=== PATIENT | female | born 1980 | race African-American/Black ===

== ENCOUNTER 2017-03-14 10:07 | Emergency (ER) | payer SELFPAY | END 2017-03-14 11:08 | disposition left against medical advice (07) | LOC: ERS 10:07 | DX: Z53.21 Procedure and treatment not carried out due to patient leaving prior to being seen by health care provider (principal) | CPT/HCPCS: 87081; 87430 ==

== ENCOUNTER 2018-09-19 18:02 | Emergency (ER) | payer SELFPAY ==
--- NOTE | 2018-09-19 18:49 | RAD ---
PA AND LATERAL CHEST: History: Chest pain. FINDINGS: Comparison is made with exam of 12-05-03. The heart size is normal. The lungs are well expanded without lobar consolidation, pneumothoraces or pleural effusions. No acute osseous abnormality is seen. IMPRESSION: No radiographic evidence of acute cardiopulmonary process. POS: [facility]
[2018-09-19 18:54] LABS: ALT (SGPT) 16 U/L (8-55); AST (SGOT) 143 U/L (5-34); Albumin 2.8 g/dL (3.5-5.0); Alkaline Phosphatase 194 U/L (40-150); Anion Gap 14 mmol/L (10-20); BUN (Urea Nitrogen) 4 mg/dL (7.0-18.7); CK (CPK) 39 U/L (29-168); Calc. Creatinine Clearance 0 mL/min (70-130); Calcium 8.4 mg/dL (7.8-10.44); Carbon Dioxide 25 mmol/L (22-29); Chloride 97 mmol/L (98-107); Estimated GFR-MDRD Greater than 90; Globulin 4.5 g/dL (2.4-3.5); Glucose 162 mg/dL (70-105); Protein, Total 7.3 g/dL (6.0-8.3); Sodium 133 mmol/L (136-145)
[2018-09-19 18:57] LABS: #Basophils 0.1 thou/uL (0.0-0.2); #Eosinphils 0.4 thou/uL (0.0-0.7); #Lymphocytes 1.3 thou/uL (1.20-3.40); #Monocytes 0.5 thou/uL (0.11-0.59); #Neutrophils 1.3 thou/uL (1.40-6.50); %Basophils 1.7 % (0.0-1.0); %Eosinophils 10.5 % (0.0-10.0); %Lymphocytes 36.8 % (21.0-51.0); %Monocytes 13.7 % (0.0-10.0); %Neutrophils 37.3 % (42.0-75.0); Anisocytosis SLIGHT = 6-15 cells (100X) (0-5/hpf); Hemoglobin 9.4 g/dL (12.0-16.0); Hypochromia SLIGHT = 6-15 cells (100X) (0-5/hpf); MDiff Complete? YES; Mean Corpuscular HGB CONC 29.9 g/dL (32.0-36.0); Mean Corpuscular Volume 73.5 fL (78.0-98.0); Mean Platelet Volume 7.6 fL (7.4-10.4); Microcytosis SLIGHT = 6-15 cells (100X) (0-5/hpf); Platelet Count 391 thou/uL (130-400); Poikilocytosis SLIGHT = 6-15 cells (100X) (0-5/hpf); RBC Distribution Width 19.1 % (11.5-14.5); Red Blood Cell (RBC) Count 4.28 mill/uL (4.20-5.40); White Blood Cell (WBC) Count 3.5 thou/uL (4.8-10.8)
[2018-09-19] MEDS ORDERED: Ondansetron ODT 4 MG TAB ONE (20:07)
== END 2018-09-19 21:27 | disposition home or self-care (01) ==
LOC: ERS 18:02
DX: R07.89 Other chest pain (principal); F32.9 Major depressive disorder, single episode, unspecified
CPT/HCPCS: 36415; 71046; 80053; 82550; 84484; 85025; 93005; Q0162

== ENCOUNTER 2019-01-19 09:28 | Emergency (ER) | payer SELFPAY ==
[2019-01-19 10:25] LABS: ALT (SGPT) 9 U/L (8-55); AST (SGOT) 111 U/L (5-34); Albumin 2.2 g/dL (3.5-5.0); Alkaline Phosphatase 167 U/L (40-110); Anion Gap 14 mmol/L (10-20); BUN (Urea Nitrogen) 5 mg/dL (7.0-18.7); Bilirubin, Total 3.4 mg/dL (0.2-1.2); Calc. Creatinine Clearance 0 mL/min (70-130); Calcium 8.4 mg/dL (7.8-10.44); Carbon Dioxide 29 mmol/L (22-29); Chloride 94 mmol/L (98-107); Estimated GFR-MDRD Greater than 90; Globulin 4.6 g/dL (2.4-3.5); Glucose 105 mg/dL (70-105); Protein, Total 6.8 g/dL (6.0-8.3); Sodium 134 mmol/L (136-145)
[2019-01-19 10:28] LABS: Potassium 2.9 mmol/L (3.5-5.1)
[2019-01-19 10:29] LABS: Hemoglobin 8.8 g/dL (12.0-16.0); Mean Corpuscular HGB CONC 31.5 g/dL (32.0-36.0); Mean Corpuscular Hemoglobin 33.9 pg (27.0-31.0); Mean Platelet Volume 6.7 fL (7.4-10.4); Platelet Count 293 thou/uL (130-400); RBC Distribution Width 20.9 % (11.5-14.5); Red Blood Cell (RBC) Count 2.59 mill/uL (4.20-5.40); White Blood Cell (WBC) Count 5.1 thou/uL (4.8-10.8)
[2019-01-19] MEDS ORDERED: Potassium Chloride 20 MEQ TAB ONE (10:34)
[2019-01-19 10:40] LABS: Bilirubin Large (Negative); Blood, Urine Negative (Negative); Glucose, Urine (Dipstick) 100 mg/dL (Negative); Leukocyte Trace (Negative); Nitrite Negative (Negative); Protein, Urine (Dipstick) Negative (Neg-Trace)
[2019-01-19 10:42] LABS: #Basophils 0.1 thou/uL (0.0-0.2); #Eosinphils 0.4 thou/uL (0.0-0.7); #Lymphocytes 1.2 thou/uL (1.20-3.40); #Monocytes 0.7 thou/uL (0.11-0.59); #Neutrophils 2.8 thou/uL (1.40-6.50); %Basophils 1.7 % (0.0-1.0); %Lymphocytes 23.5 % (21.0-51.0); %Monocytes 12.8 % (0.0-10.0); %Neutrophils 54.9 % (42.0-75.0); Anisocytosis SLIGHT = 6-15 cells (100X) (0-5/hpf); MDiff Complete? YES; Macrocytosis SLIGHT = 6-15 cells (100X) (0-5/hpf); Target Cells SLIGHT = 2-5 cells (100X) (0-1/hpf)
[2019-01-19 10:45] LABS: Clarity Hazy (Clear)
[2019-01-19 10:46] LABS: Pregnancy Test - Urine (BHCG) Negative (Negative); Pregu Control Background? CLEAR/WHITE (CLR/WHITE); Pregu Control Bar Appear? YES (CONTROL BAR); Specific Gravity 1.025 (1.002-1.036)
[2019-01-19 10:47] LABS: Bacteria/HPF 2+ HPF (None Seen); RBC/HPF 0-3 HPF (0-3)
--- NOTE | 2019-01-19 11:58 | CT ---
CTA OF THE THORAX UTILIZING IV CONTRAST AND PE PROTOCOL AND 3D REFORMATTED IMAGING: INDICATION: History of edema of the bilateral lower extremities with dyspnea and history of cervical cancer. FINDINGS: There is a tiny sub 4 mm pulmonary nodule within the lateral right middle lobe. No additional suspic ious pulmonary nodule is evident. No pleural effusion or pneumothorax is evident. No definite centr al pulmonary embolus is evident. The timing of the contrast bullous slightly limits evaluation of th e segmental pulmonary arterial tree. There is severe fatty infiltration of the liver. There is marked hepatomegaly. No definite acute os seous abnormality is evident. IMPRESSION: 1. No central pulmonary embolus. 2. No suspicious pulmonary nodule. Small sub 4 mm pulmonary nodule seen within the lateral right mi ddle lobe in a subpleural location. 3. Hepatomegaly with prominent fatty infiltration of the liver. POS: [facility]
[2019-01-19] MEDS ORDERED: Iopamidol-370 76% 500 ML 1 ML ONE (15:51)
== END 2019-01-19 12:30 | disposition home or self-care (01) ==
LOC: ERS 09:28
DX: M79.89 Other specified soft tissue disorders (principal); F32.9 Major depressive disorder, single episode, unspecified
CPT/HCPCS: 36415; 51701; 71275; 80053; 81003; 81015; 81025; 83880; 84443; 84484; 85025; 93005; A4353

== ENCOUNTER 2019-02-02 13:27 | Inpatient (IN) | payer MEDICAID, SELFPAY ==
[~2019-02-02 13:27] MED LIST: Lidocaine 1% PF 5 ML VIAL ONE; Ondansetron PF 4 MG/2 ML Vial ONE; PHENYLEPHRINE-NS 100 MCG/ML 10 ML SYRINGE ONE; Succinylcholine Chloride 20 MG/ML 10 ml SYRINGE FS ONE; diphenhydrAMINE 50 MG/ML VIAL ONE
[2019-02-02 14:05] LABS: #Basophils 0.1 thou/uL (0.0-0.2); #Eosinphils 0.1 thou/uL (0.0-0.7); #Lymphocytes 0.9 thou/uL (1.20-3.40); #Monocytes 0.9 thou/uL (0.11-0.59); #Neutrophils 6.4 thou/uL (1.40-6.50); %Basophils 0.7 % (0.0-1.0); %Eosinophils 1.2 % (0.0-10.0); %Lymphocytes 10.7 % (21.0-51.0); %Monocytes 10.4 % (0.0-10.0); Hemoglobin 7.5 g/dL (12.0-16.0); Mean Corpuscular Hemoglobin 32.6 pg (27.0-31.0); Mean Platelet Volume 6.3 fL (7.4-10.4); Platelet Count 315 thou/uL (130-400); RBC Distribution Width 18.2 % (11.5-14.5); White Blood Cell (WBC) Count 8.3 thou/uL (4.8-10.8)
[2019-02-02 14:28] LABS: ALT (SGPT) 11 U/L (8-55); AST (SGOT) 107 U/L (5-34); Albumin 2.2 g/dL (3.5-5.0); Alkaline Phosphatase 127 U/L (40-110); Anion Gap 10 mmol/L (10-20); BUN (Urea Nitrogen) 9 mg/dL (7.0-18.7); Bilirubin, Total 1.8 mg/dL (0.2-1.2); Calc. Creatinine Clearance 0 mL/min (70-130); Calcium 7.9 mg/dL (7.8-10.44); Carbon Dioxide 26 mmol/L (22-29); Chloride 103 mmol/L (98-107); Estimated GFR-MDRD Greater than 90; Globulin 4.4 g/dL (2.4-3.5); Glucose 121 mg/dL (70-105); Potassium 3.8 mmol/L (3.5-5.1); Protein, Total 6.6 g/dL (6.0-8.3); Sodium 135 mmol/L (136-145)
[2019-02-02 15:22] LABS: Bacteria/HPF None Seen HPF (None Seen); Bilirubin Negative (Negative); Blood, Urine Negative (Negative); Clarity Clear (Clear); Glucose, Urine (Dipstick) Normal (Negative); Leukocyte 25 Leu/uL (Negative); Nitrite Negative (Negative); Protein, Urine (Dipstick) 30 mg/dL (Neg-Trace); Squamous Epithelial 0-3 HPF (0-3); Urobilinogen 6 mg/dL (Less than 2)
[2019-02-02] MEDS ORDERED: Sodium Chloride 0.9% (PF) 10 ML VIAL FS PRN (15:22)
[2019-02-02 15:24] LABS: Pregnancy Test - Urine (BHCG) Negative (Negative); Pregu Control Background? CLEAR/WHITE (CLR/WHITE); Pregu Control Bar Appear? YES (CONTROL BAR); Specific Gravity 1.026 (1.002-1.036)
[2019-02-02] MEDS ORDERED: Pantoprazole 40 MG VIAL IVP SCH (15:30)
[2019-02-02] MEDS ORDERED: Pantoprazole 80 MG, Admixture Fee 1 EACH in Sodium Chloride 0.9% 100 ML IVPB SCH (15:30)
[2019-02-02 15:46] LABS: INR-International Normal Ratio 1.4; Prothrombin Time 16.9 SEC (12.0-14.7)
[2019-02-02] MEDS ORDERED: Pantoprazole 40 MG VIAL ONE (16:12)
[2019-02-02] MEDS ORDERED: Octreotide Acetate 1,250 MCG in Sodium Chloride 0.9% 250 ML 250 ML IVPB SCH ×2 (16:45→20:00)
[2019-02-02] MEDS ORDERED: Ondansetron PF 4 MG/2 ML Vial IVP PRN (19:54)
[2019-02-02] MEDS ORDERED: Bisacodyl 5 MG TAB PO PRN (19:54)
[2019-02-02] MEDS ORDERED: Pantoprazole 80 MG in Sodium Chloride 0.9% 100 ML IVPB SCH (20:00)
[2019-02-02] MEDS ORDERED: Fentanyl 100 MCG/2 ML VIAL ONE (20:15)
--- NOTE | 2019-02-02 20:18 | HP ---
PRIMARY CARE PROVIDER: Alejandra Rayne. CHIEF COMPLAINT: Vomiting blood. HISTORY OF PRESENT ILLNESS: Ms. España is a pleasant 38-year-old lady who was seen at [facility] on 02/02/2019. Family members report that she recently had cervical biopsy. She is supposed to see Dr. Anne when the biopsy report is available, but that has not happened yet. The patient reports that she used to drink only occasionally. However, she did tell the emergency room physician that she drinks half a pint of whiskey daily. She reports that around 12:30, she started vomiting blood. She reports multiple episodes of vomiting blood, dark blood clots mixed with bright blood. She denies any chest pain. She reports generalized weakness. She denies any lightheadedness. She denies any loss of consciousness. She denies any abdominal pain. REVIEW OF SYSTEMS: All systems were reviewed and found to be negative except for the pertinent positives mentioned above. PAST MEDICAL HISTORY: None. PAST SURGICAL HISTORY: section x2. PSYCHIATRIC HISTORY: Depression. SOCIAL HISTORY: The patient drinks half a pint of whiskey daily, according to emergency room report. She also reportedly uses cocaine. No history of tobacco use. FAMILY HISTORY: No family history of premature coronary artery disease. ALLERGIES: NAPROXEN. CURRENT MEDICATIONS: 1. K-Dur 20 mEq 2 times a day. 2. Keflex 500 mg 2 times a day. 3. Lasix 20 mg daily. PHYSICAL EXAMINATION: GENERAL: On examination, Ms. España is awake and alert, not in acute distress. VITAL SIGNS: Blood pressure is 94/59, pulse 133, respiratory rate 20, and oxygen saturation 99% on room air. She is afebrile. EYES: The patient has scleral icterus and conjunctival pallor. ENT: Dry mucosal membranes. No oropharyngeal erythema or exudates. NECK: Supple, nontender, trachea is midline. RESPIRATORY: Accessory muscles of breathing are not active. Chest wall movements are symmetric bilaterally. Lungs are clear to auscultation without wheeze, rhonchi, or crepitations. CARDIOVASCULAR: S1 and S2 are heard, tachycardic and regular. Peripheral pulses palpable. ABDOMEN: Soft, nontender, bowel sounds are heard. NEUROLOGIC: Cranial nerves 2 through 12 are intact. MUSCULOSKELETAL: The patient is able to move all 4 extremities. SKIN: No rashes. LYMPHATIC: No cervical lymphadenopathy. PSYCHIATRIC: Normal mood, normal affect, the patient is oriented to person, place, and time. LABORATORY DATA: Ms. España' labs and investigations were reviewed. She has normal white count, macrocytic anemia with hemoglobin 7.5, normal platelet count, INR 1.4, sodium decreased at 135, normal potassium, normal calcium, elevated total bilirubin of 1.8, elevated AST of 107, normal ALT, elevated alkaline phosphatase of 127 and decreased albumin of 2.2. Urinalysis is positive for protein, ketones, urobilinogen, rbc and wbc, negative for nitrite and has 25 leukocytes per microliter. ASSESSMENT AND PLAN: Ms. España is a pleasant 38-year-old lady who was seen at [facility] on 02/02/2019. Her problem list includes: 1. Symptomatic anemia: Ms. España is presenting with symptomatic anemia secondary to anemia of acute blood loss from upper gastrointestinal bleed. She will be admitted to the hospital. She has been started on Protonix and octreotide drips, which I will continue. Gastroenterology Service has also been consulted for possible emergent EGD. 2. Suspected Cervical cancer: Recently had cervical biopsy, the patient will need to follow up with Oncology Service as outpatient. 3. Alcohol abuse: The patient has been counseled regarding alcohol cessation. 4. Cocaine abuse: The patient has been counseled regarding cessation of recreational drugs. The patient is being admitted to critical care unit. Many thanks for allowing me to participate in your patient's care. Please feel free to contact me with any questions or concerns. LEVEL OF RISK: Moderate. LEVEL OF COMPLEXITY: Moderate. Job ID: [id number] [facility]
--- NOTE | 2019-02-02 20:40 | CON ---
DATE OF CONSULTATION: 02/02/2019 REQUESTING PHYSICIAN: Dr. Guerrero. REASON FOR CONSULTATION: Hematemesis. HISTORY OF PRESENT ILLNESS: Abi España is a 38-year-old woman presenting with acute hematemesis today and found to have anemia and tachycardia. She has a long history of heavy alcohol abuse, evidently having about a pint of whiskey per day at least until the past few weeks. She also has a prior history of cocaine use. She was seen by my partner, Dr. Noah Alvarenga, 10 years ago back in 2008. An EGD at that time demonstrated Helicobacter pylori gastritis and esophageal stricture, which was dilated. She has not had any gastrointestinal issues since then. Recently, within the past week, she had a cervical biopsy, she says for suspected cervical cancer, but has not heard back on the results yet. She states that early this afternoon about 1230 hours, she had the sudden onset of nausea and had acute hematemesis with bright red blood and clots. There was no preceding abdominal pain with this. She has not had any abdominal pain at all today. She has not had any bowel movements either. No melena or hematochezia, though she feels like she might need to have a bowel movement soon. Upon presentation, she had already had 2 more episodes of hematemesis, and then had another witnessed episode here of 300 mL documented. She is tachycardic with heart rate 135, blood pressure 99/64. She is receiving 2 units of RBC transfusion for initial hemoglobin 7.5 and she has been started on Protonix and octreotide as well. She says she has been told she has alcoholic liver disease, but no known diagnosis of cirrhosis that she can recall or that I can see from the chart. She had CT imaging earlier this month, which suggested hepatomegaly, but normal liver contour. REVIEW OF SYSTEMS: Full review of systems including constitutional, head, eyes, ears, nose, throat, GI, , cardiovascular, respiratory, musculoskeletal, neurologic systems is negative except as noted in the HPI. PAST MEDICAL HISTORY: 1. Depression. 2. . 3. Cervical biopsy. 4. Fatty liver disease. 5. H pylori gastritis in 2008. 6. Esophageal stricture in 2008. 7. Chronic alcohol abuse. 8. Prior drug abuse. SOCIAL HISTORY: The patient drinks about a pint of whiskey every day until recently. Prior cocaine abuse. FAMILY HISTORY: Noncontributory. ALLERGIES: NAPROXEN. MEDICATIONS: 1. Potassium 20 mEq daily. 2. Keflex 500 mg twice daily. 3. Lasix 20 mg daily. PHYSICAL EXAMINATION: VITAL SIGNS: Temperature 98.7, pulse 138, blood pressure 99/64, 99% oxygen saturation on room air. GENERAL: A petite 38-year-old woman, sitting up in bed comfortably, in no distress. SKIN: No jaundice. No rashes were palpable. HEENT: Eyes, no scleral icterus. Extraocular movements intact. ENT, mucous membranes moist. No oral lesions. LYMPH: No submandibular, supraclavicular lymphadenopathy. THYROID: Nontender to palpation. HEART: Regular. Tachycardia. LUNGS: Clear to auscultation bilaterally. ABDOMEN: Nondistended. Bowel sounds present. Soft and nontender to palpation throughout. EXTREMITIES: Trace edema around the ankles. NEURO: Cranial nerves 2 through 12 intact bilaterally. No focal deficits. LABORATORY STUDIES: Hemoglobin is 7.5. Note, hemoglobin was 8.8 two weeks ago. MCV is 102, WBC 8.3, platelets 315. INR 1.4. Sodium 135, potassium 3.8, BUN only 9, creatinine 0.62, total bilirubin 1.8, alkaline phosphatase 127, AST 107, ALT 11, albumin 2.2. BNP 112.2. TSH is 0.782. Urinalysis shows 7 to 10 wbc's. ASSESSMENT AND PLAN: 1. Acute hematemesis. 2. Anemia, likely secondary to acute and chronic blood loss. 3. Alcoholic liver disease, unknown if the patient actually has cirrhosis. 4. Alcohol abuse. The patient's presentation is consistent with hemodynamically significant acute upper GI bleeding. Due to the painless nature and her long-term alcohol use, and concern for possible variceal bleeding, she also does have a prior history of H pylori. She is receiving RBC transfusion now, agrees with the Protonix and octreotide infusions. We are going to plan for upper endoscopy later this evening. The patient will probably need to be in a monitored setting. Further recommendations following EGD. Job ID: [id number]
[2019-02-02] MEDS ORDERED: Ondansetron HCl/PF 4 MG/2 ML Vial IVP PRN (21:24)
[2019-02-02] MEDS ORDERED: Morphine Sulfate 2 MG/ML SYRINGE SLOW IVP PRN (21:24)
[2019-02-02] MEDS ORDERED: Promethazine HCl 25 MG/ML VIAL SLOW IVP PRN (21:24)
[2019-02-02] MEDS ORDERED: Promethazine HCl 25 MG/ML VIAL IM PRN (21:24)
[2019-02-02 23:05] VITALS: BMI 18.5
[2019-02-02] MEDS: Sodium Chloride 0.9% 1,000 ML IV SCH (23:26)
[2019-02-03 00:16] LABS: Hemoglobin 7.5 g/dL (12.0-16.0)
--- NOTE | 2019-02-03 02:53 | OP ---
DATE OF PROCEDURE: 02/02/2019 TEACHER AIDE CLERICAL SURGEON: None. PROCEDURE PERFORMED: EGD with control of hemorrhage indications. INDICATIONS: 1. Hematemesis. 2. Acute blood loss anemia. MEDICATIONS: See Anesthesia record. FINDINGS: After discussion of the risks, benefits, and alternatives of the procedure, informed consent was obtained and witnessed. Pre-endoscopic cardiopulmonary examination was satisfactory. Time-out was performed before sedation was achieved. Sedation was achieved with Anesthesia assistance in the endoscopy unit. The patient was endotracheally intubated under general anesthesia for the procedure and placed in the left lateral decubitus position. A Pentax adult therapeutic upper endoscope was placed into the oropharynx and passed through the cricopharyngeus under direct visualization. There was fresh blood coating the entire esophagus. Extensive irrigation and suctioning were applied to clear the esophagus for examination. The esophageal mucosa is diffusely fibrotic and small in caliber. In fact, with endoscope passage down the upper esophagus, there is significant mucosal denudation. The appearance is overall suspicious for possible eosinophilic esophagitis. At 25 cm, which is in the mid esophagus, there is a large tear, which is not a result of scope trauma, with a large visible vessel actively bleeding in an arterial fashion. I quickly passed the scope down the remainder of the esophagus. There were no esophageal varices noted. I advanced the scope beyond the GE junction, where there is a Maribell-Gentile tear with a nonbleeding visible vessel. The endoscope was passed into the stomach. Forward and retroflexed views of the gastric mucosa were obtained. There was a large amount of fresh blood and clots filling up the entire gastric fundus and I was unable to clear all of these to completely clear the fundus. However, I was able to get a good retroflexed views of the GE junction area showing only the aforementioned Maribell-Gentile tear which is nonbleeding and no evidence of gastric varices. The gastric antrum appeared normal. I advanced the scope beyond the pylorus and into the first and second portions of the duodenum, which appeared normal. At this point, the endoscope was withdrawn back into the mid esophagus with the actively bleeding visible vessel was located. This area was treated with 10-Marshallese bipolar cautery and good hemostasis was achieved. The endoscope was then passed back down into the stomach and on retroflexed views of the GE junction, the Maribell-Gentile tear was brought into view. I did elect to also treat this visible vessel within that tear with bipolar cautery and good hemostasis was maintained in that area. At this point, the upper endoscope was completely withdrawn and the patient allowed to recover. The patient tolerated the procedure well. There were no immediate postprocedure complications. IMPRESSION: 1. Actively bleeding mucosal tear with visible vessel in the mid esophagus at 25 cm. Cauterized with bipolar probe, with good hemostasis. 2. Nonbleeding Maribell-Gentile tear at the GE junction, with visible vessel. Cauterized, with good hemostasis maintained in this area. 3. Diffusely fibrotic small caliber esophagus, suggestive of eosinophilic esophagitis, with some mucosal tearing induced by the endoscope passage in the upper esophagus, but no significant bleeding from this area. 4. Gastric fundus full of blood and clots, unable to completely clear the gastric fundus. 5. Normal-appearing gastric antrum, first and second portions of the duodenum. RECOMMENDATION: 1. Continue the PPI drip. 2. Do not pass any nasogastric tube. 3. Remain n.p.o. for now. 4. Monitor closely overnight. Trend H and H and transfuse as needed. Continue with aggressive resuscitation as you are doing. Job ID: [id number]
[2019-02-03 04:56] LABS: #Basophils 0.1 thou/uL (0.0-0.2); #Eosinphils 0.1 thou/uL (0.0-0.7); #Lymphocytes 2.3 thou/uL (1.20-3.40); #Monocytes 1.4 thou/uL (0.11-0.59); #Neutrophils 7.1 thou/uL (1.40-6.50); %Basophils 0.6 % (0.0-1.0); %Eosinophils 0.5 % (0.0-10.0); %Lymphocytes 21.2 % (21.0-51.0); %Monocytes 13.1 % (0.0-10.0); %Neutrophils 64.7 % (42.0-75.0); Hemoglobin 9.8 g/dL (12.0-16.0); Mean Corpuscular HGB CONC 33.1 g/dL (32.0-36.0); Mean Corpuscular Volume 90.7 fL (78.0-98.0); Mean Platelet Volume 6.8 fL (7.4-10.4); Platelet Count 261 thou/uL (130-400); Red Blood Cell (RBC) Count 3.28 mill/uL (4.20-5.40)
[2019-02-03 05:02] LABS: Anion Gap 9 mmol/L (10-20); BUN (Urea Nitrogen) 16 mg/dL (7.0-18.7); Calc. Creatinine Clearance 90 mL/min (70-130); Calcium 7.4 mg/dL (7.8-10.44); Carbon Dioxide 24 mmol/L (22-29); Chloride 111 mmol/L (98-107); Estimated GFR-MDRD Greater than 90; Glucose 121 mg/dL (70-105); Sodium 140 mmol/L (136-145)
[2019-02-03] MEDS: Sodium Chloride 0.9% 1,000 ML IV SCH ×2 (06:29→22:19)
[2019-02-03] MEDS ORDERED: FLU VACC QS2019-20(6MOS UP)/PF 60 MCG/0.5 ML SYRINGE IM ONE (09:00)
[2019-02-03] MEDS ORDERED: Benzocaine (Dental) 20% 10 gm Tube TOP PRN (09:47)
--- NOTE | 2019-02-03 09:51 | PRG ---
DATE OF SERVICE: 02/03/2019 SUBJECTIVE: Ms. España had a fairly uneventful night. Blood pressure is stabilized with continued resuscitation and 2 more units RBCs. She passed another melenic stools. She has not had any further hematemesis. No significant abdominal pain or chest pain. No fever. Hemoglobin came up to 9.8 after 4 units total RBC transfusion. She remains tachycardic, but states this is her baseline. OBJECTIVE: VITAL SIGNS: Pulse 129, blood pressure 111/62, 98% oxygen saturation on room air, and temperature 98.3. GENERAL: No acute distress, sitting up in bed comfortably. HEART: Regular tachycardia. LUNGS: Clear to auscultation bilaterally. ABDOMEN: Nondistended. Bowel sounds present. Soft, nontender to palpation. EXTREMITIES: No peripheral edema. LABORATORY STUDIES: Hemoglobin 9.8, WBC 11.0, platelets 261. INR 1.4. Sodium 140, potassium 4.0, BUN 16, and creatinine 0.68. ASSESSMENT AND PLAN: 1. Esophageal ulcer with visible vessel and active hemorrhage, status post bipolar cautery treatment last night. 2. Maribell-Gentile tear with visible vessel, status post bipolar cautery treatment last night. 3. Acute blood loss anemia, seems to stabilize this morning. Note that the patient did not have any esophageal or gastric varices noted. I was unable to completely clear the gastric fundus on exam, but the actively bleeding lesion was found in the mid esophagus. I see no evidence of further active bleeding this morning. I would continue the Protonix drip for now. She can have a clear liquid diet. Continue to monitor closely. Please call anytime for significant changes in her clinical status. Job ID: [id number]
--- NOTE | 2019-02-03 17:20 | PDOC.HOSPP ---
- Subjective Encounter Date: 02/03/19 Encounter Time: 08:40 Subjective: Pt seen for followup re: acute blood loss anemia. Feels well, no complaints. - Objective Vital Signs & Weight: Vital Signs (12 hours) Temp 02/03/19 16:00 99.1 F 02/03/19 12:00 98.5 F 02/03/19 08:00 98.7 F Weight Admit Weight 114 lb Weight 114 lb 10.246 oz Most Recent Monitor Data Heart Rate from ECG 131 NIBP 120/73 NIBP BP-Mean 88 Respiration from ECG 23 SpO2 99 I&O: 02/02/19 02/03/19 02/04/19 06:59 06:59 06:59 Intake Total 1750.1 320 Output Total 300 Balance 1750.1 20 Result Diagrams: 02/03/19 04:07 02/03/19 04:07 Additional Labs: Labs and MARs reviewed by me EKG Reviewed by me: Yes (Tele: sinus tachycardia) Hospitalist ROS - Review of Systems Cardiovascular: denies: chest pain, palpitations, orthopnea, paroxysmal noc. dyspnea, edema, light headedness Gastrointestinal: denies: nausea, vomiting, abdominal pain, diarrhea, constipation, hematochezia Genitourinary: denies: dysuria, frequency, incontinence, hematuria, retention - Medication Medications: Active Medications Generic Name Dose Route Start Last Admin Trade Name Freq PRN Reason Stop Dose Admin Sodium Chloride 1,000 mls @ 50 mls/hr 02/02/19 20:00 02/03/19 06:29 Normal Saline 0.9% IV 1,000 mls .Q20H MEGAN Administration - Exam General Appearance: NAD Eye: scleral icterus ENT: normocephalic atraumatic Neck: supple Heart - other findings: S1, S2, tachy, reg Respiratory: CTAB Gastrointestinal: soft, non-tender Extremities: no cyanosis Psychiatric: normal affect, normal behavior Hosp A/P (1) Acute blood loss anemia Code(s): D62 - ACUTE POSTHEMORRHAGIC ANEMIA Status: Acute (2) Esophageal ulcer Code(s): K22.10 - ULCER OF ESOPHAGUS WITHOUT BLEEDING Status: Acute Qualifiers: Esophageal ulcer bleeding: with bleeding Qualified Code(s): K22.11 - Ulcer of esophagus with bleeding (3) Maribell-Gentile tear Code(s): K22.6 - GASTRO-ESOPHAGEAL LACERATION-HEMORRHAGE SYNDROME Status: Acute (4) Alcohol abuse Code(s): F10.10 - ALCOHOL ABUSE, UNCOMPLICATED Status: Chronic (5) Moderate protein-calorie malnutrition Code(s): E44.0 - MODERATE PROTEIN-CALORIE MALNUTRITION Status: Chronic - Plan plan discussed w/ family, out of bed/ambulate, DVT proph w/SCDs s/p EGD. Continue Protonix. Monitor for further bleeding. ASE protocol.
[2019-02-03] MEDS: Pantoprazole 80 MG, Admixture Fee 1 EACH in Sodium Chloride 0.9% 100 ML IVPB SCH (22:19)
--- NOTE | 2019-02-04 01:33 | CON ---
DATE OF CONSULTATION: HISTORY OF PRESENT ILLNESS: Ms. Rubio is a very pleasant 38-year-old female who presented with GI bleed. She has undergone endoscopy late last night, which revealed Maribell-Gentile tear with a nonbleeding visible vessel. Stomach was full of blood. There were no varices seen. Cautery and hemostasis were obtained. She has not had any symptoms of bleeding since then. I was consulted because of her presence in the Critical Care Unit. PAST MEDICAL HISTORY: Remarkable for two C sections and depression in the past. She drinks half a pint to a pint of whiskey a day. She uses drugs, mainly cocaine. She is not a smoker. FAMILY HISTORY: Negative for lung disease in early age. ALLERGIES: REPORTS ALLERGIES TO NAPROSYN. MEDICATIONS: Have been reviewed. REVIEW OF SYSTEMS: Ten points otherwise negative. She was throwing up blood prior to admission. She says she is no longer throwing up blood. She does say that she always has a heart rate of 115 to 120. PHYSICAL EXAMINATION: VITAL SIGNS: She is in sinus rhythm, heart rate of 125, blood pressure 122/78, respiratory rate 16, oximetry is 99. HEAD AND NECK: Unremarkable. She appears older than her age. She has temporal muscle wasting. NECK: Supple. She has no lymphadenopathy. LUNGS: Clear. HEART: Regular rhythm. ABDOMEN: Soft and nontender. EXTREMITIES: Without clubbing, cyanosis, or edema. LABORATORY DATA: White count 8.3, hemoglobin 7.5, MCV was 102 on admission. She has been transfused and her hemoglobin is up to 9.8 at this point. Electrolytes were remarkable for sodium 140, potassium 4, chloride 111, bicarb 24, BUN 16, creatinine 0.68. Protime was 16.9. Urinalysis was fairly unremarkable with 4 to 6 red cells, 7 to 10 white cells. IMPRESSION: 1. Gastrointestinal bleed. 2. History of alcohol use. 3. History of drug use. PLAN: Continue supportive care. She has had no signs of recurrent bleeding, so she could be transferred out of the Critical Care Unit. TIME SPENT: This is a 70-minute consult, 50% of the time spent on the unit coordinating care. Job ID: [id number]
[2019-02-04 04:37] LABS: Anion Gap 8 mmol/L (10-20); BUN (Urea Nitrogen) 8 mg/dL (7.0-18.7); Calc. Creatinine Clearance 110 mL/min (70-130); Calcium 7.6 mg/dL (7.8-10.44); Carbon Dioxide 23 mmol/L (22-29); Chloride 111 mmol/L (98-107); Estimated GFR-MDRD Greater than 90; Glucose 87 mg/dL (70-105); Sodium 139 mmol/L (136-145)
[2019-02-04 04:43] LABS: #Basophils 0.1 thou/uL (0.0-0.2); #Eosinphils 0.2 thou/uL (0.0-0.7); #Monocytes 0.6 thou/uL (0.11-0.59); %Basophils 0.9 % (0.0-1.0); %Eosinophils 2.8 % (0.0-10.0); %Lymphocytes 35.1 % (21.0-51.0); %Monocytes 10.1 % (0.0-10.0); %Neutrophils 51.2 % (42.0-75.0); Hemoglobin 8.1 g/dL (12.0-16.0); Mean Corpuscular Hemoglobin 30.8 pg (27.0-31.0); Mean Corpuscular Volume 90.4 fL (78.0-98.0); Mean Platelet Volume 6.7 fL (7.4-10.4); Platelet Count 246 thou/uL (130-400); RBC Distribution Width 15.9 % (11.5-14.5); Red Blood Cell (RBC) Count 2.63 mill/uL (4.20-5.40); White Blood Cell (WBC) Count 5.8 thou/uL (4.8-10.8)
[2019-02-04 04:55] LABS: Potassium 2.9 mmol/L (3.5-5.1)
[2019-02-04] MEDS: Potassium Chloride 20 MEQ in Premix Bag 1 BAG IVPB SCH ×2 (05:21→07:57)
[2019-02-04] MEDS: Pantoprazole 80 MG, Admixture Fee 1 EACH in Sodium Chloride 0.9% 100 ML IVPB SCH ×2 (08:14→19:08)
--- NOTE | 2019-02-04 10:21 | PDOC.HOSPP ---
- Subjective Encounter Date: 02/04/19 Subjective: Patient feels better only c/o is genaralised weakness. - Objective Vital Signs & Weight: Vital Signs (12 hours) Temp Pulse Ox 02/04/19 08:00 98 02/04/19 06:00 98.6 F 02/04/19 00:00 98.3 F Weight Admit Weight 114 lb Weight 114 lb 10.246 oz Most Recent Monitor Data Heart Rate from ECG 123 NIBP 125/81 NIBP BP-Mean 95 Respiration from ECG 21 SpO2 99 I&O: 02/03/19 02/04/19 02/05/19 06:59 06:59 06:59 Intake Total 1750.1 2115 360 Output Total 750 200 Balance 1750.1 1365 160 Result Diagrams: 02/04/19 03:34 02/04/19 03:34 Hospitalist ROS - Review of Systems Constitutional: reports: weakness - Medication Medications: Active Medications Generic Name Dose Route Start Last Admin Trade Name Freq PRN Reason Stop Dose Admin Sodium Chloride 1,000 mls @ 50 mls/hr 02/02/19 20:00 02/03/19 22:19 Normal Saline 0.9% IV 1,000 mls .Q20H MEGAN Administration Pantoprazole Sodium 80 mg/ 100 mls @ 10 mls/hr 02/03/19 11:15 02/04/19 08:14 Miscellaneous Medication 1 IVPB 100 mls each/ Sodium Chloride INF MEGAN Administration - Exam General Appearance: awake alert Eye: PERRL ENT: normocephalic atraumatic Neck: supple, symmetric, no thyromegaly Heart: no murmur, no gallops Heart - other findings: sinus tachycardia Respiratory: no wheezes, no rales Gastrointestinal: soft, non-tender, non-distended, normal bowel sounds Extremities: no cyanosis, no clubbing Skin: no rashes Neurological: no weakness, no focal deficits, no new deficit Musculoskeletal: normal tone, normal strength Psychiatric: normal behavior Hosp A/P (1) Acute blood loss anemia Code(s): D62 - ACUTE POSTHEMORRHAGIC ANEMIA Status: Acute (2) Esophageal ulcer Code(s): K22.10 - ULCER OF ESOPHAGUS WITHOUT BLEEDING Status: Acute Qualifiers: Esophageal ulcer bleeding: with bleeding Qualified Code(s): K22.11 - Ulcer of esophagus with bleeding (3) Maribell-Gentile tear Code(s): K22.6 - GASTRO-ESOPHAGEAL LACERATION-HEMORRHAGE SYNDROME Status: Acute (4) Alcohol abuse Code(s): F10.10 - ALCOHOL ABUSE, UNCOMPLICATED Status: Chronic (5) Moderate protein-calorie malnutrition Code(s): E44.0 - MODERATE PROTEIN-CALORIE MALNUTRITION Status: Chronic (6) Hypokalemia Code(s): E87.6 - HYPOKALEMIA Status: Acute Plan: WILL supplement. - Plan old records reviewed/req, plan discussed w/ family, out of bed/ambulate 1.Patient still has some maroon to dark colored stools. 2.sinus tachycardia though patient says its chronic.
--- NOTE | 2019-02-04 18:25 | PRG ---
DATE OF SERVICE: 02/04/2019 SUBJECTIVE: Abi España has shown no external signs of bleeding. OBJECTIVE: VITAL SIGNS: She is afebrile, heart rates in the 120 range, respiratory rates in the teens, oximetry is 99. LUNGS: Clear. HEART: Regular rhythm. ABDOMEN: Soft and nontender. EXTREMITIES: Without asymmetry. LABORATORY DATA: White count 5.8, hemoglobin 8.1, platelets 246. Sodium 139, potassium 2.9, chloride 111, bicarb 23, BUN 8, creatinine 0.56, albumin is 2.2. Urinalysis did not show significant proteinuria. IMPRESSION: 1. Status post Maribell-Gentile bleed. 2. Resting tachycardia. She says she is always somewhat tachycardic. I do not see where thyroid function tests have been done, so it would be reasonable to check thyroid function studies. PLAN: She is stable to move out of the Critical Care Unit in my opinion. Her hemoglobin yesterday morning was 9.8, today it is 8.1. Job ID: [id number]
[2019-02-05] MEDS: Pantoprazole 80 MG, Admixture Fee 1 EACH in Sodium Chloride 0.9% 100 ML IVPB SCH ×2 (05:16→15:00)
[2019-02-05 06:16] LABS: Hemoglobin 7.8 g/dL (12.0-16.0); Mean Corpuscular HGB CONC 33.9 g/dL (32.0-36.0); Mean Corpuscular Hemoglobin 30.9 pg (27.0-31.0); Mean Corpuscular Volume 91.2 fL (78.0-98.0); Mean Platelet Volume 6.3 fL (7.4-10.4); Platelet Count 240 thou/uL (130-400); RBC Distribution Width 15.8 % (11.5-14.5); Red Blood Cell (RBC) Count 2.52 mill/uL (4.20-5.40); White Blood Cell (WBC) Count 4.1 thou/uL (4.8-10.8)
[2019-02-05 06:39] LABS: ALT (SGPT) Less than 7 U/L (8-55); AST (SGOT) 37 U/L (5-34); Albumin 1.8 g/dL (3.5-5.0); Alkaline Phosphatase 80 U/L (40-110); Anion Gap 6 mmol/L (10-20); BUN (Urea Nitrogen) 4 mg/dL (7.0-18.7); Bilirubin, Total 1.2 mg/dL (0.2-1.2); Calc. Creatinine Clearance 116 mL/min (70-130); Calcium 7.6 mg/dL (7.8-10.44); Carbon Dioxide 25 mmol/L (22-29); Chloride 109 mmol/L (98-107); Estimated GFR-MDRD Greater than 90; Glucose 91 mg/dL (70-105); Potassium 3.3 mmol/L (3.5-5.1); Protein, Total 4.8 g/dL (6.0-8.3); Sodium 137 mmol/L (136-145)
--- NOTE | 2019-02-05 13:07 | PDOC.HOSPP ---
- Subjective Encounter Date: 02/05/19 Subjective: no c/o hemetemesis - Objective Vital Signs & Weight: Vital Signs (12 hours) Temp Pulse Ox 02/05/19 07:40 100 02/05/19 07:16 99.1 F 02/05/19 03:40 98.0 F Weight Admit Weight 114 lb Weight 114 lb 10.246 oz Most Recent Monitor Data Heart Rate from ECG 129 NIBP 124/82 NIBP BP-Mean 96 Respiration from ECG 23 SpO2 98 I&O: 02/04/19 02/05/19 02/06/19 06:59 06:59 06:59 Intake Total 2115 1647 773 Output Total 750 621 Balance 1365 1026 773 Result Diagrams: 02/05/19 06:03 02/05/19 06:03 Hospitalist ROS - Review of Systems Other: feeling better,requesting regular diet - Medication Medications: Active Medications Generic Name Dose Route Start Last Admin Trade Name Freq PRN Reason Stop Dose Admin Sodium Chloride 1,000 mls @ 50 mls/hr 02/02/19 20:00 02/03/19 22:19 Normal Saline 0.9% IV 1,000 mls .Q20H MEGAN Administration Pantoprazole Sodium 80 mg/ 100 mls @ 10 mls/hr 02/03/19 11:15 02/05/19 05:16 Miscellaneous Medication 1 IVPB 100 mls each/ Sodium Chloride INF MEGAN Administration - Exam Eye: PERRL, anicteric sclera ENT: normocephalic atraumatic, no oropharyngeal lesions, moist mucosa Neck: supple, symmetric, no JVD, no thyromegaly, no lymphadenopathy, no carotid bruit Heart: RRR, no murmur, no gallops, no rubs, normal peripheral pulses Respiratory: CTAB, no wheezes, no rales, no ronchi, normal chest expansion, no tachypnea, normal percussion Gastrointestinal: soft, non-tender, non-distended, normal bowel sounds, no palpable masses, no hepatomegaly, no splenomegaly, no bruit Extremities: no cyanosis, no clubbing, no edema Skin: normal turgor, no lesions, no rashes Neurological: cranial nerve grossly intact, normal sensation to touch, no weakness, no focal deficits, no new deficit Musculoskeletal: normal tone, normal strength, no muscle wasting Psychiatric: normal affect, normal behavior, A&O x 3 Hosp A/P (1) Acute blood loss anemia Code(s): D62 - ACUTE POSTHEMORRHAGIC ANEMIA Status: Acute Plan: this seems to stabilize. (2) Esophageal ulcer Code(s): K22.10 - ULCER OF ESOPHAGUS WITHOUT BLEEDING Status: Ruled-out Qualifiers: Esophageal ulcer bleeding: with bleeding Qualified Code(s): K22.11 - Ulcer of esophagus with bleeding (3) Maribell-Gentile tear Code(s): K22.6 - GASTRO-ESOPHAGEAL LACERATION-HEMORRHAGE SYNDROME Status: Acute Plan: we will progress patient to regular diet in am. (4) Alcohol abuse Code(s): F10.10 - ALCOHOL ABUSE, UNCOMPLICATED Status: Chronic (5) Moderate protein-calorie malnutrition Code(s): E44.0 - MODERATE PROTEIN-CALORIE MALNUTRITION Status: Chronic (6) Hypokalemia Code(s): E87.6 - HYPOKALEMIA Status: Acute - Plan old records reviewed/req, out of bed/ambulate 1.Patient still has some maroon to dark colored stools. 2.sinus tachycardia though patient says its chronic. 3.ECHO eval pending. 4.Can be transferred to med-surg.
[2019-02-05] MEDS: Sodium Chloride 0.9% 1,000 ML IV SCH ×2 (14:39)
--- NOTE | 2019-02-05 20:00 | PRG ---
DATE OF SERVICE: 02/05/2019 SUBJECTIVE: This is a 38-year-old black female with upper GI bleeding due to a tear at the mid esophagus and also Maribell-Gentile tear. She underwent BICAP therapy by Dr. West Templeton 2 days ago and she has done well. She is not having any more black stools. She is not having nausea or vomiting. No chest pain. No abdominal pain. She is tolerating full liquid diet. She offers no complaints. PHYSICAL EXAMINATION: VITAL SIGNS: Pulse is 126, blood pressure is 124/89. CARDIOVASCULAR SYSTEM: First and second heart sounds normal. LUNGS: Clear to auscultation. ABDOMEN: Soft. No organomegaly. No tenderness. No masses. LABORATORY DATA: Today shows mild drop in hemoglobin from 8.1 to 7.8, hematocrit 23. Chem 7 is normal except mild hypokalemia. RECOMMENDATIONS: 1. Continue PPI. 2. Advance diet to mechanical soft diet. Job ID: [id number]
--- NOTE | 2019-02-05 20:57 | PRG ---
DATE OF SERVICE: 02/05/2019 SUBJECTIVE: Abi España has no complaints. She says she is feeling well. She denies passing any blood. OBJECTIVE: VITAL SIGNS: She is afebrile, heart rate is 125, respiratory rate is 18, oximetry is 100, and blood pressure 124/84. LUNGS: Clear. HEART: Rapid rhythm. Regular rate. ABDOMEN: Soft. LABORATORY DATA: White count 4.1, hemoglobin 7.8, and platelets 240,000. Electrolytes; sodium 137, potassium 3.3, chloride 109, bicarb 25, BUN 4, creatinine 0.53, and albumin is 1.8. TSH is 1.4. IMPRESSION: 1. Gastrointestinal bleed secondary to Maribell-Gentile tear. 2. Resting tachycardia that she says is chronic. 3. Hypoalbuminemia with no significant proteinuria, arguing for significant liver disease. PLAN: An echocardiogram was ordered to rule out subclinical cardiomyopathy. We will follow. Job ID: [id number]
[2019-02-06] MEDS: Pantoprazole 80 MG, Admixture Fee 1 EACH in Sodium Chloride 0.9% 100 ML IVPB SCH ×2 (02:11→12:00)
[2019-02-06] MEDS: Sodium Chloride 0.9% 1,000 ML IV SCH (05:08)
[2019-02-06 06:52] LABS: #Basophils 0.1 thou/uL (0.0-0.2); #Eosinphils 0.3 thou/uL (0.0-0.7); #Lymphocytes 1.3 thou/uL (1.20-3.40); #Monocytes 0.5 thou/uL (0.11-0.59); %Basophils 1.5 % (0.0-1.0); %Eosinophils 7.5 % (0.0-10.0); %Lymphocytes 30.9 % (21.0-51.0); %Monocytes 11.5 % (0.0-10.0); %Neutrophils 48.7 % (42.0-75.0); Hemoglobin 7.6 g/dL (12.0-16.0); Mean Corpuscular HGB CONC 33.6 g/dL (32.0-36.0); Mean Corpuscular Hemoglobin 30.9 pg (27.0-31.0); Mean Corpuscular Volume 91.9 fL (78.0-98.0); Mean Platelet Volume 6.5 fL (7.4-10.4); Platelet Count 270 thou/uL (130-400); RBC Distribution Width 16.2 % (11.5-14.5); Red Blood Cell (RBC) Count 2.47 mill/uL (4.20-5.40); White Blood Cell (WBC) Count 4.1 thou/uL (4.8-10.8)
[2019-02-06 07:57] VITALS: BP 123/84; TEMP 98.4
--- NOTE | 2019-02-06 10:17 | PRG ---
DATE OF SERVICE: 02/06/2019 SUBJECTIVE: This morning, she is better. OBJECTIVE: She got a resting tachycardia for 117, temperature 98, respirations 16, saturations 100%, blood pressure 120/84. Denies any pain or difficulty breathing. H and H are 7 and 22, platelet count 270. TSH is normal. IMPRESSION: Status post gastrointestinal bleed, resting tachycardia. EF is normal. Pulmonary Critical Care, she is stable. Hopefully, she can be discharged home in the next 24 to 48 hours. Job ID: [id number]
--- NOTE | 2019-02-06 11:59 | PRG ---
DATE OF SERVICE: 02/04/2019 SUBJECTIVE: This is a 38-year-old female who underwent EGD by Dr. West Templeton, was found to have bleeding and was treated with BICAP therapy. She has done well overnight. She is on clear liquid diet. She has no abdominal pain. She has had some stool. OBJECTIVE: VITAL SIGNS: Pulse , blood pressure . HEENT: Conjunctivae are clear. . EXTREMITIES: Reveal no . CLINICAL IMPRESSION: Upper gastrointestinal bleeding, status post BICAP therapy. RECOMMENDATIONS: 1. Advance . 2. . Job ID: [id number]
--- NOTE | 2019-02-06 13:26 | PRG ---
DATE OF SERVICE: 02/06/2019 SUBJECTIVE: Ms. España did very well this weekend. She has been advancing her diet. She is tolerating her regular diet for dinner yesterday and breakfast today. There is no chest pain or dysphagia. No fevers or abdominal pain. Hemoglobin has remained essentially stable. OBJECTIVE: VITAL SIGNS: Temperature 98.4, pulse 117, 100% oxygen saturation on room air, blood pressure is 123/84. GENERAL: No acute distress, sitting up in bed comfortably. HEART: Regular, tachycardia. LUNGS: Clear to auscultation bilaterally. ABDOMEN: Soft, nontender to palpation. EXTREMITIES: No peripheral edema. LABORATORY STUDIES: Hemoglobin 7.6, WBC 4.1, platelets 270. INR 1.4. Sodium 137, potassium 3.3, BUN down to 9, creatinine 0.53, total bilirubin 1.2, alkaline phosphatase 80, AST 37, ALT less than 7. TSH 0.427. ASSESSMENT/PLAN: 1. Multiple Maribell-Gentile tears with active hemorrhage from mid esophagus, status post EGD with cautery of the midesophagus performed 4 days ago on 02/02/2019. 2. Acute blood loss anemia, stable. The patient is doing well, no further evidence of any active bleeding since initial presentation and EGD. I advised that she is going to need to continue on twice daily PPI therapy as an outpatient after discharge. She might do best with Prevacid SoluTab 30 mg twice daily. She will need to be on high-dose PPI therapy at least the next couple of months, and we will plan to see her back in the GI clinic in 2 to 3 weeks to see how she has done with preclinic CBC. In the meantime, I asked her to chew her food thoroughly, also advised her to completely abstain from all alcohol going forward. GI will sign off. No barriers to hospital discharge from a GI perspective. Job ID: [id number]
[2019-02-06] MEDS ORDERED: Sucralfate 1 GM/10 ML UDCUP PO SCH (21:00)
--- NOTE | 2019-02-07 03:59 | DIS ---
DATE OF ADMISSION: 02/02/2019 DATE OF DISCHARGE: 02/06/2019 DISCHARGING PHYSICIAN: Jarrett Duarte. ADMISSION DIAGNOSES: 1. Acute symptomatic anemia. 2. Suspected cervical cancer. 3. Alcohol abuse. 4. Cocaine abuse. CONSULTATIONS: 1. At [facility], Dr. Oralia Rodgers, Gastroenterology. 2. Dr. Alexander Snowden, Pulmonary Critical Care. 3. Dr. Salbador Ghotra, Pulmonary Critical Care. PROCEDURES: 1. At [facility], status post EGD with a diagnosis of actively bleeding mucosal tear with visible vessel in the mid esophagus at 25 cm, cauterized with bipolar probe with good hemostasis. 2. Nonbleeding Maribell-Gentile tear at the GE junction with visible vessel cauterized with good hemostasis maintained in this area. 3. Diffuse fibrotic small caliber esophagus suggestive of eosinophilic esophagitis with some mucosal tearing induced by the endoscopy passage in upper area but no significant bleeding from this area. Gastric fundus is full of blood and clots. Unable to completely clear the gastric fundus. RECOMMENDATIONS: 1. Continue PPIs and Carafate. 2. Gastroenterology specific recommendations, to follow up as an outpatient in 2 weeks. DISCHARGING DIAGNOSES: 1. Acute upper gastrointestinal bleed secondary to multiple esophageal tears along with esophageal ulcer. The patient at this point of time prescribed oral pantoprazole along with Carafate. 2. Acute blood loss anemia. Close monitoring of the patient's hemoglobin was noted and it was stabilized. 3. History of alcohol abuse. 4. History of recreational drug abuse. 5. Protein calorie malnutrition. 6. Hypokalemia, supplement and then treated. HOSPITAL COURSE: This is a 38-year-old female admitted to the Hospitalist Services secondary to significant upper GI bleed with hematemesis, was evaluated and subsequently admitted to ICU for more close monitoring secondary to significant acute blood loss anemia. The patient was further referred to Gastroenterology evaluation where she had emergent endoscopy evaluation done showing evidence of significant Maribell-Gentile tear secondary to alcohol abuse and drug abuse along with visible ulcers which were cauterized and hemostasis was obtained without any further bleeding. The patient was started on IV pantoprazole along with the Carafate, which was eventually transitioned to oral pantoprazole as the patient was tolerating oral diet very well. The patient tolerated her diet very well and the patient's hemoglobin and hematocrit were followed up which were optimized over the course of her hospitalization. The patient at this point of time was extensively educated about abstaining from any alcohol or drug abuse and she did comprehend this education multiple times. At the same time, she was prescribed pantoprazole along with Carafate, which she tolerated very well. The patient remained hemodynamically stable over the course of her hospitalization and was advised. DISCHARGE PLAN: For further follow up with Gastroenterology as well as outpatient Gynecology for suspicion of cervical cancer but questionable though and patient did take appointments for the same. DISPOSITION: Discharged home. PHYSICAL EXAMINATION: CVS: S1, S2. CHEST: Bilateral air entry present. ABDOMEN: Soft. EXTREMITIES: No cyanosis. ALLERGIES: NAPROXEN. ACTIVITY: As tolerated to fall precautions. DIET: Regular diet. Extensive chewing has been noted to the patient. IMMUNIZATION HISTORY: Up-to-date. DISCHARGE MEDICATIONS: 1. Pantoprazole 40 mg b.i.d. 2. Sucralfate 1 g b.i.d. DISCHARGE PLAN: The patient has been extensively educated about abstaining from alcohol and recreational drug abuse. Also advised about followup with Gastroenterology, Gynecology, Oncology and schedules have been made. TIME SPENT: The whole discharge process including discharge coordination took me more than 35 minutes. Job ID: [id number] [facility]
== END 2019-02-06 17:56 | disposition home or self-care (01) | DRG 381 ==
LOC: ERS 13:27 → CCU 22:37 → SURG A 02-04 12:19 → IMCU/EMU 02-04 12:28 → T4-A 02-05 16:07
PROVIDERS: ADMIT Internal Medicine; ATTEND Internal Medicine
PROC: 0DJ08ZZ Inspection of Upper Intestinal Tract, Via Natural or Artificial Opening Endoscopic (ICD-10-PCS; principal; 2019-02-02)
PROC: 0W3P8ZZ Control Bleeding in Gastrointestinal Tract, Via Natural or Artificial Opening Endoscopic (ICD-10-PCS; 2019-02-02)
DX: K22.11 Ulcer of esophagus with bleeding (principal); D62 Acute posthemorrhagic anemia; E44.0 Moderate protein-calorie malnutrition; Z68.1 Body mass index [BMI] 19.9 or less, adult; K22.6 Gastro-esophageal laceration-hemorrhage syndrome; F32.9 Major depressive disorder, single episode, unspecified; C53.9 Malignant neoplasm of cervix uteri, unspecified; F10.10 Alcohol abuse, uncomplicated; F14.10 Cocaine abuse, uncomplicated; K22.8 Other specified diseases of esophagus; E87.6 Hypokalemia; K70.9 Alcoholic liver disease, unspecified; K20.0 Eosinophilic esophagitis
CPT/HCPCS: 36415; 36430; 80048; 80053; 81003; 81015; 81025; 84443; 85025; 85027; 85610; 86850; 86900; 86901; 93306; C9113; J1200; J2001; J2354; J2405; J3010; J3480; J3490; J7050; P9016; P9059

== ENCOUNTER 2019-02-11 09:55 | Emergency (ER) | payer MEDICAID ==
[2019-02-11 12:26] LABS: #Basophils 0.1 thou/uL (0.0-0.2); #Eosinphils 0.7 thou/uL (0.0-0.7); #Lymphocytes 1.5 thou/uL (1.20-3.40); #Monocytes 0.6 thou/uL (0.11-0.59); #Neutrophils 2.7 thou/uL (1.40-6.50); %Basophils 1.2 % (0.0-1.0); %Eosinophils 12.8 % (0.0-10.0); %Lymphocytes 27.5 % (21.0-51.0); %Monocytes 9.9 % (0.0-10.0); %Neutrophils 48.7 % (42.0-75.0); Hemoglobin 8.8 g/dL (12.0-16.0); Mean Corpuscular HGB CONC 32.5 g/dL (32.0-36.0); Mean Corpuscular Hemoglobin 30.6 pg (27.0-31.0); Mean Corpuscular Volume 94.2 fL (78.0-98.0); Mean Platelet Volume 6.2 fL (7.4-10.4); Platelet Count 347 thou/uL (130-400); RBC Distribution Width 16.6 % (11.5-14.5); Red Blood Cell (RBC) Count 2.88 mill/uL (4.20-5.40); White Blood Cell (WBC) Count 5.5 thou/uL (4.8-10.8)
[2019-02-11 12:28] LABS: Bacteria/HPF None Seen HPF (None Seen); Bilirubin Negative (Negative); Blood, Urine Negative (Negative); Clarity Clear (Clear); Glucose, Urine (Dipstick) Normal (Negative); Leukocyte 250 Leu/uL (Negative); Nitrite Negative (Negative); Protein, Urine (Dipstick) Negative (Neg-Trace); RBC/HPF 0-3 HPF (0-3); Squamous Epithelial 0-3 HPF (0-3)
[2019-02-11 12:30] LABS: Pregnancy Test - Urine (BHCG) Negative (Negative); Pregu Control Background? CLEAR/WHITE (CLR/WHITE); Pregu Control Bar Appear? YES (CONTROL BAR); Specific Gravity 1.011 (1.002-1.036)
[2019-02-11 12:31] LABS: INR-International Normal Ratio 1.2; Prothrombin Time 14.8 SEC (12.0-14.7)
[2019-02-11 12:32] LABS: PTT 40.9 SEC (22.9-36.1)
[2019-02-11 12:37] LABS: Amphetamine Not Detected (NotDetected); Barbiturates Screen Not Detected (NotDetected); Benzodiazepine Screen Not Detected (NotDetected); Cocaine Metabolite Screen Detected (NotDetected); Medtox Control Line Valid? VALID (VALID); Medtox Reader # READER 4; Methadone Not Detected (NotDetected); Methamphetamine Not Detected (NotDetected); Opiate Screen Not Detected (NotDetected); Oxycodone Screen Not Detected (NotDetected); Phencyclidine (PCP) Not Detected (NotDetected); THC/Cannabinoid Screen Not Detected (NotDetected); Tricyclic Screen Not Detected (NotDetected)
[2019-02-11 12:47] LABS: Acetaminophen Less than 6.0 mcg/mL (10.0-30.0); Alcohol Less than 10 mg/dL (Less than 10); Salicylate Less than 8.0 mg/dL (15.0-30.0)
[2019-02-11 12:54] LABS: ALT (SGPT) 7 U/L (8-55); AST (SGOT) 43 U/L (5-34); Albumin 2.4 g/dL (3.5-5.0); Alcohol Less than 10 mg/dL (Less than 10); Alkaline Phosphatase 79 U/L (40-110); Anion Gap 8 mmol/L (10-20); BUN (Urea Nitrogen) 5 mg/dL (7.0-18.7); Bilirubin, Total 1.1 mg/dL (0.2-1.2); Calc. Creatinine Clearance 0 mL/min (70-130); Calcium 8.2 mg/dL (7.8-10.44); Carbon Dioxide 31 mmol/L (22-29); Chloride 105 mmol/L (98-107); Estimated GFR-MDRD Greater than 90; Globulin 4.1 g/dL (2.4-3.5); Glucose 90 mg/dL (70-105); Lipase 60 U/L (8-78); Magnesium 1.6 mg/dL (1.6-2.6); Potassium 3.6 mmol/L (3.5-5.1); Protein, Total 6.5 g/dL (6.0-8.3); Sodium 140 mmol/L (136-145)
--- NOTE | 2019-02-11 13:24 | RAD ---
CHEST 1 VIEW: INDICATION: History of blood transfusion and concern for volume overload. COMPARISON: Prior chest radiograph dated 09/19/2018. FINDINGS: There is mild cardiomegaly and mild pulmonary vascular congestion. There is mild interstitial edema. No florid or pleural effusion is evident. No acute osseous abnormality is evident. IMPRESSION: Cardiomegaly with mild pulmonary vascular congestion and mild interstitial edema without florid pulmo nary edema or pleural effusions. POS: CET
== END 2019-02-11 14:00 | disposition home or self-care (01) ==
LOC: ERS 09:55
DX: E87.70 Fluid overload, unspecified (principal); F10.10 Alcohol abuse, uncomplicated; F14.10 Cocaine abuse, uncomplicated; F32.9 Major depressive disorder, single episode, unspecified; Y90.0 Blood alcohol level of less than 20 mg/100 ml; Z79.899 Other long term (current) drug therapy
CPT/HCPCS: 36415; 71045; 80053; 80306; 80307; 81003; 81015; 81025; 83690; 83735; 83880; 84443; 84484; 85025; 85610; 85730

== ENCOUNTER 2019-02-16 15:44 | Emergency (ER) | payer MEDICAID, SELFPAY ==
[2019-02-16 16:12] LABS: #Basophils 0.1 thou/uL (0.0-0.2); #Eosinphils 0.7 thou/uL (0.0-0.7); #Lymphocytes 1.8 thou/uL (1.20-3.40); #Monocytes 0.8 thou/uL (0.11-0.59); #Neutrophils 3.2 thou/uL (1.40-6.50); %Basophils 1.2 % (0.0-1.0); %Eosinophils 10.1 % (0.0-10.0); %Lymphocytes 27.5 % (21.0-51.0); %Monocytes 12.5 % (0.0-10.0); %Neutrophils 48.7 % (42.0-75.0); Hemoglobin 9.3 g/dL (12.0-16.0); Mean Corpuscular Hemoglobin 29.2 pg (27.0-31.0); Mean Corpuscular Volume 91.3 fL (78.0-98.0); Mean Platelet Volume 6.3 fL (7.4-10.4); Platelet Count 357 thou/uL (130-400); RBC Distribution Width 17.1 % (11.5-14.5); Red Blood Cell (RBC) Count 3.19 mill/uL (4.20-5.40); White Blood Cell (WBC) Count 6.7 thou/uL (4.8-10.8)
[2019-02-16 16:36] LABS: ALT (SGPT) 7 U/L (8-55); AST (SGOT) 57 U/L (5-34); Albumin 2.9 g/dL (3.5-5.0); Alkaline Phosphatase 99 U/L (40-110); Anion Gap 11 mmol/L (10-20); BUN (Urea Nitrogen) 5 mg/dL (7.0-18.7); Calc. Creatinine Clearance 0 mL/min (70-130); Calcium 8.9 mg/dL (7.8-10.44); Carbon Dioxide 28 mmol/L (22-29); Chloride 102 mmol/L (98-107); Estimated GFR-MDRD Greater than 90; Globulin 4.8 g/dL (2.4-3.5); Glucose 99 mg/dL (70-105); Potassium 3.7 mmol/L (3.5-5.1); Protein, Total 7.7 g/dL (6.0-8.3); Sodium 137 mmol/L (136-145)
== END 2019-02-16 16:55 | disposition home or self-care (01) ==
LOC: ERS 15:44
DX: D64.9 Anemia, unspecified (principal); F32.9 Major depressive disorder, single episode, unspecified; Z79.899 Other long term (current) drug therapy
CPT/HCPCS: 36415; 80053; 85025; 86850; 86900; 86901; 99284

== ENCOUNTER 2019-03-03 13:21 | Outpatient (CLI) | payer MEDICAID ==
--- NOTE | 2019-03-03 14:18 | MMO ---
Bilateral MAMMO Bilat Screen DDI. CLINICAL HISTORY: Patient is 38 years old and is seen for screening. The patient has the following family history of breast cancer: paternal grandmother. VIEWS: The views performed were: bilateral craniocaudal and bilateral mediolateral oblique. This study has been interpreted with the assistance of computer-aided detection. MAMMOGRAM FINDINGS: The breasts are heterogeneously dense, which could obscure a lesion on mammography. There are no suspicious masses, suspicious calcifications, or new areas of architectural distortion. IMPRESSION: THERE IS NO MAMMOGRAPHIC EVIDENCE OF MALIGNANCY. A ROUTINE FOLLOW-UP MAMMOGRAM IN 1 YEAR IS RECOMMENDED. ACR BI-RADS Category 1 - Negative MAMMOGRAPHY NOTE: 1. A negative mammogram report should not delay a biopsy if a dominant of clinically suspicious mass is present. 2. Approximately 10% to 15% of breast cancers are not detected by mammography. 3. Adenosis and dense breasts may obscure an underlying neoplasm. Reported by: DIMITRIOS AREVALO MD Electonically Signed: [id number]
== END 2019-03-03 13:22 | disposition home or self-care (01) ==
LOC: BICMAMMO 13:21
DX: Z12.31 Encounter for screening mammogram for malignant neoplasm of breast (principal); Z80.3 Family history of malignant neoplasm of breast
CPT/HCPCS: 77067

== ENCOUNTER 2019-06-18 16:42 | Emergency (ER) | payer MEDICAID, SELFPAY ==
[2019-06-18] MEDS ORDERED: Pantoprazole 40 MG VIAL ONE (17:12)
[2019-06-18 17:51] LABS: #Basophils 0.1 thou/uL (0.0-0.2); #Eosinphils 0.2 thou/uL (0.0-0.7); #Monocytes 0.4 thou/uL (0.11-0.59); #Neutrophils 1.6 thou/uL (1.40-6.50); %Basophils 1.6 % (0.0-1.0); %Eosinophils 4.9 % (0.0-10.0); %Monocytes 13.7 % (0.0-10.0); %Neutrophils 48.8 % (42.0-75.0); Mean Corpuscular HGB CONC 32.3 g/dL (32.0-36.0); Mean Corpuscular Hemoglobin 29.4 pg (27.0-31.0); Mean Platelet Volume 7.7 fL (7.4-10.4); Platelet Count 216 thou/uL (130-400); Red Blood Cell (RBC) Count 3.75 mill/uL (4.20-5.40); White Blood Cell (WBC) Count 3.2 thou/uL (4.8-10.8)
[2019-06-18 17:56] LABS: INR-International Normal Ratio 1.2; PTT 39.4 SEC (22.9-36.1); Prothrombin Time 15.4 SEC (12.0-14.7)
[2019-06-18 18:06] LABS: Anisocytosis MODERATE=16-30 cells (100X) (0-5/hpf); MDiff Complete? YES; Platelet Morphology Comment Appears Adequate; Polychromasia SLIGHT = 2-3 cells (100X) (0-2/hpf)
--- NOTE | 2019-06-18 18:12 | RAD ---
PORTABLE CHEST: Comparison: 02-11-19 History: Nausea, vomiting, blood in stool. FINDINGS: Heart size and mediastinum are within normal limits. The lungs are clear of infiltrates. Bone appear somewhat demineralized. IMPRESSION: No active intrathoracic disease. POS: VON
[2019-06-18 18:13] LABS: ALT (SGPT) 15 U/L (8-55); AST (SGOT) 195 U/L (5-34); Albumin 3.1 g/dL (3.5-5.0); Alkaline Phosphatase 169 U/L (40-110); Anion Gap 11 mmol/L (10-20); BUN (Urea Nitrogen) 4 mg/dL (7.0-18.7); Bilirubin, Total 0.6 mg/dL (0.2-1.2); Calc. Creatinine Clearance 0 mL/min (70-130); Calcium 8.8 mg/dL (7.8-10.44); Carbon Dioxide 28 mmol/L (22-29); Chloride 100 mmol/L (98-107); Estimated GFR-MDRD Greater than 90; Globulin 4.3 g/dL (2.4-3.5); Glucose 98 mg/dL (70-105); Lipase 25 U/L (8-78); Potassium 4.2 mmol/L (3.5-5.1); Protein, Total 7.4 g/dL (6.0-8.3); Sodium 135 mmol/L (136-145)
--- NOTE | 2019-06-21 14:03 | EKG ---
Test Reason : Blood Pressure : / mmHG Vent. Rate : 112 BPM Atrial Rate : 112 BPM P-R Int : 138 ms QRS Dur : 076 ms QT Int : 348 ms P-R-T Axes : 082 011 077 degrees QTc Int : 475 ms Sinus tachycardia Septal infarct , age undetermined Abnormal ECG Confirmed by ANDRA FABIAN, SIA ([id number]), desk editor YOLANDA DRIVER ([id number]) on 06/21/2019 2:03:01 PM Referred By: Confirmed By:SIA SILVERMAN MD
== END 2019-06-18 18:46 | disposition home or self-care (01) ==
LOC: ERS 16:42
DX: K62.5 Hemorrhage of anus and rectum (principal); D64.9 Anemia, unspecified; Z79.899 Other long term (current) drug therapy
CPT/HCPCS: 71045; 80053; 82274; 83690; 85025; 85610; 85730; 86850; 86900; 86901; 93005; 96361; 96374; C9113

== ENCOUNTER 2019-07-24 09:32 | Outpatient (CLI) | payer OTHER ==
--- NOTE | 2019-07-24 10:54 | ULT ---
ABDOMINAL ULTRASOUND COMPLETE: HISTORY: Abdominal pain. FINDINGS: The liver is borderline in size. There is borderline increased echogenicity, nonspecific, possibly s ome fatty change. No focal liver mass. Common bile duct 0.4 cm. No evidence for gallstones, gallbl adder wall thickening, or pericholecystic fluid. Possible tiny amount of gallbladder sludge. Visual ized pancreas, IVC, aorta, and spleen show no acute process. There is a small nonshadowing echogenic focus within the inferior right kidney, nonspecific. No renal hydronephrosis. IMPRESSION: 1. Borderline-sized liver with minimal increased echogenicity, nonspecific, possibly some fatty esparza ge without ductal dilatation. 2. No definitive gallstones, questionable minute sludge. 3. Nonspecific nonshadowing echogenic focus in the lower pole of the right kidney. POS: [facility]
== END 2019-07-24 09:33 | disposition home or self-care (01) ==
LOC: BICULT 09:32
PROVIDERS: ATTEND Internal Medicine
DX: K29.70 Gastritis, unspecified, without bleeding (principal); B96.81 Helicobacter pylori [H. pylori] as the cause of diseases classified elsewhere; R10.13 Epigastric pain; R11.2 Nausea with vomiting, unspecified; R19.7 Diarrhea, unspecified; R93.2 Abnormal findings on diagnostic imaging of liver and biliary tract; R93.421 Abnormal radiologic findings on diagnostic imaging of right kidney
CPT/HCPCS: 93975

== ENCOUNTER 2019-07-24 12:10 | Observation (INO) | payer OTHER ==
[2019-07-24] MEDS ORDERED: Ondansetron PF 4 MG/2 ML Vial ONE (12:43)
[2019-07-24 13:12] LABS: #Basophils 0.1 thou/uL (0.0-0.2); #Lymphocytes 0.9 thou/uL (1.20-3.40); #Monocytes 0.4 thou/uL (0.11-0.59); #Neutrophils 1.8 thou/uL (1.40-6.50); %Eosinophils 1.2 % (0.0-10.0); %Monocytes 11.9 % (0.0-10.0); %Neutrophils 56.9 % (42.0-75.0); Hemoglobin 12.7 g/dL (12.0-16.0); Mean Corpuscular HGB CONC 31.2 g/dL (32.0-36.0); Mean Corpuscular Hemoglobin 32.1 pg (27.0-31.0); Mean Platelet Volume 7.7 fL (7.4-10.4); Platelet Count 202 thou/uL (130-400); Red Blood Cell (RBC) Count 3.95 mill/uL (4.20-5.40); White Blood Cell (WBC) Count 3.2 thou/uL (4.8-10.8)
[2019-07-24 13:34] LABS: ALT (SGPT) Less than 7 U/L (8-55); AST (SGOT) 32 U/L (5-34); Albumin 2.8 g/dL (3.5-5.0); Alkaline Phosphatase 125 U/L (40-110); Anion Gap 15 mmol/L (10-20); BUN (Urea Nitrogen) 5 mg/dL (7.0-18.7); Bilirubin, Total 0.8 mg/dL (0.2-1.2); Calc. Creatinine Clearance 0 mL/min (70-130); Calcium 8.1 mg/dL (7.8-10.44); Carbon Dioxide 29 mmol/L (22-29); Chloride 95 mmol/L (98-107); Estimated GFR-MDRD Greater than 90; Globulin 4.1 g/dL (2.4-3.5); Glucose 101 mg/dL (70-105); Lipase 22 U/L (8-78); Protein, Total 6.9 g/dL (6.0-8.3); Sodium 136 mmol/L (136-145)
[2019-07-24 13:37] LABS: Potassium 2.7 mmol/L (3.5-5.1)
[2019-07-24 13:42] LABS: Bacteria/HPF None Seen HPF (None Seen); Bilirubin 1+ (Negative); Blood, Urine Negative (Negative); Clarity Clear (Clear); Glucose, Urine (Dipstick) Normal (Negative); Leukocyte Negative Leu/uL (Negative); Nitrite Negative (Negative); Protein, Urine (Dipstick) 50 mg/dL (Neg-Trace); RBC/HPF 0-3 HPF (0-3); Squamous Epithelial 0-3 HPF (0-3); Urobilinogen 3 mg/dL (Less than 2)
[2019-07-24] MEDS ORDERED: Potassium Chloride 20 MEQ TAB ONE (14:08)
[2019-07-24] MEDS ORDERED: Potassium Chloride 20 MEQ TAB PO SCH (14:15)
[2019-07-24] MEDS ORDERED: cefTRIAXone\\ROCEPHIN 1 GM VIAL ONE (19:18)
[2019-07-24] MEDS ORDERED: Acetaminophen 325 MG TAB PO PRN (20:15)
[2019-07-24] MEDS ORDERED: Ondansetron PF 4 MG/2 ML Vial IVP PRN (20:15)
[2019-07-24] MEDS ORDERED: Ondansetron ODT 4 MG TAB PO PRN (20:15)
[2019-07-24] MEDS ORDERED: Promethazine HCl 25 MG/ML VIAL IM PRN (20:17)
--- NOTE | 2019-07-24 20:19 | PDOC.HHP ---
Hospitalist HPI - History of Present Illness abd pain, nausea/vomiting History of Present Illness: This is a 39 year old female with past medical history of esophageal ulcer who presents to the ER with abdominal pain, nausea and vomiting. The patient states that she started having abdominal pain about 4-5 days ago . She describes it as a dull, epigastric area, nonradiating, worst with eating food and worst with walking. She has been vomiting about 3-4 times a day and states that is clear in color. She was unable to keep a popsicle down so she came to the Er. She had an abdominal US done this morning by Dr. Templeton she says but does not know the results. She has no history of gallstones previously. The patient denies fevers or chills. Her last solid meal was last weekend and she states she cooked at home and there was nothing undercooked. She has been having two loose stools a day. She denies dizziness or lightheadedness but has been having palpitations. The patient reports that she was previously a heavy alcohol drinker, drinking 1 pint a day but she has not drank alcohol for the past four days. She has history of esophageal ulcer in January 2019 and has been taking protonix and sucralfate Patient reports urinary frequency secondary to lasix that she takes, but no dysuria. ED Course: The patient presented to the ER with BP of 113 and HR of 102. She was noted to have a WBC of 3.2, potassium of 2.7. She was given 2.5 L of IV fluid in the ER, total of 80 of potassium. UA showed 11-20 WBC. She was given IV ceftriaxone for possible UTi Hospitalist ROS - Review of Systems Constitutional: denies: fever, chills ENT: denies: ear pain, ear discharge Respiratory: denies: cough, dry, shortness of breath Cardiovascular: denies: chest pain, palpitations, orthopnea Gastrointestinal: reports: nausea, vomiting, abdominal pain, diarrhea Genitourinary: reports: frequency. denies: dysuria - Exam General Appearance: NAD, awake alert Eye: PERRL, anicteric sclera ENT: normocephalic atraumatic, no oropharyngeal lesions Neck: no JVD Heart: RRR, no murmur, no gallops, no rubs Respiratory: CTAB, no wheezes, no rales, no ronchi Gastrointestinal: soft Gastrointestinal - other findings: epigastric tenderness Extremities: no cyanosis, no clubbing, no edema Skin: normal turgor, no lesions, no rashes Neurological: cranial nerve grossly intact, normal sensation to touch, no focal deficits, no new deficit Musculoskeletal: normal tone, normal strength, no muscle wasting Hospitalist Results - Labs Result Diagrams: 07/24/19 12:55 07/24/19 12:55 Lab results: WBC 3.2 thou/uL (4.8-10.8) L 07/24/19 12:55 Hgb 12.7 g/dL (12.0-16.0) 07/24/19 12:55 Hct 40.6 % (36.0-47.0) 07/24/19 12:55 MCV 103.0 fL (78.0-98.0) H 07/24/19 12:55 Plt Count 202 thou/uL (130-400) 07/24/19 12:55 Neutrophils % 56.9 % (42.0-75.0) 07/24/19 12:55 Sodium 136 mmol/L (136-145) 07/24/19 12:55 Potassium 2.7 mmol/L (3.5-5.1) L* 07/24/19 12:55 Chloride 95 mmol/L (98-107) L 07/24/19 12:55 Carbon Dioxide 29 mmol/L (22-29) 07/24/19 12:55 BUN 5 mg/dL (7.0-18.7) L 07/24/19 12:55 Creatinine 0.69 mg/dL (0.6-1.1) 07/24/19 12:55 Glucose 101 mg/dL (70-105) 07/24/19 12:55 Calcium 8.1 mg/dL (7.8-10.44) 07/24/19 12:55 Total Bilirubin 0.8 mg/dL (0.2-1.2) 07/24/19 12:55 AST 32 U/L (5-34) 07/24/19 12:55 ALT Less than 7 U/L (8-55) L 07/24/19 12:55 Alkaline Phosphatase 125 U/L (40-110) H 07/24/19 12:55 Troponin I 0.011 ng/mL (< 0.028) 07/24/19 12:55 Serum Total Protein 6.9 g/dL (6.0-8.3) 07/24/19 12:55 Albumin 2.8 g/dL (3.5-5.0) L 07/24/19 12:55 Lipase 22 U/L (8-78) 07/24/19 12:55 Urine Ketones 20 mg/dL (Negative) A 07/24/19 13:24 Urine Blood Negative (Negative) 07/24/19 13:24 Urine Nitrite Negative (Negative) 07/24/19 13:24 Ur Leukocyte Esterase Negative Ho/uL (Negative) 07/24/19 13:24 Urine RBC 0-3 HPF (0-3) 07/24/19 13:24 Urine WBC 11-20 HPF (0-3) A 07/24/19 13:24 Ur Squamous Epith Cells 0-3 HPF (0-3) 07/24/19 13:24 Urine Bacteria None Seen HPF (None Seen) 07/24/19 13:24 - EKG Interpretation EKG: sinus tachycardia Hospitalist H&P A/P - Plan Plan: Abd US: possible fatty liver. No gallstones, minute sludge This is a 39 year old female patient with history of esophageal ulcer presenting with intractable abdominal pain, nausea, vomiting #Abdominal pain #History of esophageal ulcer #Intractable nausea/vomiting #Diarrhea - possibly may be secondary to gastritis/GERD vs infectious process. Will send stool cultures - abdominal US was unremarkable aside from fatty liver - will order IV protonix for now and continue sucralfate - zofran/phenergan prn for nausea - consider GI consult if no improvement #Hypokalemia - potassium 2.7. S/p 80 meq of potassium .Will recheck BMP - #Sinus tachycardia - due to dehydration - hydrate with IV fluids DVT prophylaxis: ambulation Code status: full code
[2019-07-24] MEDS: Sodium Chloride 0.9% 1,000 ML IV SCH (22:17)
[2019-07-24] MEDS: Sodium Chloride 0.9% (PF) 10 ML VIAL FS PRN (22:18)
[2019-07-24] MEDS: Pantoprazole 40 MG VIAL IVP SCH (22:18)
[2019-07-24 22:50] VITALS: BMI 18.4
[2019-07-24 23:12] LABS: Medtox Reader # READER 4
[2019-07-24 23:13] LABS: Amphetamine Not Detected (NotDetected); Barbiturates Screen Not Detected (NotDetected); Benzodiazepine Screen Not Detected (NotDetected); Cocaine Metabolite Screen Detected (NotDetected); Medtox Control Line Valid? VALID (VALID); Methadone Not Detected (NotDetected); Methamphetamine Detected (NotDetected); Opiate Screen Detected (NotDetected); Oxycodone Screen Not Detected (NotDetected); Phencyclidine (PCP) Not Detected (NotDetected); THC/Cannabinoid Screen Not Detected (NotDetected); Tricyclic Screen Not Detected (NotDetected)
[2019-07-25 00:02] LABS: Potassium 3.3 mmol/L (3.5-5.1)
[2019-07-25] MEDS ORDERED: Potassium Chloride 20 MEQ TAB PO SCH ×2 (00:30→10:00)
[2019-07-25 05:02] LABS: ALT (SGPT) Less than 7 U/L (8-55); AST (SGOT) 28 U/L (5-34); Albumin 2.2 g/dL (3.5-5.0); Alkaline Phosphatase 100 U/L (40-110); Anion Gap 11 mmol/L (10-20); BUN (Urea Nitrogen) Less than 4 mg/dL (7.0-18.7); Bilirubin, Total 0.3 mg/dL (0.2-1.2); Calc. Creatinine Clearance 91 mL/min (70-130); Calcium 7.4 mg/dL (7.8-10.44); Carbon Dioxide 21 mmol/L (22-29); Chloride 107 mmol/L (98-107); Estimated GFR-MDRD Greater than 90; Globulin 3.7 g/dL (2.4-3.5); Glucose 108 mg/dL (70-105); Potassium 3.4 mmol/L (3.5-5.1); Protein, Total 5.9 g/dL (6.0-8.3); Sodium 136 mmol/L (136-145)
[2019-07-25 05:21] LABS: Free T4 (Free Thyroxine) 0.75 ng/dL (0.70-1.48)
[2019-07-25] MEDS: Sodium Chloride 0.9% 1,000 ML IV SCH (07:33)
[2019-07-25] MEDS: Pantoprazole 40 MG VIAL IVP SCH (09:11)
[2019-07-25] MEDS: Sodium Chloride 0.9% (PF) 10 ML VIAL FS PRN (09:11)
[2019-07-25 11:50] VITALS: BP 109/77
--- NOTE | 2019-07-25 14:57 | DIS ---
DATE OF ADMISSION: 07/24/2019 DATE OF DISCHARGE: 07/25/2019 DISCHARGE DIAGNOSES: 1. Abdominal pain and diarrhea possibly secondary to Clostridium difficile infection 2. Intractable nausea and vomiting 3. Hypokalemia 4. Sinus tachycardia. 5. History of esophageal ulcer CONSULTATIONS: None. PROCEDURES: None. BRIEF HISTORY OF PRESENT ILLNESS: This is a 39-year-old female with past medical history of esophageal ulcer, who presented to the emergency room with intractable abdominal pain, nausea and vomiting for the past 4 to 5 days. The patient also reported that she was having diarrhea for the past 1 week. She reports that she quit drinking alcohol 4 days prior. She does have a history of esophageal ulcer and was taking Protonix and sucralfate as an outpatient. She did have an abdominal ultrasound done prior to coming to the emergency room, which was consistent with a fatty liver. Next, upon arrival to the emergency room, the patient had a heart rate of 102. She has sinus tachycardia. Her white count was low at 3.2. Her potassium was 2.7. Her UA showed 11 to 20 white blood cells. She was given ceftriaxone empirically for possible UTI. HOSPITAL COURSE: Abdominal pain/diarrhea, possibly secondary to C. diff infection: The patient was started on IV Protonix for possible gastritis initially. She was given nausea medications p.r.n. She had stool culture sent for ova and parasites, Shiga toxins and Campylobacter, which came back normal. Bacterial stool culture is still pending. Stool lactoferrin was elevated. C. diff infection was positive. The patient also had U tox done, which was positive for cocaine, methamphetamines, and opiates. She had used cocaine three days prior, but did not use any methamphetamines to her knowledge. She did report taking Tylenol 3 for abdominal pain that was prescribed by Dr. Templeton however not sure if he prescribed this or not. Her TSH was unremarkable. The patient was able to tolerate a regular diet on the day of discharge. She will be discharged with Zofran p.r.n. and potassium supplements as needed for diarrhea. She will be discharged with oral vancomycin to complete a 10 day course. I spoke with Dr. Templeton about discontinuing her PPI. He stated that it was okay to continue this for now. She should follow up with her PCP and Dr. Templeton in a week. Hypokalemia: The patient's potassium was 2.7. She received a total of 80 mEq of potassium. Her repeat potassium on the day of discharge was 3.4. She was discharged with potassium supplementation on discharge. She was advised to discontinue her Lasix. Sinus tachycardia: The patient did have a heart rate of 110. She was hydrated with IV fluids with improvement in her sinus tachycardia. Urinary frequency: The patient reported urinary frequently secondary to taking Lasix at home. She did have UA which showed 11 to 20 white blood cells. Her urine culture was pending at the time of discharge. She was given 1 dose of IV ceftriaxone empirically in the emergency room, but this was not continued due to her C. diff infection. If this comes back positive, we will consider antibiotic supplementation. DISCHARGE PHYSICAL EXAMINATION: VITAL SIGNS: Temperature 98.6, heart rate 103, respiratory rate 17, O2 saturation 100% on room air, and blood pressure 109/77. GENERAL: The patient is very lean with BMI of 18.5. CVS: Regular rate and rhythm with no murmurs, rubs, or gallops. LUNGS: Clear to auscultation bilaterally. ABDOMEN: Positive bowel sounds, soft, nontender, nondistended. EXTREMITIES: No edema. LABORATORY DATA: CBC 07/23: White count 3.2, hemoglobin 12.7, hematocrit 40.3, MCV 103, platelet count 203. BMP 06/24: Potassium is 3.4. Rest of BMP unremarkable. LFTs: Her alkaline phosphatase was 125 on the th, which improved to 100 on the . Vitamin B12: 877. Free T4: 0.75. TSH: 1.0945. UA: Shows 20 ketones, 50 of protein, 1+ urine bilirubin, 11 to 20 white blood cells. U tox 07/23: Positive for opiates, positive methamphetamines, positive cocaine. IMAGING: Abdominal ultrasound 07/23: Shows a borderline size liver with minimal increased echogenicity, possibly some fatty change. DISCHARGE CONDITION: Stable. ACTIVITY: As tolerated. DIET: Regular diet. DISCHARGE INSTRUCTIONS: The patient should follow up with her PCP in a week and with Dr. Templeton in a week. She should start taking oral vancomycin for 10 days. DISCHARGE PRESCRIPTIONS: 1. Oral vancomycin 125 mg p.o. q.6 hours, quantity 40. 2. Zofran 4 mg p.o. q.6 hours p.r.n. Job ID: [id number] [facility], [place]
[2019-07-25] MEDS ORDERED: Vancomycin HCl 25 MG/ML Oral PO SCH (15:00)
[2019-07-25 15:17] VITALS: TEMP 98.8
--- NOTE | 2019-07-29 11:53 | EKG ---
Test Reason : ND Blood Pressure : / mmHG Vent. Rate : 102 BPM Atrial Rate : 102 BPM P-R Int : 136 ms QRS Dur : 072 ms QT Int : 378 ms P-R-T Axes : 081 023 069 degrees QTc Int : 492 ms Sinus tachycardia Right atrial enlargement Septal infarct , age undetermined Abnormal ECG Confirmed by KIRAN HOU ([id number]), art editor ANISHA PEDERSON ([id number]) on 07/29/2019 11:52:59 AM Referred By: ISELA Confirmed By:KIRAN Yang
[2019-08-02 10:39] LABS: Norovirus GI Negative (Negative); Norovirus GII Negative (Negative)
== END 2019-07-25 16:26 | disposition home or self-care (01) ==
LOC: ERS 12:10 → 2NO 18:28
PROVIDERS: ADMIT Internal Medicine; ATTEND Internal Medicine
DX: R10.13 Epigastric pain (principal); R11.2 Nausea with vomiting, unspecified; R19.7 Diarrhea, unspecified; E87.6 Hypokalemia; R00.0 Tachycardia, unspecified; B96.89 Other specified bacterial agents as the cause of diseases classified elsewhere; R35.0 Frequency of micturition; Z79.899 Other long term (current) drug therapy; Z88.6 Allergy status to analgesic agent
CPT/HCPCS: 36415; 80053; 80306; 81003; 81015; 82607; 82746; 83630; 83690; 84439; 84443; 84484; 85025; 86850; 86900; 86901; 87015; 87045; 87046; 87081; 87086; 87206; 87324; 87328; 87329; 87427; 87449; 87493; 87798; 93005; 93975; 96361; 96365; 96366; 96375; 96376; C9113; G0378; J0696; J2405; J3480; J7070

== ENCOUNTER 2019-09-07 11:38 | Inpatient (IN) | payer OTHER ==
[2019-09-07] MEDS ORDERED: Pantoprazole 40 MG VIAL ONE (11:56)
[2019-09-07 12:16] LABS: #Monocytes 0.4 thou/uL (0.11-0.59); #Neutrophils 3.4 thou/uL (1.40-6.50); %Basophils 0.6 % (0.0-1.0); %Eosinophils 0.5 % (0.0-10.0); %Lymphocytes 20.2 % (21.0-51.0); %Monocytes 8.5 % (0.0-10.0); %Neutrophils 70.2 % (42.0-75.0); Mean Corpuscular HGB CONC 32.3 g/dL (32.0-36.0); Mean Corpuscular Hemoglobin 31.8 pg (27.0-31.0); Mean Corpuscular Volume 98.4 fL (78.0-98.0); Mean Platelet Volume 7.7 fL (7.4-10.4); Platelet Count 211 thou/uL (130-400); Red Blood Cell (RBC) Count 4.09 mill/uL (4.20-5.40); White Blood Cell (WBC) Count 4.8 thou/uL (4.8-10.8)
[2019-09-07 12:55] LABS: BHCG - Serum Negative (NEGATIVE); Pregs Control Background? CLEAR/WHITE (CLR/WHITE); Pregs Control Bar Appear? YES (CONTROL BAR)
[2019-09-07 13:01] LABS: ALT (SGPT) 7 U/L (8-55); AST (SGOT) 48 U/L (5-34); Albumin 2.8 g/dL (3.5-5.0); Alkaline Phosphatase 129 U/L (40-110); Anion Gap 15 mmol/L (10-20); BUN (Urea Nitrogen) Less than 4 mg/dL (7.0-18.7); Bilirubin, Total 1.2 mg/dL (0.2-1.2); CK (CPK) 15 U/L (29-168); Calc. Creatinine Clearance 0 mL/min (70-130); Calcium 8.6 mg/dL (7.8-10.44); Carbon Dioxide 31 mmol/L (22-29); Chloride 93 mmol/L (98-107); Estimated GFR-MDRD Greater than 90; Globulin 4.6 g/dL (2.4-3.5); Glucose 110 mg/dL (70-105); Lipase 8 U/L (8-78); Protein, Total 7.4 g/dL (6.0-8.3); Sodium 136 mmol/L (136-145)
[2019-09-07 13:06] LABS: Potassium 2.9 mmol/L (3.5-5.1)
[2019-09-07 13:09] LABS: Acetaminophen Less than 6.0 mcg/mL (10.0-30.0); Alcohol Less than 10 mg/dL (Less than 10); Salicylate Less than 8.0 mg/dL (15.0-30.0)
[2019-09-07] MEDS ORDERED: Potassium Chloride 20 MEQ TAB ONE (13:22)
[2019-09-07] MEDS ORDERED: Activated Charcoal/Sorbitol 25 GM/120 ML TUBE ONE (13:22)
--- NOTE | 2019-09-07 13:32 | CT ---
CT Abdomen Pelvis W Con: 09/07/2019 11:53 AM CLINICAL INFORMATION: Right upper quadrant abdominal pain with nausea and vomiting COMPARISON: None. TECHNIQUE: Multiple contiguous axial images were obtained and a CT of the abdomen and pelvis with IV contrast. C oronal and sagittal reformats were performed. FINDINGS: Lower Chest: within normal limits. Abdomen: Liver: Diffuse fatty infiltration without focal liver lesions. Bile Ducts: Normal caliber. Gallbladder: No calcified gallstones. Normal caliber wall. Pancreas: within normal limits. Spleen: within normal limits. Adrenals: within normal limits. Kidneys: within normal limits. Pelvis: Reproductive Organs: No pelvic masses. Ureters: within normal limits. Bladder: within normal limits. Peritoneum: No ascites or free air, no fluid collection. Bowel: Normal caliber. Normal appendix. Mesentery and Retroperitoneum: No enlarged mesenteric or retroperitoneal lymph nodes. Vessels: There are prominent veins along the pelvic sidewalls. Abdominal Wall: within normal limits. Bones: Within normal limits IMPRESSION: 1. Fatty liver 2. Prominent veins along the pelvic sidewalls could be secondary to pelvic venous congestion syndrome
[2019-09-07] MEDS ORDERED: Iopamidol-370 76% 500 ML 1 ML ONE (14:25)
[2019-09-07 15:11] LABS: Bilirubin Negative (Negative); Blood, Urine Negative (Negative); Clarity Clear (Clear); Glucose, Urine (Dipstick) Normal (Negative); Leukocyte Negative Leu/uL (Negative); Nitrite Negative (Negative); Protein, Urine (Dipstick) 20 mg/dL (Neg-Trace); Urobilinogen Normal mg/dL (Less than 2)
[2019-09-07 15:23] LABS: Amphetamine Not Detected (NotDetected); Barbiturates Screen Not Detected (NotDetected); Benzodiazepine Screen Not Detected (NotDetected); Cocaine Metabolite Screen Detected (NotDetected); Medtox Control Line Valid? VALID (VALID); Medtox Reader # READER 4; Methadone Not Detected (NotDetected); Methamphetamine Not Detected (NotDetected); Opiate Screen Not Detected (NotDetected); Oxycodone Screen Not Detected (NotDetected); Phencyclidine (PCP) Not Detected (NotDetected); THC/Cannabinoid Screen Not Detected (NotDetected); Tricyclic Screen Not Detected (NotDetected)
[2019-09-07 15:31] LABS: Lactic Acid 2.6 mmol/L (0.5-2.2)
--- NOTE | 2019-09-07 15:35 | ULT ---
ULTRASOUND ABDOMEN LIMITED: (RIGHT UPPER QUADRANT) DATE: 09/07/2019 HISTORY: 39-year-old female with right upper quadrant abdominal pain with nausea and emesis FINDINGS: Gallbladder: Normal wall thickness. No evidence of pericholecystic fluid, gallstones, or sludge. Liver: Enlarged. Diffusely increased echogenicity, consistent with fatty liver. Common duct caliber:4 mm. Right kidney: No hydronephrosis. Pancreas: Nonspecific sonographic appearance. IMPRESSION: 1) Hepatic steatosis and hepatomegaly. 2) otherwise negative.
[2019-09-07] MEDS ORDERED: Senokot S 8.6-50 MG TAB PO PRN (15:45)
[2019-09-07] MEDS ORDERED: Bisacodyl 5 MG TAB PO PRN (15:45)
[2019-09-07] MEDS ORDERED: Ondansetron ODT 4 MG TAB PO PRN (15:45)
[2019-09-07] MEDS ORDERED: Lorazepam 2 MG/ML VIAL SLOW IVP PRN (15:48)
[2019-09-07] MEDS ORDERED: Potassium Chloride 20 MEQ TAB PO SCH (16:15)
--- NOTE | 2019-09-07 17:40 | HP ---
CHIEF COMPLAINT: Abdominal pain. HISTORY OF PRESENT ILLNESS: A 39-year-old female with a history of alcohol use and Clostridium difficile colitis, admitted in July and discharged with vancomycin p.o., presenting with generalized abdominal pain. The patient drank alcohol as well as cocaine 2 days ago. Has some nausea, but no episodes of emesis. She was quite dehydrated and severe hypokalemia with potassium level of 2.9 and the EKG showed some T inversions. The patient will be admitted for close monitoring and further care. She has no previous history of alcohol withdrawal induced seizure. History of esophageal ulcer and supposed to be on PPI b.i.d., known to be noncompliant with medications. She drank alcohol at least half a pint as well as cocaine 2 days prior. Abdominal ultrasound did not show any abnormality. CT abdomen showed pelvic venous congestion and fatty liver. Otherwise, no visceral abnormalities. The patient lives with her mother and boyfriend and no recent exposure to sick contacts. REVIEW OF SYSTEMS: No fever, night sweats, chills, or productive cough. No chest pain. Denies any headache or blurriness. The 13-point review of systems reviewed and pertinents addressed in the History of Present Illness. Rest are negative. ALLERGIES: SHE IS ALLERGIC TO NAPROSYN. MEDICATIONS: 1. She is on sucralfate 1 g 3 times a day. 2. Potassium chloride 20 mEq twice a day. 3. Protonix 40 mg twice a day. 4. Folic acid 1 mg daily. 5. Ferrous sulfate 325 mg twice a day. 6. Zofran 4 mg as needed. SOCIAL HISTORY: The patient drinks at least half a pint daily. Does not smoke. Lives with mom and boyfriend. FAMILY HISTORY: Noncontributory. PHYSICAL EXAMINATION: VITAL SIGNS: Her temperature is 98.3, pulse 103, blood pressure 115/76, and saturating 99% on room air. GENERAL: The patient looks quite malnourished, but very alert and nontoxic-appearing. Mentation at baseline, no sign of any confusion or hallucination. No asterixis. HEENT: Pupils equal, round, and reactive. Mucous membranes are quite dry. CARDIOVASCULAR: Tachycardia with regular rhythm. LUNGS: Clear to auscultation bilaterally. No wheezing, rales, or rhonchi. ABDOMEN: Soft, nontender, and nondistended. Good bowel sounds. EXTREMITIES: Without any pitting edema. NEUROLOGIC: No focal deficits. LABORATORY DATA: CBC in the normal range. Platelets 211,000. Potassium 2.9, sodium 136, bicarb 31, chloride 93, her lactic acid 2.6, magnesium 1.6, AST 48, alkaline phosphatase 129, ALT 9. Lipase is . test negative. CT abdomen and pelvis showed pelvic venous congestion, fatty liver. IMPRESSION AND PLAN: This is a 39-year-old female with recent hospitalization for Clostridium difficile colitis, presenting with generalized abdominal pain and alcohol as well as cocaine abuse. I believe her abdominal pain is quite vague and nonspecific. Labs and imaging studies did not suggestive any acuity. She could have muscle cramps due to hypokalemia. We will replace her electrolytes and give her daily banana bag. Alcohol abuse: Abstinence was advised. The patient states that she is on a lot of stress since last hospitalization. Some home issues. No previous history of alcohol withdrawal induced seizure. We will monitor closely. Fall precautions. Does not exhibit any sign of withdrawal symptoms currently. We will provide Ativan as needed. Currently, no indication to start her on a CIWA protocol. Cocaine abuse: close monitoring. She is normotensive currently. Recent history of Clostridium difficile colitis -may be a residual symptom causing abdomen discomfort?. She denies any diarrheal episodes. this was diagnosed in July 2019, and she states that she completed vancomycin p.o. course. Dehydration. Again, IV fluid as mentioned above. Transaminitis elevation consistent with ongoing chronic alcohol use. [AST>ALT] Esophageal ulcer. She is on PPI b.i.d. Deep venous thrombosis prophylaxis, SCDs. Regular diet. Full code. Job ID: [id number] [facility]
[2019-09-07] MEDS: Potassium Chloride 20 MEQ TAB PO SCH (19:27)
[2019-09-07] MEDS: Sucralfate 1 GM/10 ML UDCUP PO SCH (21:20)
[2019-09-07] MEDS: Ferrous Sulfate 325 MG TAB PO SCH (21:20)
[2019-09-07] MEDS: Multivitamins, Adult 10 ML, Folic Acid 1 MG, Thiamine HCl 100 MG in Dextrose 5 %-0.45 %... IV SCH (21:21)
[2019-09-07 22:06] VITALS: BMI 17.5
[2019-09-08] MEDS ORDERED: Sodium Chloride 0.9% 10 ML ONE (08:04)
[2019-09-08] MEDS: Sucralfate 1 GM/10 ML UDCUP PO SCH ×3 (08:29→20:10)
[2019-09-08] MEDS: Folic Acid 1 MG TAB PO SCH (08:29)
[2019-09-08] MEDS: Ferrous Sulfate 325 MG TAB PO SCH ×2 (08:29→17:11)
[2019-09-08] MEDS: Potassium Chloride 20 MEQ TAB PO SCH ×2 (08:29→17:11)
[2019-09-08 09:22] LABS: #Basophils 0.1 thou/uL (0.0-0.2); #Eosinphils 0.1 thou/uL (0.0-0.7); #Lymphocytes 1.2 thou/uL (1.20-3.40); #Monocytes 0.2 thou/uL (0.11-0.59); %Basophils 2.4 % (0.0-1.0); %Eosinophils 4.6 % (0.0-10.0); %Lymphocytes 45.7 % (21.0-51.0); %Monocytes 9.3 % (0.0-10.0); Hemoglobin 11.3 g/dL (12.0-16.0); Mean Corpuscular HGB CONC 32.3 g/dL (32.0-36.0); Mean Corpuscular Hemoglobin 31.9 pg (27.0-31.0); Mean Corpuscular Volume 98.7 fL (78.0-98.0); Mean Platelet Volume 8.2 fL (7.4-10.4); Platelet Count 155 thou/uL (130-400); Red Blood Cell (RBC) Count 3.54 mill/uL (4.20-5.40); White Blood Cell (WBC) Count 2.6 thou/uL (4.8-10.8)
--- NOTE | 2019-09-08 13:15 | PDOC.HOSPP ---
- Subjective Encounter Date: 09/08/19 Encounter Time: 09:40 Subjective: no emesis, mild nasuea, able to hold his po intake; labs still pending. - Objective Vital Signs & Weight: Vital Signs (12 hours) Temp Pulse Resp BP Pulse Ox 09/08/19 11:30 98.4 F 108 H 16 117/81 99 09/08/19 07:45 98.3 F 99 16 100/63 100 09/08/19 03:26 98.3 F 102 H 18 98/61 94 L Weight Weight 108 lb 12.8 oz Result Diagrams: 09/08/19 09:03 09/07/19 12:05 Hospitalist ROS - Medication Medications: Active Medications Generic Name Dose Route Start Last Admin Trade Name Freq PRN Reason Stop Dose Admin Ferrous Sulfate 325 mg 09/07/19 17:00 09/08/19 08:29 Feosol PO 325 mg BID-WM MEGAN Administration Folic Acid 1 mg 09/08/19 09:00 09/08/19 08:29 Folvite PO 1 mg DAILY MEGAN Administration Multivitamins 10 ml/ Folic 1,011.2 mls @ 100 mls/hr 09/07/19 17:00 09/07/19 21:21 Acid 1 mg/ Thiamine HCl 100 mg IV 09/10/19 03:07 1,011.2 mls / Dextrose/Sodium Chloride Q24HR MEGAN Administration Ondansetron HCl 4 mg 09/07/19 15:45 09/08/19 10:56 Zofran Odt PO 4 mg Q6H PRN Administration Nausea/Vomiting Pantoprazole Sodium 40 mg 09/07/19 21:00 09/08/19 08:29 Protonix PO 40 mg BID MEGAN Administration Potassium Chloride 20 meq 09/07/19 17:00 09/08/19 08:29 K-Dur PO 20 meq BID-WM MEGAN Administration Sucralfate 1 gm 09/07/19 21:00 09/08/19 08:29 Carafate PO 1 gm TID MEGAN Administration - Exam General Appearance: NAD, awake alert Eye: PERRL ENT: normocephalic atraumatic Neck: supple Heart: RRR Respiratory: CTAB, normal chest expansion Gastrointestinal: soft, normal bowel sounds Neurological: no focal deficits Psychiatric: A&O x 3 Hosp A/P - Plan Severe Hypokalemia --been replaced - but dont have labs back yet, though orders are confirmed. alochol abuse/cocaine abuse - cousnelling done - states home stress as a trigger Leukopenia - seems wbcs going down -- will check her CXR as none on admission and crp --pt has no fever or cough. --AST > ALT - likely d/t chr alcohol use. workup in progress. lab results pending.
--- NOTE | 2019-09-08 13:30 | RAD ---
XR Chest 1 View Portable HISTORY: Leukopenia COMPARISON: 06/18/2019 FINDINGS: The heart size is normal. The lungs are well expanded without focal areas of consolidation, pneumothorax or pleural effusions. IMPRESSION: No radiographic evidence of acute cardiopulmonary process.
[2019-09-08] MEDS: Multivitamins, Adult 10 ML, Folic Acid 1 MG, Thiamine HCl 100 MG in Dextrose 5 %-0.45 %... IV SCH (17:11)
[2019-09-08] MEDS: Acetaminophen 325 MG TAB PO PRN (21:40)
[2019-09-09 04:59] LABS: Anion Gap 10 mmol/L (10-20); BUN (Urea Nitrogen) Less than 4 mg/dL (7.0-18.7); Calc. Creatinine Clearance 96 mL/min (70-130); Calcium 7.8 mg/dL (7.8-10.44); Carbon Dioxide 27 mmol/L (22-29); Chloride 103 mmol/L (98-107); Estimated GFR-MDRD Greater than 90; Glucose 62 mg/dL (70-105); Potassium 3.3 mmol/L (3.5-5.1); Sodium 137 mmol/L (136-145)
[2019-09-09] MEDS: Sucralfate 1 GM/10 ML UDCUP PO SCH ×3 (08:20→21:07)
[2019-09-09] MEDS: Potassium Chloride 20 MEQ TAB PO SCH ×2 (08:20→16:06)
[2019-09-09] MEDS: Ferrous Sulfate 325 MG TAB PO SCH ×2 (08:20→16:08)
[2019-09-09] MEDS: Folic Acid 1 MG TAB PO SCH (08:20)
[2019-09-09] MEDS ORDERED: Potassium Chloride 20 MEQ TAB PO SCH (09:45)
[2019-09-09] MEDS ORDERED: Magnesium 2 GM/50 ML 2 GM in Premix Bag 1 BAG IVPB SCH (11:15)
[2019-09-09] MEDS: Metoprolol Tartrate 5 MG/5 ML VIAL IVP PRN (13:07)
--- NOTE | 2019-09-09 14:36 | PDOC.HOSPP ---
- Subjective Encounter Date: 09/09/19 Encounter Time: 09:50 Subjective: pt feels lower quadrant discomfort. menopause. Last menstrual dec 2018. 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 appendix intact. Denies urinary sxs. no noticeable blood in the urine or stool. tachycardia when up and around. - Objective Vital Signs & Weight: Vital Signs (12 hours) Temp Pulse Resp BP Pulse Ox 09/09/19 13:07 120 H 119/73 09/09/19 11:25 98.3 F 101 H 16 115/78 100 09/09/19 07:15 98.2 F 109 H 16 104/66 100 09/09/19 04:00 98.8 F 101 H 16 107/73 100 Weight Admit Weight 108 lb 12.8 oz Weight 113 lb 9 oz I&O: 09/08/19 09/09/19 09/10/19 06:59 06:59 06:59 Intake Total 840 Output Total 1175 Balance -335 Result Diagrams: 09/08/19 09:03 09/09/19 04:17 Hospitalist ROS - Medication Medications: Active Medications Generic Name Dose Route Start Last Admin Trade Name Freq PRN Reason Stop Dose Admin Acetaminophen 650 mg 09/07/19 15:45 09/08/19 21:40 Tylenol PO 650 mg Q4H PRN Administration Headache/Fever/Mild Pain (1-3) Ferrous Sulfate 325 mg 09/07/19 17:00 09/09/19 08:20 Feosol PO 325 mg BID-WM MEGAN Administration Folic Acid 1 mg 09/08/19 09:00 09/09/19 08:20 Folvite PO 1 mg DAILY MEGAN Administration Multivitamins 10 ml/ Folic 1,011.2 mls @ 100 mls/hr 09/07/19 17:00 09/08/19 17:11 Acid 1 mg/ Thiamine HCl 100 mg IV 09/10/19 03:07 1,011.2 mls / Dextrose/Sodium Chloride Q24HR MEGAN Administration Metoprolol Tartrate 5 mg 09/09/19 10:32 09/09/19 13:07 Lopressor IVP 09/12/19 10:33 5 mg Q4H PRN Administration Anxiety Ondansetron HCl 4 mg 09/07/19 15:45 09/08/19 10:56 Zofran Odt PO 4 mg Q6H PRN Administration Nausea/Vomiting Pantoprazole Sodium 40 mg 09/07/19 21:00 09/09/19 08:20 Protonix PO 40 mg BID MEGAN Administration Potassium Chloride 20 meq 09/07/19 17:00 09/09/19 08:20 K-Dur PO 20 meq BID-WM MEGAN Administration Sucralfate 1 gm 09/07/19 21:00 09/09/19 08:20 Carafate PO 1 gm TID MEGAN Administration - Exam General Appearance: awake alert Eye: PERRL ENT: normocephalic atraumatic Neck: supple Heart: RRR Respiratory: CTAB, normal chest expansion Gastrointestinal: soft, normal bowel sounds Neurological: no focal deficits Psychiatric: A&O x 3 Hosp A/P - Plan Severe Hypokalemia --been replaced - but dont have labs back yet, though orders are confirmed. alochol abuse/cocaine abuse - cousnelling done - states home stress as a trigger Leukopenia - seems wbcs going down -- will check her CXR as none on admission and crp----> cxr neg and CRP insig level --pt has no fever or cough. --AST > ALT - likely d/t chr alcohol use. -lipase insig. -preg test neg. intermittent lower quadrant discomfort/apin -labs works negative. -CT abd/pelvic - pelvic venous congestion syndrome -supportive help/symptomatic mgmt. Tachycardia -d/t above, physiological response -PRN lopressor Hypomagnesemia -being replaced. plan for dc in am
[2019-09-09] MEDS: Multivitamins, Adult 10 ML, Folic Acid 1 MG, Thiamine HCl 100 MG in Dextrose 5 %-0.45 %... IV SCH (17:12)
[2019-09-10] MEDS: Acetaminophen 325 MG TAB PO PRN (01:19)
[2019-09-10 05:10] LABS: Anion Gap 10 mmol/L (10-20); BUN (Urea Nitrogen) Less than 4 mg/dL (7.0-18.7); Calc. Creatinine Clearance 104 mL/min (70-130); Carbon Dioxide 25 mmol/L (22-29); Chloride 105 mmol/L (98-107); Estimated GFR-MDRD Greater than 90; Glucose 95 mg/dL (70-105); Potassium 4.5 mmol/L (3.5-5.1); Sodium 135 mmol/L (136-145)
[2019-09-10] MEDS: Metoprolol Tartrate 5 MG/5 ML VIAL IVP PRN (07:38)
[2019-09-10] MEDS: Ferrous Sulfate 325 MG TAB PO SCH ×2 (07:39→16:20)
[2019-09-10] MEDS: Potassium Chloride 20 MEQ TAB PO SCH ×2 (07:39→16:20)
[2019-09-10] MEDS: Sucralfate 1 GM/10 ML UDCUP PO SCH ×3 (07:39→20:16)
[2019-09-10] MEDS: Folic Acid 1 MG TAB PO SCH (07:39)
--- NOTE | 2019-09-10 14:31 | PDOC.HOSPP ---
- Subjective Encounter Date: 09/10/19 Encounter Time: 11:50 Subjective: pt still c/o of lower quadrant pain. no constipation or diarrhea. poor appetite at home. \she had hematemesis and ABLA in 01/31 and had EGD, which showed blleeding vessel, derrick salvador tear at GE jn and eosinophilic esophagitis. - Objective Vital Signs & Weight: Vital Signs (12 hours) Temp Pulse Resp BP Pulse Ox 09/10/19 11:13 98.6 F 93 16 99/62 100 09/10/19 07:40 98.2 F 110 H 16 108/64 100 09/10/19 03:21 98.2 F 103 H 20 102/63 99 Weight Admit Weight 108 lb 12.8 oz Weight 113 lb 8 oz I&O: 09/09/19 09/10/19 09/11/19 06:59 06:59 06:59 Intake Total 840 1393 Output Total 1175 1200 Balance -335 193 Result Diagrams: 09/08/19 09:03 09/10/19 04:04 Hospitalist ROS - Medication Medications: Active Medications Generic Name Dose Route Start Last Admin Trade Name Freq PRN Reason Stop Dose Admin Acetaminophen 650 mg 09/07/19 15:45 09/10/19 01:19 Tylenol PO 650 mg Q4H PRN Administration Headache/Fever/Mild Pain (1-3) Ferrous Sulfate 325 mg 09/07/19 17:00 09/10/19 07:39 Feosol PO 325 mg BID-WM MEGAN Administration Folic Acid 1 mg 09/08/19 09:00 09/10/19 07:39 Folvite PO 1 mg DAILY MEGAN Administration Metoprolol Tartrate 5 mg 09/09/19 10:32 09/10/19 07:38 Lopressor IVP 09/12/19 10:33 5 mg Q4H PRN Administration Anxiety Ondansetron HCl 4 mg 09/07/19 15:45 09/08/19 10:56 Zofran Odt PO 4 mg Q6H PRN Administration Nausea/Vomiting Pantoprazole Sodium 40 mg 09/07/19 21:00 09/10/19 07:39 Protonix PO 40 mg BID MEGAN Administration Potassium Chloride 20 meq 09/07/19 17:00 09/10/19 07:39 K-Dur PO 20 meq BID-WM MEGAN Administration Sodium Chloride 10 ml 09/09/19 21:00 09/10/19 07:39 Flush - Normal Saline IVF 10 ml Q12HR MEGAN Administration Sucralfate 1 gm 09/07/19 21:00 09/10/19 07:39 Carafate PO 1 gm TID MEGAN Administration - Exam General Appearance: ill appearing Eye: PERRL ENT: normocephalic atraumatic Neck: supple Heart: RRR Respiratory: CTAB, normal chest expansion Gastrointestinal: soft, normal bowel sounds Neurological: no focal deficits Psychiatric: A&O x 3 Hosp A/P - Plan Severe Hypokalemia --resolved alochol abuse/cocaine abuse - cousnelling done - states home stress as a trigger Leukopenia - seems wbcs going down -- will check her CXR as none on admission and crp----> cxr neg and CRP insig. level --pt has no fever or cough. --AST > ALT - likely d/t chr alcohol use. -lipase insig. -preg test neg. intermittent lower quadrant discomfort/pain -labs works negative. -CT abd/pelvic - pelvic venous congestion syndrome -supportive help/symptomatic mgmt Poor appetite she had hematemesis and ABLA in 01/31 and had EGD, which showed bleeding vessel , derrick salvador tear at GE jn and eosinophilic esophagitis. -on PPI bid --as ongoing lower quadrant sxs and poor PO intake -- may need cscope -ordered FOBT, current Hgb 11.3 -- appreciate DR. Cody's input, consulted him. Tachycardia -d/t above, physiological response -PRN lopressor Hypomagnesemia -being replaced.
--- NOTE | 2019-09-10 19:38 | CON ---
DATE OF CONSULTATION: 09/10/2019 CHIEF COMPLAINT: Nausea, vomiting, abdominal pain, and diarrhea. HISTORY OF PRESENT ILLNESS: Ms. Rubio is a 39-year-old woman, who had been in the hospital back in January with upper GI bleed from Maribell-Gentile tear. She had followup EGD and colonoscopy in May 2019. Upper endoscopy showed gastritis and biopsies were positive for Helicobacter pylori and she was treated with antibiotics. Colonoscopy showed diverticulosis throughout the colon, but was otherwise normal. She was admitted in July 2019 and treated with vancomycin for Clostridium difficile. Two weeks ago, she had recurrence of mild nausea, vomiting, and diarrhea up to 3 times per day with loose stools. Yesterday, she had some sharp right lower quadrant abdominal pain just before bowel movements that last around 5 minutes at a time, 2 or 3 times per day. Today, her abdominal pain is doing better. She has had no further nausea today and she is tolerating a regular diet well. She had a formed stool, which she saved and I viewed a formed green stool in the toilet this afternoon. She has had no further diarrhea. She has had no blood in the stool. She has been drinking half a pint of alcohol daily. Her last cocaine use was a couple of days before admission and her urine test for cocaine has been positive on this admission and multiple times previously. When she was admitted to the hospital this time, she had a CT scan of the abdomen and pelvis and an ultrasound. Ultrasound showed fatty liver, but was otherwise negative. The CT scan showed some venous congestion in the pelvic sidewalls with consideration of pelvic venous congestion syndrome. PAST MEDICAL HISTORY: 1. Alcohol abuse. 2. Fatty liver secondary to alcohol. 3. C diff colitis and H pylori infection, both of which were treated. 4. Cocaine abuse. PAST SURGICAL HISTORY: 1. . 2. EGD. 3. Colonoscopy. Her last EGD and colonoscopy were in May 2019. FAMILY HISTORY: Negative for GI malignancy. SOCIAL HISTORY: She lives with her mom and boyfriend. She uses cocaine and drinks half a pint of alcohol daily. No smoking. ALLERGIES: NAPROXEN. OUTPATIENT MEDICATIONS: She is supposed to be taking pantoprazole daily. She has also been on Carafate, iron, and folic acid. Currently, in the hospital, she is on pantoprazole and sucralfate. REVIEW OF SYSTEMS: Negative x10 systems reviewed except as stated in history of present illness. PHYSICAL EXAMINATION: VITAL SIGNS: Temperature is 98.6, pulse 93, blood pressure is 105/67. GENERAL: She is in no acute distress. Alert and oriented x3. HEENT: Eyes have no scleral icterus. Oropharynx is clear without lesions. No cervical or supraclavicular lymphadenopathy. LUNGS: Clear to auscultation bilaterally. HEART: Regular rate and rhythm without murmur. ABDOMEN: Soft. Minimal tenderness in the right lower quadrant without guarding. Bowel sounds are present. EXTREMITIES: No lower extremity edema. Cranial nerves are grossly intact. LABORATORY DATA: White blood cell count 2.6, hemoglobin 11.3, platelets 155. Creatinine 0.58, magnesium 1.7. Urine tox screen was positive for cocaine. IMPRESSION: 1. Nausea, vomiting, and diarrhea. Currently, these are resolved and she is tolerating a regular diet. She had a formed green stool, which I viewed in the toilet. She is feeling better and feels like she is ready to go home. 2. Right lower quadrant pain. This comes and goes for around 5 minutes at a time a few times per day just before bowel movements. She has no ongoing pain currently. She had been taking cocaine, which could put her at risk for ischemia in the right colon, but certainly, she does not seem sick enough to indicate that this is what is going on now. CT scan was negative except for some pelvic wall congestion, which is not likely of clinical significance. Her ultrasound of her right upper quadrant was negative. She had an EGD and a colonoscopy, which were unremarkable back in May. 3. Maribell-Gentile tear back in January. She has been on pantoprazole twice daily. 4. Recent C diff infection, which has been treated. She has no ongoing significant diarrhea currently. 5. H pylori infection, treated back in May with antibiotics. RECOMMENDATIONS: 1. Primary recommendation currently is to discontinue alcohol and cocaine use. 2. She can continue the pantoprazole, but likely can stop the Carafate at this point. 3. She has office followup to schedule with Dr. Templeton in September and can keep that appointment. I will sign off for now. Please call if GI can be of assistance. Job ID: [id number]
[2019-09-11 06:24] LABS: Anion Gap 9 mmol/L (10-20); BUN (Urea Nitrogen) 4 mg/dL (7.0-18.7); Calc. Creatinine Clearance 93 mL/min (70-130); Calcium 8.1 mg/dL (7.8-10.44); Carbon Dioxide 24 mmol/L (22-29); Chloride 105 mmol/L (98-107); Estimated GFR-MDRD Greater than 90; Glucose 90 mg/dL (70-105); Potassium 4.3 mmol/L (3.5-5.1); Sodium 134 mmol/L (136-145)
[2019-09-11 08:09] VITALS: BP 109/69; TEMP 98.1
[2019-09-11] MEDS: Ferrous Sulfate 325 MG TAB PO SCH (08:10)
[2019-09-11] MEDS: Potassium Chloride 20 MEQ TAB PO SCH (08:10)
[2019-09-11] MEDS: Folic Acid 1 MG TAB PO SCH (08:10)
[2019-09-11] MEDS: Sucralfate 1 GM/10 ML UDCUP PO SCH (08:10)
--- NOTE | 2019-09-11 13:02 | DIS ---
DATE OF ADMISSION: 09/07/2019 DATE OF DISCHARGE: 09/11/2019 DIAGNOSES: 1. Severe hypokalemia. 2. Chronic alcohol abuse and cocaine abuse. 3. Leukopenia/pancytopenia. 4. Intermittent lower quadrant abdominal pain. 5. Hypomagnesemia. CONSULTS: GI consult with Dr. Cody. DISCHARGE MEDICATIONS: Her home medications are same, except sucralfate has been discontinued. HOSPITAL COURSE: A 39-year-old female with a history of alcohol abuse and recent diagnosis of Clostridium difficile colitis, treated with vancomycin p.o. and completed the course, presented with generalized abdominal pain. She was drinking alcohol as well as cocaine use roughly 2 days ago. She presented with severe hypokalemia with the potassium of 2.9. EKG showed T inversions. Electrolytes were replaced including magnesium. The patient had intermittent abdominal pain mostly in the lower quadrant. CT abdomen and pelvis showed pelvic venous congestion, which is clinically insignificant. Ultrasound also did not show any major abnormalities. Her lower quadrant pain is intermittent and moderate in severity and mostly notable in the nighttime. Cocaine causing bowel ischemia can be an etiology; however, she was not toxic enough to link that. Ultrasound of the right upper quadrant also negative. She had a severe upper GI bleed in May 2018, and she had an EGD in January 2019, preceded by hematemesis and acute blood loss anemia. EGD showed bleeding vessel as well as Maribell Gentile tear at the gastroesophageal junction and eosinophilic esophagitis. She was prescribed PPI b.i.d. Potassium 4.3 and hemoglobin 11.3 on the day of discharge. The patient has an appointment with Dr. Templeton in September. She will be following up with that. The patient also had a colonoscopy last year, which seems to be normal. At this point, we do not definitely know the etiology behind her intermittent and sporadic lower quadrant abdominal pain; GI work is not leading to any definite diagnosis at this point. DISCHARGE INSTRUCTIONS: Activity as tolerated. Regular diet. Follow up with PCP in 1 week. Follow up with Dr. Templeton for next month appointment, possibly colonoscopy at that time. TIME SPENT: Discharge time took over 35 minutes. Job ID: [id number] [facility]
--- NOTE | 2019-09-13 06:13 | PQF ---
Abi Nava SOUNDARI [id number] CLINICAL DOCUMENTATION CLARIFICATION FORM: POST DISCHARGE Addendum to original discharge summary date: ____ Late entry note date: __ DATE:09/13/2019 ATTN:Cally Aguilar Please exercise your independent, professional judgment in responding to the clarification form. Clinical indicators are provided on the bottom of this form for your review In your clinical opinion based on clinical findings below can you please identify the etiology of Abdominal pain if due to: Please check appropriate box(s): [ x] Abd pain due to severe hypokalemia [ x] Abd pain due to Pelvic venous congestion-fibrosis syndrome [ ] Abd pain due to Cocaine abuse [ ] Other diagnosis [ ] Unable to determine For continuity of documentation, please document condition throughout progress notes and discharge summary. Thank You. CLINICAL INDICATORS - SIGNS / SYMPTOMS / LABS Laboratory 09/06 Potassium 2.9, Soidum 136, Chloride 93, Cocaine Positive H&P p1 09/06 Dr Gaviria Presenting with generalize;ized abdominal pain H&P p1 09/06 Dr Gaviria She quite dehydrated and severe hypokalemia with potassium level of 2.9 H&P p1 09/06 Dr Gaviria She could have muscle cramps due to hypokalemia HPN p5 09/[address] and/Pelvic Pelvic venous congestion syndrome H&P p2 09/06 Dr Gaviria abdominal pain is quite vague and nonspecific RISK FACTORS H&P p1 09/06 Alcohol abuse H&P p1 09/06 Cocaine abuse H&P p1 09/06 Hypokalemia H&P p3 09/06 Dehydration H&P p3 09/06 Esophageal ulcer TREATMENTS: MAR 09/06 Zofran 4 mg oral MAR 09/06 IV Protnoix 40 mg MAR 09/06 K-Dur 20 meq oral MAR 09/[address] abdomen 09/06 Abdomen Ultrasound 09/06 (This form is maintained as a part of the permanent medical record) 2014 [employer]. All Rights Reserved [email or web address]
--- NOTE | 2019-09-13 06:14 | PQF ---
Abi Nava SOUNDARI [id number] CLINICAL DOCUMENTATION CLARIFICATION FORM: POST DISCHARGE Addendum to original discharge summary date: ____ Late entry note date: __ Date:09/13/2019 ATTN:Cally Ortega Please exercise your independent, professional judgment in responding to the clarification form. Clinical indicators are provided on the bottom of this form for your review Please check appropriate box(s): [ x ] Protein Calorie Malnutrition: [ ] Mild [ x] Moderate [ ] Severe [ ] Other Malnutrition (please specify) __ [ ] Underweight without malnutrition [ ] Cachexia [ ] Other diagnosis [ ] Unable to determine In addition, please specify: Present on Admission (POA): [ ] Yes [ ] No [ ] Unable to determine CLINICAL INDICATORS - SIGNS / SYMPTOMS / LABS Laboratory 09/06 Serum Arielle Proteein 7.4, Albumin 2.8, Globulin 4.6, Ratio 0.6 Vital signs 09/06 Temp 98.3, Pulse 113, Resp 18, BP 113/89 Nutritional assessment 09/07 - BMI of 17.5 Nutritional assessment 09/07 weight loss H&P p3 09/06 Dr Gaviria presented with Generalized abdominal pain, nausea and vomiting Hospitalist PN p4 09/09 Dr Gaviria Poor Appetite Nutritional assessment 09/07 suggestive of severe malnutrition in the context of acute illness/social circumstances RISK FACTORS H&P p1 09/06 Alcohol abuse H&P p1 09/06 Cocaine abuse H&P p1 09/06 Hypokalemia H&P p3 09/06 Dehydration H&P p3 09/06 Esophageal ulcer TREATMENT: Nutritional assessment 09/07 -Dietary consult Nutritional assessment 09/07 -Nutritional supplements Nutritional assessment 09/07 -Appetite stimulant medication Nutritional assessment 09/07 Weight monitoring Nutritional assessment 09/07 -Intake monitoring Nutritional assessment 09/07 Recommend Ensure Enlive BID Moderate Malnutrition (in acute illness) Energy Intake: <75% of estimated energy requirement for > 7 days Weight Loss: 1-2%/1 week; 5%/ 1 month; 7.5%/3 months Other: mild body fat loss; mild muscle mass loss; mild fluid accumulation; Severe Malnutrition (in acute illness) Energy Intake: < 50% of estimated energy requirement for > 5 days Weight Loss: >1-2%/1 week; >5%/1 month; >7.5%/3 months Other: moderate body fat loss; moderate muscle mass loss; moderate- severe fluid accumulation; measurably reduced instructional interventionist strength Moderate Malnutrition (in chronic illness) Energy Intake: <75% of estimated energy requirement for >1 month Weight Loss: 5%/1 month; 7.5%/3 months; 10%/6 months; 20%/1 year Other: mild body fat loss; mild muscle mass loss; mild fluid accumulation Severe Malnutrition (in chronic illness) Energy Intake: <75% of estimated energy requirement for >1 month Weight Loss: >5%/1 month; >7.5%/3 months; >10%/6 months; >20%/1 year Other: severe body fat loss; severe muscle mass loss; severe fluid accumulation ; measurably reduced instructional interventionist strength (This form is maintained as a part of the permanent medical record) 2014 [employer]. All Rights Reserved [email or web address]
== END 2019-09-11 11:40 | disposition home or self-care (01) | DRG 760 ==
LOC: ERS 11:38 → 2NO 18:52 → OBSVTOIN 18:52
PROVIDERS: ADMIT Internal Medicine; ATTEND Internal Medicine
DX: N94.89 Other specified conditions associated with female genital organs and menstrual cycle (principal); D61.818 Other pancytopenia; K22.10 Ulcer of esophagus without bleeding; Z68.1 Body mass index [BMI] 19.9 or less, adult; E44.0 Moderate protein-calorie malnutrition; E87.6 Hypokalemia; F10.10 Alcohol abuse, uncomplicated; F14.10 Cocaine abuse, uncomplicated; E83.42 Hypomagnesemia; E86.0 Dehydration; R00.0 Tachycardia, unspecified; K70.0 Alcoholic fatty liver; R11.2 Nausea with vomiting, unspecified; R19.7 Diarrhea, unspecified; Z88.8 Allergy status to other drugs, medicaments and biological substances; Z79.82 Long term (current) use of aspirin; Z71.41 Alcohol abuse counseling and surveillance of alcoholic; Z79.899 Other long term (current) drug therapy; Z71.51 Drug abuse counseling and surveillance of drug abuser
CPT/HCPCS: 36415; 71045; 74177; 76705; 80048; 80053; 80306; 80307; 81003; 82274; 82550; 83605; 83690; 83735; 84703; 85025; 86140; 86850; 86900; 86901; 93005; 94760; 96361; 96365; 96366; 96372; 96374; 96375; 96376; C9113; G0378; J0500; J3411; J3475; J7042; Q0162; Q9967

== ENCOUNTER 2019-11-23 10:51 | Emergency (ER) | payer OTHER ==
[2019-11-23 11:38] LABS: #Basophils 0.1 thou/uL (0.0-0.2); #Eosinphils 0.2 thou/uL (0.0-0.7); #Lymphocytes 1.2 thou/uL (1.20-3.40); #Monocytes 0.2 thou/uL (0.11-0.59); #Neutrophils 0.7 thou/uL (1.40-6.50); %Basophils 2.1 % (0.0-1.0); %Lymphocytes 49.6 % (21.0-51.0); %Monocytes 9.3 % (0.0-10.0); %Neutrophils 28.9 % (42.0-75.0); Hemoglobin 12.5 g/dL (12.0-16.0); Mean Corpuscular HGB CONC 32.2 g/dL (32.0-36.0); Mean Corpuscular Hemoglobin 32.3 pg (27.0-31.0); Mean Platelet Volume 7.1 fL (7.4-10.4); Platelet Count 150 thou/uL (130-400); RBC Distribution Width 13.5 % (11.5-14.5); Red Blood Cell (RBC) Count 3.86 mill/uL (4.20-5.40); White Blood Cell (WBC) Count 2.4 thou/uL (4.8-10.8)
--- NOTE | 2019-11-23 11:45 | RAD ---
XR Chest 1 View Portable HISTORY: Chest pain, shortness of breath COMPARISON: 10/26/2019 FINDINGS: The heart size is normal. The lungs are well expanded without focal areas of consolidation, pneumothorax or pleural effusions. IMPRESSION: No radiographic evidence of acute cardiopulmonary process.
[2019-11-23 12:04] LABS: ALT (SGPT) Less than 7 U/L (8-55); AST (SGOT) 50 U/L (5-34); Albumin 2.6 g/dL (3.5-5.0); Alkaline Phosphatase 132 U/L (40-110); Anion Gap 11 mmol/L (10-20); BUN (Urea Nitrogen) Less than 4 mg/dL (7.0-18.7); Bilirubin, Total 1.3 mg/dL (0.2-1.2); CK (CPK) 24 U/L (29-168); Calc. Creatinine Clearance 0 mL/min (70-130); Calcium 7.7 mg/dL (7.8-10.44); Carbon Dioxide 35 mmol/L (22-29); Chloride 92 mmol/L (98-107); Estimated GFR-MDRD Greater than 90; Globulin 4.2 g/dL (2.4-3.5); Glucose 101 mg/dL (70-105); Protein, Total 6.8 g/dL (6.0-8.3); Sodium 136 mmol/L (136-145)
[2019-11-23 12:11] LABS: Potassium 2.1 mmol/L (3.5-5.1)
[2019-11-23] MEDS ORDERED: Potassium Chloride 20 MEQ TAB ONE (12:49)
[2019-11-23 13:21] LABS: Amphetamine Not Detected (NotDetected); Barbiturates Screen Not Detected (NotDetected); Benzodiazepine Screen Not Detected (NotDetected); Cocaine Metabolite Screen Detected (NotDetected); Medtox Control Line Valid? VALID (VALID); Medtox Reader # READER 1; Methadone Not Detected (NotDetected); Methamphetamine Not Detected (NotDetected); Opiate Screen Not Detected (NotDetected); Oxycodone Screen Not Detected (NotDetected); Phencyclidine (PCP) Not Detected (NotDetected); THC/Cannabinoid Screen Not Detected (NotDetected); Tricyclic Screen Not Detected (NotDetected)
[2019-11-23 14:21] LABS: Troponin I 0.013 ng/mL (< 0.028)
--- NOTE | 2019-11-25 15:50 | EKG ---
Test Reason : CHEST PAIN Blood Pressure : / mmHG Vent. Rate : 099 BPM Atrial Rate : 099 BPM P-R Int : 138 ms QRS Dur : 080 ms QT Int : 388 ms P-R-T Axes : 077 005 049 degrees QTc Int : 497 ms Normal sinus rhythm Right atrial enlargement Septal infarct , age undetermined Abnormal ECG Confirmed by GLORIA ROLON DO ([id number]), legal editor YOLANDA DRIVER ([id number]) on 11/25/2019 3:49:03 PM Referred By: Confirmed By:GLORIA ROLON DO
== END 2019-11-23 15:05 | disposition home or self-care (01) ==
LOC: ERS 10:51
DX: R07.9 Chest pain, unspecified (principal); F14.10 Cocaine abuse, uncomplicated; E87.6 Hypokalemia; D50.9 Iron deficiency anemia, unspecified; Z79.899 Other long term (current) drug therapy
CPT/HCPCS: 36415; 71045; 80053; 80306; 82550; 84484; 85025; 85379; 93005

== ENCOUNTER 2019-11-25 12:18 | Inpatient (IN) | payer OTHER ==
--- NOTE | 2019-11-25 13:04 | RAD ---
Chest one view HISTORY: Chest pain. COMPARISON: 11/23/2019. FINDINGS: Cardiac silhouette and pulmonary vasculature are unremarkable. Mediastinum is midline. No confluent airspace consolidation or evidence of pneumothorax. IMPRESSION : No abnormalities are demonstrated.
[2019-11-25] MEDS ORDERED: Pantoprazole 40 MG VIAL ONE (13:58)
[2019-11-25 14:05] LABS: #Eosinphils 0.2 thou/uL (0.0-0.7); #Lymphocytes 1.3 thou/uL (1.20-3.40); #Monocytes 0.4 thou/uL (0.11-0.59); #Neutrophils 1.1 thou/uL (1.40-6.50); %Basophils 1.5 % (0.0-1.0); %Lymphocytes 42.5 % (21.0-51.0); %Monocytes 13.2 % (0.0-10.0); %Neutrophils 36.7 % (42.0-75.0); Hemoglobin 11.7 g/dL (12.0-16.0); Mean Corpuscular HGB CONC 32.5 g/dL (32.0-36.0); Mean Corpuscular Hemoglobin 33.5 pg (27.0-31.0); Mean Platelet Volume 7.1 fL (7.4-10.4); Platelet Count 150 thou/uL (130-400); RBC Distribution Width 13.7 % (11.5-14.5); White Blood Cell (WBC) Count 3.1 thou/uL (4.8-10.8)
[2019-11-25 14:12] LABS: Bilirubin Negative (Negative); Blood, Urine Negative (Negative); Clarity Clear (Clear); Glucose, Urine (Dipstick) Normal (Negative); Ketone, Urine Negative (Negative); Leukocyte Negative Leu/uL (Negative); Nitrite Negative (Negative); Protein, Urine (Dipstick) Negative (Neg-Trace); Specific Gravity, Urine 1.004 (1.002-1.036); Urobilinogen Normal mg/dL (Less than 2); pH, Urine 6.5 (5.0-9.0)
[2019-11-25 14:13] LABS: BHCG - Serum Negative (NEGATIVE); Pregs Control Background? CLEAR/WHITE (CLR/WHITE); Pregs Control Bar Appear? YES (CONTROL BAR)
[2019-11-25 14:18] LABS: Amphetamine Not Detected (NotDetected); Barbiturates Screen Not Detected (NotDetected); Benzodiazepine Screen Not Detected (NotDetected); Cocaine Metabolite Screen Detected (NotDetected); Medtox Control Line Valid? VALID (VALID); Medtox Reader # READER 4; Methadone Not Detected (NotDetected); Methamphetamine Not Detected (NotDetected); Opiate Screen Not Detected (NotDetected); Oxycodone Screen Not Detected (NotDetected); Phencyclidine (PCP) Not Detected (NotDetected); THC/Cannabinoid Screen Not Detected (NotDetected); Tricyclic Screen Not Detected (NotDetected)
[2019-11-25 14:21] LABS: Acetaminophen Less than 6.0 mcg/mL (10.0-30.0); Alcohol Less than 10 mg/dL (Less than 10); Salicylate Less than 8.0 mg/dL (15.0-30.0)
[2019-11-25 14:24] LABS: ALT (SGPT) Less than 7 U/L (8-55); AST (SGOT) 50 U/L (5-34); Albumin 2.5 g/dL (3.5-5.0); Alkaline Phosphatase 124 U/L (40-110); Anion Gap 16 mmol/L (10-20); BUN (Urea Nitrogen) Less than 4 mg/dL (7.0-18.7); Bilirubin, Total 1.1 mg/dL (0.2-1.2); CK (CPK) 23 U/L (29-168); Calc. Creatinine Clearance 0 mL/min (70-130); Calcium 7.7 mg/dL (7.8-10.44); Carbon Dioxide 28 mmol/L (22-29); Chloride 95 mmol/L (98-107); Estimated GFR-MDRD Greater than 90; Globulin 4.4 g/dL (2.4-3.5); Glucose 111 mg/dL (70-105); Lipase 17 U/L (8-78); Magnesium 1.2 mg/dL (1.6-2.6); Potassium 3.1 mmol/L (3.5-5.1); Protein, Total 6.9 g/dL (6.0-8.3); Sodium 136 mmol/L (136-145)
[2019-11-25] MEDS ORDERED: Iopamidol-370 76% 500 ML 1 ML ONE (14:39)
--- NOTE | 2019-11-25 14:52 | CT ---
CT ABDOMEN AND PELVIS WITH CONTRAST: 11/25/19 COMPARISON: Comparison made to recent exam of 09/07/19. HISTORY: Abdominal pain with nausea, vomiting, diarrhea. FINDINGS: Lung bases are clear. The liver shows hepatomegaly with especially prominent left lobe. There is diffuse fatty infiltration and mild hepatic heterogeneity. Spleen size is normal. The pancreas unremarkable. Adrenal glands and kidneys unremarkable. Small bowel loops normal. There is mural thickening of the right colon and mild mural thickening of the left colon. Colon is no ndistended and this degrades evaluation. Images through the pelvis show unremarkable uterus and adnexa. There are prominent venous structures in the pelvis. The prominent vein extends from the left splenic vein into the pelvis and fills numerous enlarged pelvic venous structures. This could potentially re present pelvic venous congestion exacerbated by mild portal hypertension given the splenic vein contr ibution. IMPRESSION: 1. Hepatomegaly with fatty infiltration of the liver. Correlate with liver enzymes. Question pos sible portal hypertension as described above contributing to pelvic venous congestion. 2. Mural thickening of the colon, especially in the right colon suggesting colitis. POS: AGW
[2019-11-25] MEDS ORDERED: Piperacillin/Tazobactam 4.5 GM VIAL ONE (14:58)
[2019-11-25] MEDS ORDERED: Potassium Chloride 20 MEQ TAB ONE (15:39)
[2019-11-25] MEDS ORDERED: Magnesium 2 GM/50 ML BAG (IN WATER) ONE (15:39)
[2019-11-25 17:03] LABS: Lactic Acid 3.3 mmol/L (0.5-2.2)
[2019-11-25] MEDS ORDERED: Senokot S 8.6-50 MG TAB PO PRN (18:06)
[2019-11-25] MEDS: Sodium Chloride 0.9% 1,000 ML IV SCH ×2 (18:14→20:24)
--- NOTE | 2019-11-25 20:01 | PDOC.EVN ---
Event Note - Event Note Event Note: Evaluated patient, states she stopped smoking cocaine 4 days ago and stopped drinking four days ago as well. She states her diarrhea has improved from 5 stools a day to two stools a day. SHe did not take azithromycin for campylobacter infection due to nausea/vomiting once she got home On exam: she has RUQ and LUQ tenderness Appears malnourished Lungs: clear Heart: unremarkable Plan #Colitis - likely C diff, less likely ischemic #Lactic acidosis - from dehydration #Cocaine abuse #Alcoholism #Hypokalemia #Transaminitis -from alcoholism #Leukopenia/Anemia - continue IV fluids due to persistent lactic acidosis - check stool cultures - recent C diff positive test one month ago, so will presume positive. Resume oral vancomycin - resume home azithromycin dose - ID consult for recurrent C diff ( third episode) . She may need a tapered dose - advised on abstaining from drugs - recheck potassium
[2019-11-25] MEDS: Multivitamins, Adult 10 ML, Folic Acid 1 MG, Thiamine HCl 100 MG in Dextrose 5 %-0.45 %... IV SCH (20:15)
[2019-11-25] MEDS: Vancomycin HCl 25 MG/ML Oral PO SCH (20:16)
[2019-11-25] MEDS: Famotidine 20 MG TAB PO SCH (20:22)
[2019-11-25] MEDS ORDERED: Potassium Chloride 40 MEQ in Sodium Chloride 0.9% 500 ML IVPB SCH (20:30)
[2019-11-25] MEDS ORDERED: Piperacillin/Tazobactam 3.375 GM in Sodium Chloride 0.9% 100 ML IVPB SCH (21:00)
--- NOTE | 2019-11-25 21:03 | HP ---
PRIMARY CARE PHYSICIAN: At the [facility]. GI DOCTOR: [place] Templeton MD CHIEF COMPLAINT: Abdominal pain, nausea, vomiting, and diarrhea. HISTORY OF PRESENT ILLNESS: Ms. Ramiro España is a 39-year-old female with a 3-day history of nausea, vomiting, diarrhea, and inability to tolerate p.o. fluids. She has an extensive GI history significant for esophageal ulcers and possible varices and has had an upper GI in the past with Dr. Templeton. She does have a history of smoking crack cocaine and drinking about half a pint of whiskey per day. She reports that she has not done this though in the last 3 days. She denies any fever, chills, cough, or upper respiratory symptoms. She reports that she has had some intermittent chest pain, which is worse after vomiting and associated with her abdominal pain. She reports the Zofran given en route by EMS, improved her symptoms. She has been evaluated in the emergency room multiple times in the last couple of days with similar complaints. She was seen in the emergency room within the last 24 hours, was worked up, found to have hypokalemia, was repleted and then was sent home. She reports that she felt a little bit better and then symptoms returned and she came back to the emergency room. Workup in the ER showed a white blood cell count of 3.1, hemoglobin 11.7, which is at baseline for the patient, hematocrit of 36.1, and platelet count 150. Chemistry; sodium 136, potassium is 3.1, chloride is 95, carbon dioxide 28, gap is 16, BUN is less than 4, creatinine 0.63, estimated GFR is greater than 90, and glucose 111. Lactic acid was initially 4 and then repeated it was 3.3, calcium 7.7, magnesium 1.2, AST 50, ALT less than 7, alkaline phosphatase 124. CK 23, troponin was negative. Albumin 2.5, globulin 4.4, and lipase 17. Urine was negative. Urine negative. Toxicology, positive for cocaine. Plasma alcohol was negative. CT scan of the abdomen and pelvis shows enlarged liver, fatty infiltrate, questionable portal hypertension contributing to pelvic venous congestion. Mural thickening of the colon, especially in the right colon suggestive of colitis. She was given potassium chloride 40 mEq, 2 g bag of magnesium, Zofran , Protonix 40 mg IV push, and a bolus of fluids in the ER. She reports that this improved her symptoms. She will be admitted to the medical floor for further management. REVIEW OF SYSTEMS: The patient reports abdominal pain; reports appetite; reports diarrhea, nausea, and vomiting. Denies fever or chills. All systems are reviewed and are negative unless mentioned above or in the HPI. PAST MEDICAL HISTORY: Esophageal varices, peptic ulcers, and iron deficiency anemia. PAST SURGICAL HISTORY: section x2, had an upper GI cauterization of varices, and peptic ulcers. PSYCHIATRIC HISTORY: None. SOCIAL HISTORY: She drinks daily, although she reports that she has not had anything to drink in the last 2 or 3 days and abuses cocaine. She has no smoking history. She lives at home with her family. ALLERGIES: NAPROXEN. SHE REPORTS THIS MAKES HER VOMIT. CURRENT MEDICATIONS: Per the ER system, Lasix 20 mg p.o. daily, folic acid 1 mg once a day, potassium chloride 20 mEq b.i.d., and Zofran 8 mg p.o. once a day as needed. PHYSICAL EXAMINATION: VITAL SIGNS: Blood pressure 111/77, pulse is 102, respiratory rate 16, and pO2 sats 100% on room air. CONSTITUTION: The patient is a little tachycardic. She is nontoxic appearing. She is alert and oriented to person, place, and time. HEENT: Head is atraumatic and normocephalic. Eyes, pupils are equally round and reactive to light. She has some mild jaundice, bilateral sclerae. No nystagmus. ENT, mouth exam is normal. Mucous membranes are dry. NECK: Normal range of motion. Trachea is midline. RESPIRATORY: Chest breath sounds are clear. Chest expansion is equal. CARDIOVASCULAR: She is tachycardic. Regular rhythm. Heart sounds are normal. ABDOMEN: Diffusely tender, mild intensity. Bowel sounds are heard. BACK: Normal range of motion. No tenderness. EXTREMITIES: Upper extremity, normal range of motion. Motor strength is normal. Radial pulses are normal. Lower extremity, normal range of motion. Motor strength is normal. Pedal pulses are normal. NEURO: The patient is oriented to person, place, and time. Gait is normal. SKIN: Warm, dry, and normal in color. PSYCH: She has a normal affect. PLAN/ASSESSMENT: 1. Colitis, presumed infectious. The patient was started on Zosyn in the ER, we will continue this q.6 hours, 3.375 g. We will continue the Protonix IV 40 mg daily, hydration normal saline at 100 mL per hour, Zofran 4 mg IV push q.6 hours as needed. She does have a history of a Clostridium difficile, was discharged with vancomycin p.o. on 10/24/2019. 2. Hypokalemia. The patient was given potassium chloride in the emergency room. We will continue this 40 mEq daily. She does take this at home as well. 3. Enlarged fatty liver with elevated AST, alkaline phosphatase, and possible portal hypertension on the CT scan. The patient has a history of alcohol abuse. We will start CHRIS protocol and a banana bag daily. Recheck her lab values in a.m. 4. Gastrointestinal and deep venous thrombosis prophylaxis started. 5. Hypomagnesemia. We will recheck lab values again in the morning. The patient received 2 g in the emergency room. 6. Case discussed with Dr. Sotomayor, who agrees with plan. 7. Hospital course dependent on clinical findings. Job ID: [id number]
[2019-11-26] MEDS: Vancomycin HCl 25 MG/ML Oral PO SCH ×4 (01:15→20:51)
[2019-11-26] MEDS: Sodium Chloride 0.9% 1,000 ML IV SCH ×3 (06:01→23:22)
[2019-11-26 07:19] LABS: #Eosinphils 0.4 thou/uL (0.0-0.7); #Lymphocytes 1.1 thou/uL (1.20-3.40); #Monocytes 0.3 thou/uL (0.11-0.59); #Neutrophils 0.7 thou/uL (1.40-6.50); %Basophils 1.6 % (0.0-1.0); %Lymphocytes 42.7 % (21.0-51.0); %Monocytes 10.9 % (0.0-10.0); %Neutrophils 28.7 % (42.0-75.0); Hemoglobin 9.7 g/dL (12.0-16.0); Mean Corpuscular HGB CONC 33.1 g/dL (32.0-36.0); Mean Platelet Volume 7.2 fL (7.4-10.4); Platelet Count 137 thou/uL (130-400); RBC Distribution Width 13.6 % (11.5-14.5); Red Blood Cell (RBC) Count 2.85 mill/uL (4.20-5.40); White Blood Cell (WBC) Count 2.5 thou/uL (4.8-10.8)
[2019-11-26 07:35] LABS: Phosphorus 2.1 mg/dL (2.3-4.7)
[2019-11-26 07:37] LABS: ALT (SGPT) Less than 7 U/L (8-55); AST (SGOT) 29 U/L (5-34); Alkaline Phosphatase 95 U/L (40-110); Anion Gap 13 mmol/L (10-20); BUN (Urea Nitrogen) Less than 4 mg/dL (7.0-18.7); Bilirubin, Total 0.9 mg/dL (0.2-1.2); Calc. Creatinine Clearance 0 mL/min (70-130); Calcium 6.9 mg/dL (7.8-10.44); Carbon Dioxide 25 mmol/L (22-29); Chloride 102 mmol/L (98-107); Estimated GFR-MDRD Greater than 90; Globulin 3.3 g/dL (2.4-3.5); Glucose 85 mg/dL (70-105); Magnesium 1.5 mg/dL (1.6-2.6); Protein, Total 5.3 g/dL (6.0-8.3); Sodium 137 mmol/L (136-145)
[2019-11-26 07:39] LABS: Potassium 2.9 mmol/L (3.5-5.1)
[2019-11-26] MEDS: Famotidine 20 MG TAB PO SCH ×2 (08:01→20:48)
[2019-11-26] MEDS: Potassium Chloride 20 MEQ TAB PO SCH (08:02)
[2019-11-26] MEDS ORDERED: Pantoprazole 40 MG VIAL IVP SCH (09:00)
[2019-11-26] MEDS ORDERED: Magnesium Sulfate 2 GM in Sodium Chloride 0.9% 100 ML IVPB SCH (09:00)
[2019-11-26] MEDS ORDERED: Azithromycin 250 MG TAB PO SCH (09:00)
[2019-11-26] MEDS ORDERED: Magnesium 2 GM/50 ML 2 GM in Premix Bag 1 BAG IVPB SCH (09:00)
[2019-11-26] MEDS: Folic Acid 1 MG TAB PO SCH (09:44)
[2019-11-26 12:43] LABS: SARS-CoV-2 MS2 Positive; SARS-CoV-2 N Gene Negative; SARS-CoV-2 S Gene Negative; SARS-CoV-2 by NAA Not Detected (NotDetected); SARS-CoV-2 orf1ab Negative
[2019-11-26] MEDS: Ondansetron PF 4 MG/2 ML Vial IVP PRN (14:05)
--- NOTE | 2019-11-26 16:07 | PDOC.HOSPP ---
- Subjective Encounter Date: 11/26/19 Encounter Time: 10:00 Subjective: THe patient states diarrhea has slowed some and stool was slightly more formed. She stated she tolerated clear liquids without pain, but still had mild abdominal pain that was intermittent. SHe requested to eat solid food this morning AFter eating chopped diet, patient vomited and diarrhea recurred - Objective Vital Signs & Weight: Vital Signs (12 hours) Temp Pulse Resp BP BP Pulse Ox 11/26/19 08:00 98.1 F 95 16 102/69 95 11/26/19 04:16 108/70 Weight Weight 1.862 oz I&O: 11/25/19 11/26/19 11/27/19 06:59 06:59 06:59 Intake Total 2100 240 Balance 2100 240 Result Diagrams: 11/26/19 06:57 11/26/19 06:57 Hospitalist ROS - Review of Systems Constitutional: denies: fever, chills - Medication Medications: Active Medications Generic Name Dose Route Start Last Admin Trade Name Freq PRN Reason Stop Dose Admin Azithromycin 500 mg 11/26/19 09:00 11/26/19 08:01 Zithromax PO 11/27/19 09:01 500 mg DAILY MEGAN Administration Famotidine 20 mg 11/25/19 21:00 11/26/19 08:01 Pepcid PO 20 mg BID MEGAN Administration Folic Acid 1 mg 11/26/19 09:00 11/26/19 09:44 Folvite PO 1 mg DAILY MEGAN Administration Sodium Chloride 1,000 mls @ 100 mls/hr 11/25/19 17:45 11/26/19 15:04 Normal Saline 0.9% IV 1,000 mls .Q10H MEGAN Administration Multivitamins 10 ml/ Folic 1,011.2 mls @ 100 mls/hr 11/25/19 20:00 11/25/19 20:15 Acid 1 mg/ Thiamine HCl 100 mg IV 11/28/19 06:07 1,011.2 mls / Dextrose/Sodium Chloride 2000 MEGAN Administration Ondansetron HCl 4 mg 11/25/19 18:13 11/26/19 14:05 Zofran IVP 4 mg Q6H PRN Administration Nausea/Vomiting Potassium Chloride 40 meq 11/26/19 08:00 11/26/19 08:02 K-Dur PO 40 meq QAM-WM MEGAN Administration Vancomycin HCl 125 mg 11/25/19 20:00 11/26/19 15:26 First Vancomycin PO 125 mg Q6H MEGAN Administration - Exam General Appearance: NAD, awake alert Eye: PERRL, anicteric sclera ENT: normocephalic atraumatic, no oropharyngeal lesions Neck: no JVD Heart: RRR, no murmur, no gallops, no rubs Respiratory: CTAB, no wheezes, no rales, no ronchi Gastrointestinal: soft Gastrointestinal - other findings: mild left sided tenderness Extremities: no cyanosis, no edema. negative: no clubbing Hosp A/P - Plan This is a 39 year old male with history of cocaine abuse, alcohol abuse, who presented with diarrhea/weakness, admitted for colitis Recurrent Colitis with C diff - patient was resumed on oral vancomycin. This is third admission for diarrhea - stool cultures are negative - she did not tolerate solid diet today. Will add IV flagyl - ID consult, may need to consider switching to fidaxomicin given 3rd admission for C diff, alternatively pulse tapered vancomycin - also needs to stop smoking cocaine, no blood in stools, so less likely ischemic Lactic acidosis- - improved to 3.3, will recheck Hypomagnesemia - given 2 grams Mg for Mg 1.5, will repeat Hypokalemia - potassium 2.9, given 40 meq this morning, will recheck Folate deficiency anemia - continue folic acid supplementation Leukopenia - stable, will monitor Transaminitis - resolved
[2019-11-26] MEDS: metroNIDAZOLE 500 MG in Premix Bag 1 BAG IVPB SCH (16:50)
[2019-11-26 17:20] LABS: Lactic Acid 3.7 mmol/L (0.5-2.2)
[2019-11-26 17:23] LABS: Magnesium 2.3 mg/dL (1.6-2.6); Potassium 3.8 mmol/L (3.5-5.1)
[2019-11-26] MEDS: Multivitamins, Adult 10 ML, Folic Acid 1 MG, Thiamine HCl 100 MG in Dextrose 5 %-0.45 %... IV SCH (20:51)
[2019-11-27] MEDS: metroNIDAZOLE 500 MG in Premix Bag 1 BAG IVPB SCH ×3 (00:11→16:28)
[2019-11-27] MEDS: Sodium Chloride 0.9% 1,000 ML IV SCH ×3 (00:11→20:33)
[2019-11-27] MEDS: Vancomycin HCl 25 MG/ML Oral PO SCH ×4 (02:40→20:33)
[2019-11-27] MEDS: Ondansetron PF 4 MG/2 ML Vial IVP PRN (05:44)
[2019-11-27 07:08] LABS: Hemoglobin 9.6 g/dL (12.0-16.0); Mean Corpuscular HGB CONC 31.7 g/dL (32.0-36.0); Mean Corpuscular Hemoglobin 33.2 pg (27.0-31.0); Mean Platelet Volume 7.1 fL (7.4-10.4); Platelet Count 142 thou/uL (130-400); RBC Distribution Width 13.4 % (11.5-14.5); Red Blood Cell (RBC) Count 2.89 mill/uL (4.20-5.40); White Blood Cell (WBC) Count 2.2 thou/uL (4.8-10.8)
[2019-11-27 07:16] LABS: Lactic Acid 2.8 mmol/L (0.5-2.2)
[2019-11-27 07:18] LABS: Anion Gap 11 mmol/L (10-20); BUN (Urea Nitrogen) Less than 4 mg/dL (7.0-18.7); Calc. Creatinine Clearance 0 mL/min (70-130); Calcium 7.1 mg/dL (7.8-10.44); Carbon Dioxide 21 mmol/L (22-29); Chloride 108 mmol/L (98-107); Estimated GFR-MDRD Greater than 90; Glucose 88 mg/dL (70-105); Potassium 3.3 mmol/L (3.5-5.1); Sodium 137 mmol/L (136-145)
[2019-11-27] MEDS ORDERED: Potassium Chloride 20 MEQ TAB PO SCH (07:45)
[2019-11-27] MEDS: Folic Acid 1 MG TAB PO SCH (08:21)
[2019-11-27] MEDS: Potassium Chloride 20 MEQ TAB PO SCH (08:21)
[2019-11-27] MEDS: Famotidine 20 MG TAB PO SCH ×2 (08:21→20:33)
[2019-11-27] MEDS ORDERED: cefTRIAXone\\ROCEPHIN 1 GM in Sodium Chloride 0.9% 100 ML IVPB SCH (09:00)
--- NOTE | 2019-11-27 10:12 | ULT ---
LIMITED ABDOMINAL ULTRASOUND: INDICATION: Evaluate ascites. FINDINGS: Limited abdominal ultrasound obtained with 4-quadrant ultrasound images performed to assess for ascit es. These images show very low volume ascites with a small amount of fluid in the right upper quadrant no shanell. IMPRESSION: Low volume ascites. POS: AH
--- NOTE | 2019-11-27 16:12 | PDOC.HOSPP ---
- Subjective Encounter Date: 11/27/19 Encounter Time: 07:00 Subjective: The patient states she did not tolerate solid food last night and when she ate eggs this morning it was bothering her. She has tolerated her clear liquids SHe states she had a loose yellow stool this afternoon. This morning it seemed more formed The patient states she does not have a car so would like her problem fixed before going home - Objective Vital Signs & Weight: Vital Signs (12 hours) Temp Pulse Resp BP BP BP Pulse Ox 11/27/19 16:03 98.2 F 92 20 113/78 100 11/27/19 11:58 108/75 11/27/19 10:58 97.8 F 100 18 108/75 100 11/27/19 08:00 111/78 100 11/27/19 07:28 98.0 F 95 20 111/78 100 11/27/19 05:13 97.9 F 97 20 106/70 100 Weight Admit Weight 127 lb 12.8 oz Weight 1.862 oz I&O: 11/26/19 11/27/19 11/28/19 06:59 06:59 06:59 Intake Total 2100 3590 Balance 2100 3590 Result Diagrams: 11/27/19 06:45 11/27/19 06:45 Hospitalist ROS - Review of Systems Constitutional: denies: fever, chills - Medication Medications: Active Medications Generic Name Dose Route Start Last Admin Trade Name Sundeepq PRN Reason Stop Dose Admin Famotidine 20 mg 11/25/19 21:00 11/27/19 08:21 Pepcid PO 20 mg BID MEGAN Administration Folic Acid 1 mg 11/26/19 09:00 11/27/19 08:21 Folvite PO 1 mg DAILY MEGAN Administration Multivitamins 10 ml/ Folic 1,011.2 mls @ 100 mls/hr 11/25/19 20:00 11/26/19 20:51 Acid 1 mg/ Thiamine HCl 100 mg IV 11/28/19 06:07 1,011.2 mls / Dextrose/Sodium Chloride 2000 MEGAN Administration Metronidazole 500 mg/ Device 100 mls @ 100 mls/hr 11/26/19 17:00 11/27/19 08: 21 IVPB 100 mls 0100,0900,1700 MEGAN Administration Sodium Chloride 1,000 mls @ 125 mls/hr 11/26/19 22:18 11/27/19 14:36 Normal Saline 0.9% IV 1,000 mls .Q8H MEGAN Administration Ceftriaxone Sodium 1 gm/ 100 mls @ 200 mls/hr 11/27/19 09:00 11/27/19 10:15 Sodium Chloride IVPB 100 mls Q24HR MEGAN Administration Ondansetron HCl 4 mg 11/25/19 18:13 11/27/19 05:44 Zofran IVP 4 mg Q6H PRN Administration Nausea/Vomiting Potassium Chloride 40 meq 11/26/19 08:00 11/27/19 08:21 K-Dur PO 40 meq QAM-WM MEGAN Administration Vancomycin HCl 250 mg 11/27/19 09:00 11/27/19 14:37 First Vancomycin PO 250 mg Q6H MEGAN Administration - Exam General Appearance: NAD, awake alert Eye: PERRL, anicteric sclera ENT: normocephalic atraumatic, no oropharyngeal lesions Neck: no JVD Heart: RRR, no murmur, no gallops, no rubs Respiratory: CTAB, no wheezes, no rales, no ronchi Gastrointestinal: soft Gastrointestinal - other findings: epigastric and LLQ tenderness Extremities: no cyanosis, no clubbing, no edema Skin: normal turgor, no lesions, no rashes Neurological: cranial nerve grossly intact, normal sensation to touch, no focal deficits, no new deficit Musculoskeletal: normal tone, normal strength, no muscle wasting Hosp A/P - Plan Abd US: low volume ascites with small fluid in RUQ CT abdomen: mural thickening of the right colon and of the left colon This is a 39 year old male with history of cocaine abuse, alcohol abuse, who presented with diarrhea/weakness, admitted for colitis Recurrent Colitis with history of C diff - CT abdomen on admission showed mural thickening of right and left colon and mild portal hypertension - patient was resumed on oral vancomycin. Vancomycin increased to 250 mg po q6 hours - stool cultures are negative. Repeat C diff negative, but will continue oral vancomycin given this could be false negative -diet changed back to clear liquid . Added IV flagyl 11/25 - will add IV ceftriaxone. GI was consulted due to persistent diarrhea - US abdomen done today showed mild ascites RUQ, will monitor Lactic acidosis- - improved to 2.8. IV fluids were increased will recheck Cocaine abuse/Alcohol abuse - patient last used four days prior to admission Hypomagnesemia - given 2 grams Mg for Mg 1.5, will repeat Hypokalemia - potassium 3.3, will recheck this evening Folate deficiency anemia - continue folic acid supplementation Leukopenia - stable, will monitor Transaminitis - resolved
[2019-11-27 17:21] LABS: Magnesium 1.7 mg/dL (1.6-2.6); Potassium 3.9 mmol/L (3.5-5.1)
[2019-11-27] MEDS: Multivitamins, Adult 10 ML, Folic Acid 1 MG, Thiamine HCl 100 MG in Dextrose 5 %-0.45 %... IV SCH (20:32)
[2019-11-27] MEDS: Acetaminophen 325 MG TAB PO PRN (20:36)
--- NOTE | 2019-11-28 00:47 | CON ---
DATE OF CONSULTATION: 11/27/2019 CHIEF COMPLAINT: Nausea, vomiting, and diarrhea. HISTORY OF PRESENT ILLNESS: Ms. Ramiro España is a 39-year-old woman, who presented to the emergency room with a persistent history of nausea and vomiting over the last several days and then watery diarrhea several times per day over the last week. She was treated for C. difficile with a two-week course of vancomycin about a month ago. Then about a week and a half later, she started back with the diarrhea. I think ultimately came onto the emergency room for further care. Of note, she was also treated for C. diff back in July of 2019 and she was treated for H. pylori with amoxicillin and metronidazole back around May. She was admitted to the hospital this time on 11/25/2019. She complains of pain in the epigastric region and also left lower quadrant, which is moderate, 5/10 pain previously, now somewhat improved to 2/10 pain and is constant. She last threw up this morning. She did have a CT scan of the abdomen and pelvis when she was admitted on 11/25/2019 that showed some thickening in the colon, more on the right than in the left. She also was noted to have hepatomegaly and fatty infiltration with some enlarged left splenic vein and pelvic venous structures with a question of whether or not this could be related to portal hypertension. The patient has continued to drink half a pint of whiskey daily. She also continues to abuse cocaine. GI was consulted due to persistent diarrhea. PAST MEDICAL HISTORY: Alcohol abuse, fatty liver secondary to alcohol, C. diff colitis, H. pylori infection, and cocaine abuse. PAST SURGICAL HISTORY: and upper and lower endoscopy. FAMILY HISTORY: Negative for GI malignancy. SOCIAL HISTORY: She drinks half a pint of whiskey daily. She uses cocaine. No smoking. ALLERGIES: NAPROXEN. MEDICATIONS: Currently in the hospital include; 1. Ceftriaxone. 2. Famotidine. 3. Metronidazole IV. 4. Vancomycin p.o. REVIEW OF SYSTEMS: Negative x10 systems reviewed except as stated in the history of present illness. PHYSICAL EXAMINATION: VITAL SIGNS: Temperature 98.2, pulse 92, and blood pressure 113/78. GENERAL: She is in no acute distress. Alert and oriented x3. HEENT: Eyes have no scleral icterus. Oropharynx is clear without lesions. No cervical or supraclavicular lymphadenopathy. LUNGS: Clear to auscultation bilaterally. HEART: Regular rate and rhythm without murmur. ABDOMEN: Soft. Mild tenderness in the epigastric region, left lower quadrant without guarding. Bowel sounds are present. EXTREMITIES: No lower extremity edema. NEUROLOGIC: Cranial nerves are grossly intact. LABORATORY DATA: White blood cell count 2.2, hemoglobin 9.6, and platelets 142. INR 1.2. Creatinine 0.57, bilirubin 0.9, AST 29, ALT 7, alkaline phosphatase 95, and albumin 2.0. IMPRESSION: 1. Recurrent diarrhea. This is most likely secondary to recurrent Clostridium difficile. She just finished a course of vancomycin orally for Clostridium difficile a week and a half ago and then her diarrhea has since return. Her Clostridium difficile toxin was positive in July and positive again with this episode more recently on October 21. Her Clostridium difficile was negative this hospital stay; however, I question the accuracy of that given her two previous positive tests and then the recurrence of this diarrhea just a week and a half after finishing her vancomycin. Other possibilities could be ischemic colitis of the right colon given the right colon thickening and use of cocaine. However, she has no blood in the stool and her pain is left-sided in the epigastric region and overall this would be unlikely. She could have another source of the diarrhea and have thickening of the bowel just related to portal hypertension. 2. Fatty liver disease and alcohol abuse. There are signs of portal hypertension on imaging. Alcohol cessation is advised. 3. Alcohol abuse. 4. Cocaine abuse. RECOMMENDATIONS: 1. Continue oral vancomycin. 2. Continue metronidazole IV. 3. Discontinue ceftriaxone. Primary treatment for C. diff will be to replenish the healthy mirian. We will want to avoid any unnecessary gram-negative coverage or other broad-spectrum antibiotics without clearly defining the infection source in light of her risk for recurrent C. diff. 4. Alcohol cessation. 5. Since she vomited this morning, we can maintain a clear liquid diet today. However, I would try to advance her to at least a full liquid diet tomorrow morning as she tolerates. Job ID: [id number]
[2019-11-28] MEDS: metroNIDAZOLE 500 MG in Premix Bag 1 BAG IVPB SCH ×3 (01:12→16:18)
[2019-11-28] MEDS: Vancomycin HCl 25 MG/ML Oral PO SCH ×4 (03:09→21:08)
[2019-11-28] MEDS: Potassium Chloride 20 MEQ TAB PO SCH (08:28)
[2019-11-28] MEDS: Famotidine 20 MG TAB PO SCH ×2 (08:29→21:07)
[2019-11-28] MEDS: Folic Acid 1 MG TAB PO SCH (08:29)
[2019-11-28] MEDS ORDERED: cefTRIAXone Sodium 1,000 MG in Syringe 0 ML IVPB SCH (09:00)
[2019-11-28] MEDS ORDERED: cefTRIAXone\\ROCEPHIN 1 GM in Sodium Chloride 0.9% 100 ML IVPB SCH (09:00)
[2019-11-28 09:48] LABS: Anion Gap 9 mmol/L (10-20); BUN (Urea Nitrogen) Less than 4 mg/dL (7.0-18.7); Calc. Creatinine Clearance 0 mL/min (70-130); Calcium 7.5 mg/dL (7.8-10.44); Carbon Dioxide 21 mmol/L (22-29); Chloride 109 mmol/L (98-107); Estimated GFR-MDRD Greater than 90; Glucose 112 mg/dL (70-105); Potassium 3.4 mmol/L (3.5-5.1); Sodium 136 mmol/L (136-145)
--- NOTE | 2019-11-28 09:49 | RAD ---
EXAM: Single view of the chest HISTORY: Chest pain COMPARISON: 11/25/2019 FINDINGS: Single view of the chest shows a normal sized cardiomediastinal silhouette. There is no sheldon dence of consolidation, mass, or pleural effusion. No acute osseous abnormality. IMPRESSION: No evidence of acute cardiopulmonary disease
[2019-11-28] MEDS ORDERED: Potassium Chloride 20 MEQ TAB PO SCH (10:00)
--- NOTE | 2019-11-28 10:44 | PDOC.HOSPP ---
- Subjective Encounter Date: 11/28/19 Encounter Time: 10:42 Subjective: The patient reports having five loose stools today. SHe is tolerating broth, wants to try advancing to solid food again , but try something soft. She has no blood in her stools SHe also reports high blood pressure this morning and an episode of chest pain that lasted ten minutes and self resolved She has had no nausea or vomiting - Objective Vital Signs & Weight: Vital Signs (12 hours) Temp Pulse Resp BP BP BP Pulse Ox 11/28/19 08:25 97 11/28/19 07:56 98.0 F 100 12 170/83 H 97 11/28/19 04:53 98.2 F 87 18 120/70 11/28/19 03:02 120/70 11/28/19 00:10 98.3 F 92 20 120/70 11/28/19 00:00 120/70 Weight Admit Weight 127 lb 12.8 oz Weight 1.862 oz I&O: 11/27/19 11/28/19 11/29/19 06:59 06:59 06:59 Intake Total 3590 3660 Balance 3590 3660 Result Diagrams: 11/27/19 06:45 11/28/19 09:12 Hospitalist ROS - Review of Systems Constitutional: denies: fever, chills - Medication Medications: Active Medications Generic Name Dose Route Start Last Admin Trade Name Freq PRN Reason Stop Dose Admin Acetaminophen 650 mg 11/25/19 18:06 11/27/19 20:36 Tylenol PO 650 mg Q4H PRN Administration Headache/Fever/Mild Pain (1-3) Famotidine 20 mg 11/25/19 21:00 11/28/19 08:29 Pepcid PO 20 mg BID MEGAN Administration Folic Acid 1 mg 11/26/19 09:00 11/28/19 08:29 Folvite PO 1 mg DAILY MEGAN Administration Metronidazole 500 mg/ Device 100 mls @ 100 mls/hr 11/26/19 17:00 11/28/19 09: 52 IVPB 100 mls 0100,0900,1700 MEGAN Administration Ondansetron HCl 4 mg 11/25/19 18:13 11/27/19 05:44 Zofran IVP 4 mg Q6H PRN Administration Nausea/Vomiting Potassium Chloride 40 meq 11/26/19 08:00 11/28/19 08:28 K-Dur PO 40 meq QAM-WM MEGAN Administration Vancomycin HCl 250 mg 11/27/19 09:00 11/28/19 09:52 First Vancomycin PO 250 mg Q6H MEGAN Administration - Exam General Appearance: NAD, awake alert Eye: PERRL, anicteric sclera ENT: normocephalic atraumatic, no oropharyngeal lesions Neck: no JVD Heart: RRR, no murmur, no gallops, no rubs Respiratory: CTAB, no wheezes, no rales, no ronchi Gastrointestinal: soft, non-tender, non-distended, normal bowel sounds Extremities: no cyanosis, no clubbing Hosp A/P - Plan Abd US: low volume ascites with small fluid in RUQ CT abdomen: mural thickening of the right colon and of the left colon This is a 39 year old male with history of cocaine abuse, alcohol abuse, who presented with diarrhea/weakness, admitted for colitis Recurrent Colitis with history of C diff Recent Campylobacter infection - CT abdomen on admission showed mural thickening of right and left colon and mild portal hypertension - patient was resumed on oral vancomycin on admission. Vancomycin increased to 250 mg po q6 hours - stool cultures are negative. Repeat C diff negative, but continued oral vancomycin since high chance of false negative. - she finished course of azithromycin for Campylobacter, repeat campylobacter testing negative. -flagyl IV added 11/25. I did trial of ceftriaxone 11/26 to see if there was another possible bacterial etiology of colitis, however discontinued today since no improvement - trial of soft ground diet Lactic acidosis- - resolved, lactate has improved to 2. Discontinued fluids Hypertension - BP was 170, will recheck, if persistently elevated will start treatment Chest pain - was likely from hypertension - check EKG - chest X ray normal Cocaine abuse/Alcohol abuse - patient last used four days prior to admission Hypomagnesemia - given 2 grams Mg for Mg 1.5, will repeat Hypokalemia - potassium 3.4, will replace and recheck \ Folate deficiency anemia - continue folic acid supplementation Leukopenia - stable, will monitor Transaminitis - resolved
[2019-11-28 13:06] VITALS: BMI 20.6
--- NOTE | 2019-11-28 13:22 | PRG ---
DATE OF SERVICE: 11/28/2019 SUBJECTIVE: Ms. España continues to have watery diarrhea. She estimates 5 bowel movement so far today. These are watery and nonbloody. She is really not having any abdominal pain, nausea, or vomiting. She has been advanced to a regular diet and is tolerating it well so far today. OBJECTIVE: VITAL SIGNS: Temperature 98.1, pulse 102, blood pressure 135/92, 100% oxygen saturation on room air. GENERAL: No acute distress. HEART: Regular rate and rhythm. LUNGS: Clear to auscultation bilaterally. ABDOMEN: Nondistended. Bowel sounds are active. Mild generalized tenderness to palpation, but no guarding or rebound tenderness. EXTREMITIES: No peripheral edema. LABORATORY STUDIES: WBC 2.2, hemoglobin 9.6 and stable today, and platelets 142. Sodium 136, potassium 3.4, BUN less than 4, creatinine 0.59, and glucose 112. ASSESSMENT AND PLAN: 1. Recurrent diarrhea. 2. Likely 2nd recurrence of Clostridium difficile infection. I agree with Dr. Cody's impression, that the negative antigen and toxin test from this admission has a high likelihood of being false negative, due to the very high pretest probability of recurrent C difficile infection and characteristic recurrence of symptoms. I would recommend continuing the oral vancomycin 250 mg 4 times daily for now, okay to continue the IV Flagyl for now as well. Still awaiting significant symptomatic improvement, would expect this over the next couple of days. I would recommend that she have an extended vancomycin taper, of 250 mg 4 times daily for 14 days, then twice daily for 7 days, then once daily for 7 days, then every other day for another 2 weeks, for 6 weeks total of therapy. Job ID: [id number]
--- NOTE | 2019-11-28 17:35 | CON ---
DATE OF CONSULTATION: 11/28/2019 REASON FOR CONSULTATION: Diarrhea. HISTORY OF PRESENT ILLNESS: A 39-year-old who has a history of alcoholism and cocaine use and also a suggestion of eosinophilic esophagitis, prior upper GI bleeds secondary to ulcers and Maribell-Gentile tears. The patient had an endoscopy in May, an upper endoscopy, which demonstrated unremarkable findings and H pylori positive chronic active gastritis. In July 2019, she was admitted with abdominal pain and diarrhea and a stool test was positive for C difficile and she received oral vancomycin 125 mg for discharge planning for 10 days. The next month, she had to be readmitted with hypokalemia, leukopenia, pancytopenia, and abdominal pain. A CT abdomen and pelvis showed pelvic venous congestion, so it was not clear why she was having persistence of abdominal pain. Review of the abdomen and pelvis CT that was completed in August demonstrated fatty liver. No ascites. The bowel did not appear remarkable and then in October, she gets readmitted with again recurrence of C diff in stool with the diarrhea and she still has continued to drink half a pint of whiskey daily and she was given again the same treatment and discharged and now she comes back with abdominal pain and diarrhea more localized to the left and right lower quadrant, some vomiting as well and for the past 3 days, she has not had any alcoholic beverage use reportedly. No headaches. Actually, she did lose some weight, but has regained it. Swelling in lower extremities. No genitourinary symptoms. No dyspnea or cough. No back pain. MEDICAL HISTORY: Alcoholism; esophageal ulcers; H pylori gastritis; steatohepatitis; C difficile colitis x2 in 2019, both times treated with vancomycin. SURGICAL HISTORY: , esophageal dilation. SOCIAL HISTORY: Lives in [place] with family and again used to drink a pint of whiskey daily and less than about half a pint daily now. Some cocaine use. No IV drug use. Never smoker. ALLERGIES: NAPROXEN WITH VOMITING. CURRENT MEDICATION LIST: 1. Pepcid. 2. Folvite. 3. Flagyl. 4. Ondansetron. 5. Potassium. 6. Vancomycin. FAMILY HISTORY: Noncontributory. PHYSICAL EXAMINATION: VITAL SIGNS: Temperature has been normal. BP 130/92, pulse 102, respirations 14, O2 saturation 100. SKIN: Not remarkable. Peripheral IV access. She is voiding in the toilet. Appears in no distress. Skinny. No lymphadenopathy. HEENT: Ocular movements conjugate. Oral cavity still with some remaining teeth with dental decay. NECK: Supple. No jugular vein distention. LUNGS: Symmetric. Clear breath sounds. HEART: S1 and S2. Regular rate without murmurs. No S3 or S4. ABDOMEN: Moderately distended. Bowel sounds are increased. There is moderate tenderness in the lateral aspect of the abdomen, right and left side, more toward the lower segments. No bladder distention. No joint inflammatory activity. EXTREMITIES: 2+ edema of the lower extremities. Pulses are 1+ in dorsalis pedis. Plantar responses are flexor. No clonus. NEUROLOGIC: Cognitive function appears to be intact. LABORATORY DATA: White cell count is down from 3.1 to 2.2, hemoglobin 9.6, MCV 105, platelets 142, 28% neutrophils, total neutrophil count of about 600, eosinophils are 16. Sodium 136, creatinine 0.59, bilirubin 1.1, AST 50, ALT less than 7, alkaline phosphatase 124, CK 23, albumin 2.5. Albumin has been low since September 2018. Lipase 17. Urinalysis normal. Toxicology with cocaine metabolites. COVID was not detected. C diff was negative for both antigen and toxin. Campylobacter and Shiga toxin negative. Stool culture not remarkable. Parasite screen negative. Blood cultures negative. ASSESSMENT: Alcoholism, intermittent cocaine use, steatohepatitis or early cirrhosis with evidence of pancytopenia, which could be consistent with hypersplenism from portal hypertension and C diff x2 this year, now with areas of thickened ascending colon associated with diarrhea. DISCUSSION: The pretest likelihood for recurrence of C diff is quite high in this patient, so I would assume that the test was false negative and treat it presumptively for C diff as she is being treated right now. The other thing can be done is an endoscopy to see if she has evidence of pseudomembranous colitis. If she did not, then we would have to find an alternate explanation for her diarrhea. I have seen cases of florid pseudomembranous colitis, which responded to C diff treatment with negative screening for C diff recently, although they did have a positive PCR when I requested specifically for PCR to be carried out. Usually stool c diff toxin PCR is only performed if the toxin latex test is negative in the face of a positive C difficile antigen test result, but I have had cases where they had both that the antigen and the rapid latex toxin negative and a positive toxin PCR result with response to oral vancomycin treatment. Job ID: [id number] [facility]
[2019-11-29] MEDS: metroNIDAZOLE 500 MG in Premix Bag 1 BAG IVPB SCH ×2 (00:38→12:07)
[2019-11-29] MEDS: Vancomycin HCl 25 MG/ML Oral PO SCH ×2 (02:31→08:40)
[2019-11-29] MEDS: Famotidine 20 MG TAB PO SCH ×2 (08:40→20:15)
[2019-11-29] MEDS: Potassium Chloride 20 MEQ TAB PO SCH (08:40)
--- NOTE | 2019-11-29 09:56 | RAD ---
MODIFIED BARIUM SWALLOW IN PRESENCE OF SPEECH THERAPIST: HISTORY: Dysphagia, feeding difficulties FINDINGS: No laryngeal penetration or aspiration is seen. No persistent pooling of contrast is seen in the valleculae or piriform sinuses. Please see recommendations of the speech therapist for further management.
[2019-11-29] MEDS ORDERED: Amlodipine 5 MG TAB PO SCH (10:00)
--- NOTE | 2019-11-29 10:28 | EKG ---
Test Reason : Blood Pressure : / mmHG Vent. Rate : 104 BPM Atrial Rate : 104 BPM P-R Int : 144 ms QRS Dur : 072 ms QT Int : 344 ms P-R-T Axes : 000 020 066 degrees QTc Int : 452 ms Sinus tachycardia Otherwise normal ECG When compared with ECG of 25-NOV-2019 12:28, (Unconfirmed) No significant change was found Confirmed by JACE BUITRAGO M.D. ([id number] on 11/29/2019 10:28:02 AM Referred By: VIOLETA Confirmed By:JACE BUITRAGO M.D.
[2019-11-29] MEDS: Folic Acid 1 MG TAB PO SCH (10:54)
[2019-11-29] MEDS ORDERED: Fidaxomicin 200 MG TAB PO SCH (12:00)
[2019-11-29] MEDS: Simethicone Chewable 80 MG TAB PO PRN (12:43)
--- NOTE | 2019-11-29 13:05 | PRG ---
DATE OF SERVICE: 11/29/2019 SUBJECTIVE: The patient continues to have watery diarrhea without blood. She reports volume is a bit more. She does have migratory abdominal pain, not worse since admission. There is no nausea or vomiting. She is tolerating diet. OBJECTIVE: VITAL SIGNS: Temperature 97.9, blood pressure 122/82, and pulse 105. GENERAL: She is alert and conversant without distress. HEENT: Anicteric sclerae. CV: Normal S1 and S2. Regular rate and rhythm. CHEST: Breath sounds. ABDOMEN: Questionable splenomegaly and hepatomegaly. There is no distention. No tympany. She has active bowel sounds. There is some mild tenderness greater in the left than right. EXTREMITIES: No edema. LABORATORY DATA: No new labs today. Blood culture negative so far. ASSESSMENT: 1. Diarrhea, likely from persistent or recurrent Clostridium difficile colitis despite negative toxin and antigen tests. The patient has same clinical presentation as her previous bout of C diff. Pseudomonas on stool culture is likely not pathogenic. The patient is on fourth day of IV metronidazole and oral vancomycin. 2. Continue the IV metronidazole and p.o. vancomycin. 3. Agree with adding fidaxomicin while she is here, although this medication can be very cost prohibitive as outpatient. 4. If no clinical improvement in 1 to 2 days, we will proceed with endoscopy to rule out any other process. Job ID: [id number] [facility]
--- NOTE | 2019-11-29 16:50 | PRG ---
DATE OF SERVICE: 11/29/2019 SUBJECTIVE: No improving since yesterday. Still with liquid stool, not eating much. Some abdominal cramps mostly in the right upper quadrant. No dyspnea. Actually, she did have some chest pain earlier today. OBJECTIVE: VITAL SIGNS: Temperature is normal. BP 120/80, heart rate 108, respiratory rate 20, O2 saturation 100. GENERAL: Does not appear in distress. HEART: S1, S2. Regular rate. LUNGS: Clear. ABDOMEN: With mild tenderness in the right upper quadrant. Bowel sounds are not as prominent as yesterday. LABORATORY DATA: White cell count 2.2, hemoglobin 9.8, platelets 142. Chemistry: Creatinine 0.59, potassium 3.4. Modified barium swallow with no penetration or aspiration. No pooling of contrast seen. ASSESSMENT/DISCUSSION: Alcoholism, cocaine use, intermittent, steatohepatitis, early cirrhosis, pancytopenia, likely portal hypertension and hypersplenism. Two Clostridium difficile episodes this year, now with persistent diarrhea and thickened areas of colon in the ascending portion. Even though the current Clostridium difficile antigen was negative, the pretest likelihood is high for Clostridium difficile, so I think we should treat empirically for Clostridium difficile with Dificid and see what the response is. She may need a flexible sigmoidoscopy if she does not improve. Job ID: [id number]
--- NOTE | 2019-11-29 17:34 | PDOC.HOSPP ---
- Subjective Encounter Date: 11/29/19 Encounter Time: 10:00 Subjective: THe patient reports no improvement, had five loose stools this morning. Discussed with ID and GI who agreed with starting fidaxomicin. THe patient states this evening her diarrhea is less liquidy and she had only four loose stools during the day - Objective Vital Signs & Weight: Vital Signs (12 hours) Temp Pulse Resp BP Pulse Ox 11/29/19 16:00 98.2 F 108 H 20 128/85 100 11/29/19 11:00 97.9 F 105 H 20 122/82 100 11/29/19 08:00 98.2 F 104 H 20 112/79 98 Weight Admit Weight 1.856 oz Weight 127 lb 12.8 oz I&O: 11/28/19 11/29/19 11/30/19 06:59 06:59 06:59 Intake Total 3660 1999 Balance 3660 1999 Result Diagrams: 11/27/19 06:45 11/28/19 09:12 Hospitalist ROS - Review of Systems Constitutional: denies: fever, chills - Medication Medications: Active Medications Generic Name Dose Route Start Last Admin Trade Name Freq PRN Reason Stop Dose Admin Acetaminophen 650 mg 11/25/19 18:06 11/27/19 20:36 Tylenol PO 650 mg Q4H PRN Administration Headache/Fever/Mild Pain (1-3) Famotidine 20 mg 11/25/19 21:00 11/29/19 08:40 Pepcid PO 20 mg BID MEGAN Administration Folic Acid 1 mg 11/26/19 09:00 11/29/19 10:54 Folvite PO 1 mg DAILY MEGAN Administration Ondansetron HCl 4 mg 11/25/19 18:13 11/27/19 05:44 Zofran IVP 4 mg Q6H PRN Administration Nausea/Vomiting Potassium Chloride 40 meq 11/26/19 08:00 11/29/19 08:40 K-Dur PO 40 meq QAM-WM MEGAN Administration Simethicone 80 mg 11/29/19 01:36 11/29/19 12:43 Mylicon Chewable PO 80 mg PCHS PRN Administration Gas Pain - Exam General Appearance: NAD, awake alert Eye: PERRL, anicteric sclera ENT: normocephalic atraumatic, no oropharyngeal lesions Neck: no JVD Heart: RRR, no murmur, no gallops, no rubs Respiratory: CTAB, no wheezes, no rales, no ronchi Gastrointestinal: soft Gastrointestinal - other findings: LLQ tenderness Extremities: no cyanosis, no clubbing, no edema Skin: normal turgor, no lesions, no rashes Hosp A/P - Plan Abd US: low volume ascites with small fluid in RUQ CT abdomen: mural thickening of the right colon and of the left colon This is a 39 year old male with history of cocaine abuse, alcohol abuse, who presented with diarrhea/weakness, admitted for colitis Recurrent Colitis with history of C diff Recent Campylobacter infection - CT abdomen on admission showed mural thickening of right and left colon and mild portal hypertension - patient was resumed on oral vancomycin on admission. - she had no improvement with oral vancomycin after four days, so started on fidaxomicin today. - continue IV flagyl, added 11/25 . Ceftriaxone trialed from 11/26 to 11/27 with no improvement so discontinued - continue ground diet Lactic acidosis- - resolved, lactate has improved to 2. Discontinued fluids Hypertension - started amlodipine5 mg today Chest pain - was likely from hypertension -EKG showed sinus tachycardia - chest X ray normal Cocaine abuse/Alcohol abuse - patient last used four days prior to admission Hypomagnesemia - last Mg 1.7, recheck today Hypokalemia - potassium 3.4 11/27 will recheck Folate deficiency anemia - continue folic acid supplementation Leukopenia -last WBC 2.2, [facility] Transaminitis - resolved
[2019-11-29 18:03] LABS: Hemoglobin 12.3 g/dL (12.0-16.0); Mean Corpuscular Hemoglobin 33.4 pg (27.0-31.0); Mean Platelet Volume 7.1 fL (7.4-10.4); Platelet Count 195 thou/uL (130-400); RBC Distribution Width 13.7 % (11.5-14.5); Red Blood Cell (RBC) Count 3.68 mill/uL (4.20-5.40); White Blood Cell (WBC) Count 2.6 thou/uL (4.8-10.8)
[2019-11-29 18:40] LABS: Anion Gap 11 mmol/L (10-20); BUN (Urea Nitrogen) Less than 4 mg/dL (7.0-18.7); Calc. Creatinine Clearance 117 mL/min (70-130); Calcium 8.7 mg/dL (7.8-10.44); Carbon Dioxide 25 mmol/L (22-29); Chloride 106 mmol/L (98-107); Estimated GFR-MDRD Greater than 90; Glucose 97 mg/dL (70-105); Magnesium 1.7 mg/dL (1.6-2.6); Sodium 137 mmol/L (136-145)
[2019-11-29] MEDS: Fidaxomicin 200 MG TAB PO SCH (20:15)
[2019-11-30] MEDS: Acetaminophen 325 MG TAB PO PRN ×2 (04:05→21:27)
[2019-11-30] MEDS: Amlodipine 5 MG TAB PO SCH (08:33)
[2019-11-30] MEDS: Fidaxomicin 200 MG TAB PO SCH ×2 (08:33→21:27)
[2019-11-30] MEDS: Folic Acid 1 MG TAB PO SCH (08:34)
[2019-11-30] MEDS: Potassium Chloride 20 MEQ TAB PO SCH (08:34)
[2019-11-30] MEDS: Famotidine 20 MG TAB PO SCH ×2 (08:35→21:27)
[2019-11-30] MEDS ORDERED: Amlodipine 5 MG TAB PO SCH (09:53)
--- NOTE | 2019-11-30 09:59 | PDOC.HOSPP ---
- Subjective Encounter Date: 11/30/19 Encounter Time: 09:59 Subjective: The patient states that she is urinating every five minutes, states it does not burn when she pees. She is concerned about a urine infection She states she had over 20 episodes of diarrhea, it is still watery. She seems to have more diarrhea when she eats. I advised her to go back to clear liquid diet. She denies abdominal pain, nausea/vomiting - Objective Vital Signs & Weight: Vital Signs (12 hours) Temp Pulse Resp BP Pulse Ox 11/30/19 08:45 100 11/30/19 07:56 98.2 F 98 20 127/87 100 Weight Admit Weight 1.856 oz Weight 127 lb 12.8 oz I&O: 11/29/19 11/30/19 12/01/19 06:59 06:59 06:59 Intake Total 1999 1000 Balance 1999 1000 Result Diagrams: 11/29/19 17:55 11/29/19 17:55 Hospitalist ROS - Review of Systems Constitutional: denies: fever, chills - Medication Medications: Active Medications Generic Name Dose Route Start Last Admin Trade Name Freq PRN Reason Stop Dose Admin Acetaminophen 650 mg 11/25/19 18:06 11/30/19 04:05 Tylenol PO 650 mg Q4H PRN Administration Headache/Fever/Mild Pain (1-3) Amlodipine Besylate 5 mg 11/30/19 09:00 11/30/19 08:33 Amlodipine 5 Mg Tab PO 5 mg DAILY MEGAN Administration Famotidine 20 mg 11/25/19 21:00 11/30/19 08:35 Pepcid PO 20 mg BID MEGAN Administration Fidaxomicin 200 mg 11/29/19 21:00 11/30/19 08:33 Fidaxomicin 200 Mg Tab PO 200 mg BID MEGAN Administration Folic Acid 1 mg 11/26/19 09:00 11/30/19 08:34 Folvite PO 1 mg DAILY MEGAN Administration Ondansetron HCl 4 mg 11/25/19 18:13 11/27/19 05:44 Zofran IVP 4 mg Q6H PRN Administration Nausea/Vomiting Potassium Chloride 40 meq 11/26/19 08:00 11/30/19 08:34 K-Dur PO 40 meq QAM-WM MEGAN Administration Simethicone 80 mg 11/29/19 01:36 11/29/19 12:43 Mylicon Chewable PO 80 mg PCHS PRN Administration Gas Pain - Exam General Appearance: NAD, awake alert Eye: PERRL, anicteric sclera ENT: normocephalic atraumatic, no oropharyngeal lesions Neck: no JVD Heart: RRR, no murmur, no gallops, no rubs Respiratory: CTAB, no wheezes, no rales, no ronchi Gastrointestinal - other findings: epigastric tenderness persistent, abdomen s lightly distended Extremities: no cyanosis, no clubbing, no edema Hosp A/P - Plan Abd US: low volume ascites with small fluid in RUQ CT abdomen: mural thickening of the right colon and of the left colon This is a 39 year old male with history of cocaine abuse, alcohol abuse, who presented with diarrhea/weakness, admitted for colitis 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 She finished a course of azit hromycin. - started fidaxomicin 11/28. Still has diarrhea. - continue IV flagyl started 11/25. Unlikely bacterial colitis since no improvement with diarrhea with ceftriaxone 11/26 to 11/27. Stool culture growing pseudomonas, per GI and ID likely colonization - may need flexible sigmoidoscopy versus fecal transplant? Appreciate GI recs Hypomagnesemia - last Mg 1.7, will check daily Hypokalemia - resolved, potassium 5.0 Lactic acidosis- - resolved, lactate has improved to 2. Discontinued fluids Hypertension - continue amlodipine Chest pain - was likely from hypertension -EKG showed sinus tachycardia - chest X ray normal Cocaine abuse/Alcohol abuse - patient last used four days prior to admission Folate deficiency anemia - continue folic acid supplementation Leukopenia -last WBC 2.6, stable Transaminitis - resolved
--- NOTE | 2019-11-30 11:16 | RAD ---
EXAM: Single view of the abdomen HISTORY: Abdominal distention COMPARISON: None FINDINGS: Single view of the abdomen shows a nonspecific, nonobstructive bowel gas pattern. No suspi cious calcifications are seen. The bones are unremarkable. Phleboliths are seen in the pelvis. IMPRESSION: Unremarkable exam
[2019-11-30 12:25] LABS: Bacteria/HPF None Seen HPF (None Seen); Bilirubin Negative (Negative); Blood, Urine Negative (Negative); Clarity Clear (Clear); Glucose, Urine (Dipstick) Normal (Negative); Ketone, Urine Negative (Negative); Leukocyte Negative Leu/uL (Negative); Nitrite Negative (Negative); Protein, Urine (Dipstick) Negative (Neg-Trace); RBC/HPF 0-3 HPF (0-3); Specific Gravity, Urine 1.006 (1.002-1.036); Squamous Epithelial 0-3 HPF (0-3); Urobilinogen Normal mg/dL (Less than 2); WBC/HPF None Seen HPF (0-3); pH, Urine 7.5 (5.0-9.0)
[2019-11-30 12:27] LABS: Urine Culture Reflex No No
[2019-11-30 14:25] LABS: Anion Gap 10 mmol/L (10-20); BUN (Urea Nitrogen) Less than 4 mg/dL (7.0-18.7); Calc. Creatinine Clearance 119 mL/min (70-130); Calcium 8.3 mg/dL (7.8-10.44); Carbon Dioxide 26 mmol/L (22-29); Chloride 105 mmol/L (98-107); Estimated GFR-MDRD Greater than 90; Glucose 83 mg/dL (70-105); Magnesium 1.5 mg/dL (1.6-2.6); Potassium 4.9 mmol/L (3.5-5.1); Sodium 136 mmol/L (136-145)
--- NOTE | 2019-11-30 17:20 | PRG ---
DATE OF SERVICE: 11/30/2019 SUBJECTIVE: There is less frequent, and still liquidy. No cramps. No shortness of breath. OBJECTIVE: VITAL SIGNS: Afebrile. LUNGS: Clear. ABDOMEN: Not distended. The bowel sounds are normal. LABORATORY DATA: White blood cell count 2.6, hemoglobin 12.3, platelets 195 and creatinine 0.57. ASSESSMENT AND DISCUSSION: Alcoholism, cocaine use, intermittent, steatohepatitis, early cirrhosis, pancytopenia, possible portal hypertension, hypersplenism, C diff episodes x2 this year, now with persistence of diarrhea, thickened areas of colon in the ascending portion with a negative Clostridium difficile antigen and toxin, latex test. The patient being treated empirically for Clostridium difficile anyway, because of the high pretest likelihood, now with fidaxomicin with some improvement. Job ID: [id number]
--- NOTE | 2019-11-30 23:50 | PRG ---
DATE OF SERVICE: 11/30/2019 SUBJECTIVE: Ms. Ramiro España is feeling better today and that she is having fewer bowel movements. However, she still has had seven liquid stools today, down from 20 yesterday. She has no abdominal pain today. She has been having some frequent urination. OBJECTIVE: VITAL SIGNS: Temperature 97.9, pulse is 115, and blood pressure 119/78. GENERAL: She is in no acute distress. Alert and oriented x3. LUNGS: Clear to auscultation bilaterally. HEART: Tachycardic. S1, S2 without murmur. ABDOMEN: Soft, nontender, and nondistended. Bowel sounds are present. EXTREMITIES: No lower extremity edema. LABORATORY DATA: White blood cell count 2.6, hemoglobin 12.3, and platelets 195. Creatinine 0.57. IMPRESSION: 1. Persistent recurrent acute diarrhea, most likely secondary to Clostridium difficile. A rapid response to antibiotics, either vancomycin or Dificid or metronidazole will not be expected in the setting of having received broad-spectrum gram-negative coverage as well. With that being said, given the thickening in the colon noted by CT scan and persistent diarrhea, at this point it would be reasonable to perform colonoscopy tomorrow to evaluate for other source. 2. She does have some dysuria and urinary frequency. Her urinalysis is negative for evidence of urinary tract infection. Again, we will want to avoid any unnecessary antibiotics. RECOMMENDATIONS: 1. We will follow through with colonoscopy tomorrow. 2. Continue Dificid and metronidazole. Job ID: [id number]
[2019-12-01] MEDS ORDERED: GoLYTELY 4,000 ml Bottle PO SCH (04:00)
[2019-12-01] MEDS ORDERED: Magnesium 2 GM/50 ML 2 GM in Premix Bag 1 BAG IVPB SCH (08:30)
--- NOTE | 2019-12-01 09:49 | OP ---
DATE OF PROCEDURE: 12/01/2019 PROCEDURE PERFORMED: Colonoscopy with biopsy. PREOPERATIVE DIAGNOSIS: Persistent diarrhea with abnormal CT scan showing thickening in the colon. DESCRIPTION OF PROCEDURE: Informed consent was obtained from the patient. She was sedated with total intravenous anesthesia. The rectal exam was performed and was normal. The colonoscope was advanced without difficulty to the terminal ileum. The mucosa of the terminal ileum was normal. The ileocecal valve and appendiceal orifice were clearly identified. The preparation quality was excellent. The colonic mucosa was normal. She has mild diverticulosis of the descending colon. There were small rectal varices present. Retroflexed views in the rectum were unremarkable. IMPRESSION: 1. Small rectal varices. 2. Mild diverticulosis of the descending colon. 3. Otherwise, normal colonoscopy to the terminal ileum. Random biopsies were taken from the right and left colon to rule out microscopic colitis. 4. Still the most likely cause of her acute recurrent diarrhea was C difficile, which is now showing improvement symptomatically, for which she has been on metronidazole, vancomycin, and Dificid. The course is likely prolonged with the addition of broad-spectrum negative coverage antibiotics as well. RECOMMENDATIONS: 1. Await histopathology. 2. Complete course of Dificid. 3. Advance to low-fat diet. 4. We will add pancreatic enzymes. 5. Alcohol abstinence. Job ID: [id number]
[2019-12-01] MEDS: Potassium Chloride 20 MEQ TAB PO SCH (09:57)
[2019-12-01] MEDS: Fidaxomicin 200 MG TAB PO SCH ×2 (09:58→20:27)
[2019-12-01] MEDS: Folic Acid 1 MG TAB PO SCH (09:58)
[2019-12-01] MEDS: Famotidine 20 MG TAB PO SCH ×2 (09:58→20:27)
[2019-12-01] MEDS: Amlodipine 5 MG TAB PO SCH (09:58)
[2019-12-01] MEDS: Pancrelipase DR 12,000 1 CAP PO SCH ×2 (11:35→17:39)
[2019-12-01] MEDS ORDERED: PROPOFOL 200 MG/20 ML VIAL ONE (11:45)
--- NOTE | 2019-12-01 14:17 | PDOC.HOSPP ---
- Subjective Encounter Date: 12/01/19 Encounter Time: 11:30 Subjective: The patient states she feels her hips and legs starting to get swollen and hurt. She states she takes lasix at home, her BP was high last night Her diarrhea has decreased to 3 bowel movements this am. Patient cannot afford the fidaxomicin, willing to stay in the hospital for the full ten days She had flexible sigmoidoscopy done today - Objective Vital Signs & Weight: Vital Signs (12 hours) Temp Pulse Resp BP BP Pulse Ox 12/01/19 09:40 98 16 100/66 100 12/01/19 07:30 100 12/01/19 07:16 98.1 F 105 H 20 109/78 100 Weight Admit Weight 1.856 oz Weight 127 lb 12.8 oz I&O: 11/30/19 12/01/19 12/02/19 06:59 06:59 06:59 Intake Total 1000 800 Balance 1000 800 Result Diagrams: 11/29/19 17:55 11/30/19 13:46 Hospitalist ROS - Review of Systems Constitutional: denies: fever, chills - Medication Medications: Active Medications Generic Name Dose Route Start Last Admin Trade Name Freq PRN Reason Stop Dose Admin Acetaminophen 650 mg 11/25/19 18:06 11/30/19 21:27 Tylenol PO 650 mg Q4H PRN Administration Headache/Fever/Mild Pain (1-3) Amlodipine Besylate 5 mg 11/30/19 09:00 12/01/19 09:58 Amlodipine 5 Mg Tab PO 5 mg DAILY MEGAN Administration Lipase/Protease/Amylase 5 cap 12/01/19 12:00 12/01/19 11:[address] 12,000 1 Cap PO 5 cap TID- MEGAN Administration Famotidine 20 mg 11/25/19 21:00 12/01/19 09:58 Pepcid PO 20 mg BID MEGAN Administration Fidaxomicin 200 mg 11/29/19 21:00 12/01/19 09:58 Fidaxomicin 200 Mg Tab PO 200 mg BID MEGAN Administration Folic Acid 1 mg 11/26/19 09:00 12/01/19 09:58 Folvite PO 1 mg DAILY MEGAN Administration Ondansetron HCl 4 mg 11/25/19 18:13 11/27/19 05:44 Zofran IVP 4 mg Q6H PRN Administration Nausea/Vomiting Potassium Chloride 40 meq 11/26/19 08:00 12/01/19 09:57 K-Dur PO 40 meq QAM-WM MEGAN Administration Simethicone 80 mg 11/29/19 01:36 11/29/19 12:43 Mylicon Chewable PO 80 mg PCHS PRN Administration Gas Pain - Exam General Appearance: NAD, awake alert Eye: PERRL, anicteric sclera ENT: normocephalic atraumatic, no oropharyngeal lesions Neck: no JVD Heart: RRR, no murmur, no gallops, no rubs Respiratory: CTAB, no wheezes, no rales, no ronchi Gastrointestinal: soft, non-tender, non-distended, normal bowel sounds Extremities: no cyanosis, no clubbing, 1+ LE edema Extremities - other findings: mild presacral edema Skin: normal turgor, no lesions, no rashes Neurological: cranial nerve grossly intact, normal sensation to touch, no focal deficits, no new deficit Hosp A/P - Plan Abd US: low volume ascites with small fluid in RUQ CT abdomen: mural thickening of the right colon and of the left colon Flex sig: small rectal varices, mild diverticulosis. Normal colonoscopy to terminal ileum. This is a 39 year old male with history of cocaine abuse, alcohol abuse, who presented with diarrhea/weakness, admitted for colitis #Recurrent C diff colitis #Recent Campylobacter infection - CT abdomen on admission showed mural thickening of right and left colon and mild portal hypertension - patient was resumed on oral vancomycin on admission, but discontinued after four days after no improvement in symptoms. She finished a course of azithromycin for Campylobacter, repeat campylobacter testing negative. - stool culture positive for pseudomonas, likely colonization, no treatment needed per GI and ID - received IV ceftriaxone for bacterial colitis 11/26 to 11/27 with no improvement - started fidaxomicin 11/28 with some improvement. Flexible sigmoidoscopy 11/30 showed normal colon, mild diverticulosis and small rectal varices. Biopsies were taken - will continue with fidaxomicin until 12/08 to complete ten day course #Hypomagnesemia - last Mg 1.5 11/29, given 2 grams magnesium, will recheck #Presacral edema #Hypertension - will d/c amlodipine and switch back to home lasix Hypokalemia - resolved Lactic acidosis- - resolved, lactate has improved to 2. Discontinued fluids Chest pain - was likely from hypertension -EKG showed sinus tachycardia - chest X ray normal Cocaine abuse/Alcohol abuse - patient last used four days prior to admission - patient states she will abstain on discharge Folate deficiency anemia - continue folic acid supplementation Leukopenia -last WBC 2.6, stable Transaminitis - resolved
[2019-12-01 15:34] LABS: Potassium 4.7 mmol/L (3.5-5.1)
[2019-12-01] MEDS: Simethicone Chewable 80 MG TAB PO PRN (16:10)
[2019-12-02] MEDS: Famotidine 20 MG TAB PO SCH ×2 (08:35→20:49)
[2019-12-02] MEDS: Fidaxomicin 200 MG TAB PO SCH ×2 (08:35→20:49)
[2019-12-02] MEDS: Pancrelipase DR 12,000 1 CAP PO SCH ×3 (08:35→17:52)
[2019-12-02] MEDS: Folic Acid 1 MG TAB PO SCH (08:35)
[2019-12-02] MEDS: Potassium Chloride 20 MEQ TAB PO SCH (08:36)
[2019-12-02] MEDS ORDERED: Furosemide 20 MG TAB PO SCH (09:00)
--- NOTE | 2019-12-02 11:57 | PDOC.HOSPP ---
- Subjective Encounter Date: 12/02/19 Encounter Time: 11:00 Subjective: had 3 bm's overnight is eating breakfast no nausea or abd pain feels better - Objective Vital Signs & Weight: Vital Signs (12 hours) Temp Pulse Resp BP Pulse Ox 12/02/19 11:19 98.3 F 99 16 104/76 100 12/02/19 07:52 98.1 F 96 16 106/74 100 12/02/19 04:00 98.1 F 103 H 18 106/73 100 Weight Admit Weight 1.856 oz Weight 127 lb 12.8 oz I&O: 12/01/19 12/02/19 12/03/19 06:59 06:59 06:59 Intake Total 800 1600 Balance 800 1600 Result Diagrams: 11/29/19 17:55 12/01/19 14:55 Hospitalist ROS - Medication Medications: Active Medications Generic Name Dose Route Start Last Admin Trade Name Freq PRN Reason Stop Dose Admin Acetaminophen 650 mg 11/25/19 18:06 11/30/19 21:27 Tylenol PO 650 mg Q4H PRN Administration Headache/Fever/Mild Pain (1-3) Lipase/Protease/Amylase 5 cap 12/01/19 12:00 12/02/19 08:[address] 12,000 1 Cap PO 5 cap TID-WM MEGAN Administration Famotidine 20 mg 11/25/19 21:00 12/02/19 08:35 Pepcid PO 20 mg BID MEGAN Administration Fidaxomicin 200 mg 11/29/19 21:00 12/02/19 08:35 Fidaxomicin 200 Mg Tab PO 200 mg BID MEGAN Administration Folic Acid 1 mg 11/26/19 09:00 12/02/19 08:35 Folvite PO 1 mg DAILY MEGAN Administration Furosemide 20 mg 12/02/19 09:00 12/02/19 08:36 Furosemide 20 Mg Tab PO 20 mg DAILY MEGAN Administration Ondansetron HCl 4 mg 11/25/19 18:13 11/27/19 05:44 Zofran IVP 4 mg Q6H PRN Administration Nausea/Vomiting Potassium Chloride 40 meq 11/26/19 08:00 12/02/19 08:36 K-Dur PO 40 meq QAM-WM MEGAN Administration Simethicone 80 mg 11/29/19 01:36 09/18/20 16:10 Mylicon Chewable PO 80 mg PCHS PRN Administration Gas Pain - Exam General Appearance: awake alert Eye: PERRL, anicteric sclera ENT: no oropharyngeal lesions, moist mucosa Neck: supple, no JVD Heart: RRR, no murmur Respiratory: no wheezes, no rales Gastrointestinal: soft, non-tender, non-distended, normal bowel sounds Extremities: no cyanosis, no edema Neurological: cranial nerve grossly intact, no focal deficits Psychiatric: normal affect, A&O x 3 Hosp A/P (1) C. difficile colitis Code(s): A04.72 - ENTEROCOLITIS D/T CLOSTRIDIUM DIFFICILE, NOT SPCF RECUR Status: Acute (2) Cocaine use Code(s): F14.90 - COCAINE USE, UNSPECIFIED, UNCOMPLICATED Status: Chronic (3) HTN (hypertension) Code(s): I10 - ESSENTIAL (PRIMARY) HYPERTENSION Status: Chronic Qualifiers: Hypertension type: essential hypertension Qualified Code(s): I10 - Essential (primary) hypertension (4) Alcohol abuse Code(s): F10.10 - ALCOHOL ABUSE, UNCOMPLICATED Status: Chronic (5) Moderate protein-calorie malnutrition Code(s): E44.0 - MODERATE PROTEIN-CALORIE MALNUTRITION Status: Chronic - Plan is on fidaxomicin for c.diff continue [facility]
--- NOTE | 2019-12-02 21:06 | PRG ---
DATE OF SERVICE: 12/02/2019 SUBJECTIVE: This is a 39-year-old female with recurrent C difficile colitis. The patient had been treated twice in the past, but mostly this admission, the C diff was negative, C difficile colitis. The patient is on Dificid. Her symptoms were markedly better. She had reportedly 2 stools today. The stools are getting formed. No abdominal pain. No nausea or vomiting. She offers no complaints. PHYSICAL EXAMINATION: GENERAL: She is a very thin built and fragile looking female, appears comfortable. VITAL SIGNS: Afebrile. Pulse is 99, blood pressure is 104/76. CARDIOVASCULAR: Normal heart sounds. LUNGS: Clear to auscultation. ABDOMEN: Soft. Abdomen is nondistended. Abdomen is nontender. RECOMMENDATIONS: 1. Continue Dificid. 2. Follow up labs. Job ID: [id number]
[2019-12-03] MEDS: Famotidine 20 MG TAB PO SCH ×2 (07:56→20:31)
[2019-12-03] MEDS: Folic Acid 1 MG TAB PO SCH (07:56)
[2019-12-03] MEDS: Fidaxomicin 200 MG TAB PO SCH ×2 (07:56→20:31)
[2019-12-03] MEDS: Potassium Chloride 20 MEQ TAB PO SCH (07:56)
[2019-12-03] MEDS: Pancrelipase DR 12,000 1 CAP PO SCH ×3 (07:56→16:40)
--- NOTE | 2019-12-03 15:43 | PDOC.HOSPP ---
- Subjective Encounter Date: 12/03/19 Encounter Time: 12:00 Subjective: had formed stool this am no abd pain or nausea is amb in room - Objective Vital Signs & Weight: Vital Signs (12 hours) Temp Pulse Resp BP Pulse Ox 12/03/19 11:41 98.2 F 93 16 118/84 100 12/03/19 08:06 97.8 F 95 16 122/79 100 Weight Admit Weight 1.856 oz Weight 127 lb 12.8 oz I&O: 12/02/19 12/03/19 12/04/19 06:59 06:59 06:59 Intake Total 1600 Balance 1600 Result Diagrams: 11/29/19 17:55 12/01/19 14:55 Hospitalist ROS - Medication Medications: Active Medications Generic Name Dose Route Start Last Admin Trade Name Freq PRN Reason Stop Dose Admin Acetaminophen 650 mg 11/25/19 18:06 11/30/19 21:27 Tylenol PO 650 mg Q4H PRN Administration Headache/Fever/Mild Pain (1-3) Lipase/Protease/Amylase 5 cap 12/01/19 12:00 12/03/19 11:[address] 12,000 1 Cap PO 5 cap TID-WM MEGAN Administration Famotidine 20 mg 11/25/19 21:00 12/03/19 07:56 Pepcid PO 20 mg BID MEGAN Administration Fidaxomicin 200 mg 11/29/19 21:00 12/03/19 07:56 Fidaxomicin 200 Mg Tab PO 200 mg BID MEGAN Administration Folic Acid 1 mg 11/26/19 09:00 12/03/19 07:56 Folvite PO 1 mg DAILY MEGAN Administration Ondansetron HCl 4 mg 11/25/19 18:13 11/27/19 05:44 Zofran IVP 4 mg Q6H PRN Administration Nausea/Vomiting Potassium Chloride 40 meq 11/26/19 08:00 12/03/19 07:56 K-Dur PO 40 meq QAM-WM MEGAN Administration Simethicone 80 mg 11/29/19 01:36 12/01/19 16:10 Mylicon Chewable PO 80 mg PCHS PRN Administration Gas Pain - Exam General Appearance: awake alert Eye: PERRL, anicteric sclera ENT: no oropharyngeal lesions, moist mucosa Neck: supple, no JVD Heart: RRR, no murmur Respiratory: no wheezes, no rales Gastrointestinal: soft, non-tender, non-distended, normal bowel sounds Extremities: no cyanosis, no edema Neurological: cranial nerve grossly intact, no focal deficits Psychiatric: normal affect, A&O x 3 Hosp A/P (1) C. difficile colitis Code(s): A04.72 - ENTEROCOLITIS D/T CLOSTRIDIUM DIFFICILE, NOT SPCF RECUR Status: Acute (2) Cocaine use Code(s): F14.90 - COCAINE USE, UNSPECIFIED, UNCOMPLICATED Status: Chronic (3) HTN (hypertension) Code(s): I10 - ESSENTIAL (PRIMARY) HYPERTENSION Status: Chronic Qualifiers: Hypertension type: essential hypertension Qualified Code(s): I10 - Essential (primary) hypertension (4) Alcohol abuse Code(s): F10.10 - ALCOHOL ABUSE, UNCOMPLICATED Status: Chronic (5) Moderate protein-calorie malnutrition Code(s): E44.0 - MODERATE PROTEIN-CALORIE MALNUTRITION Status: Chronic - Plan is on fidaxomicin for c.diff continue [facility] dc [facility] may dc home if fidoxamicin 200mg bid po can be arranged for 5 more days
--- NOTE | 2019-12-03 16:33 | PQF ---
CLINICAL DOCUMENTATION CLARIFICATION FORM: Dear Dr.V. NICANOR MD Date: 12/03/19 9384 Please exercise your independent, professional judgment in responding to the clarification form. Clinical indicators are provided on the bottom of this form for your review. Please check appropriate box(es) to clarify if the following diagnosis has been ruled in our ruled out: SEPSIS [ ] Ruled in diagnosis [ ] Continue to treat [ ] Resolved [x ] Ruled out diagnosis [ ] Other diagnosis [ ] Unable to determine In addition, please specify: Present on Admission (POA): [ ] Yes [ ] No [ ] Unable to determine For continuity of documentation, please document condition throughout progress notes and discharge summary. Thank You. To be completed by CDI/Coding staff for physician review: CLINICAL INDICATORS - SIGNS / SYMPTOMS / LABS / RESULTS AND LOCATION IN MR 11/24 ED REPORT: FINAL DX SEPSIS, INFECTIOUS COLITIS 912 WBC 3.1 LACTIC ACID 4.0 > 3.3 11/25 WBC 2.5 LACTIC ACID 3.7 11/26 WBC 2.2 LACTIC ACID 2.8 11/28 WBC 2.6 RISK FACTORS / RESULTS AND LOCATION IN MR DX C-. DIFFICILE COLITIS(NICANOR/ENRIQUE) 12/02 TREATMENTS / RESULTS AND LOCATION IN MR SERIAL LABS( 11/24 PRESENT) ROCEPHIN IV (11/26 -11/27) THANK YOU ! CDS Signature: KEVIN AMAYA RN Phone #: [phone] Date: 12/03/19 This is a permanent part of the Medical Record [facility]
[2019-12-03] MEDS: Acetaminophen 325 MG TAB PO PRN ×2 (16:41→21:58)
--- NOTE | 2019-12-03 18:40 | PRG ---
DATE OF SERVICE: 12/03/2019 HISTORY: This is a 39-year-old fragile looking female with recurrent C. difficile diarrhea. The patient admitted twice in the past. At this time, C. difficile toxin negative, but her clinical picture is suggestive of gassiness and diarrhea. She had a colonoscopy which was negative. She is on Dificid and is doing well. She has had only 2 stools today. That stools are soft. No abdominal pain. No nausea or vomiting. PHYSICAL EXAMINATION: GENERAL: She is very thin built, appears comfortable. VITAL SIGNS: Afebrile, pulse is 100, and blood pressure 109/75. CARDIOVASCULAR: Normal heart sounds. LUNGS: Clear to auscultation. ABDOMEN: Soft and nontender. No organomegaly. RECOMMENDATIONS: 1. Continue Dificid. 2. Symptomatic treatment. Hopefully, the patient get to go home tomorrow if [employer] help for the medications with the C. difficile diarrhea. Job ID: [id number]
[2019-12-03 23:16] LABS: Anion Gap 14 mmol/L (10-20); Carbon Dioxide 17 mmol/L (22-29); Chloride 106 mmol/L (98-107); Magnesium 1.6 mg/dL (1.6-2.6); Potassium 5.1 mmol/L (3.5-5.1); Sodium 132 mmol/L (136-145)
[2019-12-03] MEDS ORDERED: Electrolyte Replacement Protoc 1 EACH EACH FS SCH (23:45)
[2019-12-03] MEDS ORDERED: Magnesium 2 GM/50 ML 2 GM in Premix Bag 1 BAG IVPB SCH (23:45)
[2019-12-04 05:57] LABS: #Eosinphils 0.3 thou/uL (0.0-0.7); #Lymphocytes 1.3 thou/uL (1.20-3.40); #Monocytes 0.3 thou/uL (0.11-0.59); #Neutrophils 0.9 thou/uL (1.40-6.50); %Basophils 1.7 % (0.0-1.0); %Eosinophils 11.8 % (0.0-10.0); %Lymphocytes 44.4 % (21.0-51.0); %Monocytes 11.5 % (0.0-10.0); %Neutrophils 30.6 % (42.0-75.0); Hemoglobin 9.2 g/dL (12.0-16.0); Mean Corpuscular HGB CONC 30.9 g/dL (32.0-36.0); Mean Corpuscular Hemoglobin 32.2 pg (27.0-31.0); Mean Platelet Volume 7.4 fL (7.4-10.4); Platelet Count 210 thou/uL (130-400); RBC Distribution Width 13.7 % (11.5-14.5); Red Blood Cell (RBC) Count 2.87 mill/uL (4.20-5.40); White Blood Cell (WBC) Count 2.9 thou/uL (4.8-10.8)
[2019-12-04 06:17] LABS: ALT (SGPT) Less than 7 U/L (8-55); AST (SGOT) 25 U/L (5-34); Albumin 2.3 g/dL (3.5-5.0); Alkaline Phosphatase 62 U/L (40-110); Anion Gap 11 mmol/L (10-20); BUN (Urea Nitrogen) 4 mg/dL (7.0-18.7); Bilirubin, Total 0.3 mg/dL (0.2-1.2); Calc. Creatinine Clearance 123 mL/min (70-130); Calcium 8.2 mg/dL (7.8-10.44); Carbon Dioxide 24 mmol/L (22-29); Chloride 107 mmol/L (98-107); Estimated GFR-MDRD Greater than 90; Globulin 3.4 g/dL (2.4-3.5); Glucose 77 mg/dL (70-105); Potassium 3.9 mmol/L (3.5-5.1); Protein, Total 5.7 g/dL (6.0-8.3); Sodium 138 mmol/L (136-145)
[2019-12-04] MEDS ORDERED: Magnesium 2 GM/50 ML 2 GM in Premix Bag 1 BAG IVPB SCH (08:00)
[2019-12-04] MEDS: Fidaxomicin 200 MG TAB PO SCH ×2 (08:08→20:01)
[2019-12-04] MEDS: Folic Acid 1 MG TAB PO SCH (08:08)
[2019-12-04] MEDS: Famotidine 20 MG TAB PO SCH ×2 (08:08→20:01)
[2019-12-04] MEDS: Potassium Chloride 20 MEQ TAB PO SCH (08:08)
[2019-12-04] MEDS: Pancrelipase DR 12,000 1 CAP PO SCH ×3 (09:04→16:08)
--- NOTE | 2019-12-04 11:36 | PDOC.HOSPP ---
- Subjective Encounter Date: 12/04/19 Encounter Time: 09:30 Subjective: feels better is having semiformed stools now no nausea and is tolerating oral diet is amb in room - Objective Vital Signs & Weight: Vital Signs (12 hours) Temp Pulse Resp BP Pulse Ox 12/04/19 08:00 100 12/04/19 07:46 97.9 F 93 20 103/69 100 Weight Admit Weight 1.856 oz Weight 127 lb 12.8 oz Result Diagrams: 12/04/19 05:00 12/04/19 05:00 Hospitalist ROS - Medication Medications: Active Medications Generic Name Dose Route Start Last Admin Trade Name Freq PRN Reason Stop Dose Admin Acetaminophen 650 mg 11/25/19 18:06 12/03/19 21:58 Tylenol PO 650 mg Q4H PRN Administration Headache/Fever/Mild Pain (1-3) Lipase/Protease/Amylase 5 cap 12/01/19 12:00 12/04/19 11:[address] 12,000 1 Cap PO 5 cap TID-WM MEGAN Administration Famotidine 20 mg 11/25/19 21:00 12/04/19 08:08 Pepcid PO 20 mg BID MEGAN Administration Fidaxomicin 200 mg 11/29/19 21:00 12/04/19 08:08 Fidaxomicin 200 Mg Tab PO 200 mg BID MEGAN Administration Folic Acid 1 mg 11/26/19 09:00 12/04/19 08:08 Folvite PO 1 mg DAILY MEGAN Administration Ondansetron HCl 4 mg 11/25/19 18:13 11/27/19 05:44 Zofran IVP 4 mg Q6H PRN Administration Nausea/Vomiting Potassium Chloride 40 meq 11/26/19 08:00 12/04/19 08:08 K-Dur PO 40 meq QAM-WM MEGAN Administration Simethicone 80 mg 11/29/19 01:36 12/01/19 16:10 Mylicon Chewable PO 80 mg PCHS PRN Administration Gas Pain - Exam General Appearance: awake alert Eye: PERRL, anicteric sclera ENT: no oropharyngeal lesions, moist mucosa Neck: supple, no JVD Heart: RRR, no murmur Respiratory: no wheezes, no rales Gastrointestinal: soft, non-distended, normal bowel sounds, no guarding, no rigidity Extremities: no cyanosis, no edema Neurological: cranial nerve grossly intact, no focal deficits Psychiatric: normal affect, A&O x 3 Hosp A/P (1) C. difficile colitis Code(s): A04.72 - ENTEROCOLITIS D/T CLOSTRIDIUM DIFFICILE, NOT SPCF RECUR Status: Acute (2) Cocaine use Code(s): F14.90 - COCAINE USE, UNSPECIFIED, UNCOMPLICATED Status: Chronic (3) HTN (hypertension) Code(s): I10 - ESSENTIAL (PRIMARY) HYPERTENSION Status: Chronic Qualifiers: Hypertension type: essential hypertension Qualified Code(s): I10 - Essential (primary) hypertension (4) Alcohol abuse Code(s): F10.10 - ALCOHOL ABUSE, UNCOMPLICATED Status: Chronic (5) Moderate protein-calorie malnutrition Code(s): E44.0 - MODERATE PROTEIN-CALORIE MALNUTRITION Status: Chronic - Plan is on fidaxomicin for c.diff continue [facility] dc home in am, her fidoxamicin 200mg bid will be available at her pharmacy [facility] afternoon
[2019-12-05] MEDS: Acetaminophen 325 MG TAB PO PRN (00:22)
[2019-12-05 02:56] LABS: Anion Gap 9 mmol/L (10-20); Carbon Dioxide 26 mmol/L (22-29); Chloride 106 mmol/L (98-107); Potassium 4.3 mmol/L (3.5-5.1); Sodium 137 mmol/L (136-145)
[2019-12-05 07:53] VITALS: BP 103/72; TEMP 97.8
[2019-12-05] MEDS: Fidaxomicin 200 MG TAB PO SCH (08:17)
[2019-12-05] MEDS: Pancrelipase DR 12,000 1 CAP PO SCH ×2 (08:17→11:45)
[2019-12-05] MEDS: Folic Acid 1 MG TAB PO SCH (08:18)
[2019-12-05] MEDS: Potassium Chloride 20 MEQ TAB PO SCH (08:18)
[2019-12-05] MEDS: Famotidine 20 MG TAB PO SCH (08:18)
--- NOTE | 2019-12-06 14:40 | DIS ---
DATE OF ADMISSION: 11/25/2019 DATE OF DISCHARGE: 12/05/2019 DISCHARGE DISPOSITION: Home. PRIMARY DISCHARGE DIAGNOSIS: Recurrent Clostridium difficile colitis, on fidaxomicin. SECONDARY DISCHARGE DIAGNOSES: History of cocaine abuse, hypertension, moderate protein malnutrition, alcohol abuse. PROCEDURES DONE DURING HOSPITALIZATION: Abdominal and pelvic CAT scan done on 11/25/2019 showed hepatomegaly with fatty infiltration, possible portal hypertension, mural thickening of colon especially right colon suggesting colitis. Abdominal ultrasound done on 11/27/2019 showed low volume ascites. Chest x-ray done showed no abnormalities. Modified barium swallow showed no laryngeal penetration or aspiration. Colonoscopy biopsy was unremarkable. There was no evidence of ischemia, lymphocytic or collagenous colitis, or granulomas were seen. No dysplasia or malignancies were identified. Colonoscopy with biopsy was done on 12/01/[address] Jeff Cody. There was a small rectal varices, mild diverticulosis of the descending colon, otherwise normal colonoscopy to terminal ileum. Random biopsies were obtained from right and left colon. Hemoglobin and hematocrit of 9 and 29, platelet count 210, white count of 2.9, MCV is 104. Albumin 2.3. Serum test was negative. Urine drug screen was positive for cocaine metabolites. COVID-19 PCR was not detected on 11/25/2019. INPATIENT CONSULT: Dr. Jeff Cody for Gastroenterology, Dr. Haney for Infectious Disease. DISCHARGE MEDICATIONS: 1. Fidaxomicin 200 mg p.o. twice daily for another 5 days. 2. Cetirizine 10 mg p.o. daily. 3. Protonix 40 mg p.o. daily. 4. Folic acid 1 mg p.o. daily. 5. Florastor 250 mg twice daily. ALLERGIES: NAPROSYN. DISCHARGE PLAN: The patient to follow up with Dr. Jeff Cody in 2 weeks. She needs to follow up with her primary care physician at [facility] in 1 week. BRIEF COURSE DURING HOSPITALIZATION: The patient initially got admitted on the with complaints of abdominal pain, nausea, vomiting, and diarrhea. Initial CAT scan done was suspicious for possible colitis. The patient has had prior history of C diff and has finished courses of vancomycin in the past. She has had consultation with Dr. Jeff Cody for Gastroenterology. The patient was placed on fidaxomicin. She has also had colonoscopy done, which was unremarkable. The patient is slowly starting to have formed stool. She has remained hemodynamically stable, ambulating and tolerating solid food. She needs to continue 5 more days of fidaxomicin. With her insurance, the patient has zero copay and this medicine will be available at her [facility]. This was confirmed by Case Management as well. She is hemodynamically stable and will be shortly discharged to home. Job ID: [id number]
== END 2019-12-05 14:32 | disposition home or self-care (01) | DRG 372 ==
LOC: ERS 12:18 → T4-B 15:41
PROVIDERS: ADMIT Internal Medicine; ATTEND Internal Medicine
PROC: 0DBG8ZX Excision of Left Large Intestine, Via Natural or Artificial Opening Endoscopic, Diagnostic (ICD-10-PCS; principal; 2019-12-01)
PROC: 0DBF8ZX Excision of Right Large Intestine, Via Natural or Artificial Opening Endoscopic, Diagnostic (ICD-10-PCS; 2019-12-01)
DX: A04.71 Enterocolitis due to Clostridium difficile, recurrent (principal); E87.2 Acidosis; K76.6 Portal hypertension; D61.818 Other pancytopenia; E44.0 Moderate protein-calorie malnutrition; R74.0 Nonspecific elevation of levels of transaminase and lactic acid dehydrogenase [LDH]; E87.6 Hypokalemia; F14.10 Cocaine abuse, uncomplicated; F10.20 Alcohol dependence, uncomplicated; E83.42 Hypomagnesemia; D52.9 Folate deficiency anemia, unspecified; D72.819 Decreased white blood cell count, unspecified; K70.0 Alcoholic fatty liver; Z20.828 Contact with and (suspected) exposure to other viral communicable diseases; D73.1 Hypersplenism; I86.8 Varicose veins of other specified sites; K57.10 Diverticulosis of small intestine without perforation or abscess without bleeding; Y90.0 Blood alcohol level of less than 20 mg/100 ml; Z86.19 Personal history of other infectious and parasitic diseases; Z87.11 Personal history of peptic ulcer disease; Z88.8 Allergy status to other drugs, medicaments and biological substances; Z68.20 Body mass index [BMI] 20.0-20.9, adult; Z79.899 Other long term (current) drug therapy
CPT/HCPCS: 36415; 71045; 74018; 74177; 74230; 76705; 80048; 80051; 80053; 80306; 80307; 81001; 81003; 82550; 83605; 83630; 83690; 83735; 84100; 84132; 84443; 84484; 84703; 85025; 85027; 87040; 87045; 87046; 87324; 87328; 87329; 87427; 87449; 87635; 88305; 93005; 93010; 94760; 96361; 96365; 96375; C9113; J0696; J2405; J2543; J2704; J3411; J3475; J3480; J3490; J7030; J7042; Q9967; U0003

== ENCOUNTER 2019-12-27 14:50 | Observation (INO) | payer OTHER ==
[2019-12-27 15:47] LABS: #Basophils 0.1 thou/uL (0.0-0.2); #Eosinphils 0.4 thou/uL (0.0-0.7); #Lymphocytes 1.6 thou/uL (1.20-3.40); #Monocytes 0.5 thou/uL (0.11-0.59); %Basophils 1.7 % (0.0-1.0); %Eosinophils 11.7 % (0.0-10.0); %Lymphocytes 44.9 % (21.0-51.0); %Monocytes 13.3 % (0.0-10.0); %Neutrophils 28.3 % (42.0-75.0); Hemoglobin 12.6 g/dL (12.0-16.0); Mean Corpuscular Hemoglobin 32.9 pg (27.0-31.0); Mean Corpuscular Volume 99.8 fL (78.0-98.0); Mean Platelet Volume 7.2 fL (7.4-10.4); Platelet Count 227 thou/uL (130-400); RBC Distribution Width 12.7 % (11.5-14.5); Red Blood Cell (RBC) Count 3.84 mill/uL (4.20-5.40); White Blood Cell (WBC) Count 3.6 thou/uL (4.8-10.8)
[2019-12-27 15:54] LABS: BHCG - Serum Negative (NEGATIVE); Pregs Control Background? CLEAR/WHITE (CLR/WHITE); Pregs Control Bar Appear? YES (CONTROL BAR)
[2019-12-27 16:03] LABS: ALT (SGPT) Less than 7 U/L (8-55); AST (SGOT) 42 U/L (5-34); Albumin 3.3 g/dL (3.5-5.0); Alkaline Phosphatase 82 U/L (40-110); Anion Gap 12 mmol/L (10-20); BUN (Urea Nitrogen) 5 mg/dL (7.0-18.7); Bilirubin, Total 0.5 mg/dL (0.2-1.2); Calc. Creatinine Clearance 0 mL/min (70-130); Calcium 8.4 mg/dL (7.8-10.44); Carbon Dioxide 30 mmol/L (22-29); Chloride 100 mmol/L (98-107); Estimated GFR-MDRD Greater than 90; Globulin 4.2 g/dL (2.4-3.5); Glucose 86 mg/dL (70-105); Lipase 33 U/L (8-78); Magnesium 1.5 mg/dL (1.6-2.6); Protein, Total 7.5 g/dL (6.0-8.3); Sodium 139 mmol/L (136-145)
[2019-12-27 16:14] LABS: Potassium 2.8 mmol/L (3.5-5.1)
[2019-12-27] MEDS ORDERED: Potassium Chloride 20 MEQ TAB ONE (16:50)
[2019-12-27] MEDS ORDERED: Magnesium 2 GM/50 ML BAG (IN WATER) ONE (16:50)
[2019-12-27 19:11] LABS: Troponin I Less than 0.010 ng/mL (< 0.028)
[2019-12-27 22:16] LABS: Troponin I Less than 0.010 ng/mL (< 0.028)
--- NOTE | 2019-12-27 23:30 | PDOC.HHP ---
Hospitalist HPI - History of Present Illness Low potassium History of Present Illness: 39-year-old -Burmese woman with a history of esophageal ulcers and varices, prior history of alcohol abuse, history of hypokalemia on potassium supplementation was directed to the emergency department by her PCP due to low potassium level. Patient stopped taking her potassium supplementation due to her esophageal ulcers. She saw her primary care physician yesterday and told him she stopped taking her potassium supplementation. Labs were drawn which demonstrated low potassium level. She also reported an abnormal EKG at her PCPs office yesterday. Patient reports epigastric pain. She states that she vomited a couple of times yesterday. She developed SVT while in the ED. patient given oral potassium and IV magnesium in the ED as well as IV normal saline bolus. She is admitted for further management. Hospitalist ROS - Review of Systems Other: Except as documented, all other systems reviewed and negative. - Medication Medications: Medication Instructions Recorded Confirmed Type Folic Acid 1 mg PO DAILY 07/24/19 12/28/19 History Cetirizine HCl [Zyrtec] 10 mg PO DAILY 10/21/19 12/28/19 History Hospitalist History - Past Medical History Gastrointestinal: reports: Other (Esophageal ulcer) Heme/Onc: reports: Iron deficiency anemia - Past Surgical History Past Surgical History: reports: - Family History Family History: reports: cancer Other Family History: Mother - Social History Smoking Status: Current every day smoker Alcohol: reports: Heavy (Whiskey every other day) Drugs: reports: cocaine - Exam General Appearance: NAD, awake alert Eye: PERRL, anicteric sclera ENT: normocephalic atraumatic, no oropharyngeal lesions, moist mucosa Neck: supple, symmetric, no JVD, no thyromegaly Heart: no murmur, no gallops Heart - other findings: Tachycardic. Respiratory: CTAB, no wheezes, no rales, no ronchi Gastrointestinal: soft, non-distended, normal bowel sounds, tender to palpation (Epigastrium) Extremities: no cyanosis, no edema Skin: normal turgor, no rashes Neurological: cranial nerve grossly intact, no weakness, no focal deficits Musculoskeletal: normal tone, normal strength Psychiatric: normal affect, normal behavior, A&O x 3 Hospitalist Results - Labs Result Diagrams: 12/28/19 04:26 12/28/19 04:26 Lab results: WBC 3.6 thou/uL (4.8-10.8) L 12/27/19 15:35 Hgb 12.6 g/dL (12.0-16.0) 12/27/19 15:35 Hct 38.3 % (36.0-47.0) 12/27/19 15:35 MCV 99.8 fL (78.0-98.0) H 12/27/19 15:35 Plt Count 227 thou/uL (130-400) 12/27/19 15:35 Neutrophils % 28.3 % (42.0-75.0) L 12/27/19 15:35 Sodium 139 mmol/L (136-145) 12/27/19 15:35 Potassium 2.8 mmol/L (3.5-5.1) L* 12/27/19 15:35 Chloride 100 mmol/L (98-107) 12/27/19 15:35 Carbon Dioxide 30 mmol/L (22-29) H 12/27/19 15:35 BUN 5 mg/dL (7.0-18.7) L 12/27/19 15:35 Creatinine 0.65 mg/dL (0.6-1.1) 12/27/19 15:35 Glucose 86 mg/dL (70-105) 12/27/19 15:35 Calcium 8.4 mg/dL (7.8-10.44) 12/27/19 15:35 Total Bilirubin 0.5 mg/dL (0.2-1.2) 12/27/19 15:35 AST 42 U/L (5-34) H 12/27/19 15:35 ALT Less than 7 U/L (8-55) L 12/27/19 15:35 Alkaline Phosphatase 82 U/L (40-110) 12/27/19 15:35 Troponin I Less than 0.010 ng/mL (< 0.028) 12/27/19 21:45 Serum Total Protein 7.5 g/dL (6.0-8.3) 12/27/19 15:35 Albumin 3.3 g/dL (3.5-5.0) L 12/27/19 15:35 Lipase 33 U/L (8-78) 12/27/19 15:35 Hospitalist H&P A/P - Problem (1) SVT (supraventricular tachycardia) Code(s): I47.1 - SUPRAVENTRICULAR TACHYCARDIA Status: Acute (2) Hypomagnesemia Code(s): E83.42 - HYPOMAGNESEMIA Status: Acute (3) HTN (hypertension) Code(s): I10 - ESSENTIAL (PRIMARY) HYPERTENSION Status: Chronic Qualifiers: Hypertension type: essential hypertension Qualified Code(s): I10 - Essential (primary) hypertension (4) Moderate protein-calorie malnutrition Code(s): E44.0 - MODERATE PROTEIN-CALORIE MALNUTRITION Status: Chronic (5) Peptic ulcer disease Code(s): K27.9 - PEPTIC ULC, SITE UNSP, UNSP AC OR CHR, W/O HEMOR OR PERF Status: Chronic (6) Esophageal ulcer Code(s): K22.10 - ULCER OF ESOPHAGUS WITHOUT BLEEDING Status: Ruled-out Qualifiers: Esophageal ulcer bleeding: with bleeding Qualified Code(s): K22.11 - Ulcer of esophagus with bleeding (7) Hypokalemia Code(s): E87.6 - HYPOKALEMIA Status: Resolved - Plan Plan: Placed under observation. Optimize electrolytes. Replete potassium IV and orally to a target potassium of 4.0. Replete magnesium. IV hydration with normal saline Obtain echocardiogram. Telemetry We will treat epigastric pain with IV Protonix. Blood pressures well controlled. Monitor renal function.
[2019-12-28] MEDS: Sodium Chloride 0.9% 1,000 ML IV SCH ×2 (00:13→11:33)
[2019-12-28 00:30] VITALS: BMI 18.8
[2019-12-28] MEDS: Potassium Chloride 10 MEQ/100 ML PREMIX BAG IVPB SCH ×4 (00:46→04:14)
[2019-12-28 05:23] LABS: #Eosinphils 0.3 thou/uL (0.0-0.7); #Lymphocytes 1.1 thou/uL (1.20-3.40); #Monocytes 0.5 thou/uL (0.11-0.59); #Neutrophils 1.5 thou/uL (1.40-6.50); %Basophils 0.9 % (0.0-1.0); %Eosinophils 7.6 % (0.0-10.0); %Lymphocytes 33.1 % (21.0-51.0); %Monocytes 14.8 % (0.0-10.0); %Neutrophils 43.7 % (42.0-75.0); Hemoglobin 10.4 g/dL (12.0-16.0); Mean Corpuscular HGB CONC 33.5 g/dL (32.0-36.0); Mean Corpuscular Hemoglobin 33.2 pg (27.0-31.0); Mean Corpuscular Volume 99.1 fL (78.0-98.0); Mean Platelet Volume 7.8 fL (7.4-10.4); Platelet Count 180 thou/uL (130-400); RBC Distribution Width 12.6 % (11.5-14.5); Red Blood Cell (RBC) Count 3.14 mill/uL (4.20-5.40); White Blood Cell (WBC) Count 3.5 thou/uL (4.8-10.8)
[2019-12-28 05:51] LABS: Anion Gap 9 mmol/L (10-20); BUN (Urea Nitrogen) 5 mg/dL (7.0-18.7); Calc. Creatinine Clearance 105 mL/min (70-130); Calcium 7.6 mg/dL (7.8-10.44); Carbon Dioxide 24 mmol/L (22-29); Chloride 107 mmol/L (98-107); Estimated GFR-MDRD Greater than 90; Glucose 96 mg/dL (70-105); Sodium 136 mmol/L (136-145)
[2019-12-28] MEDS ORDERED: Magnesium 2 GM/50 ML 2 GM in Premix Bag 1 BAG IVPB SCH (07:30)
[2019-12-28] MEDS ORDERED: Pantoprazole 40 MG VIAL IVP SCH (09:00)
[2019-12-28] MEDS: Potassium Bicarbonate/Cit Ac 25 MEQ TAB PO SCH ×2 (10:26→18:16)
[2019-12-28 12:51] LABS: SARS-CoV-2 MS2 Positive; SARS-CoV-2 N Gene Negative; SARS-CoV-2 S Gene Negative; SARS-CoV-2 by NAA Not Detected (NotDetected); SARS-CoV-2 orf1ab Negative
[2019-12-28 16:18] VITALS: BP 122/78; TEMP 97.1
--- NOTE | 2019-12-28 18:39 | DIS ---
DATE OF ADMISSION: 12/28/2019 DATE OF DISCHARGE: 12/28/2019 DISCHARGE DIAGNOSES: 1. Brief episode of SVT secondary to electrolyte abnormalities. 2. Hypomagnesemia. 3. Hypokalemia. 4. Hypertension. 5. Moderate protein calorie malnutrition, present on admission. 6. History of peptic ulcer disease and esophageal ulcer. CONSULTATIONS: None. LABORATORY DATA AND IMAGING STUDY: WBC 3.5, hemoglobin 10.4, hematocrit 31.1, platelets 180. Chemistry; sodium 136, potassium on admission was 2.8, that has been corrected 4.0 at the time of discharge, magnesium was 1.5, went up to 1.8 at discharge, chloride is 107, BUN is 9, creatinine 0.5. Troponins negative x3. Lipase 33. COVID PCR was negative. HISTORY OF PRESENT ILLNESS AND BRIEF HOSPITAL COURSE: The patient is a pleasant 39-year-old female, who has significant past medical history of esophageal ulcer with varices, prior history of alcohol abuse, history of hypokalemia, on potassium supplement, who was sent from her PCP office for abnormal lab of low potassium. Apparently, the patient has been stopped taking her potassium supplement due to esophageal ulcer. She had some labs drawn at her PCP office, and was told to come to the ED for further evaluation. Initial workup in the ED, her potassium was 2.8. She also had a brief episode of SVT, which spontaneously resolved. She was subsequently admitted to hospitalist service for observation. Her electrolytes have been corrected as well as potassium as well as magnesium. She was monitored on tele. There was no recurrence of arrhythmia. She is feeling well, her symptom has resolved. She is tolerating regular diet. At this time, the patient is stable to discharge home. She will be discharged home with prescription for Protonix, and potassium and magnesium supplement. The patient was advised to follow up with her PCP next week to repeat her electrolytes to make sure it remains stable. DISPOSITION: The patient is stable to discharge home. ACTIVITY: As tolerated. DIET: Heart healthy diet. FOLLOWUP CARE: The patient to follow up with her PCP in 1 to 2 weeks, repeat BMP and magnesium to make sure it is remaining stable. PHYSICAL EXAMINATION: VITAL SIGNS: Temperature is 97.1, pulse 91, respiratory rate 16, she is saturating 99% on room air, blood pressure 122/78. GENERAL APPEARANCE: The patient is alert and oriented x3, not in acute distress. HEENT: Normocephalic, atraumatic. Mucous membranes moist. NECK: Supple. No lymphadenopathy. No JVD. CARDIOVASCULAR: Regular rate and rhythm. S1 and S2 noted. No murmur. PULMONOLOGY: Clear to auscultation bilaterally. ABDOMEN: Soft, nontender, nondistended. Positive bowel sounds. MUSCULOSKELETAL: No joint pain or tenderness. Lower extremity edema. Skin intact. NEUROLOGIC: Cranial nerves 2 through 12 grossly intact. No focal weakness. PSYCHIATRIC: The patient is alert and oriented x3 with normal affect. DISCHARGE MEDICATIONS: New prescriptions: 1. Protonix 40 mg p.o. daily. 2. Potassium chloride 20 mEq p.o. daily. 3. Magnesium oxide 400 mg p.o. daily. 4. She will be continuing her usual home medication including folic acid 1 mg p.o. daily, sertraline 10 mg p.o. daily. Thank you for allowing us to participate in this patient's care. Discharge time spent, 30 minutes. Job ID: [id number]
--- NOTE | 2020-01-20 13:06 | EKG ---
Test Reason : ELECTROLYTE IMBALANC Blood Pressure : / mmHG Vent. Rate : 089 BPM Atrial Rate : 089 BPM P-R Int : 138 ms QRS Dur : 072 ms QT Int : 408 ms P-R-T Axes : 080 -04 055 degrees QTc Int : 496 ms Normal sinus rhythm Possible Left atrial enlargement Septal infarct , age undetermined Abnormal ECG Confirmed by GLORIA ROLON DO ([id number]), assignment editor ANISHA PEDERSON ([id number]) on 01/20/2020 1:05:44 PM Referred By: Confirmed By:GLORIA ROLON DO
== END 2019-12-28 16:16 | disposition home or self-care (01) ==
LOC: ERS 14:50 → 2NO 12-28 00:10
PROVIDERS: ADMIT Internal Medicine; ATTEND Internal Medicine
DX: E87.6 Hypokalemia (principal); E83.42 Hypomagnesemia; I47.1 Supraventricular tachycardia; I10 Essential (primary) hypertension; F17.200 Nicotine dependence, unspecified, uncomplicated; F10.10 Alcohol abuse, uncomplicated; F14.10 Cocaine abuse, uncomplicated; E44.0 Moderate protein-calorie malnutrition; Z68.1 Body mass index [BMI] 19.9 or less, adult; Z79.899 Other long term (current) drug therapy; Z88.6 Allergy status to analgesic agent; Z20.828 Contact with and (suspected) exposure to other viral communicable diseases
CPT/HCPCS: 36415; 80048; 80053; 83690; 83735; 84484; 84703; 85025; 87635; 93005; 96365; 96375; C9113; G0378; J3475; J3480; U0003

== ENCOUNTER 2020-01-19 13:57 | Inpatient (IN) | payer OTHER ==
[2020-01-19] MEDS ORDERED: Morphine 4 MG/ML VIAL ONE ×2 (14:43→16:06)
[2020-01-19] MEDS ORDERED: Ondansetron PF 4 MG/2 ML Vial ONE (14:43)
--- NOTE | 2020-01-19 15:18 | RAD ---
XR Hip Rt 2-3 View INDICATION: Fall with right hip pain COMPARISON: None FINDINGS: Bones: There is a mildly angulated basicervical femoral neck fracture. Hip joint: Radiographically normal. SI joints and symphysis pubis: Radiographically normal. Intrapelvic contents: Visualized bowel gas pattern is within normal limits. Surrounding soft tissues: There are numerous phleboliths within the lower pelvis. IMPRESSION: 1. Mild anteriorly angulated basicervical right femoral neck fracture
[2020-01-19 15:45] LABS: #Eosinphils 0.1 thou/uL (0.0-0.7); #Lymphocytes 0.7 thou/uL (1.20-3.40); #Monocytes 0.4 thou/uL (0.11-0.59); #Neutrophils 2.3 thou/uL (1.40-6.50); %Basophils 0.9 % (0.0-1.0); %Eosinophils 1.9 % (0.0-10.0); %Lymphocytes 19.4 % (21.0-51.0); %Monocytes 11.9 % (0.0-10.0); %Neutrophils 65.9 % (42.0-75.0); Hemoglobin 13.1 g/dL (12.0-16.0); Mean Corpuscular HGB CONC 33.2 g/dL (32.0-36.0); Mean Corpuscular Hemoglobin 33.1 pg (27.0-31.0); Mean Corpuscular Volume 99.6 fL (78.0-98.0); RBC Distribution Width 12.5 % (11.5-14.5); Red Blood Cell (RBC) Count 3.95 mill/uL (4.20-5.40); White Blood Cell (WBC) Count 3.4 thou/uL (4.8-10.8)
[2020-01-19 15:58] LABS: ALT (SGPT) 8 U/L (8-55); AST (SGOT) 65 U/L (5-34); Albumin 2.8 g/dL (3.5-5.0); Alkaline Phosphatase 92 U/L (40-110); Anion Gap 15 mmol/L (10-20); BUN (Urea Nitrogen) 4 mg/dL (7.0-18.7); Bilirubin, Total 0.7 mg/dL (0.2-1.2); Calc. Creatinine Clearance 0 mL/min (70-130); Calcium 8.4 mg/dL (7.8-10.44); Carbon Dioxide 24 mmol/L (22-29); Chloride 100 mmol/L (98-107); Estimated GFR-MDRD Greater than 90; Globulin 4.2 g/dL (2.4-3.5); Glucose 121 mg/dL (70-105); Sodium 136 mmol/L (136-145)
[2020-01-19] MEDS ORDERED: Promethazine HCl 25 MG/ML VIAL IM PRN (15:59)
[2020-01-19] MEDS ORDERED: Dextrose 5% in Water 1,000 ML IV PRN (15:59)
[2020-01-19] MEDS ORDERED: Dextrose 50% Abboject 50 ML SYRINGE SLOW IVP PRN (15:59)
[2020-01-19] MEDS ORDERED: Ondansetron PF 4 MG/2 ML Vial IVP PRN (15:59)
[2020-01-19] MEDS ORDERED: Sodium Chloride 0.9% 1,000 ML IV SCH (16:00)
[2020-01-19 16:02] LABS: Potassium 2.9 mmol/L (3.5-5.1)
[2020-01-19] MEDS ORDERED: Potassium Chloride 20 MEQ TAB ONE (16:06)
[2020-01-19 16:09] LABS: Acetaminophen Less than 6.0 mcg/mL (10.0-30.0); Alcohol 13 mg/dL (Less than 10); Salicylate Less than 8.0 mg/dL (15.0-30.0)
[2020-01-19 16:10] LABS: Hypochromia SLIGHT = 6-15 cells (100X) (0-5/hpf); MDiff Complete? YES; Macrocytosis SLIGHT = 6-15 cells (100X) (0-5/hpf); Mean Platelet Volume 8.2 fL (7.4-10.4); Platelet Count 85 thou/uL (130-400); Platelet Morphology Comment Appears Decreased; Polychromasia SLIGHT = 2-3 cells (100X) (0-2/hpf)
[2020-01-19] MEDS ORDERED: NS 0.9% w/ 40 MEQ KCL 1,000 ML IV SCH (16:15)
--- NOTE | 2020-01-19 16:15 | RAD ---
Chest one view HISTORY: Fall. Injury. FINDINGS: Cardiac silhouette and pulmonary vasculature are unremarkable. Mediastinum is midline. No confluent airspace consolidation or evidence of pneumothorax. IMPRESSION : No abnormalities are demonstrated.
[2020-01-19 16:43] LABS: INR-International Normal Ratio 1.2; PTT 36.6 sec (22.9-36.1); Prothrombin Time 15.5 sec (12.0-14.7)
[2020-01-19 16:48] LABS: BHCG - Serum Negative (NEGATIVE); Pregs Control Background? CLEAR/WHITE (CLR/WHITE); Pregs Control Bar Appear? YES (CONTROL BAR)
[2020-01-19 16:53] LABS: Phosphorus 2.8 mg/dL (2.3-4.7)
[2020-01-19] MEDS ORDERED: Magnesium Sulfate 4 GM in Sodium Chloride 0.9% 250 ML 250 ML IVPB SCH (17:30)
[2020-01-19] MEDS: Acetaminophen 325 MG TAB PO SCH (18:42)
[2020-01-19] MEDS: traMADol HCl 50 MG TAB PO SCH ×2 (18:43→19:59)
[2020-01-19] MEDS: traMADol HCl 50 MG TAB PO PRN (18:43)
[2020-01-19] MEDS ORDERED: Potassium Phosphate 15 MMOL, Magnesium Sulfate 4 GM in Sodium Chloride 0.9% 250 ML 250 ML IVPB SCH (19:00)
--- NOTE | 2020-01-19 19:03 | HP ---
REQUESTING: Angelina Cronin PA-C CONSULT: Orthopedic Surgery, Dr. Boland. PRIMARY CARE PHYSICIAN: [facility], Dr. Ari Harkins. CHIEF COMPLAINT: Mechanical fall, right hip pain. HISTORY OF PRESENT ILLNESS: This is a 39-year-old female with a past medical history of alcohol abuse, esophageal ulcers and varices, and hypokalemia. The patient reports that she tripped and fell on a wet floor earlier this morning. The patient reports falling onto her right side and reports immediate right hip pain. The patient denies hitting her head or losing consciousness. The patient denies feeling weak, lightheaded, dizzy, having chest pain or shortness of breath prior to tripping and falling. The patient states that she stopped drinking alcohol a couple of weeks ago, although her alcohol level today is 13. The patient also reports a previous cocaine use, in which she stopped using 2 weeks ago. The patient was admitted to the hospital last month for low potassium and tachycardia. The patient denies any other injuries or complaints. The patient reports being on steroids previously, which caused sores on her extremities and states that she continues to pick at them that is why they are not healing. REVIEW OF SYSTEMS: A 10-point review of systems is negative unless otherwise indicated in the above HPI. MEDICATIONS: 1. Folic acid 1 mg p.o. daily. 2. Zyrtec 10 mg p.o. daily. 3. Lasix 20 mg daily. 4. Potassium 20 mEq p.o. daily. 5. Magnesium oxide 400 mg p.o. daily. 6. Protonix 40 mg p.o. daily. 7. Metoprolol 25 mg p.o. daily. ALLERGIES: NAPROXEN CAUSES HER TO VOMIT. PAST MEDICAL HISTORY: Gastroesophageal ulcer, esophageal varices, iron deficiency anemia, alcohol and cocaine abuse. PAST SURGICAL HISTORY: , ulcer surgery x2. SOCIAL HISTORY: The patient lives at home with her mother and father, denies smoking, states she used to drink a pint of whiskey everyday but has stopped, reports previous cocaine use but has stopped, the patient is unemployed. OBJECTIVE: VITAL SIGNS: Temperature 97.6, pulse 89, blood pressure 99/62, SpO2 of 96% on room air, and respirations 14. GENERAL: Older than appearing, middle-aged female, awake, alert, in no distress, malnourished. HEENT: Pupils are equal. Mucous membranes are moist, head is atraumatic and normocephalic. NECK: No JVD, trachea midline, no cervical spine tenderness, normal range of motion of neck. RESPIRATORY: Bilateral breath sounds clear. No wheezing, rales, or rhonchi. Respirations are even and nonlabored. CARDIAC: Regular rate and regular rhythm, mild systolic murmur, no pedal edema. ABDOMEN: Soft, nondistended, no peritoneal signs, nontender, active bowel sounds. EXTREMITIES: Moves all extremities, neurovascularly intact x4, right lower extremity is mildly shortened and externally rotated, tenderness to right hip. SKIN: Warm, dry, small circular lesions to bilateral lower extremities and upper extremities, healing. NEUROLOGIC: No focal deficits. LABORATORY DATA: WBC 3.4, RBC 3.95, hemoglobin 13.1, hematocrit 39.4, MCV 99.6, MCH 33.1, platelets 85. PT 15.5, INR 1.2, aPTT 36.6. Sodium 136, potassium 2.9, chloride 100, carbon dioxide 24, anion gap 15, BUN 4, creatinine 0.60, estimated GFR greater than 90, glucose 121, calcium 8.4, phosphorus 2.8, magnesium 1.3. AST 65, ALT 8, alkaline phosphatase 92, albumin 2.8, globulin 4.2. Serum negative. Plasma alcohol 13. Urine drug screen is pending. DIAGNOSTICS: Right hip x-ray; impression, mild anteriorly angulated right femoral neck fracture. Chest x-ray; impression; no acute cardiopulmonary process. ASSESSMENT: 1. Ground level fall. 2. Right femoral neck fracture. 3. Thrombocytopenia. 4. Hypokalemia. 5. Hypomagnesemia. 6. Chronic anemia. 7. Alcohol and cocaine abuse. 8. Malnutrition, protein calorie. 9. History of esophageal varices, alcohol abuse, cocaine abuse, and esophageal ulcers. PLAN: Admit to the surgical floor. Regular diet. N.p.o. after midnight. Maintenance IV fluids normal saline at 100 mL an hour. Replace electrolytes. Bedrest until repair of her right hip fracture. Pain control. PT and OT to evaluate and treat postop. Mechanical VTE prophylaxis. Once the patient's hemoglobin is stable postop, the patient will be placed on chemical VTE prophylaxis. The patient will be placed on Serax, thiamine, multivitamins, and folic acid as she is a chronic drinker. The plan was discussed with the patient, who agrees. The plan will be discussed with the attending after this dictation. Job ID: [id number]
[2020-01-19] MEDS: Oxazepam 10 MG CAP PO SCH (19:59)
[2020-01-19 21:14] VITALS: BMI 20.4
[2020-01-19] MEDS: Morphine 2 MG/ML VIAL SLOW IVP PRN (21:51)
[2020-01-20] LABS: Medtox Reader # READER 4; Phencyclidine (PCP) Not Detected (NotDetected); THC/Cannabinoid Screen Not Detected (NotDetected)
[2020-01-20 00:01] LABS: Amphetamine Not Detected (NotDetected); Barbiturates Screen Not Detected (NotDetected); Benzodiazepine Screen Not Detected (NotDetected); Cocaine Metabolite Screen Detected (NotDetected); Medtox Control Line Valid? VALID (VALID); Methadone Not Detected (NotDetected); Methamphetamine Not Detected (NotDetected); Opiate Screen Detected (NotDetected); Oxycodone Screen Not Detected (NotDetected); Tricyclic Screen Not Detected (NotDetected)
[2020-01-20] MEDS: Acetaminophen 325 MG TAB PO SCH ×5 (00:01→22:55)
[2020-01-20 00:03] LABS: Bilirubin Negative (Negative); Blood, Urine Negative (Negative); Clarity Clear (Clear); Glucose, Urine (Dipstick) 50 mg/dL (Negative); Ketone, Urine Negative (Negative); Leukocyte Negative Leu/uL (Negative); Nitrite Negative (Negative); Protein, Urine (Dipstick) 30 mg/dL (Neg-Trace); RBC/HPF 0-3 HPF (0-3); Specific Gravity, Urine 1.029 (1.002-1.036); Squamous Epithelial 0-3 HPF (0-3); Urobilinogen 3 mg/dL (Less than 2); WBC/HPF 0-3 HPF (0-3)
[2020-01-20 00:06] LABS: Bacteria/HPF 1+ HPF (None Seen)
--- NOTE | 2020-01-20 00:20 | PRG ---
DATE OF SERVICE: 01/20/2020 SUBJECTIVE: The patient was seen this evening during rounds. She was sitting up in bed, awake and alert with no signs of acute distress. She reported she was having trouble voiding and we have discussed placing a Evangelista catheter. She reports her pain is well controlled and is waiting to go to the OR tomorrow with Dr. Boland. She is tolerating a diet. OBJECTIVE: VITAL SIGNS: Temperature 97.9, pulse 80, respirations 19, oxygen saturation 97% on room air, and blood pressure 102/73. GENERAL: Thin appearing middle-aged female, sitting up in bed with no signs of acute distress. PULMONARY: Equal chest rise and fall. No signs of acute respiratory distress. ASSESSMENT: 1. Status post ground level fall. 2. Right femoral neck fracture. 3. Chronic thrombocytopenia. 4. Hypokalemia and hypomagnesemia. 5. Anemia of chronic disease. 6. History of alcohol abuse, esophageal varices, iron deficiency anemia, previous cocaine use, and supraventricular tachycardia. PLAN: Continue current diet. N.p.o. at midnight. Discontinue IV fluids after 1 L. Finish IV replacement of electrolytes. Repeat blood work in the morning. Send UA and urine drug screen after Evangelista catheter has been placed. The patient will likely need placement at acute rehab versus longterm facility. Job ID: [id number]
[2020-01-20] MEDS: Morphine 2 MG/ML VIAL SLOW IVP PRN ×4 (02:37→10:32)
[2020-01-20] MEDS: traMADol HCl 50 MG TAB PO SCH ×4 (04:23→22:56)
[2020-01-20 05:11] LABS: INR-International Normal Ratio 1.3; PTT 40.6 sec (22.9-36.1); Prothrombin Time 16.2 sec (12.0-14.7)
[2020-01-20 05:23] LABS: #Eosinphils 0.2 thou/uL (0.0-0.7); #Lymphocytes 1.1 thou/uL (1.20-3.40); #Monocytes 0.4 thou/uL (0.11-0.59); #Neutrophils 2.4 thou/uL (1.40-6.50); %Basophils 1.1 % (0.0-1.0); %Lymphocytes 26.2 % (21.0-51.0); %Monocytes 10.4 % (0.0-10.0); %Neutrophils 57.3 % (42.0-75.0); Hemoglobin 11.4 g/dL (12.0-16.0); Mean Corpuscular HGB CONC 33.8 g/dL (32.0-36.0); Mean Corpuscular Hemoglobin 33.6 pg (27.0-31.0); Mean Corpuscular Volume 99.4 fL (78.0-98.0); Mean Platelet Volume 8.6 fL (7.4-10.4); Platelet Count 80 thou/uL (130-400); RBC Distribution Width 12.3 % (11.5-14.5); Red Blood Cell (RBC) Count 3.41 mill/uL (4.20-5.40); White Blood Cell (WBC) Count 4.2 thou/uL (4.8-10.8)
[2020-01-20 05:27] LABS: Magnesium 2.7 mg/dL (1.6-2.6); Phosphorus 3.3 mg/dL (2.3-4.7)
[2020-01-20 05:29] LABS: Anion Gap 11 mmol/L (10-20); BUN (Urea Nitrogen) Less than 4 mg/dL (7.0-18.7); Calc. Creatinine Clearance 117 mL/min (70-130); Carbon Dioxide 26 mmol/L (22-29); Chloride 102 mmol/L (98-107); Estimated GFR-MDRD Greater than 90; Glucose 88 mg/dL (70-105); Potassium 3.7 mmol/L (3.5-5.1); Sodium 135 mmol/L (136-145)
[2020-01-20] MEDS: Oxazepam 10 MG CAP PO SCH ×3 (05:29→19:43)
[2020-01-20] MEDS: Cipro 250 MG TAB PO SCH ×2 (05:29→19:43)
[2020-01-20] MEDS: Multivitamin W/ Minerals 1 TAB PO SCH (08:33)
[2020-01-20] MEDS: Loratadine 10 MG TAB PO SCH (08:33)
[2020-01-20] MEDS: Thiamine 100 MG TAB PO SCH (08:34)
--- NOTE | 2020-01-20 08:50 | CON ---
DATE OF CONSULTATION: This is Kleber Poe PA-C dictating a report for Kelvin Boland MD. HISTORY OF PRESENT ILLNESS: We were asked by Trauma to see the patient. The patient was at home when she slipped on some water and fell on her right side and had immediate pain, unable to walk, brought to the hospital, found to have a fractured hip. She was in the hospital this past year and had some esophageal varices cauterized. She states she runs low with her iron and potassium and get seen once a month for iron transfusion and admitted to the hospital for this. Denies any other injuries. Did not hit her head. Was fully aware of the entire situation. Any movement of that leg causes pain especially over the right hip, but at rest, she feels okay. Denies any numbness or tingling down the right lower extremity. MEDICATIONS: 1. Folic acid. 2. Zyrtec. 3. Lasix. 4. Potassium. 5. Magnesium. 6. Protonix. 7. Metoprolol. ALLERGIES: NAPROXEN. MEDICAL HISTORY: Gastroesophageal ulcer, esophageal varices, iron deficiency anemia, alcohol and cocaine use. PAST SURGICAL HISTORY: , also surgery in her neck x2. SOCIAL HISTORY: She lives at home with her mother and father. Denies smoking, but she does drink daily, but apparently has had a cessation of alcohol. No current drug use other than stated above. FAMILY HISTORY: For this particular incident is noncontributory. REVIEW OF SYSTEMS: Right hip pain. Otherwise, denies any other positive review of systems. PHYSICAL EXAMINATION: GENERAL: Well-nourished, well-developed female, alert, pleasant, currently in no acute distress. Speech clear. Answers question appropriately. Oriented x3. HEENT: Scalp atraumatic. Face symmetric. Tongue midline. She is missing some teeth. NECK: Supple. Trachea midline. EXTREMITIES: Upper extremities equal size, shape, symmetry. Normal bulk and tone. VITAL SIGNS: Respirations 16. PELVIS: No pain with rocking in the pelvis per se, but it does cause her pain in the right hip. Lower extremities; right lower extremity has shortened a little bit in outward rotation, this is currently comfortable for her. She has good sensations in lower extremity. DP and PT pulses are intact. ASSESSMENT: 1. Multiple health issues. 2. Right hip fracture. PLAN: I spoke with the patient. She has had surgery before, and on her neck. She understands risks and benefits of surgery as we discussed. Her questions and concerns have been addressed, and she is amenable to go forth with surgery. We will get her on the surgery schedule for later today and keep her n.p.o. We planned on doing an intermedullary nail, I have explained this procedure to the patient, the time it takes and that she should be able to walk later this afternoon or possibly tomorrow. We will get her set up for some antibiotics pre-surgical, postsurgical. If the patient has further questions or concerns later in the day, we will go over those as they arise. Job ID: [id number] [facility]rey
--- NOTE | 2020-01-20 08:56 | HP ---
HISTORY OF PRESENT ILLNESS: Ms. España is a 39-year-old black female. She was admitted through the emergency room yesterday evening following a fall, which resulted in a right femoral neck fracture. She is very thin, has a series of medical problems detailed in the history and physical examination per Sierra Duncan NP. I have examined the patient, reviewed her medical records and images. I agree with a history and physical examination per Ms. Duncan. The patient will undergo surgical repair of her femoral fracture per Orthopedics later today. She will continue to be managed by the Trauma Team. Job ID: [id number]
[2020-01-20] MEDS ORDERED: FLU VACC QS2020-21(6MOS UP)/PF 60 MCG/0.5 ML SYRINGE IM ONE (09:00)
[2020-01-20] MEDS ORDERED: Potassium Phosphate 15 MMOL in Sodium Chloride 0.9% 250 ML 250 ML IVPB SCH (09:00)
[2020-01-20] MEDS ORDERED: Pantoprazole 40 MG VIAL IVP SCH (09:00)
[2020-01-20] MEDS ORDERED: Ondansetron PF 4 MG/2 ML Vial ONE (09:45)
[2020-01-20] MEDS ORDERED: PROPOFOL 200 MG/20 ML VIAL ONE (09:45)
[2020-01-20] MEDS ORDERED: Rocuronium Bromide 10 MG/ML (10ML VIAL) ONE (09:45)
[2020-01-20] MEDS ORDERED: Dexamethasone 20 MG/5 ML VIAL ONE (09:45)
[2020-01-20] MEDS ORDERED: PHENYLEPHRINE-NS 100 MCG/ML 10 ML SYRINGE ONE (09:45)
[2020-01-20] MEDS ORDERED: EPHEDRINE 25 MG/5 ML SYRINGE ONE (09:45)
[2020-01-20] MEDS ORDERED: Lidocaine 1% PF 5 ML VIAL ONE (09:45)
[2020-01-20] MEDS ORDERED: CEFAZOLIN 2 GM in Premix Bag 1 BAG IVPB SCH (11:00)
[2020-01-20] MEDS ORDERED: Sodium Chloride 0.9% 500 ML IV SCH (11:45)
--- NOTE | 2020-01-20 12:03 | PRG ---
DATE OF SERVICE: 01/20/2020 SUBJECTIVE: The patient remains on the surgical floor, awake, alert, in no distress. The patient is currently n.p.o. with maintenance IV fluids. Orthopedic Surgery plans to take her to the OR later today for repair of her right femoral neck fracture. The patient is currently receiving antibiotics for a urinary tract infection on admission. The patient is currently having some mild pain at this time to her right hip, but is due for her pain medication. OBJECTIVE: VITAL SIGNS: Blood pressure 96/65, temperature 98.0, pulse 75, respirations 18, SpO2 of 98% on room air. GENERAL: A middle-age female, awake, alert, in no distress. RESPIRATORY: Good inspiratory and expiratory effort. Respirations are even and nonlabored. CARDIAC: Regular rate, regular rhythm. EXTREMITIES: Moves all extremities. Neurovascularly intact x4, right lower extremity is mildly shortened and externally rotated. NEUROLOGIC: No focal deficits. LABORATORY DATA: WBC 4.2, RBC 3.41, hemoglobin 11.4, hematocrit 33.9, platelets 80. Sodium 135, potassium 3.7, chloride 102, BUN less than 4, creatinine 0.54, estimated GFR greater than 90, glucose 88, calcium 8.0, phosphorus 3.3, magnesium 2.7. Drug screen positive for cocaine. DIAGNOSTICS: There is no new diagnostics to review today. ASSESSMENT: 1. Mechanical fall from standing. 2. Right femoral neck fracture. 3. Thrombocytopenia. 4. Hypokalemia, improved. 5. Hypomagnesium, improved. 6. Chronic anemia. 7. Protein and calorie malnutrition. 8. History of esophageal varices, alcohol abuse, cocaine abuse, and esophageal ulcers. PLAN: Continue n.p.o. with maintenance IV fluids. Replace electrolytes. Orthopedic Surgery plans to take the patient to the OR today for repair of her right femoral neck fracture. Postop, the patient may have a regular diet as tolerated. PT and OT to evaluate and treat postop. Mechanical VTE prophylaxis. We will repeat hemoglobin and hematocrit tomorrow and start on chemical VTE prophylaxis if stable. Pain regimen and supportive care. We will continue Serax, thiamine, and multivitamins as the patient is a chronic drinker. The plan was discussed with the patient who agrees. The plan was discussed with the attending. Job ID: [id number]
[2020-01-20] MEDS ORDERED: Lidocaine 2% Jelly 5 ML TUBE ONE (12:21)
[2020-01-20] MEDS ORDERED: Midazolam HCl 2 mg/2 ml Vial ONE (12:21)
[2020-01-20] MEDS ORDERED: Fentanyl 100 MCG/2 ML VIAL ONE ×2 (12:21→14:00)
[2020-01-20] MEDS ORDERED: HYDROmorphone 0.5 MG/0.5 ML SYRINGE ONE (12:21)
[2020-01-20] MEDS ORDERED: SUGAMMADEX SODIUM 200 MG/2 ML VIAL ONE (13:20)
[2020-01-20] MEDS ORDERED: Promethazine HCl 25 MG/ML VIAL IM PRN (13:36)
[2020-01-20] MEDS ORDERED: Promethazine HCl 25 MG/ML VIAL SLOW IVP PRN (13:36)
[2020-01-20] MEDS ORDERED: Ondansetron HCl/PF 4 MG/2 ML Vial IVP PRN (13:36)
[2020-01-20 13:55] LABS: SARS-CoV-2 MS2 Positive; SARS-CoV-2 N Gene Negative; SARS-CoV-2 S Gene Negative; SARS-CoV-2 by NAA Not Detected (NotDetected); SARS-CoV-2 orf1ab Negative
--- NOTE | 2020-01-20 14:07 | RAD ---
Exam: Right hip 2 views: HISTORY: Placement of right hip trochanteric nail COMPARISON: 01/19/2020 FINDINGS: Stabilization of the intertrochanteric fracture with intertrochanteric nail. IMPRESSION: Intertrochanteric nail placement with stabilization of right femur.
[2020-01-20] MEDS: traMADol HCl 50 MG TAB PO PRN (14:31)
[2020-01-20] MEDS: Ferrous Sulfate 325 MG TAB PO SCH (17:16)
[2020-01-20] MEDS: CEFAZOLIN 2 GM in Premix Bag 1 BAG IVPB SCH (19:42)
[2020-01-20] MEDS: Senokot S 8.6-50 MG TAB PO SCH (19:43)
[2020-01-20] MEDS: Cyclobenzaprine 10 MG TAB PO PRN (22:56)
--- NOTE | 2020-01-21 02:32 | PRG ---
DATE OF SERVICE: 01/20/2020 SUBJECTIVE: Patient was seen this evening during rounds. She is postoperative day 0 after fixation of her right femoral neck fracture. She reported her pain is well controlled. Tolerating a diet, getting ready to go to sleep. She had no concerns. OBJECTIVE: VITAL SIGNS: Temperature 98.4, pulse 97, respirations 16, oxygen saturation 100% on room air, and blood pressure 103/64. GENERAL: Well-appearing middle-aged female sitting up in bed with no signs of acute distress. PULMONARY: Equal chest rise and fall. No signs of acute respiratory distress. ASSESSMENT: 1. Status post ground level fall. 2. Right femoral neck fracture, status post repair. 3. Urinary tract infection, uncomplicated. 4. Thrombocytopenia and chronic anemia. 5. Acute hypomagnesemia and hypokalemia, resolved. 6. History of esophageal varices, alcohol abuse, iron-deficiency anemia, previous cocaine abuse, and supraventricular tachycardia. PLAN: Continue current regular diet. Start physical and occupational therapy. Repeat blood work in the morning. Continue Cipro for a total of 3 days. Follow up urine culture. Start DVT prophylaxis tomorrow, if hemoglobin is stable. Job ID: [id number]
[2020-01-21] MEDS: Oxazepam 10 MG CAP PO SCH ×3 (05:01→22:40)
[2020-01-21] MEDS: CEFAZOLIN 2 GM in Premix Bag 1 BAG IVPB SCH (05:01)
[2020-01-21] MEDS: Cipro 250 MG TAB PO SCH ×2 (05:01→20:26)
[2020-01-21] MEDS: Acetaminophen 325 MG TAB PO SCH ×4 (05:02→23:24)
[2020-01-21] MEDS: traMADol HCl 50 MG TAB PO SCH ×4 (05:02→22:40)
[2020-01-21] MEDS: Senokot S 8.6-50 MG TAB PO SCH ×2 (08:14→20:26)
[2020-01-21] MEDS: Ferrous Sulfate 325 MG TAB PO SCH ×2 (08:14→16:43)
[2020-01-21] MEDS: Polyethylene Glycol 3350 17 GM Packet PO SCH (08:14)
[2020-01-21] MEDS: Multivitamin W/ Minerals 1 TAB PO SCH (08:16)
[2020-01-21] MEDS: Ascorbic Acid 500 mg Chewable Tablet PO SCH (08:16)
[2020-01-21] MEDS: Thiamine 100 MG TAB PO SCH ×2 (08:16→08:17)
[2020-01-21] MEDS: Loratadine 10 MG TAB PO SCH (08:17)
[2020-01-21] MEDS: Cholecalciferol 1,000 UNITS (25 MCG) TAB PO SCH (08:17)
[2020-01-21 08:50] LABS: #Lymphocytes 0.5 thou/uL (1.20-3.40); #Monocytes 0.6 thou/uL (0.11-0.59); #Neutrophils 6.4 thou/uL (1.40-6.50); %Lymphocytes 6.8 % (21.0-51.0); %Monocytes 7.9 % (0.0-10.0); %Neutrophils 85.2 % (42.0-75.0); Hemoglobin 11.6 g/dL (12.0-16.0); Mean Corpuscular HGB CONC 34.2 g/dL (32.0-36.0); Mean Corpuscular Hemoglobin 34.2 pg (27.0-31.0); Mean Corpuscular Volume 99.9 fL (78.0-98.0); Mean Platelet Volume 8.3 fL (7.4-10.4); Platelet Count 78 thou/uL (130-400); RBC Distribution Width 12.4 % (11.5-14.5); White Blood Cell (WBC) Count 7.5 thou/uL (4.8-10.8)
[2020-01-21 09:04] LABS: Anion Gap 10 mmol/L (10-20); BUN (Urea Nitrogen) Less than 4 mg/dL (7.0-18.7); Calc. Creatinine Clearance 113 mL/min (70-130); Calcium 8.5 mg/dL (7.8-10.44); Carbon Dioxide 24 mmol/L (22-29); Chloride 102 mmol/L (98-107); Estimated GFR-MDRD Greater than 90; Glucose 102 mg/dL (70-105); Magnesium 1.8 mg/dL (1.6-2.6); Phosphorus 2.3 mg/dL (2.3-4.7); Potassium 4.4 mmol/L (3.5-5.1); Sodium 132 mmol/L (136-145)
[2020-01-21] MEDS: Calcium Citrate 950 MG TAB PO SCH (09:47)
--- NOTE | 2020-01-21 11:17 | PRG ---
DATE OF SERVICE: 01/21/2020 SUBJECTIVE: The patient was seen during morning rounds on the surgical floor. The patient is awake, alert, sitting up in the chair, just finished eating breakfast. The patient states she already worked with Physical Therapy and reports some moderate amount of pain when she ambulated. The patient continues to tolerate a regular diet. The patient had no overnight events. Urinary output is adequate for the patient's age and weight. OBJECTIVE: VITAL SIGNS: Temperature 98.1, pulse 92, respirations 14, SpO2 of 100% on room air, blood pressure 100/68. GENERAL: Middle-aged female, awake, alert, in no distress. RESPIRATORY: Good inspiratory and expiratory effort. Respirations are even and nonlabored. CARDIAC: Regular rate. Regular rhythm. EXTREMITIES: Moves all extremities. Neurovascularly intact x4. Right hip dressing is clean, dry, and intact. NEUROLOGIC: No focal deficits. LABORATORY DATA: WBC 7.5, RBC 3.40, hemoglobin 11.6, hematocrit 34.0, MCV was 99.9, platelets 78. Sodium 132, potassium 4.4, chloride 102, BUN less than 4, creatinine 0.56, estimated GFR greater than 90, glucose 102, calcium 8.5, phosphorus 2.3, magnesium 1.8, vitamin D level 4.0. DIAGNOSTIC DATA: There are no new diagnostics to review today. ASSESSMENT: 1. Mechanical fall from standing. 2. Right femoral neck fracture postop day #1, status post repair. 3. Thrombocytopenia. 4. Chronic anemia. 5. Hyponatremia. 6. Protein and calorie malnutrition. 7. Vitamin D deficiency. 8. History of esophageal varices, alcohol abuse, cocaine abuse, and esophageal ulcers. PLAN: Regular diet as tolerated. Pain control and supportive care. Continue physical and occupational therapy. Free water restriction to 1 L a day for hyponatremia, the patient may have unlimited Gatorade or juice. We will start the patient on vitamin D supplement. We will also add calcium supplement. We will discontinue Evangelista catheter. We will start the patient on chemical VTE prophylaxis with Lovenox daily as the patient's hemoglobin is stable. We will continue to monitor CBC. The patient is pending placement to inpatient rehab for continued therapy. Plan was discussed with the patient who agrees. The plan will be discussed with the attending after this dictation. Job ID: [id number]
[2020-01-21] MEDS: Enoxaparin Sodium 40 MG/0.4 ML SYRINGE SC SCH (20:26)
--- NOTE | 2020-01-21 20:38 | OP ---
DATE OF PROCEDURE: 01/20/2020 OPERATION PERFORMED: Right femur intramedullary nail. PREOPERATIVE DIAGNOSIS: Right intertrochanteric femur fracture. POSTOPERATIVE DIAGNOSIS: Right intertrochanteric femur fracture. COMPLICATIONS: None. ESTIMATED BLOOD LOSS: 400 mL. RETAIL BUSINESS ANALYST: Kleber Poe PA-C. IMPLANTS: Synthes 11-mm short trochanteric nail with helical blade. INDICATIONS: Ms. España is a 39-year-old female who has fallen and fractured her right intertrochanteric femur. She has been indicated for intramedullary nail to restore anatomic alignment and promote healing. Risks have been reviewed in detail. She elected to proceed with the operation. DESCRIPTION OF PROCEDURE: Ms. España was identified in the preoperative holding area. Her correct extremity was marked. She was carried to the operating room. She was positioned supine. General anesthesia was induced. A multidisciplinary time-out was performed. The right lower extremity was prepped and draped in sterile fashion. We began the procedure with intraoperative evaluation of the fracture with x-ray. We pulled traction and rotated the limb. Once we had an anatomic reduction, we proceeded to make a small incision proximal to the trochanter. A guidewire was inserted. We then overdrilled the guidewire. At this point, we inserted our 11-mm trochanteric nail. We placed a helical blade in the centered position of the femoral head using a guidewire. Next, we placed a distal Crosslock screw using intraoperative x-ray. At this point, we took final images. We thoroughly irrigated all wounds and closed appropriately in layers. A sterile dressing was applied. The bar assistant surgeon was responsible for positioning the patient, preparing the injured extremity, applying the tourniquet, and assisting in preparation for surgery. The bar assistant was instrumental in reducing the injured limb by applying traction and reduction maneuvers as well as holding retractors and reduction tools. The bar assistant also was instrumental in assisting in exposure throughout the operation using appropriate retractors. The bar assistant participated in closure of the operative site as well as dressing application and splint application. Job ID: [id number]
--- NOTE | 2020-01-21 23:48 | PRG ---
DATE OF SERVICE: 01/21/2020 SUBJECTIVE: The patient was seen this evening during rounds. She was sitting up in bed, awake and alert with no signs of acute distress. Pain well controlled. Tolerating diet. Working with physical therapy. OBJECTIVE: VITAL SIGNS: Temperature 98.1, pulse 108, respirations 16, oxygen saturation 100% on room air, blood pressure 95/60. ASSESSMENT: 1. Status post ground level fall. 2. Right femoral neck fracture, status post repair. 3. Urinary tract infection, uncomplicated. 4. Hyponatremia. 5. History of esophageal varices, alcohol abuse, iron deficiency anemia, cocaine abuse, and supraventricular tachycardia. PLAN: Continue current diet. Continue 1 L free water restriction. Continue physical and occupational therapy. The patient is pending discharge to acute rehab facility. She is ready for discharge at this time. Job ID: [id number]
[2020-01-22] MEDS: Acetaminophen 325 MG TAB PO SCH ×4 (00:24→18:11)
[2020-01-22] MEDS: traMADol HCl 50 MG TAB PO PRN (00:24)
[2020-01-22] MEDS: Cyclobenzaprine 10 MG TAB PO PRN (02:34)
[2020-01-22] MEDS: Oxazepam 10 MG CAP PO SCH ×3 (05:05→21:41)
[2020-01-22] MEDS: traMADol HCl 50 MG TAB PO SCH ×4 (05:06→21:41)
[2020-01-22] MEDS: Cipro 250 MG TAB PO SCH ×2 (05:06→19:29)
[2020-01-22 05:39] LABS: #Eosinphils 0.2 thou/uL (0.0-0.7); #Lymphocytes 1.5 thou/uL (1.20-3.40); #Monocytes 0.5 thou/uL (0.11-0.59); #Neutrophils 2.8 thou/uL (1.40-6.50); %Basophils 0.8 % (0.0-1.0); %Eosinophils 3.3 % (0.0-10.0); %Lymphocytes 29.9 % (21.0-51.0); %Monocytes 10.7 % (0.0-10.0); %Neutrophils 55.4 % (42.0-75.0); Mean Corpuscular HGB CONC 33.1 g/dL (32.0-36.0); Mean Corpuscular Hemoglobin 33.3 pg (27.0-31.0); Mean Platelet Volume 8.9 fL (7.4-10.4); Platelet Count 94 thou/uL (130-400); RBC Distribution Width 12.5 % (11.5-14.5)
[2020-01-22 05:55] LABS: Anion Gap 11 mmol/L (10-20); BUN (Urea Nitrogen) 4 mg/dL (7.0-18.7); Calc. Creatinine Clearance 113 mL/min (70-130); Calcium 8.3 mg/dL (7.8-10.44); Carbon Dioxide 26 mmol/L (22-29); Chloride 103 mmol/L (98-107); Estimated GFR-MDRD Greater than 90; Glucose 81 mg/dL (70-105); Magnesium 1.6 mg/dL (1.6-2.6); Phosphorus 2.6 mg/dL (2.3-4.7); Potassium 4.5 mmol/L (3.5-5.1); Sodium 135 mmol/L (136-145)
[2020-01-22] MEDS: Senokot S 8.6-50 MG TAB PO SCH ×2 (09:03→21:42)
[2020-01-22] MEDS: Multivitamin W/ Minerals 1 TAB PO SCH (09:04)
[2020-01-22] MEDS: Cholecalciferol 1,000 UNITS (25 MCG) TAB PO SCH (09:04)
[2020-01-22] MEDS: Folic Acid 1 MG TAB PO SCH (09:04)
[2020-01-22] MEDS: Calcium Citrate 950 MG TAB PO SCH (09:04)
[2020-01-22] MEDS: Ferrous Sulfate 325 MG TAB PO SCH ×2 (09:04→16:53)
[2020-01-22] MEDS: Thiamine 100 MG TAB PO SCH (09:04)
[2020-01-22] MEDS: Loratadine 10 MG TAB PO SCH (09:04)
[2020-01-22] MEDS: Ascorbic Acid 500 mg Chewable Tablet PO SCH (09:04)
[2020-01-22] MEDS: Polyethylene Glycol 3350 17 GM Packet PO SCH (09:05)
[2020-01-22] MEDS ORDERED: Cyclobenzaprine 10 MG TAB PO PRN (11:45)
[2020-01-22] MEDS ORDERED: Magnesium Sulfate 2 GM in Sodium Chloride 0.9% 100 ML IVPB SCH (12:00)
[2020-01-22] MEDS ORDERED: Magnesium 2 GM/50 ML 2 GM in Premix Bag 1 BAG IVPB SCH (12:15)
--- NOTE | 2020-01-22 12:37 | PRG ---
DATE OF SERVICE: 01/22/2020 SUBJECTIVE: The patient was seen during morning rounds with Dr. Butler. Awake, alert, in no distress. The patient is postop day #2, status post right femur intramedullary nail placement. The patient had no overnight events. The patient continues to tolerate a regular diet and work with Physical Therapy. The patient was placed on a free water restriction 1 L yesterday for hyponatremia, which has improved. The patient was also started on vitamin D therapy for vitamin D deficiency. The patient voices no complaints or concerns at this time. OBJECTIVE: VITAL SIGNS: Temperature 97.8, pulse 101, respirations 18, SpO2 of 96% on room air, blood pressure 96/62. GENERAL: Middle-age female, awake and alert, in no distress. RESPIRATORY: Good inspiratory and expiratory effort. Respirations are even and nonlabored. CARDIAC: Regular rate, regular rhythm. EXTREMITIES: Moves all extremities. Neurovascularly intact x4. Right hip dressing is clean, dry, and intact. NEUROLOGIC: No focal deficits. LABORATORY DATA: WBC 5.0, RBC 2.70, hemoglobin 9.0, hematocrit 27.2, platelets 94. Sodium 135, potassium 4.5, chloride 103, BUN 4, creatinine 0.56, estimated GFR greater than 90, glucose 81, calcium 8.3, phosphorus 2.6, magnesium 1.6. DIAGNOSTICS: There is no new diagnostics to review today. ASSESSMENT: 1. Mechanical fall from standing. 2. Right femoral neck fracture, postop day #2, status post intramedullary nail placement. 3. Thrombocytopenia. 4. Chronic anemia. 5. Hyponatremia, improving. 6. Protein calorie malnutrition. 7. Vitamin D deficiency. 8. History of esophageal varices, alcohol abuse, cocaine abuse, and esophageal ulcers. PLAN: Continue regular diet as tolerated. Continue pain regimen and supportive care. Continue to increase physical therapy and occupational therapy daily. Continue free water restriction 1 L a day. Continue vitamin D supplement. Continue iron and vitamin C for anemia. Chemical VTE prophylaxis with Lovenox and SCDs. We will continue to monitor hemoglobin. The patient is pending placement to inpatient rehab. The plan was discussed with the patient who agrees. The patient was seen by Dr. Butler during morning rounds. Job ID: [id number]
[2020-01-22] MEDS: Enoxaparin Sodium 40 MG/0.4 ML SYRINGE SC SCH (21:41)
--- NOTE | 2020-01-22 23:24 | PRG ---
DATE OF SERVICE: SUBJECTIVE: Patient was seen this evening during rounds. She was sitting up in bed with no signs of acute distress. She reported pain was well controlled. Tolerating a diet, voiding without difficulties. OBJECTIVE: VITAL SIGNS: Temperature 98, pulse 108, respirations 18, oxygen saturation 100% on room air, and blood pressure 99/63. ASSESSMENT: 1. Status post ground level fall. 2. Right femoral neck fracture, status post repair. 3. Urinary tract infection, uncomplicated. 4. History of esophageal varices, alcohol abuse, iron-deficiency anemia, polysubstance abuse, and supraventricular tachycardia. PLAN: Continue current diet and pain regimen. Continue physical and occupational therapy. Patient is pending discharge to acute rehab facility. She is ready for discharge at this time. Job ID: [id number]
[2020-01-23] MEDS: Acetaminophen 325 MG TAB PO SCH ×5 (00:58→22:52)
[2020-01-23] MEDS: traMADol HCl 50 MG TAB PO SCH ×4 (04:06→22:51)
[2020-01-23] MEDS: Oxazepam 10 MG CAP PO SCH ×3 (05:08→20:53)
[2020-01-23] MEDS: Cipro 250 MG TAB PO SCH (05:08)
[2020-01-23 05:20] LABS: Hemoglobin 9.3 g/dL (12.0-16.0); Mean Corpuscular HGB CONC 32.9 g/dL (32.0-36.0); Mean Corpuscular Hemoglobin 33.5 pg (27.0-31.0); Mean Platelet Volume 7.5 fL (7.4-10.4); Platelet Count 104 thou/uL (130-400); RBC Distribution Width 12.7 % (11.5-14.5); Red Blood Cell (RBC) Count 2.78 mill/uL (4.20-5.40); White Blood Cell (WBC) Count 4.6 thou/uL (4.8-10.8)
[2020-01-23] MEDS: Thiamine 100 MG TAB PO SCH (08:21)
[2020-01-23] MEDS: Cholecalciferol 1,000 UNITS (25 MCG) TAB PO SCH (08:21)
[2020-01-23] MEDS: Loratadine 10 MG TAB PO SCH (08:21)
[2020-01-23] MEDS: Polyethylene Glycol 3350 17 GM Packet PO SCH (08:22)
[2020-01-23] MEDS: Calcium Citrate 950 MG TAB PO SCH (08:22)
[2020-01-23] MEDS: Ferrous Sulfate 325 MG TAB PO SCH ×2 (08:22→18:02)
[2020-01-23] MEDS: Folic Acid 1 MG TAB PO SCH (08:22)
[2020-01-23] MEDS: Senokot S 8.6-50 MG TAB PO SCH ×2 (08:22→20:54)
[2020-01-23] MEDS: Ascorbic Acid 500 mg Chewable Tablet PO SCH (08:22)
[2020-01-23] MEDS: Multivitamin W/ Minerals 1 TAB PO SCH (08:22)
--- NOTE | 2020-01-23 16:59 | PRG ---
DATE OF SERVICE: 01/23/2020 SUBJECTIVE: The patient was seen during morning rounds with Dr. Butler. Awake, alert, in no distress. The patient is postop day #3, status post right intramedullary nail placement for right femoral neck fracture. The patient continues to work with Physical Therapy and ambulating well. The patient continues to tolerate a regular diet. The patient voices no complaints or concerns at this time. OBJECTIVE: VITAL SIGNS: Temperature 97.9, pulse 96, respirations 18, SpO2 of 98% on room air, blood pressure 101/65. GENERAL: Middle-aged female, awake, alert, in no distress. RESPIRATORY: Good inspiratory and expiratory effort, respirations are even and nonlabored. CARDIAC: Regular rate and regular rhythm, no pedal edema. EXTREMITIES: Moves all extremities, neurovascularly intact x4. NEUROLOGIC: No focal deficits. LABORATORY DATA: WBC 4.6, RBC 2.78, hemoglobin 9.3, hematocrit 28.3. ASSESSMENT: 1. Mechanical fall from standing. 2. Right femoral neck fracture postop day #3, status post intramedullary nail placement. 3. Thrombocytopenia. 4. Chronic anemia. 5. Hyponatremia, improved. 6. Protein calorie malnutrition. 7. Vitamin D deficiency. 8. History of esophageal varices, alcohol abuse, cocaine abuse, and esophageal ulcers. PLAN: Continue supportive care and pain regimen. Continue regular diet as tolerated. Continue physical and occupational therapy. The patient is pending insurance approval to inpatient rehab. The patient is ready for discharge at this time. The patient was seen by Dr. Butler during morning rounds. Job ID: [id number]
[2020-01-23] MEDS: Enoxaparin Sodium 40 MG/0.4 ML SYRINGE SC SCH (20:53)
[2020-01-23] MEDS: traMADol HCl 50 MG TAB PO PRN (20:54)
[2020-01-24] MEDS: traMADol HCl 50 MG TAB PO SCH ×4 (03:37→21:39)
[2020-01-24] MEDS: Acetaminophen 325 MG TAB PO SCH ×3 (06:14→17:02)
[2020-01-24] MEDS: Oxazepam 10 MG CAP PO SCH ×3 (06:15→21:39)
[2020-01-24] MEDS: Senokot S 8.6-50 MG TAB PO SCH ×2 (08:53→22:15)
[2020-01-24] MEDS: Polyethylene Glycol 3350 17 GM Packet PO SCH (08:53)
[2020-01-24] MEDS: Cholecalciferol 1,000 UNITS (25 MCG) TAB PO SCH (08:56)
[2020-01-24] MEDS: Calcium Citrate 950 MG TAB PO SCH (08:56)
[2020-01-24] MEDS: Loratadine 10 MG TAB PO SCH (08:57)
[2020-01-24] MEDS: Thiamine 100 MG TAB PO SCH (08:57)
[2020-01-24] MEDS: Folic Acid 1 MG TAB PO SCH (08:57)
[2020-01-24] MEDS: Ascorbic Acid 500 mg Chewable Tablet PO SCH (08:57)
[2020-01-24] MEDS: Multivitamin W/ Minerals 1 TAB PO SCH (08:57)
[2020-01-24] MEDS: Ferrous Sulfate 325 MG TAB PO SCH ×2 (08:57→17:02)
--- NOTE | 2020-01-24 16:33 | PRG ---
DATE OF SERVICE: 01/24/2020 SUBJECTIVE: The patient was seen during morning rounds with Dr. Butler. The patient is currently awake, alert, in no distress. The patient just started working with Physical Therapy this morning. The patient is postop day #4, status post right intramedullary nail placement for right femoral neck fracture. The patient continues to progress with physical therapy daily. The patient's pain is well controlled and she is tolerating a regular diet. The patient voices no complaints or concerns. OBJECTIVE: VITAL SIGNS: Temperature 98.1, pulse 86, respirations 18, SpO2 of 100% on room air, blood pressure 108/71. GENERAL: A middle-aged female, awake, alert, in no distress. RESPIRATORY: Good inspiratory and expiratory effort. Respirations are even and nonlabored. EXTREMITIES: Moves all extremities, neurovascularly intact x4. NEUROLOGIC: No focal deficits. LABORATORY DATA: There are no new labs to evaluate today. ASSESSMENT: 1. Mechanical fall from standing. 2. Right femoral neck fracture, postop day #4, status post intramedullary nail placement. 3. Thrombocytopenia, improving. 4. Chronic anemia. 5. Hyponatremia, improved. 6. Protein-calorie malnutrition. 7. Vitamin D deficiency. 8. History of esophageal varices, alcohol abuse, cocaine abuse, and esophageal ulcers. PLAN: Continue supportive care and pain regimen. Continue regular diet as tolerated. Continue to increase physical and occupational therapy daily. The patient is pending insurance approval to inpatient rehab. The patient is ready for discharge at this time. The patient was seen by Dr. Butler during morning rounds. The plan was discussed with the patient who agrees. Job ID: [id number]
[2020-01-24] MEDS: Enoxaparin Sodium 40 MG/0.4 ML SYRINGE SC SCH (21:42)
[2020-01-25] MEDS: Acetaminophen 325 MG TAB PO SCH ×4 (01:12→16:59)
[2020-01-25] MEDS: traMADol HCl 50 MG TAB PO SCH ×4 (05:45→21:35)
[2020-01-25] MEDS: Oxazepam 10 MG CAP PO SCH ×3 (06:30→21:27)
[2020-01-25] MEDS: Calcium Citrate 950 MG TAB PO SCH (08:56)
[2020-01-25] MEDS: Ferrous Sulfate 325 MG TAB PO SCH ×2 (08:56→16:59)
[2020-01-25] MEDS: Multivitamin W/ Minerals 1 TAB PO SCH (08:56)
[2020-01-25] MEDS: Folic Acid 1 MG TAB PO SCH (08:57)
[2020-01-25] MEDS: Thiamine 100 MG TAB PO SCH (08:57)
[2020-01-25] MEDS: Cholecalciferol 1,000 UNITS (25 MCG) TAB PO SCH (08:57)
[2020-01-25] MEDS: Loratadine 10 MG TAB PO SCH (08:57)
[2020-01-25] MEDS: Ascorbic Acid 500 mg Chewable Tablet PO SCH (08:57)
[2020-01-25] MEDS: Polyethylene Glycol 3350 17 GM Packet PO SCH (09:02)
[2020-01-25] MEDS: Senokot S 8.6-50 MG TAB PO SCH ×2 (09:02→20:47)
[2020-01-25] MEDS: traMADol HCl 50 MG TAB PO PRN (13:17)
[2020-01-25] MEDS: Enoxaparin Sodium 40 MG/0.4 ML SYRINGE SC SCH (20:46)
[2020-01-26] MEDS: Acetaminophen 325 MG TAB PO SCH ×4 (00:14→18:06)
--- NOTE | 2020-01-26 01:27 | PRG ---
DATE OF SERVICE: 01/25/2020 The patient is currently on the surgical floor. She is postop day #5, status post intramedullary nail placement for a right femoral neck fracture. The patient continues to work with Physical and Occupational Therapy and she is currently awaiting placement. The patient had no issues overnight. PHYSICAL EXAMINATION: VITAL SIGNS: Temperature is 98.5, heart rate 93, blood pressure 103/68, respirations 16, and oxygen saturation is 98% on room air. GENERAL: The patient is actually working with Physical Therapy as we saw her this morning. She is ambulating with a walker with minimal assistance. She appears in no distress. LUNGS: Her respirations are nonlabored. NEUROLOGIC: Her extremities are neurovascularly intact x4. Her Christian Coma Scale is 15. There are no labs or radiographs reviewed this morning. ASSESSMENT AND PLAN: 1. Status post ground-level fall. 2. Status post intramedullary nail placement for right femoral neck fracture, postop day five. 3. Thrombocytopenia, improving. 4. Chronic anemia, stable. 5. Hyponatremia, improved. 6. Protein-calorie malnutrition, stable. PLAN: Plan will be to continue supportive care, encourage physical and occupational therapy, diet, and await placement decision. The patient continues to progress and could possibly be discharged home with family support. Job ID: [id number] [facility]
[2020-01-26] MEDS: traMADol HCl 50 MG TAB PO PRN ×2 (01:53→20:51)
[2020-01-26] MEDS: Oxazepam 10 MG CAP PO SCH ×3 (05:11→20:49)
[2020-01-26] MEDS: traMADol HCl 50 MG TAB PO SCH ×3 (05:12→18:07)
[2020-01-26] MEDS: Ascorbic Acid 500 mg Chewable Tablet PO SCH (07:53)
[2020-01-26] MEDS: Thiamine 100 MG TAB PO SCH (07:54)
[2020-01-26] MEDS: Calcium Citrate 950 MG TAB PO SCH (07:54)
[2020-01-26] MEDS: Multivitamin W/ Minerals 1 TAB PO SCH (07:54)
[2020-01-26] MEDS: Cholecalciferol 1,000 UNITS (25 MCG) TAB PO SCH (07:54)
[2020-01-26] MEDS: Loratadine 10 MG TAB PO SCH (07:55)
[2020-01-26] MEDS: Folic Acid 1 MG TAB PO SCH (07:55)
[2020-01-26] MEDS: Polyethylene Glycol 3350 17 GM Packet PO SCH (07:55)
[2020-01-26] MEDS: Ferrous Sulfate 325 MG TAB PO SCH ×2 (07:55→18:07)
[2020-01-26] MEDS: Senokot S 8.6-50 MG TAB PO SCH ×2 (07:56→20:49)
--- NOTE | 2020-01-26 14:07 | PRG ---
DATE OF SERVICE: 01/26/2020 SUBJECTIVE: Ms. Rubio is a 39-year-old female status post ground-level fall, postop day #6, status post intramedullary nail placement for right femoral neck fracture, hospital day #6, working with PT/OT, ambulatory. States that she feels better and is moving more and more, did twist and has some twinge in her knee, but however, she has been ambulatory since that time. Stable leg. No other events overnight. OBJECTIVE: VITAL SIGNS: Temperature is 97.9, blood pressure 113/77, heart rate is 95, breathing 14 times per minute, 100% on room air. GENERAL: A 39-year-old female, up, in no acute distress, friend at bedside. HEENT: Normocephalic, atraumatic. Trachea is midline. RESPIRATORY: Equal rise and fall. No respiratory distress. CARDIOVASCULAR: Regular rate and rhythm. ABDOMEN: Soft. PELVIS: Stable. Dry dressing. MUSCULOSKELETAL: Moves extremities well. Ambulatory. No edema. NEUROLOGIC: Alert and ordered to person, place, time, and event. GCS 15. PSYCH: Normal mood and affect. SKIN: Warm and dry. DIAGNOSTIC STUDIES: No diagnostic criteria from today. ASSESSMENT: 1. Ground-level fall. 2. Right femoral neck fracture, status post intramedullary nail placement, postop day #6. 3. Thrombocytopenia, improving. 4. Chronic anemia, stable. 5. Hyponatremia, improved. 6. Protein-calorie malnutrition, stable. PLAN: 1. Continue to encourage diet. 2. Work with PT/OT. 3. Awaiting insurance authorization for rehab placement to place in rehab in ensuing days. However, the patient is improving quite nicely. If she has not placed in the next 1 or 2 days, may be able to be safely discharged home to live with her family and has some support there if her pain is under control. The patient was reviewed by Dr. Kenny Butler . Job ID: [id number]
[2020-01-26] MEDS: Enoxaparin Sodium 40 MG/0.4 ML SYRINGE SC SCH (20:48)
[2020-01-26 20:57] VITALS: BP 109/74; TEMP 98.1
--- NOTE | 2020-01-26 22:04 | DIS ---
DATE OF ADMISSION: 01/19/2020 DATE OF DISCHARGE: 01/26/2020 DISCHARGING PHYSICIAN: Kenny Butler DO. CONSULTING PHYSICIAN: Kelvin Boland MD., Orthopedic Surgery. ADMITTING DIAGNOSES: 1. Right femoral neck fracture. 2. Thrombocytopenia. 3. Hypokalemia and hypomagnesemia. 4. Alcohol and cocaine abuse. 5. Malnutrition. 6. History of esophageal varices, alcohol abuse, polysubstance abuse, and ulcers. DISCHARGE DIAGNOSES: 1. Right femoral neck fracture status post intramedullary nail placement. 2. Ground level fall. 3. Thrombocytopenia. 4. Hypokalemia and hypomagnesemia, treated. 5. Alcohol and cocaine abuse, chronic. PROCEDURES DURING HOSPITALIZATION: Patient had intramedullary nail placement on 01/20/[address] Boland. HOSPITAL COURSE: Patient was admitted to the hospital from the emergency department. Orthopedics was consulted. IM nail placement. Patient remained stable. Had successful hospital course. Postoperatively patient is having bowel movements, producing urine, tolerating a diet. Pain is well controlled. She had a long hospitalization, is waiting for placement in rehab and insurance authorization. Patient has been accepted to rehab and she is going to go for the same. She has ambulated and worked with PT and OT, and she is ready for discharge. For physical exam and further please see progress note dated today. Discharge plan will be to [facility]. Diet is going to be regular. Follow up with Orthopedics in 2 weeks. TIME SPENT: Greater than 30 minutes was taken in discharge planning of this patient. Job ID: [id number]
== END 2020-01-26 21:30 | DRG 481 ==
LOC: ERS 13:57 → SURG A 15:59
PROVIDERS: ADMIT Specialist; ATTEND Specialist
PROC: 3E0234Z Introduction of Serum, Toxoid and Vaccine into Muscle, Percutaneous Approach (ICD-10-PCS; 2020-01-19)
PROC: 0QS636Z Reposition Right Upper Femur with Intramedullary Internal Fixation Device, Percutaneous Approach (ICD-10-PCS; principal; 2020-01-20)
DX: S72.141A Displaced intertrochanteric fracture of right femur, initial encounter for closed fracture (principal); N39.0 Urinary tract infection, site not specified; E87.1 Hypo-osmolality and hyponatremia; E46 Unspecified protein-calorie malnutrition; D69.6 Thrombocytopenia, unspecified; E87.6 Hypokalemia; F10.10 Alcohol abuse, uncomplicated; F14.10 Cocaine abuse, uncomplicated; Z20.828 Contact with and (suspected) exposure to other viral communicable diseases; W01.0XXA Fall on same level from slipping, tripping and stumbling without subsequent striking against object, initial encounter; D50.9 Iron deficiency anemia, unspecified; K21.9 Gastro-esophageal reflux disease without esophagitis; E55.9 Vitamin D deficiency, unspecified; Z87.11 Personal history of peptic ulcer disease; Z23 Encounter for immunization; Z68.20 Body mass index [BMI] 20.0-20.9, adult; Z79.899 Other long term (current) drug therapy
CPT/HCPCS: 36415; 71045; 76000; 80048; 80053; 80306; 80307; 81003; 81015; 82306; 83735; 84100; 84703; 85025; 85027; 85610; 85730; 86850; 86900; 86901; 87086; 87635; 90471; 90732; 93005; 96365; 96375; 96376; C1713; G0009; G0390; J0690; J1100; J1170; J1650; J2250; J2270; J2405; J2704; J3010; J3475; J3480; J7050; U0003

== ENCOUNTER 2020-02-11 13:00 | Emergency (ER) | payer OTHER ==
[~2020-02-11 13:00] MED LIST changes: +Iopamidol-370 76% 500 ML 1 ML ONE; -Lidocaine 1% PF 5 ML VIAL ONE; -Ondansetron PF 4 MG/2 ML Vial ONE; -PHENYLEPHRINE-NS 100 MCG/ML 10 ML SYRINGE ONE; -Succinylcholine Chloride 20 MG/ML 10 ml SYRINGE FS ONE; -diphenhydrAMINE 50 MG/ML VIAL ONE
[2020-02-11 13:48] LABS: Bilirubin Negative (Negative); Blood, Urine Negative (Negative); Clarity Clear (Clear); Glucose, Urine (Dipstick) Normal (Negative); Ketone, Urine Negative (Negative); Leukocyte Negative Leu/uL (Negative); Nitrite Negative (Negative); Protein, Urine (Dipstick) Negative (Neg-Trace); Specific Gravity, Urine 1.006 (1.002-1.036); Urobilinogen Normal mg/dL (Less than 2); pH, Urine 6.5 (5.0-9.0)
[2020-02-11] MEDS ORDERED: Ondansetron PF 4 MG/2 ML Vial ONE (14:09)
[2020-02-11] MEDS ORDERED: Morphine 4 MG/ML VIAL ONE (14:09)
[2020-02-11 14:15] LABS: #Eosinphils 0.5 thou/uL (0.0-0.7); #Lymphocytes 1.2 thou/uL (1.20-3.40); #Monocytes 0.4 thou/uL (0.11-0.59); #Neutrophils 1.1 thou/uL (1.40-6.50); %Basophils 1.3 % (0.0-1.0); %Eosinophils 15.2 % (0.0-10.0); %Monocytes 11.1 % (0.0-10.0); %Neutrophils 34.4 % (42.0-75.0); Hemoglobin 11.2 g/dL (12.0-16.0); Mean Corpuscular HGB CONC 32.1 g/dL (32.0-36.0); Mean Corpuscular Hemoglobin 31.9 pg (27.0-31.0); Mean Corpuscular Volume 99.4 fL (78.0-98.0); Mean Platelet Volume 7.1 fL (7.4-10.4); Platelet Count 240 thou/uL (130-400); RBC Distribution Width 13.4 % (11.5-14.5); White Blood Cell (WBC) Count 3.2 thou/uL (4.8-10.8)
[2020-02-11 14:23] LABS: INR-International Normal Ratio 1.1; Prothrombin Time 14.7 sec (12.0-14.7)
[2020-02-11 14:36] LABS: CK (CPK) 22 U/L (29-168); CRP (Inflammatory) Less than 0.50 mg/dL (= or < 0.5)
[2020-02-11 14:37] LABS: ALT (SGPT) Less than 7 U/L (8-55); AST (SGOT) 29 U/L (5-34); Albumin 3.3 g/dL (3.5-5.0); Alkaline Phosphatase 106 U/L (40-110); Anion Gap 16 mmol/L (10-20); BUN (Urea Nitrogen) 6 mg/dL (7.0-18.7); Bilirubin, Total 0.4 mg/dL (0.2-1.2); Calc. Creatinine Clearance 0 mL/min (70-130); Calcium 8.8 mg/dL (7.8-10.44); Carbon Dioxide 23 mmol/L (22-29); Chloride 104 mmol/L (98-107); Estimated GFR-MDRD Greater than 90; Globulin 4.3 g/dL (2.4-3.5); Glucose 89 mg/dL (70-105); Potassium 3.6 mmol/L (3.5-5.1); Protein, Total 7.6 g/dL (6.0-8.3); Sodium 139 mmol/L (136-145)
--- NOTE | 2020-02-11 14:50 | ULT ---
EXAM: Right lower extremity venous ultrasound HISTORY: Right lower extremity pain and edema. Right hip surgery on 01/20/2020 COMPARISON: None TECHNIQUE: Multiplanar grayscale and color Doppler images were obtained in a right lower extremity ve nous ultrasound. Spectral analysis of the Doppler waveforms were performed. FINDINGS: The common femoral vein, profunda femoral vein, superficial femoral vein, and popliteal vei n are normal in appearance without visible thrombus. These vessels demonstrate normal compression, flow, and augmentation. The posterior tibial vein and greater saphenous vein are patent without evidence of thrombus. IMPRESSION: No evidence of DVT.
--- NOTE | 2020-02-11 18:03 | CT ---
CT OF THE RIGHT THIGH WITH IV CONTRAST: Date: 02-11-2020 PROVIDED CLINICAL HISTORY: Worsening right hip pain with increased swelling, history of recent ORIF. FINDINGS: Antegrade intramedullary femoral nail with proximal and distal interlocking screws noted transfixing intertrochanteric fracture of the proximal right femur. There is surrounding callus formation. Alignm ent appears near anatomic. There is no evidence for hardware loosening or migration. There is no evidence for significant joint fluid. There is no evidence for an acute fracture. There is a circumscribed fluid collection present within the subcutaneous adipose layer at the latera l aspect of the gluteal musculature and proximal IT band at approximately the level of the acetabular roof. This measures about 4.2 x 2.4 cm in greatest transverse dimensions. There is articulation of t he surrounding subcutaneous adipose layer and thickening of the adjacent skin. The regional muscular density appears normal. The amount of fluid within the right knee joint appears physiologic. There is no evidence for intramuscular fluid. IMPRESSION: 1. Post ORIF of intertrochanteric right proximal femoral fracture without evidence for hardware complication. 2. 4.2 cm circumscribed fluid collection within the subcutaneous adipose layer of the lateral pr oximal thigh. Correlate with concerns for abscess. POS: ENDY
== END 2020-02-11 18:44 | disposition home or self-care (01) ==
LOC: ERS 13:00
DX: M25.551 Pain in right hip (principal); L76.34 Postprocedural seroma of skin and subcutaneous tissue following other procedure
CPT/HCPCS: 36415; 80053; 81003; 82550; 83605; 85025; 85610; 85652; 86140; 96374; 96375; J2270; J2405; Q9967

== ENCOUNTER 2021-01-10 09:16 | Emergency (ER) | payer OTHER ==
[2021-01-10 11:27] LABS: ALT (SGPT) Less than 7 U/L (8-55); AST (SGOT) 21 U/L (5-34); Albumin 3.5 g/dL (3.5-5.0); Alkaline Phosphatase 111 U/L (40-110); Anion Gap 12 mmol/L (10-20); BUN (Urea Nitrogen) 5 mg/dL (7.0-18.7); Bilirubin, Total 0.6 mg/dL (0.2-1.2); Calc. Creatinine Clearance 0 mL/min (70-130); Calcium 9.4 mg/dL (7.8-10.44); Carbon Dioxide 27 mmol/L (22-29); Chloride 101 mmol/L (98-107); Globulin 4.3 g/dL (2.4-3.5); Glucose 95 mg/dL (70-105); Protein, Total 7.8 g/dL (6.0-8.3); Sodium 136 mmol/L (136-145)
[2021-01-10 11:42] LABS: Band 6 % (5-11); Eosinophils 14 % (0-10); Hemoglobin 11.9 g/dL (12.0-16.0); Lymphocytes 22 % (21-51); MDiff Complete? YES; Mean Corpuscular HGB CONC 33.4 g/dL (32.0-36.0); Mean Corpuscular Hemoglobin 29.3 pg (27.0-31.0); Mean Corpuscular Volume 87.8 fL (78.0-98.0); Mean Platelet Volume 7.4 fL (7.4-10.4); Monocytes 15 % (0-10); Neutrophil 43 % (42-75); Platelet Count 292 thou/uL (130-400); Platelet Morphology Comment Appears Adequate; Polychromasia SLIGHT = 2-3 cells (100X) (0-2/hpf); RBC Distribution Width 18.9 % (11.5-14.5); Red Blood Cell (RBC) Count 4.05 mill/uL (4.20-5.40); White Blood Cell (WBC) Count 6.4 thou/uL (4.8-10.8)
== END 2021-01-10 12:05 | disposition home or self-care (01) ==
LOC: ERS 09:16
DX: L03.116 Cellulitis of left lower limb (principal); D50.9 Iron deficiency anemia, unspecified; Z79.899 Other long term (current) drug therapy; Z87.19 Personal history of other diseases of the digestive system
CPT/HCPCS: 36415; 80053; 85025

== ENCOUNTER 2021-01-20 07:49 | Emergency (ER) | payer MEDICAID, OTHER | END 2021-01-20 08:28 | disposition home or self-care (01) | LOC: ERS 07:49 | DX: R05.9 Cough, unspecified (principal); R50.9 Fever, unspecified; J34.89 Other specified disorders of nose and nasal sinuses; R06.02 Shortness of breath; R06.2 Wheezing; D50.9 Iron deficiency anemia, unspecified; Z20.822 Contact with and (suspected) exposure to COVID-19; Z79.899 Other long term (current) drug therapy | CPT/HCPCS: 99283 ==

== ENCOUNTER 2021-09-28 12:59 | Inpatient (IN) | payer OTHER ==
[2021-09-28] MEDS ORDERED: Pantoprazole 40 MG VIAL ONE (14:32)
[2021-09-28] MEDS ORDERED: Mag-Al 1200 mg/1200 mg/30 ML UDCUP ONE (14:32)
[2021-09-28] MEDS ORDERED: Lidocaine Viscous Sol 2% 15 ml UD Cup ONE (14:32)
[2021-09-28 14:43] LABS: Acetaminophen Less than 10.0 mcg/mL (10.0-30.0); Alcohol Less than 10 mg/dL (Less than 10); CK (CPK) 39 U/L (29-168); Salicylate Less than 8.0 mg/dL (15.0-30.0)
[2021-09-28 14:44] LABS: ALT (SGPT) Less than 7 U/L (8-55); AST (SGOT) 71 U/L (5-34); Albumin 2.6 g/dL (3.5-5.0); Alkaline Phosphatase 103 U/L (40-110); Anion Gap 17 mmol/L (10-20); BUN (Urea Nitrogen) Less than 4 mg/dL (7.0-18.7); Bilirubin, Total 1.2 mg/dL (0.2-1.2); Calc. Creatinine Clearance 0 mL/min (70-130); Calcium 8.4 mg/dL (7.8-10.44); Carbon Dioxide 25 mmol/L (22-29); Chloride 103 mmol/L (98-107); Estimated GFR 110; Globulin 4.8 g/dL (2.4-3.5); Glucose 87 mg/dL (70-105); Lipase 17 U/L (8-78); Protein, Total 7.4 g/dL (6.0-8.3); Sodium 142 mmol/L (136-145)
[2021-09-28 14:55] LABS: #Basophils 0.1 thou/uL (0.0-0.2); #Eosinphils 0.1 thou/uL (0.0-0.7); #Lymphocytes 1.6 thou/uL (1.20-3.40); #Monocytes 0.4 thou/uL (0.11-0.59); #Neutrophils 1.7 thou/uL (1.40-6.50); %Basophils 2.3 % (0.0-1.0); %Eosinophils 1.7 % (0.0-10.0); %Lymphocytes 41.3 % (21.0-51.0); %Monocytes 11.1 % (0.0-10.0); %Neutrophils 43.6 % (42.0-75.0); Hemoglobin 12.5 g/dL (12.0-16.0); Mean Corpuscular HGB CONC 31.3 g/dL (32.0-36.0); Mean Corpuscular Hemoglobin 32.6 pg (27.0-31.0); Mean Platelet Volume 7.8 fL (7.4-10.4); Platelet Count 197 thou/uL (130-400); RBC Distribution Width 17.5 % (11.5-14.5); Red Blood Cell (RBC) Count 3.82 mill/uL (4.20-5.40); White Blood Cell (WBC) Count 3.9 thou/uL (4.8-10.8)
[2021-09-28 15:16] LABS: Bacteria/HPF 4+ HPF (None Seen); Bilirubin Negative (Negative); Blood, Urine Negative (Negative); Clarity Turbid (Clear); Glucose, Urine (Dipstick) Normal (Negative); Ketone, Urine Negative (Negative); Leukocyte 75 Leu/uL (Negative); Nitrite Negative (Negative); Protein, Urine (Dipstick) Negative (Neg-Trace); RBC/HPF 0-3 HPF (0-3); Specific Gravity, Urine 1.011 (1.002-1.036); Squamous Epithelial 0-3 HPF (0-3); Urobilinogen 3 mg/dL (Less than 2); pH, Urine 7.5 (5.0-9.0)
[2021-09-28 15:21] LABS: Amphetamine Not Detected (NotDetected); Barbiturates Screen Not Detected (NotDetected); Benzodiazepine Screen Detected (NotDetected); Cocaine Metabolite Screen Not Detected (NotDetected); Methadone Not Detected (NotDetected); Methamphetamine Not Detected (NotDetected); Opiate Screen Not Detected (NotDetected); Oxycodone Screen Not Detected (NotDetected); Phencyclidine (PCP) Not Detected (NotDetected); THC/Cannabinoid Screen Not Detected (NotDetected); Tricyclic Screen Not Detected (NotDetected)
[2021-09-28] MEDS ORDERED: Potassium Chloride 20 MEQ/100 ML PREMIX BAG ONE (16:25)
[2021-09-28] MEDS ORDERED: Sucralfate 1 GM/10 ML UDCUP ONE (16:25)
[2021-09-28 17:07] LABS: Lactic Acid 2.1 mmol/L (0.5-2.2)
[2021-09-28] MEDS ORDERED: Ondansetron PF 4 MG/2 ML Vial ONE (18:09)
[2021-09-28] MEDS ORDERED: cefTRIAXone\\ROCEPHIN 1 GM VIAL ONE (18:31)
[2021-09-28] MEDS ORDERED: hydrALAZINE 20 MG/ML VIAL SLOW IVP PRN (19:29)
[2021-09-28] MEDS ORDERED: Electrolyte Replacement Protocol 1 EACH FS SCH (19:30)
[2021-09-28] MEDS ORDERED: Ondansetron ODT 4 MG TAB PO PRN (19:32)
[2021-09-28] MEDS ORDERED: Lorazepam (BATCHED) 2 MG/ML SYR SLOW IVP PRN (19:33)
[2021-09-28] MEDS ORDERED: Electrolyte Replacement Protocol FS PRN (19:45)
[2021-09-28] MEDS ORDERED: Ondansetron PF 4 MG/2 ML Vial IVP PRN (19:48)
[2021-09-28] MEDS ORDERED: Acetaminophen 325 MG TAB PO PRN (19:48)
[2021-09-28 20:00] LABS: Magnesium 1.4 mg/dL (1.6-2.6)
[2021-09-28 21:47] VITALS: BMI 25.8
[2021-09-28] MEDS: 1/2 NS w/KCL 20 mEq 1,000 ML IV SCH (21:47)
[2021-09-29] MEDS ORDERED: Magnesium Sulfate In Water 4 GM in Premix Bag 1 BAG IVPB SCH (01:00)
[2021-09-29] MEDS ORDERED: Potassium Chloride 20 MEQ in Premix Bag 1 BAG IVPB SCH ×2 (02:00→06:00)
[2021-09-29 05:10] LABS: #Eosinphils 0.1 thou/uL (0.0-0.7); #Monocytes 0.4 thou/uL (0.11-0.59); #Neutrophils 1.5 thou/uL (1.40-6.50); %Basophils 0.5 % (0.0-1.0); %Eosinophils 1.9 % (0.0-10.0); %Lymphocytes 34.3 % (21.0-51.0); %Neutrophils 50.3 % (42.0-75.0); Hemoglobin 9.6 g/dL (12.0-16.0); Mean Corpuscular HGB CONC 30.7 g/dL (32.0-36.0); Mean Corpuscular Hemoglobin 31.5 pg (27.0-31.0); Mean Platelet Volume 7.9 fL (7.4-10.4); Platelet Count 148 thou/uL (130-400); RBC Distribution Width 17.3 % (11.5-14.5); Red Blood Cell (RBC) Count 3.06 mill/uL (4.20-5.40); White Blood Cell (WBC) Count 2.9 thou/uL (4.8-10.8)
[2021-09-29 05:32] LABS: ALT (SGPT) Less than 7 U/L (8-55); AST (SGOT) 48 U/L (5-34); Albumin 2.1 g/dL (3.5-5.0); Alkaline Phosphatase 84 U/L (40-110); Anion Gap 11 mmol/L (10-20); BUN (Urea Nitrogen) Less than 4 mg/dL (7.0-18.7); Bilirubin, Total 0.8 mg/dL (0.2-1.2); Calc. Creatinine Clearance 134 mL/min (70-130); Calcium 7.6 mg/dL (7.8-10.44); Carbon Dioxide 20 mmol/L (22-29); Chloride 108 mmol/L (98-107); Estimated GFR 113; Globulin 3.8 g/dL (2.4-3.5); Glucose 99 mg/dL (70-105); Magnesium 2.6 mg/dL (1.6-2.6); Potassium 3.3 mmol/L (3.5-5.1); Protein, Total 5.9 g/dL (6.0-8.3); Sodium 136 mmol/L (136-145)
[2021-09-29] MEDS ORDERED: Potassium Chloride 20 MEQ TAB PO SCH (08:00)
[2021-09-29] MEDS: Multivit, Therapeutic 1 TAB PO SCH (08:05)
[2021-09-29] MEDS: 1/2 NS w/KCL 20 mEq 1,000 ML IV SCH ×2 (08:05→11:38)
[2021-09-29] MEDS: Pantoprazole 40 MG VIAL IVP SCH (08:06)
[2021-09-29] MEDS ORDERED: Iopamidol 370 76% 100 ML VIAL ONE (11:40)
[2021-09-29] MEDS: Promethazine HCl 25 MG in Sodium Chloride 0.9% 50 ML IVPB PRN (12:09)
[2021-09-29 14:01] LABS: Pregnancy Test - Urine (BHCG) Negative (Negative); Pregu Control Background? CLEAR/WHITE (CLR/WHITE); Pregu Control Bar Appear? YES (CONTROL BAR); Specific Gravity 1.007 (1.002-1.036)
[2021-09-29] MEDS ORDERED: cefTRIAXone\\ROCEPHIN 1 GM in Sodium Chloride 0.9% 100 ML IVPB SCH (18:00)
[2021-09-30] MEDS: Promethazine HCl 25 MG in Sodium Chloride 0.9% 50 ML IVPB PRN ×2 (02:00→10:16)
[2021-09-30 05:08] LABS: ALT (SGPT) Less than 7 U/L (8-55); AST (SGOT) 33 U/L (5-34); Albumin 2.2 g/dL (3.5-5.0); Alkaline Phosphatase 87 U/L (40-110); Anion Gap 14 mmol/L (10-20); BUN (Urea Nitrogen) Less than 4 mg/dL (7.0-18.7); Bilirubin, Total 0.9 mg/dL (0.2-1.2); Calc. Creatinine Clearance 130 mL/min (70-130); Carbon Dioxide 19 mmol/L (22-29); Chloride 106 mmol/L (98-107); Estimated GFR 112; Globulin 3.9 g/dL (2.4-3.5); Glucose 78 mg/dL (70-105); Potassium 3.4 mmol/L (3.5-5.1); Protein, Total 6.1 g/dL (6.0-8.3); Sodium 136 mmol/L (136-145)
[2021-09-30 05:29] LABS: Anisocytosis SLIGHT = 6-15 cells (100X) (0-5/hpf); Eosinophils 7 % (0-10); Hemoglobin 10.1 g/dL (12.0-16.0); Lymphocytes 33 % (21-51); MDiff Complete? YES; Macrocytosis MODERATE=16-30 cells (100X) (0-5/hpf); Mean Corpuscular HGB CONC 29.6 g/dL (32.0-36.0); Mean Corpuscular Hemoglobin 31.3 pg (27.0-31.0); Mean Platelet Volume 8.3 fL (7.4-10.4); Monocytes 10 % (0-10); Neutrophil 49 % (42-75); Ovalocytes SLIGHT = 2-5 cells (100X) (0-1/hpf); Platelet Count 172 thou/uL (130-400); Platelet Morphology Comment Appears Adequate; RBC Distribution Width 17.4 % (11.5-14.5); Red Blood Cell (RBC) Count 3.22 mill/uL (4.20-5.40); White Blood Cell (WBC) Count 2.5 thou/uL (4.8-10.8)
[2021-09-30] MEDS: Pantoprazole 40 MG VIAL IVP SCH (08:16)
[2021-09-30] MEDS: Multivit, Therapeutic 1 TAB PO SCH (08:16)
[2021-09-30 08:41] VITALS: TEMP 97.8
[2021-09-30] MEDS ORDERED: Potassium Chloride 20 MEQ TAB PO SCH (10:15)
[2021-09-30 12:18] VITALS: BP 125/83
== END 2021-09-30 13:35 | disposition home or self-care (01) | DRG 690 ==
LOC: ERS 12:59 → 2SW 18:31 → OBSVTOIN 09-29 13:17
PROVIDERS: ADMIT Internal Medicine; ATTEND Internal Medicine
DX: N39.0 Urinary tract infection, site not specified (principal); R11.2 Nausea with vomiting, unspecified; Z20.822 Contact with and (suspected) exposure to COVID-19; B96.20 Unspecified Escherichia coli [E. coli] as the cause of diseases classified elsewhere; F10.10 Alcohol abuse, uncomplicated; I10 Essential (primary) hypertension; E87.6 Hypokalemia; Z88.8 Allergy status to other drugs, medicaments and biological substances; Z79.899 Other long term (current) drug therapy; Z87.11 Personal history of peptic ulcer disease; Z98.890 Other specified postprocedural states; Z80.42 Family history of malignant neoplasm of prostate; Z87.891 Personal history of nicotine dependence
CPT/HCPCS: 36415; 71260; 74177; 80053; 80306; 80307; 81003; 81015; 81025; 82010; 82550; 83605; 83690; 83735; 83880; 84484; 85025; 87077; 87086; 87186; 93005; 96361; 96366; 96367; 96375; 96376; C9113; G0378; J0696; J1790; J2405; J2550; J3475; J3480; J3490; Q9967; U0003; U0005

== ENCOUNTER 2022-03-02 07:14 | Outpatient (CLI) | payer OTHER | END 2022-03-02 07:15 | disposition home or self-care (01) | LOC: BICULT 07:14 | PROVIDERS: ATTEND Nurse Practitioner Family | DX: R74.8 Abnormal levels of other serum enzymes (principal); K76.0 Fatty (change of) liver, not elsewhere classified; K82.4 Cholesterolosis of gallbladder | CPT/HCPCS: 76705 ==

== ENCOUNTER 2022-08-26 17:32 | Emergency (ER) | payer MEDICAID, OTHER, SELFPAY ==
[2022-08-26] MEDS ORDERED: Morphine 4 MG/ML VIAL ONE ×2 (18:45→18:57)
[2022-08-26 18:47] LABS: #Eosinphils 0.1 thou/uL (0.0-0.7); #Monocytes 0.5 thou/uL (0.11-0.59); #Neutrophils 3.8 thou/uL (1.40-6.50); %Basophils 0.6 % (0.0-1.0); %Eosinophils 2.2 % (0.0-10.0); %Lymphocytes 16.2 % (21.0-51.0); %Monocytes 9.3 % (0.0-10.0); %Neutrophils 71.3 % (42.0-75.0); Hemoglobin 10.1 g/dL (12.0-16.0); Mean Corpuscular HGB CONC 31.7 g/dL (32.0-36.0); Mean Corpuscular Hemoglobin 28.5 pg (27.0-31.0); Mean Corpuscular Volume 89.9 fl (78.0-98.0); Mean Platelet Volume 9.6 fL (7.4-10.4); Platelet Count 184 10x3/uL (130-400); RBC Distribution Width 20.9 % (11.5-14.5); Red Blood Cell (RBC) Count 3.55 mill/uL (4.20-5.40); White Blood Cell (WBC) Count 5.4 10x3/uL (4.8-10.8)
[2022-08-26 19:09] LABS: ALT (SGPT) 8 U/L (8-55); AST (SGOT) 88 U/L (5-34); Albumin 2.8 g/dL (3.5-5.0); Alkaline Phosphatase 141 U/L (40-110); Anion Gap 14 mmol/L (10-20); BUN (Urea Nitrogen) 5 mg/dL (7.0-18.7); Bilirubin, Total 1.3 mg/dL (0.2-1.2); Calc. Creatinine Clearance 0 mL/min (70-130); Calcium 8.6 mg/dL (7.8-10.44); Carbon Dioxide 33 mmol/L (22-29); Chloride 93 mmol/L (98-107); Estimated GFR 101; Globulin 5.1 g/dL (2.4-3.5); Glucose 105 mg/dL (70-105); Lipase 13 U/L (8-78); Protein, Total 7.9 g/dL (6.0-8.3); Sodium 137 mmol/L (136-145)
[2022-08-26 19:13] LABS: Potassium 2.6 mmol/L (3.5-5.1)
[2022-08-26 19:32] LABS: Bacteria/HPF 4+ HPF (None Seen); Bilirubin Negative (Negative); Blood, Urine Negative (Negative); CAUTI Indications for Culture Pelvic or flank pain; Clarity Turbid (Clear); Glucose, Urine (Dipstick) Normal (Negative); Ketone, Urine Negative (Negative); Leukocyte 75 Leu/uL (Negative); Nitrite Negative (Negative); Pregnancy Test - Urine (BHCG) Negative (Negative); Pregu Control Background? CLEAR/WHITE (CLR/WHITE); Pregu Control Bar Appear? YES (CONTROL BAR); Protein, Urine (Dipstick) 30 mg/dL (Neg-Trace); RBC/HPF 0-3 HPF (0-3); Renal Epithelial 0-3 HPF (None Seen); Specific Gravity 1.017 (1.002-1.036); Specific Gravity, Urine 1.017 (1.002-1.036); Squamous Epithelial 0-3 HPF (0-3)
[2022-08-26 19:33] LABS: Urine Culture Reflex Yes Yes
== END 2022-08-26 22:00 | disposition home or self-care (01) ==
LOC: ERS 17:32
DX: N10 Acute pyelonephritis (principal)
CPT/HCPCS: 74176; 80053; 81001; 81025; 83605; 83690; 85025; 87077; 87086; 87186; 96374; J2270

== ENCOUNTER 2022-08-29 11:16 | Inpatient (IN) | payer MEDICAID, OTHER ==
[2022-08-29 11:56] LABS: #Eosinphils 0.3 thou/uL (0.0-0.7); #Monocytes 0.4 thou/uL (0.11-0.59); #Neutrophils 2.3 thou/uL (1.40-6.50); %Basophils 0.8 % (0.0-1.0); %Eosinophils 6.6 % (0.0-10.0); %Lymphocytes 19.1 % (21.0-51.0); %Monocytes 11.1 % (0.0-10.0); %Neutrophils 61.9 % (42.0-75.0); Hemoglobin 9.6 g/dL (12.0-16.0); Mean Corpuscular Volume 93.3 fl (78.0-98.0); Mean Platelet Volume 9.9 fL (7.4-10.4); Platelet Count 183 10x3/uL (130-400); RBC Distribution Width 20.7 % (11.5-14.5); Red Blood Cell (RBC) Count 3.43 mill/uL (4.20-5.40); White Blood Cell (WBC) Count 3.8 10x3/uL (4.8-10.8)
[2022-08-29 12:21] LABS: ALT (SGPT) Less than 7 U/L (8-55); AST (SGOT) 59 U/L (5-34); Albumin 2.5 g/dL (3.5-5.0); Alkaline Phosphatase 125 U/L (40-110); Anion Gap 11 mmol/L (10-20); BUN (Urea Nitrogen) Less than 4 mg/dL (7.0-18.7); Bilirubin, Total 1.2 mg/dL (0.2-1.2); Calc. Creatinine Clearance 0 mL/min (70-130); Calcium 8.2 mg/dL (7.8-10.44); Carbon Dioxide 33 mmol/L (22-29); Chloride 95 mmol/L (98-107); Estimated GFR 102; Globulin 4.9 g/dL (2.4-3.5); Glucose 121 mg/dL (70-105); Protein, Total 7.4 g/dL (6.0-8.3); Sodium 137 mmol/L (136-145)
[2022-08-29 12:25] LABS: Potassium 2.4 mmol/L (3.5-5.1)
[2022-08-29] MEDS ORDERED: Metoclopramide HCl 10 MG/2 ML VIAL ONE (13:10)
[2022-08-29] MEDS ORDERED: Potassium Chloride 20 MEQ TAB ONE (13:10)
[2022-08-29] MEDS ORDERED: diphenhydrAMINE 50 MG/ML VIAL ONE (13:10)
[2022-08-29 13:31] LABS: Magnesium 1.5 mg/dL (1.6-2.6)
[2022-08-29] MEDS ORDERED: NS 0.9% w/ 40 MEQ KCL 1,000 ML IV SCH (14:00)
[2022-08-29] MEDS ORDERED: Acetaminophen 650 MG Suppository PR PRN (14:14)
[2022-08-29] MEDS ORDERED: Electrolyte Replacement Protocol 1 EACH FS SCH (14:30)
[2022-08-29] MEDS ORDERED: Magnesium 2 GM/50 ML(in water) 2 GM in Premix Bag 1 BAG IVPB SCH (14:30)
[2022-08-29] MEDS ORDERED: cefTRIAXone (ROCEPHIN) 2 GM VIAL ONE (14:50)
[2022-08-29] MEDS: NS 0.9% w/ 20 MEQ KCL 1,000 ML/1,000 ML BAG IV SCH (17:22)
[2022-08-29] MEDS: Potassium Chloride 20 MEQ in Premix Bag 1 BAG IVPB SCH ×3 (17:22→22:57)
[2022-08-29] MEDS: Ondansetron PF 4 MG/2 ML Vial IVP PRN ×2 (17:35→23:34)
[2022-08-29] MEDS: HYDROcodone/Acetaminophen 5/325 mg Tablet PO PRN (17:35)
[2022-08-29 17:44] VITALS: BMI 24.1
[2022-08-29] MEDS: Morphine 2 MG/ML VIAL SLOW IVP PRN (20:59)
[2022-08-29] MEDS: Famotidine/PF 20 mg/2ml Vial SLOW IVP SCH (20:59)
[2022-08-29] MEDS ORDERED: Promethazine HCl 12.5 MG in Sodium Chloride 0.9% 50 ML IVPB SCH (21:30)
[2022-08-30] MEDS: Potassium Chloride 20 MEQ in Premix Bag 1 BAG IVPB SCH (01:01)
[2022-08-30] MEDS: Ondansetron PF 4 MG/2 ML Vial IVP PRN (05:01)
[2022-08-30] MEDS: Morphine 2 MG/ML VIAL SLOW IVP PRN ×2 (05:01→23:18)
[2022-08-30 05:05] LABS: #Eosinphils 0.2 thou/uL (0.0-0.7); #Monocytes 0.5 thou/uL (0.11-0.59); #Neutrophils 2.5 thou/uL (1.40-6.50); %Basophils 0.7 % (0.0-1.0); %Eosinophils 3.7 % (0.0-10.0); %Lymphocytes 26.1 % (21.0-51.0); %Monocytes 10.5 % (0.0-10.0); %Neutrophils 58.5 % (42.0-75.0); Hemoglobin 9.1 g/dL (12.0-16.0); Mean Corpuscular Hemoglobin 27.9 pg (27.0-31.0); Mean Corpuscular Volume 92.9 fl (78.0-98.0); Mean Platelet Volume 9.7 fL (7.4-10.4); Platelet Count 194 10x3/uL (130-400); RBC Distribution Width 20.9 % (11.5-14.5); Red Blood Cell (RBC) Count 3.26 mill/uL (4.20-5.40); White Blood Cell (WBC) Count 4.3 10x3/uL (4.8-10.8)
[2022-08-30] MEDS: NS 0.9% w/ 20 MEQ KCL 1,000 ML/1,000 ML BAG IV SCH ×3 (05:35→23:15)
[2022-08-30 05:44] LABS: Anion Gap 10 mmol/L (10-20); BUN (Urea Nitrogen) Less than 4 mg/dL (7.0-18.7); Calc. Creatinine Clearance 124 mL/min (70-130); Calcium 7.7 mg/dL (7.8-10.44); Carbon Dioxide 27 mmol/L (22-29); Chloride 105 mmol/L (98-107); Estimated GFR 113; Glucose 86 mg/dL (70-105); Magnesium 1.9 mg/dL (1.6-2.6); Potassium 3.6 mmol/L (3.5-5.1); Sodium 138 mmol/L (136-145)
[2022-08-30] MEDS ORDERED: Magnesium 2 GM/50 ML(in water) 2 GM in Premix Bag 1 BAG IVPB SCH (08:00)
[2022-08-30] MEDS: Famotidine/PF 20 mg/2ml Vial SLOW IVP SCH ×2 (08:21→21:21)
[2022-08-30] MEDS: Thiamine 100 MG TAB PO SCH (08:21)
[2022-08-30] MEDS: Folic Acid 1 MG TAB PO SCH (08:21)
[2022-08-30] MEDS: HYDROcodone/Acetaminophen 5/325 mg Tablet PO PRN ×3 (11:59→21:19)
[2022-08-30] MEDS: cefTRIAXone\\ROCEPHIN 1 GM in Sodium Chloride 0.9% 100 ML IVPB SCH (15:21)
[2022-08-31] MEDS ORDERED: Docusate 100 MG CAP PO PRN (00:11)
[2022-08-31] MEDS: HYDROcodone/Acetaminophen 5/325 mg Tablet PO PRN ×2 (02:48→08:14)
[2022-08-31 05:06] LABS: #Eosinphils 0.4 thou/uL (0.0-0.7); #Monocytes 0.4 thou/uL (0.11-0.59); %Eosinophils 10.9 % (0.0-10.0); %Lymphocytes 26.6 % (21.0-51.0); %Monocytes 10.4 % (0.0-10.0); %Neutrophils 50.8 % (42.0-75.0); Hemoglobin 8.7 g/dL (12.0-16.0); Mean Corpuscular Hemoglobin 27.4 pg (27.0-31.0); Mean Corpuscular Volume 94.6 fl (78.0-98.0); Mean Platelet Volume 9.8 fL (7.4-10.4); Platelet Count 210 10x3/uL (130-400); RBC Distribution Width 20.9 % (11.5-14.5); Red Blood Cell (RBC) Count 3.17 mill/uL (4.20-5.40); White Blood Cell (WBC) Count 3.8 10x3/uL (4.8-10.8)
[2022-08-31 05:29] LABS: Anion Gap 10 mmol/L (10-20); BUN (Urea Nitrogen) Less than 4 mg/dL (7.0-18.7); Calc. Creatinine Clearance 115 mL/min (70-130); Calcium 7.8 mg/dL (7.8-10.44); Carbon Dioxide 24 mmol/L (22-29); Chloride 107 mmol/L (98-107); Estimated GFR 110; Glucose 88 mg/dL (70-105); Magnesium 2.1 mg/dL (1.6-2.6); Potassium 3.3 mmol/L (3.5-5.1); Sodium 138 mmol/L (136-145)
[2022-08-31] MEDS: Morphine 2 MG/ML VIAL SLOW IVP PRN (05:45)
[2022-08-31] MEDS ORDERED: Potassium Chloride 20 MEQ TAB PO SCH ×2 (07:30→08:00)
[2022-08-31] MEDS: Famotidine/PF 20 mg/2ml Vial SLOW IVP SCH (08:14)
[2022-08-31] MEDS: Folic Acid 1 MG TAB PO SCH (08:14)
[2022-08-31] MEDS: Thiamine 100 MG TAB PO SCH (08:14)
[2022-08-31] MEDS: cefTRIAXone\\ROCEPHIN 1 GM in Sodium Chloride 0.9% 100 ML IVPB SCH (11:10)
[2022-08-31 11:46] VITALS: BP 122/76; TEMP 97.4
== END 2022-08-31 12:14 | disposition home or self-care (01) | DRG 690 ==
LOC: ERS 11:16 → 2SW 13:45 → OBSVTOIN 08-30 09:19
PROVIDERS: ADMIT Family Medicine; ATTEND Family Medicine
DX: N10 Acute pyelonephritis (principal); E83.42 Hypomagnesemia; E87.6 Hypokalemia; R11.2 Nausea with vomiting, unspecified; K25.9 Gastric ulcer, unspecified as acute or chronic, without hemorrhage or perforation; D50.9 Iron deficiency anemia, unspecified; K76.0 Fatty (change of) liver, not elsewhere classified; F10.10 Alcohol abuse, uncomplicated; B96.20 Unspecified Escherichia coli [E. coli] as the cause of diseases classified elsewhere; Z71.41 Alcohol abuse counseling and surveillance of alcoholic; Z87.891 Personal history of nicotine dependence; Z98.890 Other specified postprocedural states; Z79.899 Other long term (current) drug therapy; Z88.8 Allergy status to other drugs, medicaments and biological substances
CPT/HCPCS: 36415; 80048; 80053; 83735; 85025; 93005; 96365; 96366; 96367; 96375; 96376; G0378; J0696; J1200; J2272; J2405; J2550; J2765; J3475; J3480; J3490; S0028

== ENCOUNTER 2022-09-23 08:56 | Emergency (ER) | payer OTHER ==
[2022-09-23 09:49] LABS: Pregnancy Test - Urine (BHCG) Negative (Negative); Pregu Control Background? CLEAR/WHITE (CLR/WHITE); Pregu Control Bar Appear? YES (CONTROL BAR); Specific Gravity 1.006 (1.002-1.036)
[2022-09-23] MEDS ORDERED: Ketorolac Tromethamine 30 MG/ML VIAL ONE (11:18)
== END 2022-09-23 11:43 | disposition home or self-care (01) ==
LOC: ERS 08:56
DX: S20.211A Contusion of right front wall of thorax, initial encounter (principal); S63.501A Unspecified sprain of right wrist, initial encounter; W01.198A Fall on same level from slipping, tripping and stumbling with subsequent striking against other object, initial encounter
CPT/HCPCS: 81025; 96372; J1885

== ENCOUNTER 2022-10-28 08:30 | Observation (INO) | payer OTHER ==
[2022-10-28 09:08] LABS: #Eosinphils 0.3 thou/uL (0.0-0.7); #Monocytes 0.4 thou/uL (0.11-0.59); #Neutrophils 1.6 thou/uL (1.40-6.50); %Basophils 1.2 % (0.0-1.0); %Eosinophils 7.7 % (0.0-10.0); %Lymphocytes 30.6 % (21.0-51.0); %Monocytes 10.8 % (0.0-10.0); %Neutrophils 49.7 % (42.0-75.0); Hematocrit 31.2 % (36.0-47.0); Hemoglobin 9.6 g/dL (12.0-16.0); Mean Corpuscular HGB CONC 30.8 g/dL (32.0-36.0); Mean Corpuscular Volume 84.6 fl (78.0-98.0); Mean Platelet Volume 9.6 fL (7.4-10.4); Platelet Count 174 10x3/uL (130-400); RBC Distribution Width 18.2 % (11.5-14.5); Red Blood Cell (RBC) Count 3.69 mill/uL (4.20-5.40); White Blood Cell (WBC) Count 3.2 10x3/uL (4.8-10.8)
[2022-10-28 09:16] LABS: BHCG - Serum Negative (NEGATIVE); Pregs Control Background? CLEAR/WHITE (CLR/WHITE); Pregs Control Bar Appear? YES (CONTROL BAR)
[2022-10-28 09:33] LABS: Acetaminophen Less than 10 mcg/mL (10.0-30.0); Alcohol 50.2 mg/dL (Less than 10); Salicylate Less than 8.0 mg/dL (15.0-30.0)
[2022-10-28 09:34] LABS: ALT (SGPT) Less than 7 U/L (8-55); AST (SGOT) 49 U/L (5-34); Albumin 3.5 g/dL (3.5-5.0); Alkaline Phosphatase 93 U/L (40-110); Anion Gap 14 mmol/L (10-20); BUN (Urea Nitrogen) 9 mg/dL (7.0-18.7); Bilirubin, Total 0.8 mg/dL (0.2-1.2); Calc. Creatinine Clearance 0 mL/min (70-130); Calcium 8.6 mg/dL (7.8-10.44); Carbon Dioxide 28 mmol/L (22-29); Chloride 94 mmol/L (98-107); Estimated GFR 93; Glucose 87 mg/dL (70-105); Magnesium 1.4 mg/dL (1.6-2.6); Protein, Total 8.5 g/dL (6.0-8.3); Sodium 133 mmol/L (136-145)
[2022-10-28 09:42] LABS: Potassium 2.6 mmol/L (3.5-5.1)
[2022-10-28] MEDS ORDERED: Magnesium 2 GM/50 ML BAG (IN WATER) ONE (10:05)
[2022-10-28] MEDS ORDERED: Potassium Chloride 20 MEQ TAB ONE (10:05)
[2022-10-28 10:35] LABS: Amphetamine Not Detected (NotDetected); Barbiturates Screen Not Detected (NotDetected); Benzodiazepine Screen Not Detected (NotDetected); Cocaine Metabolite Screen Detected (NotDetected); Methadone Not Detected (NotDetected); Methamphetamine Not Detected (NotDetected); Opiate Screen Detected (NotDetected); Oxycodone Screen Not Detected (NotDetected); Phencyclidine (PCP) Not Detected (NotDetected); THC/Cannabinoid Screen Not Detected (NotDetected); Tricyclic Screen Not Detected (NotDetected)
[2022-10-28 10:38] LABS: Bacteria/HPF None Seen HPF (None Seen); Bilirubin Negative (Negative); Blood, Urine Negative (Negative); CAUTI Indications for Culture Alt mental st,lethar; Clarity Clear (Clear); Glucose, Urine (Dipstick) Normal (Negative); Ketone, Urine Negative (Negative); Leukocyte 25 Leu/uL (Negative); Nitrite Negative (Negative); Protein, Urine (Dipstick) Negative (Neg-Trace); RBC/HPF None Seen HPF (0-3); Specific Gravity, Urine 1.009 (1.002-1.036); Squamous Epithelial None Seen HPF (0-3); Urobilinogen Normal mg/dL (Less than 2); WBC/HPF 0-3 HPF (0-3)
[2022-10-28 10:39] LABS: Urine Culture Reflex No No
[2022-10-28] MEDS ORDERED: Lorazepam 1 MG TAB PO PRN (10:57)
[2022-10-28] MEDS ORDERED: Lorazepam 2 MG/ML VIAL IM PRN (10:57)
[2022-10-28] MEDS ORDERED: Ondansetron ODT 4 MG TAB PO PRN (10:57)
[2022-10-28] MEDS ORDERED: Electrolyte Replacement Protocol 1 EACH FS SCH (11:00)
[2022-10-28] MEDS ORDERED: NS 0.9% w/ 20 MEQ KCL 1,000 ML IV SCH (11:15)
[2022-10-28 11:28] LABS: Phosphorus 3.2 mg/dL (2.3-4.7)
[2022-10-28] MEDS: Lorazepam 1 MG TAB PO SCH ×3 (12:38→22:59)
[2022-10-28] MEDS: Thiamine 100 MG TAB PO SCH (12:38)
[2022-10-28 13:02] VITALS: BMI 24.0
[2022-10-28 14:09] LABS: Anion Gap 15 mmol/L (10-20); BUN (Urea Nitrogen) 7 mg/dL (7.0-18.7); Calc. Creatinine Clearance 102 mL/min (70-130); Calcium 8.6 mg/dL (7.8-10.44); Carbon Dioxide 28 mmol/L (22-29); Chloride 97 mmol/L (98-107); Estimated GFR 101; Glucose 108 mg/dL (70-105); Magnesium 1.9 mg/dL (1.6-2.6); Potassium 2.9 mmol/L (3.5-5.1); Sodium 137 mmol/L (136-145)
[2022-10-28] MEDS ORDERED: Magnesium 2 GM/50 ML(in water) 2 GM in Premix Bag 1 BAG IVPB SCH ×2 (14:45→15:00)
[2022-10-28] MEDS ORDERED: Electrolyte Replacement Protocol FS PRN (14:45)
[2022-10-28] MEDS: Folic Acid 1 MG TAB PO SCH (15:15)
[2022-10-28] MEDS: Acetaminophen 325 MG TAB PO PRN ×2 (15:15→20:19)
[2022-10-28] MEDS: Potassium Chloride 20 MEQ TAB PO SCH ×2 (15:15→18:00)
[2022-10-28 23:34] LABS: Potassium 4.2 mmol/L (3.5-5.1)
[2022-10-29] MEDS: Acetaminophen 325 MG TAB PO PRN ×3 (03:29→22:29)
[2022-10-29] MEDS: Lorazepam 1 MG TAB PO SCH ×4 (05:33→22:27)
[2022-10-29 05:44] LABS: ALT (SGPT) Less than 7 U/L (8-55); AST (SGOT) 48 U/L (5-34); Albumin 2.8 g/dL (3.5-5.0); Alkaline Phosphatase 78 U/L (40-110); Anion Gap 7 mmol/L (10-20); BUN (Urea Nitrogen) 10 mg/dL (7.0-18.7); Bilirubin, Total 0.7 mg/dL (0.2-1.2); Calc. Creatinine Clearance 105 mL/min (70-130); Calcium 8.6 mg/dL (7.8-10.44); Carbon Dioxide 30 mmol/L (22-29); Chloride 102 mmol/L (98-107); Estimated GFR 104; Globulin 4.2 g/dL (2.4-3.5); Glucose 87 mg/dL (70-105); Potassium 4.1 mmol/L (3.5-5.1); Sodium 135 mmol/L (136-145)
[2022-10-29] MEDS: Folic Acid 1 MG TAB PO SCH (08:45)
[2022-10-29] MEDS: Multivit, Therapeutic 1 TAB PO SCH (08:45)
[2022-10-29] MEDS ORDERED: Magnesium 2 GM/50 ML(in water) 2 GM in Premix Bag 1 BAG IVPB SCH (10:45)
[2022-10-29] MEDS: Thiamine 100 MG TAB PO SCH (10:54)
[2022-10-29] MEDS ORDERED: Lorazepam 1 MG TAB PO PRN (10:57)
[2022-10-29] MEDS: Lactated Ringer's 1,000 ML IV SCH (15:41)
[2022-10-29 16:38] LABS: Thyroid Stimulating Hormone 0.754 uIU/mL (0.35-4.94)
[2022-10-30] MEDS: Lactated Ringer's 1,000 ML IV SCH (04:07)
[2022-10-30] MEDS: Acetaminophen 325 MG TAB PO PRN ×2 (05:07→09:22)
[2022-10-30] MEDS: Lorazepam 1 MG TAB PO SCH (05:07)
[2022-10-30 05:43] LABS: Anion Gap 10 mmol/L (10-20); BUN (Urea Nitrogen) 8 mg/dL (7.0-18.7); Calc. Creatinine Clearance 114 mL/min (70-130); Calcium 8.8 mg/dL (7.8-10.44); Carbon Dioxide 25 mmol/L (22-29); Chloride 104 mmol/L (98-107); Estimated GFR 110; Glucose 87 mg/dL (70-105); Magnesium 1.6 mg/dL (1.6-2.6); Potassium 3.9 mmol/L (3.5-5.1); Sodium 135 mmol/L (136-145)
[2022-10-30] MEDS ORDERED: Magnesium 2 GM/50 ML(in water) 2 GM in Premix Bag 1 BAG IVPB SCH (08:00)
[2022-10-30 08:27] VITALS: BP 106/65; TEMP 97.8
[2022-10-30] MEDS: Folic Acid 1 MG TAB PO SCH (09:15)
[2022-10-30] MEDS: Multivit, Therapeutic 1 TAB PO SCH (09:15)
[2022-10-30] MEDS ORDERED: Lorazepam 1 MG TAB PO PRN (10:57)
[2022-10-30] MEDS ORDERED: Lorazepam 0.5 MG TAB PO SCH (11:00)
[2022-10-31] MEDS ORDERED: Lorazepam 0.5 MG TAB PO PRN (10:57)
== END 2022-10-30 10:15 | disposition home or self-care (01) ==
LOC: ERS 08:30 → 2SW 10:33
PROVIDERS: ADMIT Internal Medicine; ATTEND Internal Medicine
DX: R53.1 Weakness (principal); E87.6 Hypokalemia; R51.9 Headache, unspecified; D50.9 Iron deficiency anemia, unspecified; E87.8 Other disorders of electrolyte and fluid balance, not elsewhere classified; F14.90 Cocaine use, unspecified, uncomplicated; E44.0 Moderate protein-calorie malnutrition; F10.10 Alcohol abuse, uncomplicated; F32.A Depression, unspecified; K25.9 Gastric ulcer, unspecified as acute or chronic, without hemorrhage or perforation; Z87.19 Personal history of other diseases of the digestive system; Z88.6 Allergy status to analgesic agent; Z87.891 Personal history of nicotine dependence; Z79.899 Other long term (current) drug therapy
CPT/HCPCS: 36415; 70450; 80048; 80053; 80306; 80307; 81001; 83735; 84100; 84439; 84443; 84481; 84703; 85025; 93005; 96366; 96374; 96375; 96376; G0378; J3475; J3480; J7120; Q0162

== ENCOUNTER 2022-11-19 11:00 | Inpatient (IN) | payer OTHER ==
[2022-11-19 11:32] LABS: #Eosinphils 0.2 thou/uL (0.0-0.7); #Monocytes 0.5 thou/uL (0.11-0.59); #Neutrophils 2.4 thou/uL (1.40-6.50); %Basophils 0.5 % (0.0-1.0); %Eosinophils 4.5 % (0.0-10.0); %Lymphocytes 16.5 % (21.0-51.0); %Monocytes 14.4 % (0.0-10.0); %Neutrophils 64.1 % (42.0-75.0); Hematocrit 33.5 % (36.0-47.0); Hemoglobin 10.1 g/dL (12.0-16.0); Mean Corpuscular HGB CONC 30.1 g/dL (32.0-36.0); Mean Corpuscular Hemoglobin 25.8 pg (27.0-31.0); Mean Corpuscular Volume 85.7 fl (78.0-98.0); Mean Platelet Volume 10.2 fL (7.4-10.4); Platelet Count 185 10x3/uL (130-400); RBC Distribution Width 18.5 % (11.5-14.5); Red Blood Cell (RBC) Count 3.91 mill/uL (4.20-5.40); White Blood Cell (WBC) Count 3.8 10x3/uL (4.8-10.8)
[2022-11-19 12:08] LABS: Bacteria/HPF None Seen HPF (None Seen); Bilirubin 1+ (Negative); Blood, Urine Negative (Negative); CAUTI Indications for Culture Pelvic or flank pain; Clarity Turbid (Clear); Glucose, Urine (Dipstick) Normal (Negative); Ketone, Urine 20 mg/dL (Negative); Leukocyte 75 Leu/uL (Negative); Nitrite Negative (Negative); Protein, Urine (Dipstick) 50 mg/dL (Neg-Trace); RBC/HPF 0-3 HPF (0-3); Specific Gravity, Urine 1.025 (1.002-1.036); Squamous Epithelial 0-3 HPF (0-3); Urobilinogen 12 mg/dL (Less than 2); pH, Urine 5.5 (5.0-9.0)
[2022-11-19 12:13] LABS: ALT (SGPT) Less than 7 U/L (8-55); AST (SGOT) 68 U/L (5-34); Albumin 3.7 g/dL (3.5-5.0); Alkaline Phosphatase 90 U/L (40-110); Anion Gap 13 mmol/L (10-20); BUN (Urea Nitrogen) 4 mg/dL (7.0-18.7); Bilirubin, Total 1.3 mg/dL (0.2-1.2); Calc. Creatinine Clearance 0 mL/min (70-130); Calcium 9.2 mg/dL (7.8-10.44); Carbon Dioxide 31 mmol/L (22-29); Estimated GFR 97; Glucose 117 mg/dL (70-105); Protein, Total 8.7 g/dL (6.0-8.3); Sodium 134 mmol/L (136-145)
[2022-11-19 12:21] LABS: Chloride 93 mmol/L (98-107); Potassium 2.5 mmol/L (3.5-5.1)
[2022-11-19 12:23] LABS: BHCG - Serum Negative (NEGATIVE); Pregs Control Background? CLEAR/WHITE (CLR/WHITE); Pregs Control Bar Appear? YES (CONTROL BAR)
[2022-11-19 12:34] LABS: Urine Culture Reflex Yes Yes
[2022-11-19] MEDS ORDERED: Magnesium 2 GM/50 ML BAG (IN WATER) ONE (12:35)
[2022-11-19] MEDS ORDERED: Potassium Chloride 20 MEQ TAB ONE (12:35)
[2022-11-19 12:50] LABS: Lipase 22 U/L (8-78); Magnesium 2.2 mg/dL (1.6-2.6)
[2022-11-19] MEDS ORDERED: Lorazepam 0.5 MG TAB PO PRN (14:19)
[2022-11-19] MEDS ORDERED: Ondansetron ODT 4 MG TAB PO PRN (14:19)
[2022-11-19] MEDS ORDERED: Calcium Carbonate 500 MG ChewTAB PO PRN (14:20)
[2022-11-19] MEDS ORDERED: cefTRIAXone (ROCEPHIN) 1 GM VIAL ONE (14:20)
[2022-11-19] MEDS ORDERED: NS 0.9% w/ 40 MEQ KCL 1,000 ML IV SCH ×2 (14:30)
[2022-11-19] MEDS ORDERED: Electrolyte Replacement Protocol 1 EACH FS SCH (14:30)
[2022-11-19] MEDS ORDERED: Pantoprazole 40 MG VIAL IVP SCH (15:00)
[2022-11-19 15:24] LABS: Troponin I Less than 0.010 ng/mL (< 0.028)
[2022-11-19 16:04] VITALS: BMI 23.3
[2022-11-19] MEDS: Thiamine HCl 200 MG/2 ML VIAL SLOW IVP SCH (16:30)
[2022-11-19] MEDS: PHOS-NAK 1 PKT PACK PO SCH ×2 (16:31→20:57)
[2022-11-19] MEDS: Pantoprazole 40 MG VIAL IVP SCH (20:57)
[2022-11-19] MEDS: Folic Acid 1 MG TAB PO SCH (20:58)
[2022-11-19] MEDS: Cholecalciferol 1,000 UNITS (25 MCG) TAB PO SCH (20:58)
[2022-11-19] MEDS: Cyanocobalamin (Vitamin B-12) 1,000 MCG TAB PO SCH (20:58)
[2022-11-19] MEDS: Multivit, Therapeutic 1 TAB PO SCH (20:58)
[2022-11-19] MEDS ORDERED: Famotidine 20 MG TAB PO SCH (21:00)
[2022-11-19] MEDS ORDERED: Famotidine/PF 20 mg/2ml Vial SLOW IVP SCH (21:00)
[2022-11-19] MEDS: Acetaminophen 325 MG TAB PO PRN (21:03)
[2022-11-20 05:36] LABS: #Eosinphils 0.2 thou/uL (0.0-0.7); #Monocytes 0.3 thou/uL (0.11-0.59); #Neutrophils 1.2 thou/uL (1.40-6.50); %Basophils 1.2 % (0.0-1.0); %Eosinophils 8.3 % (0.0-10.0); %Monocytes 10.3 % (0.0-10.0); %Neutrophils 46.2 % (42.0-75.0); Hematocrit 29.1 % (36.0-47.0); Hemoglobin 8.6 g/dL (12.0-16.0); Mean Corpuscular HGB CONC 29.6 g/dL (32.0-36.0); Mean Corpuscular Hemoglobin 25.5 pg (27.0-31.0); Mean Corpuscular Volume 86.4 fl (78.0-98.0); Mean Platelet Volume 10.3 fL (7.4-10.4); Platelet Count 166 10x3/uL (130-400); RBC Distribution Width 18.4 % (11.5-14.5); Red Blood Cell (RBC) Count 3.37 mill/uL (4.20-5.40); White Blood Cell (WBC) Count 2.5 10x3/uL (4.8-10.8)
[2022-11-20 06:00] LABS: ALT (SGPT) Less than 7 U/L (8-55); AST (SGOT) 43 U/L (5-34); Albumin 2.8 g/dL (3.5-5.0); Alkaline Phosphatase 72 U/L (40-110); Anion Gap 17 mmol/L (10-20); BUN (Urea Nitrogen) Less than 4 mg/dL (7.0-18.7); Bilirubin, Total 0.6 mg/dL (0.2-1.2); Calc. Creatinine Clearance 106 mL/min (70-130); Calcium 8.1 mg/dL (7.8-10.44); Carbon Dioxide 27 mmol/L (22-29); Chloride 97 mmol/L (98-107); Estimated GFR 109; Globulin 3.8 g/dL (2.4-3.5); Glucose 97 mg/dL (70-105); Potassium 3.4 mmol/L (3.5-5.1); Protein, Total 6.6 g/dL (6.0-8.3); Sodium 138 mmol/L (136-145)
[2022-11-20] MEDS ORDERED: Potassium Chloride 20 MEQ TAB PO SCH (08:00)
[2022-11-20] MEDS: Pantoprazole 40 MG VIAL IVP SCH ×2 (08:27→20:17)
[2022-11-20] MEDS: Acetaminophen 325 MG TAB PO PRN (08:27)
[2022-11-20] MEDS: NS 0.9% w/ 40 MEQ KCL 1,000 ML IV SCH ×2 (09:31→20:49)
[2022-11-20] MEDS: Phenazopyridine HCl 100 MG TAB PO SCH ×3 (09:31→18:03)
[2022-11-20] MEDS: Thiamine HCl 200 MG/2 ML VIAL SLOW IVP SCH (13:20)
[2022-11-20] MEDS ORDERED: Electrolyte Replacement Protocol FS PRN (18:45)
[2022-11-20] MEDS: Ondansetron PF 4 MG/2 ML Vial IVP PRN (20:17)
[2022-11-20] MEDS: Multivit, Therapeutic 1 TAB PO SCH (20:18)
[2022-11-20] MEDS: Folic Acid 1 MG TAB PO SCH (20:18)
[2022-11-20] MEDS: Cholecalciferol 1,000 UNITS (25 MCG) TAB PO SCH (20:18)
[2022-11-20] MEDS: Cyanocobalamin (Vitamin B-12) 1,000 MCG TAB PO SCH (20:19)
[2022-11-20] MEDS ORDERED: Acetaminophen 650 MG Suppository PR PRN (23:02)
[2022-11-20] MEDS ORDERED: Morphine 2 MG/ML VIAL SLOW IVP PRN (23:04)
[2022-11-21] MEDS: Ondansetron PF 4 MG/2 ML Vial IVP PRN (01:45)
[2022-11-21 06:04] LABS: #Eosinphils 0.2 thou/uL (0.0-0.7); #Monocytes 0.4 thou/uL (0.11-0.59); #Neutrophils 1.7 thou/uL (1.40-6.50); %Eosinophils 6.1 % (0.0-10.0); %Lymphocytes 27.6 % (21.0-51.0); %Monocytes 11.2 % (0.0-10.0); %Neutrophils 53.8 % (42.0-75.0); Hematocrit 31.5 % (36.0-47.0); Mean Corpuscular HGB CONC 28.6 g/dL (32.0-36.0); Mean Corpuscular Hemoglobin 25.3 pg (27.0-31.0); Mean Corpuscular Volume 88.5 fl (78.0-98.0); Mean Platelet Volume 9.8 fL (7.4-10.4); Platelet Count 169 10x3/uL (130-400); RBC Distribution Width 18.2 % (11.5-14.5); Red Blood Cell (RBC) Count 3.56 mill/uL (4.20-5.40); White Blood Cell (WBC) Count 3.1 10x3/uL (4.8-10.8)
[2022-11-21 06:33] LABS: Delete Auto Diff?? NO; Phosphorus 1.9 mg/dL (2.3-4.7)
[2022-11-21 06:38] LABS: ALT (SGPT) Less than 7 U/L (8-55); AST (SGOT) 38 U/L (5-34); Albumin 2.9 g/dL (3.5-5.0); Alkaline Phosphatase 73 U/L (40-110); Anion Gap 8 mmol/L (10-20); BUN (Urea Nitrogen) Less than 4 mg/dL (7.0-18.7); Bilirubin, Total 0.5 mg/dL (0.2-1.2); Calc. Creatinine Clearance 106 mL/min (70-130); Calcium 8.7 mg/dL (7.8-10.44); Carbon Dioxide 24 mmol/L (22-29); Chloride 109 mmol/L (98-107); Estimated GFR 109; Glucose 95 mg/dL (70-105); Potassium 4.4 mmol/L (3.5-5.1); Protein, Total 6.9 g/dL (6.0-8.3); Sodium 137 mmol/L (136-145)
[2022-11-21] MEDS ORDERED: Potassium Phosphate 15 MMOL in Sodium Chloride 0.9% 100 ML IVPB SCH (08:00)
[2022-11-21] MEDS: Pantoprazole 40 MG VIAL IVP SCH (08:07)
[2022-11-21] MEDS: Acetaminophen 325 MG TAB PO PRN (08:14)
[2022-11-21 08:34] VITALS: BP 94/65; TEMP 97.7
[2022-11-21 08:34] LABS: Anisocytosis SLIGHT = 6-15 cells HPF (0-5); CellaVision Operator ID LAB.CMB; Large Platelets 12.3 % (0-5); Macrocytosis SLIGHT = 6-15 cells HPF (0-5); Platelet Adequacy Comment Platelets Normal; Polychromasia SLIGHT = 2-3 cells HPF (0-2)
[2022-11-21] MEDS ORDERED: Loratadine 10 MG TAB PO SCH (09:00)
[2022-11-21] MEDS ORDERED: Folic Acid 1 MG TAB PO SCH (09:00)
[2022-11-22] MEDS ORDERED: Thiamine 100 MG TAB PO SCH (09:00)
== END 2022-11-21 10:50 | disposition home or self-care (01) | DRG 897 ==
LOC: ERS 11:00 → INTOOBSV 14:19 → 2SE 14:19 → OBSVTOIN 14:19
PROVIDERS: ADMIT Internal Medicine; ATTEND Family Medicine
DX: F10.20 Alcohol dependence, uncomplicated (principal); E87.1 Hypo-osmolality and hyponatremia; E44.0 Moderate protein-calorie malnutrition; F14.10 Cocaine abuse, uncomplicated; K70.0 Alcoholic fatty liver; E87.6 Hypokalemia; D50.9 Iron deficiency anemia, unspecified; Z68.23 Body mass index [BMI] 23.0-23.9, adult; Z88.8 Allergy status to other drugs, medicaments and biological substances; Z79.899 Other long term (current) drug therapy; Z98.891 History of uterine scar from previous surgery; Z98.890 Other specified postprocedural states; Z87.891 Personal history of nicotine dependence
CPT/HCPCS: 36415; 80053; 81001; 83605; 83690; 83735; 84100; 84484; 84703; 85025; 87086; 96360; 96365; 96367; C9113; J0696; J2272; J2405; J3411; J3475; J3480; J3490; Q0162

== ENCOUNTER 2022-12-19 09:06 | Emergency (ER) | payer OTHER ==
[2022-12-19] MEDS ORDERED: Iopamidol-370 76% 500 ML MDV (1 ML CHARGE) ONE (09:33)
[2022-12-19 09:50] LABS: #Basophils 0.1 thou/uL (0.0-0.2); #Eosinphils 0.2 thou/uL (0.0-0.7); #Monocytes 0.5 thou/uL (0.11-0.59); #Neutrophils 1.6 thou/uL (1.40-6.50); %Basophils 1.5 % (0.0-1.0); %Eosinophils 5.7 % (0.0-10.0); %Lymphocytes 28.7 % (21.0-51.0); %Monocytes 14.5 % (0.0-10.0); %Neutrophils 49.3 % (42.0-75.0); Hematocrit 28.3 % (36.0-47.0); Hemoglobin 8.6 g/dL (12.0-16.0); Mean Corpuscular HGB CONC 30.4 g/dL (32.0-36.0); Mean Corpuscular Hemoglobin 25.6 pg (27.0-31.0); Mean Corpuscular Volume 84.2 fl (78.0-98.0); Mean Platelet Volume 9.5 fL (7.4-10.4); Platelet Count 157 10x3/uL (130-400); RBC Distribution Width 21.2 % (11.5-14.5); Red Blood Cell (RBC) Count 3.36 mill/uL (4.20-5.40); White Blood Cell (WBC) Count 3.3 10x3/uL (4.8-10.8)
[2022-12-19 10:17] LABS: ALT (SGPT) 10 U/L (8-55); AST (SGOT) 111 U/L (5-34); Albumin 3.1 g/dL (3.5-5.0); Alkaline Phosphatase 109 U/L (40-110); Anion Gap 16 mmol/L (10-20); BUN (Urea Nitrogen) Less than 4 mg/dL (7.0-18.7); Bilirubin, Total 0.7 mg/dL (0.2-1.2); Calc. Creatinine Clearance 0 mL/min (70-130); Calcium 8.5 mg/dL (7.8-10.44); Carbon Dioxide 27 mmol/L (22-29); Chloride 98 mmol/L (98-107); Estimated GFR 111; Globulin 4.4 g/dL (2.4-3.5); Glucose 102 mg/dL (70-105); Lipase 19 U/L (8-78); Potassium 2.9 mmol/L (3.5-5.1); Protein, Total 7.5 g/dL (6.0-8.3); Sodium 138 mmol/L (136-145)
[2022-12-19 10:24] LABS: Bacteria/HPF None Seen HPF (None Seen); Bilirubin Negative (Negative); Blood, Urine 2+ (Negative); CAUTI Indications for Culture Dysuria,urgency,freq; Clarity Clear (Clear); Glucose, Urine (Dipstick) Normal (Negative); Ketone, Urine Negative (Negative); Leukocyte 25 Leu/uL (Negative); Nitrite Negative (Negative); Protein, Urine (Dipstick) Negative (Neg-Trace); RBC/HPF 0-3 HPF (0-3); Specific Gravity, Urine 1.006 (1.002-1.036); Squamous Epithelial 0-3 HPF (0-3); Urobilinogen Normal mg/dL (Less than 2); WBC/HPF 0-3 HPF (0-3)
[2022-12-19 10:27] LABS: Pregnancy Test - Urine (BHCG) Negative (Negative); Pregu Control Background? CLEAR/WHITE (CLR/WHITE); Pregu Control Bar Appear? YES (CONTROL BAR); Specific Gravity 1.006 (1.002-1.036); Urine Culture Reflex No No
[2022-12-19] MEDS ORDERED: Potassium Chloride 20 MEQ TAB ONE (10:28)
[2022-12-19] MEDS ORDERED: Pot Chloride/Pot Bicarb/Cit Ac 25 mEq Effervescent Tablet ONE (10:29)
[2022-12-19] MEDS ORDERED: Magnesium 2 GM/50 ML BAG (IN WATER) ONE (12:17)
[2022-12-19] MEDS ORDERED: Famotidine/PF 20 mg/2ml Vial ONE (12:17)
[2022-12-19] MEDS ORDERED: Thiamine 100 MG TAB ONE (12:39)
[2022-12-19 12:49] LABS: Magnesium 1.7 mg/dL (1.6-2.6)
[2022-12-19] MEDS ORDERED: Thiamine HCl 200 MG/2 ML VIAL SLOW IVP SCH (13:15)
[2022-12-19 13:51] LABS: HIV (1/2) Antibody/Antigen Non-Reactive (NonReactive); HIV 1/2 INDEX 0.17 S/CO (<1.00)
[2022-12-20 12:25] LABS: Syphilis Antibody Nonreactive (Nonreactive); Syphilis Antibody Index 0.12 S/CO (<1.00 Non-Reactive)
== END 2022-12-19 14:47 | disposition home or self-care (01) ==
LOC: ERS 09:06
DX: R11.2 Nausea with vomiting, unspecified (principal); D64.9 Anemia, unspecified; E87.6 Hypokalemia; D72.810 Lymphocytopenia; F10.10 Alcohol abuse, uncomplicated; Y90.9 Presence of alcohol in blood, level not specified
CPT/HCPCS: 36415; 74177; 80053; 81001; 81025; 83690; 83735; 83880; 85025; 86780; 87389; 93005; 96365; 96375; J3411; J3475; Q9967; S0028

== ENCOUNTER 2023-01-08 06:31 | Emergency (ER) | payer OTHER ==
[2023-01-08 07:21] LABS: #Basophils 0.1 thou/uL (0.0-0.2); #Eosinphils 0.4 thou/uL (0.0-0.7); #Monocytes 0.4 thou/uL (0.11-0.59); #Neutrophils 1.9 thou/uL (1.40-6.50); %Basophils 1.6 % (0.0-1.0); %Eosinophils 9.5 % (0.0-10.0); %Lymphocytes 28.6 % (21.0-51.0); %Monocytes 10.3 % (0.0-10.0); %Neutrophils 49.7 % (42.0-75.0); Hematocrit 29.3 % (36.0-47.0); Hemoglobin 8.8 g/dL (12.0-16.0); Mean Corpuscular Hemoglobin 25.4 pg (27.0-31.0); Mean Corpuscular Volume 84.4 fl (78.0-98.0); Mean Platelet Volume 8.9 fL (7.4-10.4); Platelet Count 193 10x3/uL (130-400); RBC Distribution Width 22.5 % (11.5-14.5); Red Blood Cell (RBC) Count 3.47 mill/uL (4.20-5.40); White Blood Cell (WBC) Count 3.8 10x3/uL (4.8-10.8)
[2023-01-08 07:40] LABS: ALT (SGPT) Less than 7 U/L (8-55); AST (SGOT) 105 U/L (5-34); Albumin 3.5 g/dL (3.5-5.0); Alkaline Phosphatase 133 U/L (40-110); Anion Gap 15 mmol/L (10-20); BUN (Urea Nitrogen) Less than 4 mg/dL (7.0-18.7); Bilirubin, Total 0.6 mg/dL (0.2-1.2); Calc. Creatinine Clearance 0 mL/min (70-130); Calcium 8.8 mg/dL (7.8-10.44); Carbon Dioxide 25 mmol/L (22-29); Chloride 102 mmol/L (98-107); Estimated GFR 109; Globulin 4.2 g/dL (2.4-3.5); Glucose 117 mg/dL (70-105); Lipase 19 U/L (8-78); Protein, Total 7.7 g/dL (6.0-8.3); Sodium 139 mmol/L (136-145)
[2023-01-08 07:44] LABS: Troponin I Less than 0.010 ng/mL (< 0.028)
[2023-01-08 07:45] LABS: Potassium 2.6 mmol/L (3.5-5.1)
[2023-01-08] MEDS ORDERED: Pantoprazole 40 MG VIAL ONE (07:50)
[2023-01-08] MEDS ORDERED: Lidocaine 2% Viscous Solution 10 ML, Aluminum & Magnesium Hydroxide 30 ML SSW SCH (08:00)
[2023-01-08] MEDS ORDERED: Potassium Chloride 20 MEQ TAB ONE (08:20)
[2023-01-08] MEDS ORDERED: Potassium Chloride 20 MEQ/100 ML PREMIX BAG ONE (08:20)
[2023-01-08] MEDS ORDERED: NS 0.9% w/ 20 MEQ KCL 1,000 ML ONE (08:33)
[2023-01-08] MEDS ORDERED: NS 0.9% w/ 20 MEQ KCL 1,000 ML IV SCH (08:45)
[2023-01-08 10:07] LABS: Troponin I Less than 0.010 ng/mL (< 0.028)
== END 2023-01-08 10:57 | disposition home or self-care (01) ==
LOC: ERS 06:31
DX: R07.9 Chest pain, unspecified (principal); E87.6 Hypokalemia
CPT/HCPCS: 36415; 71045; 80053; 83690; 84484; 85025; 86850; 86900; 86901; 93005; 96365; 96366; 96375; C9113; J3480

== ENCOUNTER 2023-02-04 14:44 | Emergency (ER) | payer MEDICAID, OTHER ==
[~2023-02-04 14:44] MED LIST changes: -Iopamidol-370 76% 500 ML 1 ML ONE; +Iopamidol-370 76% 500 ML MDV (1 ML CHARGE) ONE
[2023-02-04] MEDS ORDERED: Pantoprazole 40 MG VIAL ONE (15:11)
[2023-02-04] MEDS ORDERED: Ondansetron PF 4 MG/2 ML Vial ONE (15:11)
[2023-02-04] MEDS ORDERED: Famotidine/PF 20 mg/2ml Vial ONE (15:12)
[2023-02-04 15:13] LABS: #Basophils 0.1 thou/uL (0.0-0.2); #Eosinphils 0.2 thou/uL (0.0-0.7); #Monocytes 0.5 thou/uL (0.11-0.59); #Neutrophils 4.7 thou/uL (1.40-6.50); %Basophils 1.1 % (0.0-1.0); %Eosinophils 2.5 % (0.0-10.0); %Lymphocytes 17.2 % (21.0-51.0); %Monocytes 7.2 % (0.0-10.0); %Neutrophils 71.8 % (42.0-75.0); Hematocrit 33.4 % (36.0-47.0); Hemoglobin 10.1 g/dL (12.0-16.0); Mean Corpuscular HGB CONC 30.2 g/dL (32.0-36.0); Mean Corpuscular Hemoglobin 26.4 pg (27.0-31.0); Mean Corpuscular Volume 87.4 fl (78.0-98.0); Mean Platelet Volume 9.6 fL (7.4-10.4); Platelet Count 197 10x3/uL (130-400); RBC Distribution Width 24.1 % (11.5-14.5); Red Blood Cell (RBC) Count 3.82 mill/uL (4.20-5.40); White Blood Cell (WBC) Count 6.5 10x3/uL (4.8-10.8)
[2023-02-04 15:24] LABS: BHCG - Serum Negative (NEGATIVE); Pregs Control Background? CLEAR/WHITE (CLR/WHITE); Pregs Control Bar Appear? YES (CONTROL BAR)
[2023-02-04 15:32] LABS: Phosphorus 1.9 mg/dL (2.3-4.7)
[2023-02-04 15:40] LABS: Troponin I Less than 0.010 ng/mL (< 0.028)
[2023-02-04 15:42] LABS: ALT (SGPT) Less than 7 U/L (8-55); AST (SGOT) 62 U/L (5-34); Albumin 3.3 g/dL (3.5-5.0); Alkaline Phosphatase 153 U/L (40-110); Anion Gap 17 mmol/L (10-20); BUN (Urea Nitrogen) 5 mg/dL (7.0-18.7); Bilirubin, Total 2.7 mg/dL (0.2-1.2); Calc. Creatinine Clearance 0 mL/min (70-130); Calcium 8.5 mg/dL (7.8-10.44); Carbon Dioxide 31 mmol/L (22-29); Chloride 94 mmol/L (98-107); Estimated GFR 99; Globulin 4.9 g/dL (2.4-3.5); Glucose 91 mg/dL (70-105); Lipase 10 U/L (8-78); Magnesium 1.5 mg/dL (1.6-2.6); Potassium 3.1 mmol/L (3.5-5.1); Protein, Total 8.2 g/dL (6.0-8.3); Sodium 139 mmol/L (136-145)
[2023-02-04 15:44] LABS: Anisocytosis MODERATE=16-30 cells HPF (0-5); CellaVision Operator ID LAB.MJL; Hypochromia SLIGHT = 6-15 cells HPF (0-5); Ovalocytes SLIGHT = 2-5 cells HPF (0-1); Platelet Adequacy Comment Platelets Normal; Poikilocytosis SLIGHT = 6-15 cells HPF (0-5); Polychromasia SLIGHT = 2-3 cells HPF (0-2); Target Cells MODERATE= 6-15 cells HPF (0-1); Tear Drops SLIGHT = 2-5 cells HPF (0-1)
[2023-02-04] MEDS ORDERED: Magnesium 2 GM/50 ML BAG (IN WATER) ONE (16:16)
[2023-02-04] MEDS ORDERED: Potassium Chloride 20 MEQ TAB ONE (16:16)
[2023-02-04 17:39] LABS: Bacteria/HPF None Seen HPF (None Seen); Bilirubin Negative (Negative); Blood, Urine Negative (Negative); CAUTI Indications for Culture Dysuria,urgency,freq; Clarity Clear (Clear); Glucose, Urine (Dipstick) Normal (Negative); Ketone, Urine 10 mg/dL (Negative); Leukocyte Negative Leu/uL (Negative); Nitrite Negative (Negative); Protein, Urine (Dipstick) 10 mg/dL (Neg-Trace); RBC/HPF 0-3 HPF (0-3); Squamous Epithelial 0-3 HPF (0-3); Urobilinogen 12 mg/dL (Less than 2); WBC/HPF 0-3 HPF (0-3); pH, Urine 6.5 (5.0-9.0)
[2023-02-04 17:43] LABS: Urine Culture Reflex No No
[2023-02-04 17:45] LABS: Amphetamine Not Detected (NotDetected); Barbiturates Screen Not Detected (NotDetected); Benzodiazepine Screen Not Detected (NotDetected); Cocaine Metabolite Screen Detected (NotDetected); Methadone Not Detected (NotDetected); Methamphetamine Not Detected (NotDetected); Opiate Screen Not Detected (NotDetected); Oxycodone Screen Not Detected (NotDetected); Phencyclidine (PCP) Not Detected (NotDetected); THC/Cannabinoid Screen Not Detected (NotDetected); Tricyclic Screen Not Detected (NotDetected)
[2023-02-04 18:50] LABS: Troponin I 0.012 ng/mL (< 0.028)
== END 2023-02-04 19:45 | disposition home or self-care (01) ==
LOC: ERS 14:44
DX: E87.6 Hypokalemia (principal); F10.20 Alcohol dependence, uncomplicated; R07.2 Precordial pain; D50.9 Iron deficiency anemia, unspecified; Z87.891 Personal history of nicotine dependence; Z79.899 Other long term (current) drug therapy
CPT/HCPCS: 36415; 71046; 74177; 80053; 80306; 81001; 83690; 83735; 84100; 84484; 84703; 85025; 93005; 96361; 96365; 96375; C9113; J2405; J3475; Q9967; S0028

== ENCOUNTER 2023-02-09 10:07 | Inpatient (IN) | payer OTHER ==
[2023-02-09 10:50] LABS: #Basophils 0.1 thou/uL (0.0-0.2); #Eosinphils 0.4 thou/uL (0.0-0.7); #Monocytes 0.4 thou/uL (0.11-0.59); #Neutrophils 2.1 thou/uL (1.40-6.50); %Basophils 1.3 % (0.0-1.0); %Eosinophils 10.8 % (0.0-10.0); %Lymphocytes 25.4 % (21.0-51.0); %Neutrophils 53.2 % (42.0-75.0); Hematocrit 27.1 % (36.0-47.0); Hemoglobin 8.3 g/dL (12.0-16.0); Mean Corpuscular HGB CONC 30.6 g/dL (32.0-36.0); Mean Corpuscular Hemoglobin 27.1 pg (27.0-31.0); Mean Corpuscular Volume 88.6 fl (78.0-98.0); Mean Platelet Volume 9.1 fL (7.4-10.4); Platelet Count 161 10x3/uL (130-400); RBC Distribution Width 24.6 % (11.5-14.5); Red Blood Cell (RBC) Count 3.06 mill/uL (4.20-5.40); White Blood Cell (WBC) Count 3.9 10x3/uL (4.8-10.8)
[2023-02-09 10:59] LABS: BHCG - Serum Negative (NEGATIVE); Pregs Control Background? CLEAR/WHITE (CLR/WHITE); Pregs Control Bar Appear? YES (CONTROL BAR)
[2023-02-09 11:07] LABS: Troponin I Less than 0.010 ng/mL (< 0.028)
[2023-02-09 11:10] LABS: ALT (SGPT) 7 U/L (8-55); AST (SGOT) 82 U/L (5-34); Albumin 2.8 g/dL (3.5-5.0); Alkaline Phosphatase 123 U/L (40-110); Anion Gap 12 mmol/L (10-20); BUN (Urea Nitrogen) Less than 4 mg/dL (7.0-18.7); Bilirubin, Total 1.6 mg/dL (0.2-1.2); Calc. Creatinine Clearance 0 mL/min (70-130); Calcium 8.3 mg/dL (7.8-10.44); Carbon Dioxide 34 mmol/L (22-29); Chloride 97 mmol/L (98-107); Estimated GFR 110; Globulin 4.1 g/dL (2.4-3.5); Glucose 91 mg/dL (70-105); Lipase 24 U/L (8-78); Magnesium 1.4 mg/dL (1.6-2.6); Protein, Total 6.9 g/dL (6.0-8.3); Sodium 141 mmol/L (136-145)
[2023-02-09 11:10] LABS: Bacteria/HPF None Seen HPF (None Seen); Bilirubin 1+ (Negative); Blood, Urine Negative (Negative); CAUTI Indications for Culture Dysuria,urgency,freq; Clarity Clear (Clear); Glucose, Urine (Dipstick) Normal (Negative); Ketone, Urine Negative (Negative); Leukocyte 75 Leu/uL (Negative); Nitrite Negative (Negative); Protein, Urine (Dipstick) 20 mg/dL (Neg-Trace); RBC/HPF 0-3 HPF (0-3); Specific Gravity, Urine 1.026 (1.002-1.036); Squamous Epithelial 0-3 HPF (0-3)
[2023-02-09 11:12] LABS: Urine Culture Reflex No No
[2023-02-09 11:17] LABS: Potassium 2.4 mmol/L (3.5-5.1)
[2023-02-09 11:30] LABS: Anisocytosis SLIGHT = 6-15 cells HPF (0-5); CellaVision Operator ID LAB.GE; Platelet Adequacy Comment Platelets Normal; Polychromasia SLIGHT = 2-3 cells HPF (0-2); Target Cells SLIGHT = 2-5 cells HPF (0-1)
[2023-02-09] MEDS ORDERED: Ondansetron PF 4 MG/2 ML Vial ONE (11:30)
[2023-02-09] MEDS ORDERED: Magnesium 2 GM/50 ML BAG (IN WATER) ONE ×2 (11:31→23:32)
[2023-02-09] MEDS ORDERED: Potassium Chloride 20 MEQ/100 ML PREMIX BAG ONE (11:33)
[2023-02-09] MEDS ORDERED: Acetaminophen 325 MG TAB PO PRN (13:47)
[2023-02-09] MEDS ORDERED: Senokot S 8.6-50 MG TAB PO PRN (13:47)
[2023-02-09] MEDS ORDERED: Promethazine HCl 12.5 MG in Sodium Chloride 0.9% 50 ML IVPB PRN (13:49)
[2023-02-09] MEDS ORDERED: Lorazepam 1 MG TAB PO PRN (13:50)
[2023-02-09] MEDS ORDERED: Thiamine 100 MG TAB PO SCH (14:00)
[2023-02-09 14:54] LABS: Amphetamine Not Detected (NotDetected); Barbiturates Screen Not Detected (NotDetected); Benzodiazepine Screen Not Detected (NotDetected); Cocaine Metabolite Screen Detected (NotDetected); Methadone Not Detected (NotDetected); Methamphetamine Not Detected (NotDetected); Opiate Screen Not Detected (NotDetected); Oxycodone Screen Not Detected (NotDetected); Phencyclidine (PCP) Not Detected (NotDetected); THC/Cannabinoid Screen Not Detected (NotDetected); Tricyclic Screen Not Detected (NotDetected)
[2023-02-09] MEDS: Lorazepam 1 MG TAB PO SCH ×2 (15:26→20:12)
[2023-02-09 15:48] VITALS: BMI 24.6
[2023-02-09] MEDS ORDERED: FLU VACC QS2023-24(6MOS UP)/PF 60 MCG/0.5 ML SYRINGE IM ONE (16:15)
[2023-02-09] MEDS: 1/2 NS w/KCL 20 mEq 1,000 ML IV SCH (16:17)
[2023-02-09 18:23] LABS: Anion Gap 15 mmol/L (10-20); BUN (Urea Nitrogen) Less than 4 mg/dL (7.0-18.7); Calc. Creatinine Clearance 115 mL/min (70-130); Carbon Dioxide 27 mmol/L (22-29); Chloride 98 mmol/L (98-107); Estimated GFR 110; Glucose 114 mg/dL (70-105); Potassium 3.3 mmol/L (3.5-5.1); Sodium 137 mmol/L (136-145)
[2023-02-09] MEDS: Multivit, Therapeutic 1 TAB PO SCH (20:11)
[2023-02-09] MEDS: Famotidine/PF 20 mg/2ml Vial SLOW IVP SCH (20:11)
[2023-02-09] MEDS ORDERED: Fluconazole 100 MG TAB PO SCH (21:00)
[2023-02-09] MEDS ORDERED: Electrolyte Replacement Protocol 1 EACH FS SCH (23:00)
[2023-02-09] MEDS ORDERED: Magnesium 2 GM/50 ML(in water) 2 GM in Premix 1 BAG IVPB SCH (23:15)
[2023-02-09] MEDS ORDERED: Potassium Chloride 20 MEQ in Premix 1 BAG IVPB SCH (23:15)
[2023-02-09] MEDS ORDERED: Potassium Chloride 20 MEQ TAB PO SCH (23:30)
[2023-02-10 04:45] LABS: #Basophils 0.1 thou/uL (0.0-0.2); #Eosinphils 0.5 thou/uL (0.0-0.7); #Monocytes 0.3 thou/uL (0.11-0.59); #Neutrophils 2.1 thou/uL (1.40-6.50); %Basophils 1.3 % (0.0-1.0); %Eosinophils 11.9 % (0.0-10.0); %Lymphocytes 26.3 % (21.0-51.0); %Monocytes 7.3 % (0.0-10.0); %Neutrophils 52.9 % (42.0-75.0); Hematocrit 25.7 % (36.0-47.0); Hemoglobin 7.8 g/dL (12.0-16.0); Mean Corpuscular HGB CONC 30.4 g/dL (32.0-36.0); Mean Corpuscular Hemoglobin 27.4 pg (27.0-31.0); Mean Corpuscular Volume 90.2 fl (78.0-98.0); Mean Platelet Volume 9.1 fL (7.4-10.4); Platelet Count 160 10x3/uL (130-400); RBC Distribution Width 24.5 % (11.5-14.5); Red Blood Cell (RBC) Count 2.85 mill/uL (4.20-5.40)
[2023-02-10 05:09] LABS: ALT (SGPT) Less than 7 U/L (8-55); AST (SGOT) 72 U/L (5-34); Albumin 2.6 g/dL (3.5-5.0); Alkaline Phosphatase 121 U/L (40-110); Anion Gap 11 mmol/L (10-20); BUN (Urea Nitrogen) Less than 4 mg/dL (7.0-18.7); Bilirubin, Total 1.8 mg/dL (0.2-1.2); Calc. Creatinine Clearance 117 mL/min (70-130); Carbon Dioxide 29 mmol/L (22-29); Chloride 102 mmol/L (98-107); Estimated GFR 110; Glucose 79 mg/dL (70-105); Magnesium 2.3 mg/dL (1.6-2.6); Potassium 3.3 mmol/L (3.5-5.1); Protein, Total 6.6 g/dL (6.0-8.3); Sodium 139 mmol/L (136-145)
[2023-02-10 05:11] LABS: Phosphorus 2.6 mg/dL (2.3-4.7)
[2023-02-10] MEDS: Lorazepam 1 MG TAB PO SCH ×4 (05:51→19:57)
[2023-02-10] MEDS: 1/2 NS w/KCL 20 mEq 1,000 ML IV SCH ×2 (05:52→20:43)
[2023-02-10] MEDS ORDERED: Potassium Chloride 20 MEQ TAB PO SCH (08:00)
[2023-02-10] MEDS: Folic Acid 1 MG TAB PO SCH (09:19)
[2023-02-10] MEDS: Thiamine 100 MG TAB PO SCH (09:19)
[2023-02-10] MEDS: PHOS-NAK 1 PKT PACK PO SCH ×2 (09:20→12:03)
[2023-02-10] MEDS: Famotidine/PF 20 mg/2ml Vial SLOW IVP SCH (09:20)
[2023-02-10] MEDS: Loratadine 10 MG TAB PO SCH (09:21)
[2023-02-10] MEDS ORDERED: Lorazepam 1 MG TAB PO PRN (13:50)
[2023-02-10] MEDS ORDERED: Calcium Carbonate 500 MG ChewTAB PO PRN (14:09)
[2023-02-10] MEDS: Metoclopramide HCl 10 MG/2 ML VIAL IVP PRN (15:55)
[2023-02-10] MEDS: Multivit, Therapeutic 1 TAB PO SCH (19:57)
[2023-02-11] MEDS: Lorazepam 1 MG TAB PO SCH ×2 (02:09→08:49)
[2023-02-11 06:13] LABS: #Basophils 0.1 thou/uL (0.0-0.2); #Eosinphils 0.6 thou/uL (0.0-0.7); #Monocytes 0.4 thou/uL (0.11-0.59); #Neutrophils 3.2 thou/uL (1.40-6.50); %Basophils 0.9 % (0.0-1.0); %Eosinophils 11.9 % (0.0-10.0); %Lymphocytes 19.7 % (21.0-51.0); %Monocytes 7.8 % (0.0-10.0); %Neutrophils 59.3 % (42.0-75.0); Hematocrit 24.8 % (36.0-47.0); Hemoglobin 7.3 g/dL (12.0-16.0); Mean Corpuscular HGB CONC 29.4 g/dL (32.0-36.0); Mean Corpuscular Hemoglobin 26.9 pg (27.0-31.0); Mean Corpuscular Volume 91.5 fl (78.0-98.0); Mean Platelet Volume 9.2 fL (7.4-10.4); Platelet Count 154 10x3/uL (130-400); RBC Distribution Width 24.8 % (11.5-14.5); Red Blood Cell (RBC) Count 2.71 mill/uL (4.20-5.40); White Blood Cell (WBC) Count 5.4 10x3/uL (4.8-10.8)
[2023-02-11 06:41] LABS: ALT (SGPT) Less than 7 U/L (8-55); AST (SGOT) 70 U/L (5-34); Albumin 2.3 g/dL (3.5-5.0); Alkaline Phosphatase 119 U/L (40-110); Anion Gap 9 mmol/L (10-20); BUN (Urea Nitrogen) Less than 4 mg/dL (7.0-18.7); Bilirubin, Total 1.2 mg/dL (0.2-1.2); Calc. Creatinine Clearance 119 mL/min (70-130); Calcium 7.9 mg/dL (7.8-10.44); Carbon Dioxide 24 mmol/L (22-29); Chloride 106 mmol/L (98-107); Estimated GFR 111; Globulin 3.9 g/dL (2.4-3.5); Glucose 107 mg/dL (70-105); Potassium 4.4 mmol/L (3.5-5.1); Protein, Total 6.2 g/dL (6.0-8.3); Sodium 135 mmol/L (136-145)
[2023-02-11 06:53] LABS: Anisocytosis MARKED = >30 cells HPF (0-5); CellaVision Operator ID lab.sh2; Hypochromia SLIGHT = 6-15 cells HPF (0-5); Macrocytosis MODERATE=16-30 cells HPF (0-5); Platelet Adequacy Comment Platelets Normal; Polychromasia SLIGHT = 2-3 cells HPF (0-2)
[2023-02-11 07:00] LABS: HBCM Index 0.07 S/CO (0-0.79); HBSAg Index 0.22 S/CO (0-0.99); Hep A IgM AB Non-Reactive S/CO (NonReactive); Hep A IgM S/CO 0.37 S/CO (0-0.79); Hep B Surf Ag Non-Reactive S/CO (NonReactive); Hep C IgG Ab Non-Reactive S/CO (NonReactive); Hep C Index 0.19 S/CO (0-0.79); Hepatitis B Core IgM Abs Non-Reactive S/CO (NonReactive)
[2023-02-11] MEDS: Folic Acid 1 MG TAB PO SCH (08:48)
[2023-02-11] MEDS: Loratadine 10 MG TAB PO SCH (08:49)
[2023-02-11] MEDS: Thiamine 100 MG TAB PO SCH (08:49)
[2023-02-11] MEDS ORDERED: Lorazepam 1 MG TAB PO PRN (13:50)
[2023-02-11] MEDS: Lorazepam 0.5 MG TAB PO SCH ×2 (14:45→20:14)
[2023-02-11] MEDS: 1/2 NS w/KCL 20 mEq 1,000 ML IV SCH (14:46)
[2023-02-11] MEDS: Metoclopramide HCl 10 MG/2 ML VIAL IVP PRN (20:11)
[2023-02-11] MEDS: Multivit, Therapeutic 1 TAB PO SCH (20:14)
[2023-02-12] MEDS: Metoclopramide HCl 10 MG/2 ML VIAL IVP PRN (02:20)
[2023-02-12] MEDS: Lorazepam 0.5 MG TAB PO SCH ×2 (02:20→08:53)
[2023-02-12] MEDS: 1/2 NS w/KCL 20 mEq 1,000 ML IV SCH ×2 (02:20→11:48)
[2023-02-12 05:40] LABS: #Basophils 0.1 thou/uL (0.0-0.2); #Eosinphils 0.6 thou/uL (0.0-0.7); #Monocytes 0.5 thou/uL (0.11-0.59); #Neutrophils 3.2 thou/uL (1.40-6.50); %Basophils 0.9 % (0.0-1.0); %Eosinophils 10.4 % (0.0-10.0); %Monocytes 9.4 % (0.0-10.0); %Neutrophils 58.9 % (42.0-75.0); Hemoglobin 7.3 g/dL (12.0-16.0); Mean Corpuscular HGB CONC 29.2 g/dL (32.0-36.0); Mean Corpuscular Hemoglobin 27.5 pg (27.0-31.0); Mean Platelet Volume 9.6 fL (7.4-10.4); Platelet Count 166 10x3/uL (130-400); RBC Distribution Width 25.3 % (11.5-14.5); Red Blood Cell (RBC) Count 2.65 mill/uL (4.20-5.40); White Blood Cell (WBC) Count 5.4 10x3/uL (4.8-10.8)
[2023-02-12 06:06] LABS: Mean Corpuscular Volume 94.3 fl (78.0-98.0)
[2023-02-12] MEDS: Loratadine 10 MG TAB PO SCH (08:53)
[2023-02-12] MEDS: Folic Acid 1 MG TAB PO SCH (08:53)
[2023-02-12] MEDS: Thiamine 100 MG TAB PO SCH (08:53)
[2023-02-12 12:17] LABS: ANA Symphony (Qualitative) Negative (Negative); ANA Symphony (Quantitative) 0.2 Ratio (< 0.7 Negative); dsDNA IgG Antibody 1.7 IU/mL (<10 Negative)
[2023-02-12] MEDS ORDERED: Lorazepam 0.5 MG TAB PO PRN (13:50)
[2023-02-12 16:32] VITALS: BP 121/72; TEMP 98.3
== END 2023-02-12 16:41 | disposition home or self-care (01) | DRG 897 ==
LOC: ERS 10:07 → 2NO 12:58 → T4-B 02-10 18:31
PROVIDERS: ADMIT Internal Medicine; ATTEND Family Medicine
DX: F14.10 Cocaine abuse, uncomplicated (principal); E44.0 Moderate protein-calorie malnutrition; I85.00 Esophageal varices without bleeding; F10.10 Alcohol abuse, uncomplicated; E87.6 Hypokalemia; E83.42 Hypomagnesemia; D50.9 Iron deficiency anemia, unspecified; I10 Essential (primary) hypertension; Z87.891 Personal history of nicotine dependence; R74.8 Abnormal levels of other serum enzymes; E86.0 Dehydration; Z79.899 Other long term (current) drug therapy
CPT/HCPCS: 36415; 71045; 80053; 80074; 80306; 81001; 83690; 83735; 83880; 84100; 84484; 84703; 85025; 86038; 86225; 93005; J2405; J2765; J3475; J3480; S0028

== ENCOUNTER 2023-04-22 09:36 | Inpatient (IN) | payer OTHER ==
[2023-04-22] MEDS ORDERED: Ondansetron PF 4 MG/2 ML Vial ONE (10:03)
[2023-04-22 10:49] LABS: #Eosinphils 0.1 thou/uL (0.0-0.7); #Monocytes 0.5 thou/uL (0.11-0.59); #Neutrophils 3.9 thou/uL (1.40-6.50); %Basophils 0.4 % (0.0-1.0); %Eosinophils 1.8 % (0.0-10.0); %Lymphocytes 18.6 % (21.0-51.0); %Monocytes 8.2 % (0.0-10.0); %Neutrophils 70.6 % (42.0-75.0); Hematocrit 27.8 % (36.0-47.0); Hemoglobin 8.6 g/dL (12.0-16.0); Mean Corpuscular HGB CONC 30.9 g/dL (32.0-36.0); Mean Corpuscular Hemoglobin 27.7 pg (27.0-31.0); Mean Corpuscular Volume 89.7 fl (78.0-98.0); Mean Platelet Volume 9.5 fL (7.4-10.4); Platelet Count 143 10x3/uL (130-400); RBC Distribution Width 27.5 % (11.5-14.5); White Blood Cell (WBC) Count 5.5 10x3/uL (4.8-10.8)
[2023-04-22 10:57] LABS: SARS-CoV-2 NAA Rapid Test DETECTED (NotDetected)
[2023-04-22 11:13] LABS: ALT (SGPT) Less than 7 U/L (8-55); AST (SGOT) 59 U/L (5-34); Albumin 2.3 g/dL (3.5-5.0); Alkaline Phosphatase 276 U/L (40-110); Anion Gap 11 mmol/L (10-20); BUN (Urea Nitrogen) Less than 4 mg/dL (7.0-18.7); Calc. Creatinine Clearance 0 mL/min (70-130); Calcium 7.5 mg/dL (7.8-10.44); Carbon Dioxide 33 mmol/L (22-29); Chloride 93 mmol/L (98-107); Estimated GFR 112; Glucose 78 mg/dL (70-105); Lipase 9 U/L (8-78); Magnesium 1.4 mg/dL (1.6-2.6); Protein, Total 7.3 g/dL (6.0-8.3); Sodium 135 mmol/L (136-145)
[2023-04-22 11:15] LABS: Troponin I Less than 0.010 ng/mL (< 0.028)
[2023-04-22 11:20] LABS: Critical Call Chemistry NUR.VB5 @1120
[2023-04-22 11:23] LABS: Anisocytosis MARKED = >30 cells HPF (0-5); CellaVision Operator ID LAB.KW3; Hypochromia SLIGHT = 6-15 cells HPF (0-5); Platelet Adequacy Comment Platelets Normal; Polychromasia MODERATE = 3-4 cells HPF (0-2); Schistocytes SLIGHT = 2-5 cells HPF (0-1); Target Cells MODERATE= 6-15 cells HPF (0-1)
[2023-04-22] MEDS ORDERED: Potassium Chloride 20 MEQ (100 mL) BAG ONE (11:47)
[2023-04-22] MEDS ORDERED: Potassium Chloride 20 MEQ TAB ONE (11:47)
[2023-04-22] MEDS ORDERED: Pharmacy to Dose REMDESIVIR IVPB PRN (12:47)
[2023-04-22] MEDS ORDERED: Electrolyte Replacement Protocol 1 EACH FS SCH (13:00)
[2023-04-22] MEDS ORDERED: Pantoprazole 40 MG VIAL ONE (16:32)
[2023-04-22] MEDS: Pantoprazole 40 MG VIAL IVP SCH ×2 (16:41→22:00)
[2023-04-22] MEDS: Sodium Chloride 0.9% 1,000 ML IV SCH (16:41)
[2023-04-22] MEDS: Magnesium Sulfate In Water 4 GM in Premix 1 BAG IVPB SCH (20:35)
[2023-04-22] MEDS ORDERED: Pantoprazole 40 MG VIAL IVP SCH (21:00)
[2023-04-22] MEDS: REMDESIVIR 200 MG in Sodium Chloride 0.9% 250 ML 210 ML IV SCH (22:45)
[2023-04-23] MEDS: Acetaminophen 500 MG TAB PO SCH (01:11)
[2023-04-23 03:11] VITALS: BMI 22.7
[2023-04-23 05:53] LABS: #Eosinphils 0.1 thou/uL (0.0-0.7); #Monocytes 0.4 thou/uL (0.11-0.59); #Neutrophils 3.5 thou/uL (1.40-6.50); %Basophils 0.2 % (0.0-1.0); %Eosinophils 2.3 % (0.0-10.0); %Monocytes 7.4 % (0.0-10.0); %Neutrophils 65.9 % (42.0-75.0); Hematocrit 24.1 % (36.0-47.0); Hemoglobin 7.4 g/dL (12.0-16.0); Mean Corpuscular HGB CONC 30.7 g/dL (32.0-36.0); Mean Corpuscular Hemoglobin 27.4 pg (27.0-31.0); Mean Corpuscular Volume 89.3 fl (78.0-98.0); Mean Platelet Volume 9.9 fL (7.4-10.4); Platelet Count 136 10x3/uL (130-400); RBC Distribution Width 28.2 % (11.5-14.5); White Blood Cell (WBC) Count 5.3 10x3/uL (4.8-10.8)
[2023-04-23 06:23] LABS: ALT (SGPT) Less than 7 U/L (8-55); AST (SGOT) 47 U/L (5-34); Alkaline Phosphatase 221 U/L (40-110); Anion Gap 9 mmol/L (10-20); BUN (Urea Nitrogen) Less than 4 mg/dL (7.0-18.7); Bilirubin, Total 2.4 mg/dL (0.2-1.2); Calc. Creatinine Clearance 105 mL/min (70-130); Carbon Dioxide 29 mmol/L (22-29); Chloride 100 mmol/L (98-107); Estimated GFR 110; Globulin 4.2 g/dL (2.4-3.5); Glucose 96 mg/dL (70-105); Magnesium 2.4 mg/dL (1.6-2.6); Protein, Total 6.2 g/dL (6.0-8.3); Sodium 136 mmol/L (136-145)
[2023-04-23 06:29] LABS: Calcium 6.9 mg/dL (7.8-10.44); Critical Call Chemistry NUR.LC9@0628; Potassium 2.3 mmol/L (3.5-5.1)
[2023-04-23] MEDS: Potassium Chloride 20 MEQ in Premix 1 BAG IVPB SCH (09:25)
[2023-04-23] MEDS: Guaifenesin DM 100-10/5 ML UDCUP PO PRN (12:22)
[2023-04-23 17:07] LABS: #Eosinphils 0.1 thou/uL (0.0-0.7); #Monocytes 0.4 thou/uL (0.11-0.59); #Neutrophils 4.1 thou/uL (1.40-6.50); %Basophils 0.5 % (0.0-1.0); %Eosinophils 2.3 % (0.0-10.0); %Lymphocytes 20.9 % (21.0-51.0); %Monocytes 7.2 % (0.0-10.0); %Neutrophils 68.6 % (42.0-75.0); Hematocrit 23.5 % (36.0-47.0); Hemoglobin 7.3 g/dL (12.0-16.0); Mean Corpuscular HGB CONC 31.1 g/dL (32.0-36.0); Mean Corpuscular Hemoglobin 28.1 pg (27.0-31.0); Mean Corpuscular Volume 90.4 fl (78.0-98.0); Mean Platelet Volume 8.8 fL (7.4-10.4); Platelet Count 131 10x3/uL (130-400); RBC Distribution Width 28.6 % (11.5-14.5)
[2023-04-23] MEDS: REMDESIVIR 100 MG in Sodium Chloride 0.9% 250 ML 230 ML IV SCH (17:19)
[2023-04-23 17:34] LABS: Magnesium 2.2 mg/dL (1.6-2.6)
[2023-04-23 17:36] LABS: ALT (SGPT) Less than 7 U/L (8-55); AST (SGOT) 44 U/L (5-34); Alkaline Phosphatase 221 U/L (40-110); Anion Gap 8 mmol/L (10-20); BUN (Urea Nitrogen) Less than 4 mg/dL (7.0-18.7); Bilirubin, Total 2.6 mg/dL (0.2-1.2); Calc. Creatinine Clearance 121 mL/min (70-130); Carbon Dioxide 29 mmol/L (22-29); Chloride 101 mmol/L (98-107); Estimated GFR 113; Globulin 4.2 g/dL (2.4-3.5); Glucose 77 mg/dL (70-105); Potassium 2.7 mmol/L (3.5-5.1); Protein, Total 6.2 g/dL (6.0-8.3); Sodium 135 mmol/L (136-145)
[2023-04-23 17:47] LABS: Calcium 6.9 mg/dL (7.8-10.44); Critical Call Chemistry NUR.AD8 @1746
[2023-04-23] MEDS: Acetaminophen 325 MG TAB PO PRN (21:46)
[2023-04-24] MEDS: Potassium Chloride 20 MEQ in Premix 1 BAG IVPB SCH (02:05)
[2023-04-24] MEDS ORDERED: Electrolyte Replacement Protocol 1 EACH FS SCH (13:15)
[2023-04-24] MEDS: Thiamine HCl 200 MG/2 ML VIAL SLOW IVP SCH (14:14)
[2023-04-24] MEDS ORDERED: REMDESIVIR 100 MG in Sodium Chloride 0.9% 250 ML 230 ML IV SCH (17:00)
[2023-04-24 18:49] LABS: #Eosinphils 0.2 thou/uL (0.0-0.7); #Monocytes 0.6 thou/uL (0.11-0.59); #Neutrophils 4.6 thou/uL (1.40-6.50); %Basophils 0.3 % (0.0-1.0); %Eosinophils 2.4 % (0.0-10.0); %Lymphocytes 19.9 % (21.0-51.0); %Monocytes 9.5 % (0.0-10.0); %Neutrophils 67.5 % (42.0-75.0); Hematocrit 22.9 % (36.0-47.0); Hemoglobin 7.2 g/dL (12.0-16.0); Mean Corpuscular HGB CONC 31.4 g/dL (32.0-36.0); Mean Corpuscular Hemoglobin 28.1 pg (27.0-31.0); Mean Corpuscular Volume 89.5 fl (78.0-98.0); Mean Platelet Volume 9.6 fL (7.4-10.4); Platelet Count 141 10x3/uL (130-400); RBC Distribution Width 28.9 % (11.5-14.5); Red Blood Cell (RBC) Count 2.56 mill/uL (4.20-5.40); White Blood Cell (WBC) Count 6.8 10x3/uL (4.8-10.8)
[2023-04-24 19:16] LABS: ALT (SGPT) Less than 7 U/L (8-55); AST (SGOT) 41 U/L (5-34); Albumin 1.9 g/dL (3.5-5.0); Alkaline Phosphatase 208 U/L (40-110); Anion Gap 9 mmol/L (10-20); BUN (Urea Nitrogen) Less than 4 mg/dL (7.0-18.7); Bilirubin, Total 1.9 mg/dL (0.2-1.2); Calc. Creatinine Clearance 112 mL/min (70-130); Calcium 7.1 mg/dL (7.8-10.44); Carbon Dioxide 25 mmol/L (22-29); Chloride 106 mmol/L (98-107); Estimated GFR 110; Globulin 4.2 g/dL (2.4-3.5); Glucose 101 mg/dL (70-105); Potassium 3.4 mmol/L (3.5-5.1); Protein, Total 6.1 g/dL (6.0-8.3); Sodium 137 mmol/L (136-145)
[2023-04-24] MEDS: rOPINIRole HCl 0.5 MG TAB PO SCH (21:41)
[2023-04-24] MEDS: Potassium Chloride 20 MEQ TAB PO SCH (21:48)
[2023-04-25 05:05] LABS: #Eosinphils 0.2 thou/uL (0.0-0.7); #Monocytes 0.5 thou/uL (0.11-0.59); #Neutrophils 3.8 thou/uL (1.40-6.50); %Basophils 0.3 % (0.0-1.0); %Eosinophils 2.6 % (0.0-10.0); %Lymphocytes 22.7 % (21.0-51.0); %Neutrophils 65.1 % (42.0-75.0); Hematocrit 22.1 % (36.0-47.0); Hemoglobin 6.6 g/dL (12.0-16.0); Mean Corpuscular HGB CONC 29.9 g/dL (32.0-36.0); Mean Corpuscular Volume 90.6 fl (78.0-98.0); Mean Platelet Volume 9.2 fL (7.4-10.4); Platelet Count 136 10x3/uL (130-400); RBC Distribution Width 29.3 % (11.5-14.5); Red Blood Cell (RBC) Count 2.44 mill/uL (4.20-5.40); White Blood Cell (WBC) Count 5.8 10x3/uL (4.8-10.8)
[2023-04-25 05:30] LABS: ALT (SGPT) Less than 7 U/L (8-55); AST (SGOT) 39 U/L (5-34); Albumin 1.9 g/dL (3.5-5.0); Alkaline Phosphatase 201 U/L (40-110); Anion Gap 10 mmol/L (10-20); BUN (Urea Nitrogen) Less than 4 mg/dL (7.0-18.7); Bilirubin, Total 2.3 mg/dL (0.2-1.2); Calc. Creatinine Clearance 125 mL/min (70-130); Calcium 7.3 mg/dL (7.8-10.44); Carbon Dioxide 22 mmol/L (22-29); Chloride 109 mmol/L (98-107); Estimated GFR 113; Glucose 102 mg/dL (70-105); Potassium 3.6 mmol/L (3.5-5.1); Protein, Total 5.9 g/dL (6.0-8.3); Sodium 137 mmol/L (136-145)
[2023-04-25 18:11] LABS: Hematocrit 25.2 % (36.0-47.0); Hemoglobin 7.9 g/dL (12.0-16.0)
[2023-04-25] MEDS ORDERED: Methyl Salicylate/Menthol 85 GM TUBE TOP PRN (21:47)
[2023-04-25 22:10] LABS: Bacteria/HPF None Seen HPF (None Seen); Bilirubin 1+ (Negative); Blood, Urine 1+ (Negative); CAUTI Indications for Culture Acute Hematuria; Clarity Turbid (Clear); Glucose, Urine (Dipstick) Normal (Negative); Ketone, Urine Negative (Negative); Leukocyte 75 Leu/uL (Negative); Nitrite Negative (Negative); Protein, Urine (Dipstick) 10 mg/dL (Neg-Trace); Urobilinogen 6 mg/dL (Less than 2); pH, Urine 6.5 (5.0-9.0)
[2023-04-25 22:15] LABS: Urine Culture Reflex No No
[2023-04-26 05:48] LABS: #Eosinphils 0.2 thou/uL (0.0-0.7); #Monocytes 0.7 thou/uL (0.11-0.59); %Basophils 0.3 % (0.0-1.0); %Eosinophils 2.5 % (0.0-10.0); %Lymphocytes 21.1 % (21.0-51.0); %Monocytes 9.7 % (0.0-10.0); Hematocrit 25.5 % (36.0-47.0); Mean Corpuscular HGB CONC 31.4 g/dL (32.0-36.0); Mean Corpuscular Hemoglobin 28.6 pg (27.0-31.0); Mean Corpuscular Volume 91.1 fl (78.0-98.0); Mean Platelet Volume 8.9 fL (7.4-10.4); Platelet Count 152 10x3/uL (130-400); RBC Distribution Width 27.9 % (11.5-14.5); White Blood Cell (WBC) Count 7.6 10x3/uL (4.8-10.8)
[2023-04-26 06:25] LABS: Anisocytosis SLIGHT = 6-15 cells HPF (0-5); CellaVision Operator ID lab.abc; Hypochromia SLIGHT = 6-15 cells HPF (0-5); Platelet Adequacy Comment Platelets Normal; Polychromasia SLIGHT = 2-3 cells HPF (0-2); Target Cells SLIGHT = 2-5 cells HPF (0-1)
[2023-04-26 06:46] LABS: ALT (SGPT) Less than 7 U/L (8-55); AST (SGOT) 44 U/L (5-34); Alkaline Phosphatase 217 U/L (40-110); Anion Gap 9 mmol/L (10-20); BUN (Urea Nitrogen) Less than 4 mg/dL (7.0-18.7); Bilirubin, Total 2.9 mg/dL (0.2-1.2); Calc. Creatinine Clearance 117 mL/min (70-130); Calcium 7.5 mg/dL (7.8-10.44); Carbon Dioxide 21 mmol/L (22-29); Chloride 109 mmol/L (98-107); Estimated GFR 112; Globulin 4.4 g/dL (2.4-3.5); Glucose 89 mg/dL (70-105); Potassium 3.8 mmol/L (3.5-5.1); Protein, Total 6.4 g/dL (6.0-8.3); Sodium 135 mmol/L (136-145)
[2023-04-26] MEDS: Ondansetron PF 4 MG/2 ML Vial IVP PRN (08:32)
[2023-04-26 08:47] LABS: Acetaminophen Less than 10 mcg/mL (10.0-30.0); Alcohol Less than 10.0 mg/dL (Less than 10); Salicylate Less than 8.0 mg/dL (15.0-30.0)
[2023-04-26 11:30] LABS: Amphetamine Not Detected (NotDetected); Barbiturates Screen Not Detected (NotDetected); Benzodiazepine Screen Not Detected (NotDetected); Cocaine Metabolite Screen Not Detected (NotDetected); Methadone Not Detected (NotDetected); Methamphetamine Not Detected (NotDetected); Opiate Screen Not Detected (NotDetected); Oxycodone Screen Not Detected (NotDetected); Phencyclidine (PCP) Not Detected (NotDetected); THC/Cannabinoid Screen Not Detected (NotDetected); Tricyclic Screen Not Detected (NotDetected)
[2023-04-26] MEDS: Hydrocortisone Acetate 25 MG Suppository PR SCH (21:28)
[2023-04-27 05:28] LABS: #Eosinphils 0.2 thou/uL (0.0-0.7); #Monocytes 0.7 thou/uL (0.11-0.59); #Neutrophils 4.1 thou/uL (1.40-6.50); %Basophils 0.3 % (0.0-1.0); %Monocytes 10.9 % (0.0-10.0); %Neutrophils 65.5 % (42.0-75.0); Hematocrit 23.5 % (36.0-47.0); Hemoglobin 7.4 g/dL (12.0-16.0); Mean Corpuscular HGB CONC 31.5 g/dL (32.0-36.0); Mean Corpuscular Hemoglobin 28.5 pg (27.0-31.0); Mean Corpuscular Volume 90.4 fl (78.0-98.0); Mean Platelet Volume 9.4 fL (7.4-10.4); Platelet Count 173 10x3/uL (130-400); White Blood Cell (WBC) Count 6.3 10x3/uL (4.8-10.8)
[2023-04-27 05:45] LABS: ALT (SGPT) Less than 7 U/L (8-55); AST (SGOT) 38 U/L (5-34); Albumin 1.9 g/dL (3.5-5.0); Alkaline Phosphatase 210 U/L (40-110); Anion Gap 12 mmol/L (10-20); BUN (Urea Nitrogen) Less than 4 mg/dL (7.0-18.7); Bilirubin, Total 2.5 mg/dL (0.2-1.2); Calc. Creatinine Clearance 114 mL/min (70-130); Calcium 7.5 mg/dL (7.8-10.44); Carbon Dioxide 20 mmol/L (22-29); Chloride 110 mmol/L (98-107); Estimated GFR 111; Globulin 3.9 g/dL (2.4-3.5); Glucose 94 mg/dL (70-105); Potassium 3.5 mmol/L (3.5-5.1); Protein, Total 5.8 g/dL (6.0-8.3); Sodium 138 mmol/L (136-145)
[2023-04-27 07:58] VITALS: BP 112/73; TEMP 98.4
[2023-04-27] MEDS ORDERED: Potassium Chloride 20 MEQ in Premix 1 BAG IVPB SCH (08:00)
[2023-04-27] MEDS: Potassium Chloride 20 MEQ TAB PO SCH (09:31)
== END 2023-04-27 11:05 | disposition home or self-care (01) | DRG 177 ==
LOC: ERS 09:36 → ERHOLD 12:46 → 2SW 18:31
PROVIDERS: ADMIT Internal Medicine; ATTEND Internal Medicine
PROC: XW033E5 Introduction of Remdesivir Anti-infective into Peripheral Vein, Percutaneous Approach, New Technology Group 5 (ICD-10-PCS; principal; 2023-04-22)
PROC: 8E0ZXY6 Isolation (ICD-10-PCS; 2023-04-22)
PROC: 30233N1 Transfusion of Nonautologous Red Blood Cells into Peripheral Vein, Percutaneous Approach (ICD-10-PCS; 2023-04-25)
DX: U07.1 COVID-19 (principal); J12.82 Pneumonia due to coronavirus disease 2019; D62 Acute posthemorrhagic anemia; E44.0 Moderate protein-calorie malnutrition; I47.20 Ventricular tachycardia, unspecified; E87.6 Hypokalemia; Z88.8 Allergy status to other drugs, medicaments and biological substances; Z79.899 Other long term (current) drug therapy; Z98.890 Other specified postprocedural states; F32.A Depression, unspecified; F17.290 Nicotine dependence, other tobacco product, uncomplicated; I10 Essential (primary) hypertension; E83.42 Hypomagnesemia; K27.9 Peptic ulcer, site unspecified, unspecified as acute or chronic, without hemorrhage or perforation; L57.0 Actinic keratosis; K76.0 Fatty (change of) liver, not elsewhere classified
CPT/HCPCS: 36415; 36430; 71045; 71250; 74177; 76770; 80053; 80306; 80307; 81001; 83690; 83735; 83880; 84484; 85025; 86140; 86850; 86900; 86901; 87040; 87086; 93005; 93306; 96374; C9113; J0248; J2405; J3411; J3475; J3480; J7050; P9016

== ENCOUNTER 2023-05-04 13:16 | Inpatient (IN) | payer OTHER ==
[2023-05-04 13:58] LABS: #Basophils 0.1 thou/uL (0.0-0.2); #Eosinphils 0.2 thou/uL (0.0-0.7); #Monocytes 0.7 thou/uL (0.11-0.59); #Neutrophils 4.1 thou/uL (1.40-6.50); %Basophils 0.9 % (0.0-1.0); %Eosinophils 2.4 % (0.0-10.0); %Lymphocytes 25.6 % (21.0-51.0); %Neutrophils 60.7 % (42.0-75.0); Hematocrit 27.2 % (36.0-47.0); Hemoglobin 8.8 g/dL (12.0-16.0); Mean Corpuscular HGB CONC 32.4 g/dL (32.0-36.0); Mean Corpuscular Hemoglobin 28.8 pg (27.0-31.0); Mean Corpuscular Volume 88.9 fl (78.0-98.0); Mean Platelet Volume 9.1 fL (7.4-10.4); Platelet Count 207 10x3/uL (130-400); RBC Distribution Width 28.1 % (11.5-14.5); Red Blood Cell (RBC) Count 3.06 mill/uL (4.20-5.40); White Blood Cell (WBC) Count 6.7 10x3/uL (4.8-10.8)
[2023-05-04 14:25] LABS: ALT (SGPT) Less than 7 U/L (8-55); AST (SGOT) 61 U/L (5-34); Alkaline Phosphatase 179 U/L (40-110); Anion Gap 11 mmol/L (10-20); Anisocytosis MODERATE=16-30 cells HPF (0-5); BUN (Urea Nitrogen) 4 mg/dL (7.0-18.7); Bilirubin, Total 2.6 mg/dL (0.2-1.2); Calc. Creatinine Clearance 0 mL/min (70-130); Calcium 8.7 mg/dL (7.8-10.44); Carbon Dioxide 25 mmol/L (22-29); CellaVision Operator ID LAB.MJL; Chloride 107 mmol/L (98-107); Estimated GFR 110; Globulin 4.5 g/dL (2.4-3.5); Glucose 72 mg/dL (70-105); Hypochromia SLIGHT = 6-15 cells HPF (0-5); Platelet Adequacy Comment Platelets Normal; Polychromasia MODERATE = 3-4 cells HPF (0-2); Potassium 3.8 mmol/L (3.5-5.1); Protein, Total 7.5 g/dL (6.0-8.3); Sodium 139 mmol/L (136-145); Target Cells SLIGHT = 2-5 cells HPF (0-1)
[2023-05-04 14:29] LABS: Troponin I Less than 0.010 ng/mL (< 0.028)
[2023-05-04] MEDS ORDERED: Furosemide 40 MG (4 mL) VIAL ONE (14:47)
[2023-05-04] MEDS ORDERED: Ondansetron PF 4 MG/2 ML Vial IVP PRN (17:34)
[2023-05-04] MEDS ORDERED: Guaifenesin DM 100-10/5 ML UDCUP PO PRN (17:38)
[2023-05-04] MEDS ORDERED: Hydrocortisone Acetate 25 MG Suppository PR PRN (17:38)
[2023-05-04] MEDS: Albuterol 2.5 MG (3 mL) NEB NEB SCH (18:51)
[2023-05-04] MEDS: Furosemide 20 MG TAB PO SCH (19:56)
[2023-05-04] MEDS: Albumin 25% 25 GM (100 mL) BOT IVPB SCH ×2 (19:56→23:43)
[2023-05-04] MEDS: Furosemide 40 MG TAB PO SCH (20:41)
[2023-05-04] MEDS: Metoclopramide HCl 10 MG TAB PO SCH (20:41)
[2023-05-04] MEDS: metroNIDAZOLE 500 MG TAB PO SCH (20:41)
[2023-05-04 21:45] VITALS: BMI 24.5
[2023-05-05] MEDS: traMADol HCl 50 MG TAB PO SCH (03:21)
[2023-05-05 03:36] LABS: #Basophils 0.1 thou/uL (0.0-0.2); #Eosinphils 0.2 thou/uL (0.0-0.7); #Monocytes 0.8 thou/uL (0.11-0.59); %Basophils 0.8 % (0.0-1.0); %Eosinophils 2.6 % (0.0-10.0); %Lymphocytes 22.5 % (21.0-51.0); %Monocytes 12.1 % (0.0-10.0); %Neutrophils 61.7 % (42.0-75.0); Hematocrit 23.3 % (36.0-47.0); Hemoglobin 7.6 g/dL (12.0-16.0); Mean Corpuscular HGB CONC 32.6 g/dL (32.0-36.0); Mean Corpuscular Volume 88.9 fl (78.0-98.0); Mean Platelet Volume 8.7 fL (7.4-10.4); Platelet Count 148 10x3/uL (130-400); RBC Distribution Width 27.9 % (11.5-14.5); Red Blood Cell (RBC) Count 2.62 mill/uL (4.20-5.40); White Blood Cell (WBC) Count 6.5 10x3/uL (4.8-10.8)
[2023-05-05 03:57] LABS: Anion Gap 11 mmol/L (10-20); BUN (Urea Nitrogen) 4 mg/dL (7.0-18.7); Calc. Creatinine Clearance 102 mL/min (70-130); Carbon Dioxide 30 mmol/L (22-29); Chloride 102 mmol/L (98-107); Estimated GFR 98; Glucose 94 mg/dL (70-105); Potassium 3.2 mmol/L (3.5-5.1); Sodium 140 mmol/L (136-145)
[2023-05-05] MEDS: Loratadine 10 MG TAB PO SCH (08:33)
[2023-05-05] MEDS: Sertraline 25 MG TAB PO SCH (08:33)
[2023-05-05] MEDS: Potassium Chloride 20 MEQ TAB PO SCH ×2 (08:33→21:40)
[2023-05-05] MEDS: Acetaminophen 325 MG TAB PO PRN (08:36)
[2023-05-05] MEDS ORDERED: Electrolyte Replacement Protocol 1 EACH FS SCH (14:00)
[2023-05-05] MEDS: Spironolactone 100 MG TAB PO SCH (16:55)
[2023-05-05] MEDS: Furosemide 40 MG (4 mL) VIAL SLOW IVP SCH (16:55)
[2023-05-05 17:27] LABS: Magnesium 1.6 mg/dL (1.6-2.6); Potassium 3.2 mmol/L (3.5-5.1)
[2023-05-06 07:21] LABS: #Eosinphils 0.1 thou/uL (0.0-0.7); #Monocytes 0.6 thou/uL (0.11-0.59); #Neutrophils 3.5 thou/uL (1.40-6.50); %Basophils 0.7 % (0.0-1.0); %Eosinophils 2.4 % (0.0-10.0); %Lymphocytes 22.1 % (21.0-51.0); %Monocytes 10.5 % (0.0-10.0); %Neutrophils 63.8 % (42.0-75.0); Hematocrit 23.1 % (36.0-47.0); Hemoglobin 7.2 g/dL (12.0-16.0); Mean Corpuscular HGB CONC 31.2 g/dL (32.0-36.0); Mean Corpuscular Hemoglobin 28.2 pg (27.0-31.0); Mean Corpuscular Volume 90.6 fl (78.0-98.0); Mean Platelet Volume 9.2 fL (7.4-10.4); Platelet Count 146 10x3/uL (130-400); RBC Distribution Width 27.5 % (11.5-14.5); Red Blood Cell (RBC) Count 2.55 mill/uL (4.20-5.40); White Blood Cell (WBC) Count 5.5 10x3/uL (4.8-10.8)
[2023-05-06 07:32] LABS: INR-International Normal Ratio 2.1; Prothrombin Time 23.5 sec (12.0-14.7)
[2023-05-06 07:33] LABS: PTT 63.1 sec (22.9-36.1)
[2023-05-06 07:51] LABS: ALT (SGPT) Less than 7 U/L (8-55); AST (SGOT) 47 U/L (5-34); Albumin 3.4 g/dL (3.5-5.0); Alkaline Phosphatase 141 U/L (40-110); Anion Gap 10 mmol/L (10-20); BUN (Urea Nitrogen) 5 mg/dL (7.0-18.7); Bilirubin, Total 2.6 mg/dL (0.2-1.2); Calc. Creatinine Clearance 98 mL/min (70-130); Carbon Dioxide 30 mmol/L (22-29); Chloride 101 mmol/L (98-107); Estimated GFR 95; Globulin 3.7 g/dL (2.4-3.5); Glucose 89 mg/dL (70-105); Magnesium 1.6 mg/dL (1.6-2.6); Potassium 3.8 mmol/L (3.5-5.1); Protein, Total 7.1 g/dL (6.0-8.3); Sodium 137 mmol/L (136-145)
[2023-05-06] MEDS: Furosemide 40 MG (4 mL) VIAL SLOW IVP SCH (07:58)
[2023-05-06] MEDS: Thiamine 100 MG TAB PO SCH (07:59)
[2023-05-06] MEDS: Spironolactone 100 MG TAB PO SCH (07:59)
[2023-05-06 08:38] LABS: Anisocytosis SLIGHT = 6-15 cells HPF (0-5); CellaVision Operator ID LAB.KW3; Hypochromia SLIGHT = 6-15 cells HPF (0-5); Platelet Adequacy Comment Platelets Normal; Polychromasia MODERATE = 3-4 cells HPF (0-2); Schistocytes SLIGHT = 2-5 cells HPF (0-1); Target Cells SLIGHT = 2-5 cells HPF (0-1)
[2023-05-06] MEDS: Magnesium 2 GM/50 ML(in water) 2 GM in Premix 1 BAG IVPB SCH (10:17)
[2023-05-06] MEDS ORDERED: Albumin 25% 25 GM (100 mL) BOT IVPB SCH (18:30)
[2023-05-06] MEDS: Albumin 25% 25 GM (100 mL) BOT IVPB SCH (18:35)
[2023-05-06 20:25] LABS: Hematocrit 23.7 % (36.0-47.0); Hemoglobin 7.4 g/dL (12.0-16.0)
[2023-05-06] MEDS: Lorazepam 2 MG/ML VIAL SLOW IVP SCH (20:34)
[2023-05-07 08:28] VITALS: BP 120/76; TEMP 97.9
[2023-05-07] MEDS ORDERED: Lidocaine 2% PF 5 ML VIAL ONE (10:27)
[2023-05-07] MEDS ORDERED: PROPOFOL 40 ML ONE (10:27)
[2023-05-07] MEDS ORDERED: Midazolam HCl 2 mg/2 ml Vial ONE (10:28)
[2023-05-07] MEDS ORDERED: fentaNYL 50 mcg/mL 1 mL Vial ONE (10:28)
[2023-05-07] MEDS ORDERED: Ondansetron HCl/PF 4 MG/2 ML Vial IVP PRN (10:58)
[2023-05-07] MEDS ORDERED: HYDROmorphone 2 MG/ML VIAL SLOW IVP PRN (10:58)
[2023-05-07] MEDS ORDERED: Meperidine HCl/PF 25 MG/ML VIAL SLOW IVP PRN (10:58)
[2023-05-07] MEDS ORDERED: Morphine Sulfate 2 MG/ML SYRINGE SLOW IVP PRN (10:58)
[2023-05-07] MEDS ORDERED: Promethazine HCl 25 MG/ML VIAL IM PRN (10:58)
[2023-05-07] MEDS: Lorazepam 1 MG TAB PO SCH (15:31)
== END 2023-05-07 18:18 | disposition home or self-care (01) | DRG 844 ==
LOC: ERS 13:16 → ERHOLD 17:39 → T4-B 19:40 → OBSVTOIN 05-06 08:17
PROVIDERS: ADMIT Family Medicine; ATTEND Family Medicine
PROC: 0DJ08ZZ Inspection of Upper Intestinal Tract, Via Natural or Artificial Opening Endoscopic (ICD-10-PCS; principal; 2023-05-07)
DX: E88.09 Other disorders of plasma-protein metabolism, not elsewhere classified (principal); K22.10 Ulcer of esophagus without bleeding; K70.0 Alcoholic fatty liver; E87.70 Fluid overload, unspecified; E87.6 Hypokalemia; N76.0 Acute vaginitis; B96.89 Other specified bacterial agents as the cause of diseases classified elsewhere; D63.8 Anemia in other chronic diseases classified elsewhere; Z88.8 Allergy status to other drugs, medicaments and biological substances; Z79.899 Other long term (current) drug therapy; K27.9 Peptic ulcer, site unspecified, unspecified as acute or chronic, without hemorrhage or perforation; Z98.890 Other specified postprocedural states; F10.10 Alcohol abuse, uncomplicated; K64.8 Other hemorrhoids
CPT/HCPCS: 36415; 71045; 71046; 76705; 80048; 80053; 83735; 83880; 84484; 85025; 85610; 85730; 86850; 86900; 86901; 93005; 93010; 94640; 96374; 96375; 96376; G0378; J1940; J2001; J2060; J2250; J2704; J3010; J3475; J7611; P9047

== ENCOUNTER 2023-05-26 10:23 | Emergency (ER) | payer OTHER ==
[2023-05-26] MEDS ORDERED: Ondansetron PF 4 MG/2 ML Vial ONE (10:52)
[2023-05-26 11:20] LABS: Bacteria/HPF None Seen HPF (None Seen); Bilirubin Negative (Negative); Blood, Urine Negative (Negative); CAUTI Indications for Culture Dysuria,urgency,freq; Clarity Clear (Clear); Glucose, Urine (Dipstick) Normal (Negative); Ketone, Urine Negative (Negative); Leukocyte Negative Leu/uL (Negative); Nitrite Negative (Negative); Protein, Urine (Dipstick) Negative (Neg-Trace); RBC/HPF 0-3 HPF (0-3); Specific Gravity, Urine 1.018 (1.002-1.036); Squamous Epithelial 0-3 HPF (0-3)
[2023-05-26 11:21] LABS: Urine Culture Reflex No No
[2023-05-26 11:24] LABS: #Eosinphils 0.1 thou/uL (0.0-0.7); #Monocytes 0.5 thou/uL (0.11-0.59); #Neutrophils 3.8 thou/uL (1.40-6.50); %Basophils 0.5 % (0.0-1.0); %Eosinophils 1.3 % (0.0-10.0); %Lymphocytes 24.8 % (21.0-51.0); %Monocytes 8.8 % (0.0-10.0); %Neutrophils 64.1 % (42.0-75.0); Hematocrit 30.7 % (36.0-47.0); Hemoglobin 9.2 g/dL (12.0-16.0); Mean Corpuscular Hemoglobin 29.3 pg (27.0-31.0); Mean Corpuscular Volume 97.8 fl (78.0-98.0); Mean Platelet Volume 9.4 fL (7.4-10.4); Platelet Count 159 10x3/uL (130-400); RBC Distribution Width 22.8 % (11.5-14.5); Red Blood Cell (RBC) Count 3.14 mill/uL (4.20-5.40)
[2023-05-26 11:37] LABS: Influenza A by NAA Not Detected (NotDetected); Influenza B by NAA Not Detected (NotDetected); SARS-CoV-2 NAA Rapid Test Not Detected (NotDetected)
[2023-05-26 11:48] LABS: ALT (SGPT) Less than 7 U/L (8-55); AST (SGOT) 42 U/L (5-34); Albumin 3.4 g/dL (3.5-5.0); Alkaline Phosphatase 116 U/L (40-110); Anion Gap 13 mmol/L (10-20); BUN (Urea Nitrogen) 5 mg/dL (7.0-18.7); Bilirubin, Total 2.3 mg/dL (0.2-1.2); Calc. Creatinine Clearance 0 mL/min (70-130); Calcium 9.3 mg/dL (7.8-10.44); Carbon Dioxide 24 mmol/L (22-29); Chloride 104 mmol/L (98-107); Estimated GFR 111; Globulin 5.4 g/dL (2.4-3.5); Glucose 93 mg/dL (70-105); Magnesium 1.4 mg/dL (1.6-2.6); Potassium 3.2 mmol/L (3.5-5.1); Protein, Total 8.8 g/dL (6.0-8.3); Sodium 138 mmol/L (136-145)
[2023-05-26] MEDS ORDERED: Magnesium 2 GM/50 ML BAG (IN WATER) ONE (12:40)
[2023-05-26] MEDS ORDERED: Potassium Chloride 20 MEQ (100 mL) BAG ONE (12:40)
[2023-05-26 12:44] LABS: Troponin I Less than 0.010 ng/mL (< 0.028)
[2023-05-26] MEDS ORDERED: Potassium Chloride 10 MEQ in Premix 1 BAG IVPB SCH (13:00)
== END 2023-05-26 14:40 | disposition home or self-care (01) ==
LOC: ERS 10:23
DX: E87.6 Hypokalemia (principal); E83.42 Hypomagnesemia; F17.290 Nicotine dependence, other tobacco product, uncomplicated
CPT/HCPCS: 36415; 71045; 80053; 81001; 83605; 83735; 83880; 84484; 85025; 93005; 96365; 96375; J2405; J3475; J3480

== ENCOUNTER 2023-08-05 11:11 | Inpatient (IN) | payer OTHER ==
[2023-08-05 12:11] LABS: #Basophils 0.03 10x3/uL (0.0-0.2); %Basophils 0.6 % (0.0-1.0); %Eosinophils 3.4 % (0.0-10.0); %Lymphocytes 26.4 % (21.0-51.0); %Monocytes 8.7 % (0.0-10.0); %Neutrophils 60.7 % (42.0-75.0); Hematocrit 31.2 % (36.0-47.0); Hemoglobin 9.7 g/dL (12.0-16.0); Mean Corpuscular HGB CONC 31.1 g/dL (32.0-36.0); Mean Corpuscular Hemoglobin 25.6 pg (27.0-31.0); Mean Corpuscular Volume 82.3 fL (78.0-98.0); Mean Platelet Volume 9.1 fL (7.4-10.4); Platelet Count 138 10x3/uL (130-400); RBC Distribution Width 22.4 % (11.5-14.5); Red Blood Cell (RBC) Count 3.79 mill/uL (4.20-5.40)
[2023-08-05 12:45] LABS: ALT (SGPT) 7 U/L (8-55); AST (SGOT) 73 U/L (5-34); Albumin 2.7 g/dL (3.5-5.0); Alkaline Phosphatase 198 U/L (40-110); Anion Gap 16 mmol/L (10-20); BUN (Urea Nitrogen) Less than 4 mg/dL (7.0-18.7); Bilirubin, Total 2.9 mg/dL (0.2-1.2); Calc. Creatinine Clearance 0 mL/min (70-130); Calcium 8.7 mg/dL (7.8-10.44); Carbon Dioxide 26 mmol/L (22-29); Chloride 98 mmol/L (98-107); Estimated GFR 109; Globulin 5.2 g/dL (2.4-3.5); Glucose 81 mg/dL (70-105); Lipase 10 U/L (8-78); Potassium 2.5 mmol/L (3.5-5.1); Protein, Total 7.9 g/dL (6.0-8.3); Sodium 137 mmol/L (136-145)
[2023-08-05 12:46] LABS: Troponin I Less than 0.010 ng/mL (< 0.028)
[2023-08-05] MEDS ORDERED: Ondansetron PF 4 MG/2 ML Vial ONE (15:30)
[2023-08-05] MEDS ORDERED: Magnesium 2 GM/50 ML BAG (IN WATER) ONE (15:31)
[2023-08-05] MEDS ORDERED: Potassium Chloride 20 MEQ (100 mL) BAG ONE (15:31)
[2023-08-05] MEDS ORDERED: Mag-Al 1200 mg/1200 mg/30 ML UDCUP ONE (15:31)
[2023-08-05 16:03] LABS: Magnesium 1.5 mg/dL (1.6-2.6)
[2023-08-05] MEDS ORDERED: Ondansetron ODT 4 MG TAB PO PRN (17:03)
[2023-08-05] MEDS ORDERED: Electrolyte Replacement Protocol 1 EACH FS SCH (17:45)
[2023-08-05 18:57] LABS: INR-International Normal Ratio 1.9; Prothrombin Time 21.6 sec (12.0-14.7)
[2023-08-05 19:01] LABS: Magnesium 2.1 mg/dL (1.6-2.6)
[2023-08-05] MEDS: Albuterol 200 PUFF (6.7GM INHALER) INH SCH (20:29)
[2023-08-05 20:36] LABS: Potassium 3.1 mmol/L (3.5-5.1)
[2023-08-05 20:45] VITALS: BMI 22.7
[2023-08-06] MEDS: Acetaminophen 325 MG TAB PO SCH
[2023-08-06] MEDS: Lactated Ringer's 1,000 ML IV SCH (00:02)
[2023-08-06] MEDS: Lidocaine 2% Viscous 10 mL, Alum & Magn 30 mL SSW SCH (00:02)
[2023-08-06 04:24] LABS: #Basophils 0.04 10x3/uL (0.0-0.2); %Basophils 0.7 % (0.0-1.0); %Eosinophils 2.2 % (0.0-10.0); %Lymphocytes 20.1 % (21.0-51.0); %Monocytes 8.7 % (0.0-10.0); %Neutrophils 68.1 % (42.0-75.0); Hematocrit 26.4 % (36.0-47.0); Hemoglobin 8.2 g/dL (12.0-16.0); Mean Corpuscular HGB CONC 31.1 g/dL (32.0-36.0); Mean Corpuscular Hemoglobin 24.9 pg (27.0-31.0); Mean Corpuscular Volume 80.2 fL (78.0-98.0); Mean Platelet Volume 9.7 fL (7.4-10.4); Platelet Count 133 10x3/uL (130-400); RBC Distribution Width 22.4 % (11.5-14.5); Red Blood Cell (RBC) Count 3.29 mill/uL (4.20-5.40)
[2023-08-06] MEDS: Acetaminophen 325 MG TAB ONE (04:37)
[2023-08-06 04:39] LABS: ALT (SGPT) 5 U/L (8-55); AST (SGOT) 56 U/L (5-34); Albumin 2.1 g/dL (3.5-5.0); Alkaline Phosphatase 163 U/L (40-110); Anion Gap 12 mmol/L (10-20); BUN (Urea Nitrogen) Less than 4 mg/dL (7.0-18.7); Bilirubin, Total 2.5 mg/dL (0.2-1.2); Calc. Creatinine Clearance 110 mL/min (70-130); Calcium 8.1 mg/dL (7.8-10.44); Carbon Dioxide 25 mmol/L (22-29); Chloride 102 mmol/L (98-107); Estimated GFR 111; Globulin 4.3 g/dL (2.4-3.5); Glucose 84 mg/dL (70-105); Potassium 3.2 mmol/L (3.5-5.1); Protein, Total 6.4 g/dL (6.0-8.3); Sodium 136 mmol/L (136-145)
[2023-08-06] MEDS: Thiamine 100 MG TAB PO SCH (09:11)
[2023-08-06] MEDS: Multivit, Therapeutic 1 TAB PO SCH (09:11)
[2023-08-06] MEDS: Potassium Chloride 20 MEQ TAB PO SCH ×3 (09:11→11:13)
[2023-08-06] MEDS: Loratadine 10 MG TAB PO SCH (09:11)
[2023-08-06] MEDS: Pantoprazole DR 40 MG TAB PO SCH (09:11)
[2023-08-06] MEDS: Spironolactone 100 MG TAB PO SCH (09:11)
[2023-08-06] MEDS: Folic Acid 1 MG TAB PO SCH (09:11)
[2023-08-06] MEDS: Acetaminophen 325 MG TAB PO PRN (15:44)
[2023-08-06 17:35] LABS: Potassium 4.2 mmol/L (3.5-5.1)
[2023-08-06] MEDS: Pantoprazole 40 MG VIAL IVP SCH (20:48)
[2023-08-07 04:45] LABS: #Basophils Less than 0.03 10x3/uL (0.0-0.2); %Basophils 0.5 % (0.0-1.0); %Eosinophils 3.2 % (0.0-10.0); %Monocytes 9.8 % (0.0-10.0); Hematocrit 26.1 % (36.0-47.0); Hemoglobin 7.9 g/dL (12.0-16.0); Mean Corpuscular HGB CONC 30.3 g/dL (32.0-36.0); Mean Corpuscular Volume 85.9 fL (78.0-98.0); Mean Platelet Volume 9.7 fL (7.4-10.4); Platelet Count 129 10x3/uL (130-400); Red Blood Cell (RBC) Count 3.04 mill/uL (4.20-5.40)
[2023-08-07 05:24] LABS: ALT (SGPT) 5 U/L (8-55); AST (SGOT) 48 U/L (5-34); Albumin 2.1 g/dL (3.5-5.0); Alkaline Phosphatase 153 U/L (40-110); Anion Gap 11 mmol/L (10-20); BUN (Urea Nitrogen) Less than 4 mg/dL (7.0-18.7); Bilirubin, Total 1.8 mg/dL (0.2-1.2); Calc. Creatinine Clearance 110 mL/min (70-130); Calcium 8.1 mg/dL (7.8-10.44); Carbon Dioxide 24 mmol/L (22-29); Chloride 106 mmol/L (98-107); Estimated GFR 111; Globulin 4.1 g/dL (2.4-3.5); Glucose 82 mg/dL (70-105); Potassium 3.8 mmol/L (3.5-5.1); Protein, Total 6.2 g/dL (6.0-8.3); Sodium 137 mmol/L (136-145)
[2023-08-07 11:09] VITALS: BP 105/60; TEMP 98.1
[2023-08-07 11:14] LABS: Platelet Adequacy Comment Platelets Normal
[2023-08-07 11:52] LABS: BHCG - Serum Negative (NEGATIVE); Pregs Control Background? CLEAR/WHITE (CLR/WHITE); Pregs Control Bar Appear? YES (CONTROL BAR)
== END 2023-08-07 13:46 | disposition home or self-care (01) | DRG 640 ==
LOC: ERS 11:11 → ERHOLD 16:53 → 2NO 19:47
PROVIDERS: ADMIT Student in an Organized Health Care Education/Training Program; ATTEND Internal Medicine
DX: E87.6 Hypokalemia (principal); E43 Unspecified severe protein-calorie malnutrition; E83.42 Hypomagnesemia; I10 Essential (primary) hypertension; D64.9 Anemia, unspecified; Z88.8 Allergy status to other drugs, medicaments and biological substances; Z79.899 Other long term (current) drug therapy; Z68.22 Body mass index [BMI] 22.0-22.9, adult
CPT/HCPCS: 36415; 36416; 74177; 80053; 83690; 83735; 83880; 84443; 84484; 84703; 85025; 85610; 93005; 96374; 96375; C9113; J2405; J3475; J3480; J7120

== ENCOUNTER 2023-08-11 19:17 | Emergency (ER) | payer OTHER ==
[2023-08-11 19:58] LABS: #Basophils 0.07 10x3/uL (0.0-0.2); %Basophils 1.1 % (0.0-1.0); %Eosinophils 3.2 % (0.0-10.0); %Lymphocytes 29.7 % (21.0-51.0); %Monocytes 11.7 % (0.0-10.0); Hematocrit 29.4 % (36.0-47.0); Hemoglobin 9.1 g/dL (12.0-16.0); Mean Corpuscular Hemoglobin 25.3 pg (27.0-31.0); Mean Corpuscular Volume 81.9 fL (78.0-98.0); Mean Platelet Volume 8.9 fL (7.4-10.4); Platelet Count 191 10x3/uL (130-400); RBC Distribution Width 23.3 % (11.5-14.5); Red Blood Cell (RBC) Count 3.59 mill/uL (4.20-5.40)
[2023-08-11] MEDS ORDERED: Metoclopramide HCl 10 MG (2 mL) VIAL ONE (20:12)
[2023-08-11 20:17] LABS: ALT (SGPT) 6 U/L (8-55); AST (SGOT) 136 U/L (5-34); Albumin 2.7 g/dL (3.5-5.0); Alkaline Phosphatase 207 U/L (40-110); Anion Gap 17 mmol/L (10-20); BUN (Urea Nitrogen) Less than 4 mg/dL (7.0-18.7); Bilirubin, Total 2.5 mg/dL (0.2-1.2); Calc. Creatinine Clearance 0 mL/min (70-130); Calcium 8.6 mg/dL (7.8-10.44); Carbon Dioxide 23 mmol/L (22-29); Chloride 104 mmol/L (98-107); Estimated GFR 90; Globulin 5.3 g/dL (2.4-3.5); Glucose 100 mg/dL (70-105); Lipase 16 U/L (8-78); Magnesium 1.6 mg/dL (1.6-2.6); Potassium 3.7 mmol/L (3.5-5.1); Sodium 140 mmol/L (136-145)
[2023-08-11 20:18] LABS: Acetaminophen Less than 10 mcg/mL (10.0-30.0); Alcohol 191.7 mg/dL (Less than 10); Salicylate Less than 8.0 mg/dL (15.0-30.0)
[2023-08-11 20:19] LABS: Troponin I Less than 0.010 ng/mL (< 0.028)
[2023-08-11 21:35] LABS: Amphetamine Not Detected (NotDetected); Barbiturates Screen Not Detected (NotDetected); Benzodiazepine Screen Not Detected (NotDetected); Cocaine Metabolite Screen Not Detected (NotDetected); Methadone Not Detected (NotDetected); Methamphetamine Not Detected (NotDetected); Opiate Screen Not Detected (NotDetected); Oxycodone Screen Not Detected (NotDetected); Phencyclidine (PCP) Not Detected (NotDetected); THC/Cannabinoid Screen Not Detected (NotDetected); Tricyclic Screen Not Detected (NotDetected)
[2023-08-11] MEDS ORDERED: Acetaminophen 500 MG TAB ONE (21:46)
[2023-08-11] MEDS ORDERED: Metoclopramide HCl 10 MG TAB ONE (21:46)
[2023-08-11] MEDS ORDERED: Pantoprazole DR 40 MG TAB ONE (21:46)
== END 2023-08-11 22:26 | disposition home or self-care (01) ==
LOC: ERS 19:17
DX: K29.20 Alcoholic gastritis without bleeding (principal); F10.10 Alcohol abuse, uncomplicated; F17.210 Nicotine dependence, cigarettes, uncomplicated; I10 Essential (primary) hypertension; Y90.6 Blood alcohol level of 120-199 mg/100 ml
CPT/HCPCS: 80053; 80306; 80307; 83690; 83735; 83880; 84484; 85025; 93005; J2765

== ENCOUNTER 2023-08-24 16:11 | Emergency (ER) | payer OTHER ==
[2023-08-24 17:40] LABS: #Basophils 0.07 10x3/uL (0.0-0.2); %Basophils 0.8 % (0.0-1.0); %Eosinophils 1.3 % (0.0-10.0); %Lymphocytes 16.8 % (21.0-51.0); %Monocytes 9.4 % (0.0-10.0); %Neutrophils 71.4 % (42.0-75.0); Hematocrit 29.6 % (36.0-47.0); Mean Corpuscular HGB CONC 30.4 g/dL (32.0-36.0); Mean Corpuscular Hemoglobin 26.3 pg (27.0-31.0); Mean Corpuscular Volume 86.5 fL (78.0-98.0); Platelet Count 186 10x3/uL (130-400); RBC Distribution Width 28.9 % (11.5-14.5); Red Blood Cell (RBC) Count 3.42 mill/uL (4.20-5.40)
[2023-08-24 17:41] LABS: ALT (SGPT) 7 U/L (8-55); AST (SGOT) 65 U/L (5-34); Albumin 2.5 g/dL (3.5-5.0); Alkaline Phosphatase 205 U/L (40-110); Anion Gap 15 mmol/L (10-20); BUN (Urea Nitrogen) 5 mg/dL (7.0-18.7); Bilirubin, Total 4.2 mg/dL (0.2-1.2); Calc. Creatinine Clearance 0 mL/min (70-130); Calcium 8.3 mg/dL (7.8-10.44); Carbon Dioxide 21 mmol/L (22-29); Chloride 103 mmol/L (98-107); Estimated GFR 110; Globulin 5.5 g/dL (2.4-3.5); Glucose 76 mg/dL (70-105); Lipase 10 U/L (8-78); Potassium 3.7 mmol/L (3.5-5.1); Sodium 135 mmol/L (136-145)
[2023-08-24 17:46] LABS: Troponin I Less than 0.010 ng/mL (< 0.028)
[2023-08-24] MEDS ORDERED: Ondansetron PF 4 MG/2 ML Vial ONE (17:59)
[2023-08-24] MEDS ORDERED: Pantoprazole 40 MG VIAL ONE (18:00)
[2023-08-24] MEDS ORDERED: Thiamine HCl 200 MG/2 ML VIAL ONE (18:00)
[2023-08-24] MEDS ORDERED: Magnesium 2 GM/50 ML BAG (IN WATER) ONE (18:00)
[2023-08-24 18:09] LABS: Anisocytosis MODERATE=16-30 cells HPF (0-5); Hypochromia SLIGHT = 6-15 cells HPF (0-5); Macrocytosis SLIGHT = 6-15 cells HPF (0-5); Platelet Adequacy Comment Platelets Normal; Polychromasia MODERATE = 3-4 cells HPF (0-2); Target Cells MODERATE= 6-15 cells HPF (0-1); Tear Drops SLIGHT = 2-5 cells HPF (0-1)
== END 2023-08-24 19:34 | disposition home or self-care (01) ==
LOC: ERS 16:11
DX: K29.00 Acute gastritis without bleeding (principal); E86.0 Dehydration; D64.9 Anemia, unspecified; F17.290 Nicotine dependence, other tobacco product, uncomplicated
CPT/HCPCS: 36415; 71045; 80053; 82140; 83690; 84484; 85025; 93005; 96374; 96375; C9113; J2405; J3411; J3475

== ENCOUNTER 2023-08-27 18:58 | Emergency (ER) | payer OTHER ==
[2023-08-27 19:41] LABS: #Basophils 0.06 10x3/uL (0.0-0.2); %Eosinophils 3.2 % (0.0-10.0); %Monocytes 10.8 % (0.0-10.0); %Neutrophils 57.7 % (42.0-75.0); Hemoglobin 7.6 g/dL (12.0-16.0); Mean Corpuscular HGB CONC 30.4 g/dL (32.0-36.0); Mean Corpuscular Hemoglobin 26.5 pg (27.0-31.0); Mean Corpuscular Volume 87.1 fL (78.0-98.0); Mean Platelet Volume 8.6 fL (7.4-10.4); Platelet Count 136 10x3/uL (130-400); RBC Distribution Width 28.1 % (11.5-14.5); Red Blood Cell (RBC) Count 2.87 mill/uL (4.20-5.40)
[2023-08-27] MEDS ORDERED: Morphine 4 MG/ML VIAL ONE (19:45)
[2023-08-27] MEDS ORDERED: Ondansetron PF 4 MG/2 ML Vial ONE (19:45)
[2023-08-27 19:54] LABS: BHCG - Serum Negative (NEGATIVE); Pregs Control Background? CLEAR/WHITE (CLR/WHITE); Pregs Control Bar Appear? YES (CONTROL BAR)
[2023-08-27 20:06] LABS: ALT (SGPT) 6 U/L (8-55); AST (SGOT) 89 U/L (5-34); Albumin 2.3 g/dL (3.5-5.0); Alkaline Phosphatase 169 U/L (40-110); Anion Gap 15 mmol/L (10-20); BUN (Urea Nitrogen) 4 mg/dL (7.0-18.7); Bilirubin, Total 2.4 mg/dL (0.2-1.2); Calc. Creatinine Clearance 0 mL/min (70-130); Calcium 7.8 mg/dL (7.8-10.44); Carbon Dioxide 24 mmol/L (22-29); Chloride 102 mmol/L (98-107); Estimated GFR 105; Globulin 4.9 g/dL (2.4-3.5); Glucose 86 mg/dL (70-105); Lipase 29 U/L (8-78); Magnesium 1.5 mg/dL (1.6-2.6); Potassium 2.7 mmol/L (3.5-5.1); Protein, Total 7.2 g/dL (6.0-8.3); Sodium 138 mmol/L (136-145)
[2023-08-27 20:10] LABS: Troponin I Less than 0.010 ng/mL (< 0.028)
[2023-08-27 20:19] LABS: Anisocytosis SLIGHT = 6-15 cells HPF (0-5); Hypochromia SLIGHT = 6-15 cells HPF (0-5); Platelet Adequacy Comment Platelets Normal; Poikilocytosis SLIGHT = 6-15 cells HPF (0-5); Polychromasia SLIGHT = 2-3 cells HPF (0-2); Target Cells SLIGHT = 2-5 cells HPF (0-1)
[2023-08-27 20:25] LABS: INR-International Normal Ratio 1.6; Prothrombin Time 19.5 sec (12.0-14.7)
[2023-08-27 20:26] LABS: PTT 50.7 sec (22.9-36.1)
[2023-08-27] MEDS ORDERED: 1/2 NS w/Potassium 20 mEq 1,000 ML IV SCH (21:30)
[2023-08-27 21:50] LABS: Bacteria/HPF None Seen HPF (None Seen); Bilirubin Negative (Negative); Blood, Urine Negative (Negative); CAUTI Indications for Culture < 2yrs of age; Clarity Clear (Clear); Glucose, Urine (Dipstick) Normal (Negative); Ketone, Urine Negative (Negative); Leukocyte Negative Leu/uL (Negative); Nitrite Negative (Negative); Protein, Urine (Dipstick) Negative (Neg-Trace); RBC/HPF 0-3 HPF (0-3); Specific Gravity, Urine 1.036 (1.002-1.036); Squamous Epithelial None Seen HPF (0-3); WBC/HPF 0-3 HPF (0-3); pH, Urine 6.5 (5.0-9.0)
[2023-08-27 21:55] LABS: Urine Culture Reflex Yes Yes
[2023-08-27 22:35] LABS: Lactic Acid 2.4 mmol/L (0.5-2.2)
[2023-08-27] MEDS ORDERED: Magnesium 2 GM/50 ML BAG (IN WATER) ONE (22:35)
[2023-08-27] MEDS ORDERED: Potassium Chloride 20 MEQ TAB ONE (22:35)
== END 2023-08-28 00:12 | disposition home or self-care (01) ==
LOC: ERS 18:58
DX: E87.6 Hypokalemia (principal); E86.0 Dehydration; F10.10 Alcohol abuse, uncomplicated; R11.2 Nausea with vomiting, unspecified
CPT/HCPCS: 36415; 71045; 74177; 76705; 80053; 81001; 83605; 83690; 83735; 83880; 84484; 84703; 85025; 85610; 85730; 86850; 86870; 86900; 86901; 87086; 93005; 96361; 96365; 96366; 96375; J2270; J2405; J3475; J3480

== ENCOUNTER 2023-08-28 21:08 | Inpatient (IN) | payer OTHER ==
[2023-08-28 21:56] LABS: #Basophils 0.06 10x3/uL (0.0-0.2); %Lymphocytes 25.2 % (21.0-51.0); %Monocytes 9.5 % (0.0-10.0); Hematocrit 25.7 % (36.0-47.0); Mean Corpuscular HGB CONC 31.1 g/dL (32.0-36.0); Mean Corpuscular Hemoglobin 26.8 pg (27.0-31.0); Mean Corpuscular Volume 86.2 fL (78.0-98.0); Mean Platelet Volume 8.8 fL (7.4-10.4); Platelet Count 167 10x3/uL (130-400); RBC Distribution Width 27.9 % (11.5-14.5); Red Blood Cell (RBC) Count 2.98 mill/uL (4.20-5.40)
[2023-08-28 22:19] LABS: BHCG - Serum Negative (NEGATIVE); Pregs Control Background? CLEAR/WHITE (CLR/WHITE); Pregs Control Bar Appear? YES (CONTROL BAR)
[2023-08-28 22:20] LABS: Anisocytosis MODERATE=16-30 cells HPF (0-5); Hypochromia SLIGHT = 6-15 cells HPF (0-5); Microcytosis SLIGHT = 6-15 cells HPF (0-5); Platelet Adequacy Comment Platelets Normal; Polychromasia SLIGHT = 2-3 cells HPF (0-2); Target Cells SLIGHT = 2-5 cells HPF (0-1)
[2023-08-28 22:38] LABS: ALT (SGPT) 7 U/L (8-55); AST (SGOT) 101 U/L (5-34); Albumin 2.4 g/dL (3.5-5.0); Alkaline Phosphatase 198 U/L (40-110); Anion Gap 17 mmol/L (10-20); BUN (Urea Nitrogen) Less than 4 mg/dL (7.0-18.7); Bilirubin, Total 2.2 mg/dL (0.2-1.2); Calc. Creatinine Clearance 0 mL/min (70-130); Calcium 8.8 mg/dL (7.8-10.44); Carbon Dioxide 25 mmol/L (22-29); Chloride 102 mmol/L (98-107); Estimated GFR 97; Globulin 5.3 g/dL (2.4-3.5); Glucose 99 mg/dL (70-105); Potassium 3.6 mmol/L (3.5-5.1); Protein, Total 7.7 g/dL (6.0-8.3); Sodium 140 mmol/L (136-145)
[2023-08-28 22:41] LABS: Troponin I Less than 0.010 ng/mL (< 0.028)
[2023-08-28 23:32] LABS: INR-International Normal Ratio 1.6; PTT 51.2 sec (22.9-36.1); Prothrombin Time 19.1 sec (12.0-14.7)
[2023-08-29] MEDS ORDERED: Morphine 4 MG/ML VIAL ONE (00:44)
[2023-08-29] MEDS ORDERED: Ondansetron PF 4 MG/2 ML Vial ONE (00:44)
[2023-08-29] MEDS ORDERED: Piperacillin/Tazobactam 4.5 GM VIAL ONE (00:44)
[2023-08-29] MEDS ORDERED: Sodium Chloride 0.9% 100 ML ONE (00:45)
[2023-08-29] MEDS ORDERED: Acetaminophen 325 MG TAB PO PRN ×2 (01:30→02:30)
[2023-08-29] MEDS ORDERED: Ondansetron ODT 4 MG TAB SL PRN (01:30)
[2023-08-29] MEDS ORDERED: Ondansetron PF 4 MG/2 ML Vial IVP PRN (01:30)
[2023-08-29 01:57] VITALS: BMI 23.2
[2023-08-29] MEDS ORDERED: Ondansetron ODT 4 MG TAB PO PRN (02:29)
[2023-08-29] MEDS ORDERED: Lorazepam 1 MG TAB PO PRN (02:29)
[2023-08-29] MEDS ORDERED: Lorazepam 2 MG/ML VIAL IM PRN (02:29)
[2023-08-29] MEDS ORDERED: Electrolyte Replacement Protocol 1 EACH FS SCH (02:30)
[2023-08-29] MEDS ORDERED: Acetaminophen 650 MG Suppository PR PRN (02:30)
[2023-08-29] MEDS ORDERED: Albuterol 200 PUFF INH INH PRN (02:31)
[2023-08-29] MEDS ORDERED: Metoclopramide HCl 10 MG TAB PO PRN (02:32)
[2023-08-29] MEDS: Albumin 25% 25 GM (100 mL) BOT IVPB SCH (03:22)
[2023-08-29] MEDS: Lactated Ringer's 1,000 ML IV SCH (03:22)
[2023-08-29] MEDS: Lorazepam 1 MG TAB PO SCH (03:22)
[2023-08-29] MEDS: Thiamine HCl 200 MG/2 ML VIAL SLOW IVP SCH (03:23)
[2023-08-29 04:19] LABS: #Basophils 0.06 10x3/uL (0.0-0.2); %Eosinophils 4.8 % (0.0-10.0); %Lymphocytes 24.7 % (21.0-51.0); %Monocytes 7.4 % (0.0-10.0); %Neutrophils 61.4 % (42.0-75.0); Hematocrit 28.2 % (36.0-47.0); Hemoglobin 8.6 g/dL (12.0-16.0); Mean Corpuscular HGB CONC 30.5 g/dL (32.0-36.0); Mean Corpuscular Hemoglobin 26.1 pg (27.0-31.0); Mean Corpuscular Volume 85.7 fL (78.0-98.0); Mean Platelet Volume 8.9 fL (7.4-10.4); Platelet Count 195 10x3/uL (130-400); RBC Distribution Width 28.1 % (11.5-14.5); Red Blood Cell (RBC) Count 3.29 mill/uL (4.20-5.40)
[2023-08-29] MEDS: Piperacillin/Tazobactam 4.5 GM in Sodium Chloride 0.9% 100 ML IVPB SCH (04:29)
[2023-08-29 04:41] LABS: Magnesium 1.5 mg/dL (1.6-2.6); Phosphorus 3.4 mg/dL (2.3-4.7)
[2023-08-29 04:42] LABS: ALT (SGPT) 8 U/L (8-55); AST (SGOT) 103 U/L (5-34); Albumin 2.6 g/dL (3.5-5.0); Alkaline Phosphatase 212 U/L (40-110); Anion Gap 16 mmol/L (10-20); BUN (Urea Nitrogen) Less than 4 mg/dL (7.0-18.7); Bilirubin, Total 2.4 mg/dL (0.2-1.2); Calc. Creatinine Clearance 102 mL/min (70-130); Calcium 8.8 mg/dL (7.8-10.44); Carbon Dioxide 25 mmol/L (22-29); Chloride 103 mmol/L (98-107); Estimated GFR 105; Globulin 5.6 g/dL (2.4-3.5); Glucose 89 mg/dL (70-105); Potassium 3.8 mmol/L (3.5-5.1); Protein, Total 8.2 g/dL (6.0-8.3); Sodium 140 mmol/L (136-145)
[2023-08-29 04:43] LABS: Troponin I Less than 0.010 ng/mL (< 0.028)
[2023-08-29 04:44] LABS: Troponin I Less than 0.010 ng/mL (< 0.028)
[2023-08-29 05:09] LABS: Anisocytosis MODERATE=16-30 cells HPF (0-5); Hypochromia SLIGHT = 6-15 cells HPF (0-5); Microcytosis SLIGHT = 6-15 cells HPF (0-5); Platelet Adequacy Comment Platelets Normal; Polychromasia SLIGHT = 2-3 cells HPF (0-2)
[2023-08-29] MEDS: Magnesium 2 GM/50 ML(in water) 2 GM in Premix 1 BAG IVPB SCH (05:46)
[2023-08-29] MEDS ORDERED: Thiamine 100 MG TAB PO SCH (09:00)
[2023-08-29] MEDS: Betamethasone Val 0.1% OINT 15 GM TUBE TOP SCH (09:21)
[2023-08-29] MEDS: Sertraline 25 MG TAB PO SCH (09:22)
[2023-08-29] MEDS: Famotidine 20 MG TAB PO SCH (09:23)
[2023-08-29] MEDS: Furosemide 20 MG TAB PO SCH (09:23)
[2023-08-29] MEDS: Folic Acid 1 MG TAB PO SCH (09:23)
[2023-08-29] MEDS: Multivit, Therapeutic 1 TAB PO SCH (09:24)
[2023-08-29] MEDS: Famotidine/PF 20 mg/2ml Vial SLOW IVP SCH (09:24)
[2023-08-30] MEDS ORDERED: Lorazepam 1 MG TAB PO PRN (02:29)
[2023-08-30 06:36] LABS: #Basophils 0.05 10x3/uL (0.0-0.2); %Basophils 1.1 % (0.0-1.0); %Eosinophils 3.7 % (0.0-10.0); %Lymphocytes 20.8 % (21.0-51.0); %Neutrophils 65.9 % (42.0-75.0); Hematocrit 24.5 % (36.0-47.0); Hemoglobin 7.4 g/dL (12.0-16.0); Mean Corpuscular HGB CONC 30.2 g/dL (32.0-36.0); Mean Corpuscular Hemoglobin 26.8 pg (27.0-31.0); Mean Corpuscular Volume 88.8 fL (78.0-98.0); Mean Platelet Volume 9.4 fL (7.4-10.4); Platelet Count 152 10x3/uL (130-400); RBC Distribution Width 27.9 % (11.5-14.5); Red Blood Cell (RBC) Count 2.76 mill/uL (4.20-5.40)
[2023-08-30 06:59] LABS: ALT (SGPT) 5 U/L (8-55); AST (SGOT) 58 U/L (5-34); Albumin 2.4 g/dL (3.5-5.0); Alkaline Phosphatase 159 U/L (40-110); Anion Gap 14 mmol/L (10-20); BUN (Urea Nitrogen) Less than 4 mg/dL (7.0-18.7); Bilirubin, Total 2.9 mg/dL (0.2-1.2); Calc. Creatinine Clearance 103 mL/min (70-130); Calcium 8.4 mg/dL (7.8-10.44); Carbon Dioxide 23 mmol/L (22-29); Chloride 105 mmol/L (98-107); Estimated GFR 107; Globulin 4.3 g/dL (2.4-3.5); Glucose 74 mg/dL (70-105); Potassium 3.8 mmol/L (3.5-5.1); Protein, Total 6.7 g/dL (6.0-8.3); Sodium 138 mmol/L (136-145)
[2023-08-30] MEDS: Sodium Chloride 0.9% 1,000 ML IV SCH (09:56)
[2023-08-31] MEDS ORDERED: Lorazepam 1 MG TAB PO PRN (02:29)
[2023-08-31] MEDS: Lorazepam 0.5 MG TAB PO SCH (03:22)
[2023-08-31 04:53] LABS: #Basophils 0.07 10x3/uL (0.0-0.2); %Basophils 1.2 % (0.0-1.0); %Eosinophils 5.1 % (0.0-10.0); %Lymphocytes 22.6 % (21.0-51.0); %Monocytes 9.6 % (0.0-10.0); %Neutrophils 60.8 % (42.0-75.0); Hematocrit 24.7 % (36.0-47.0); Hemoglobin 7.3 g/dL (12.0-16.0); Mean Corpuscular HGB CONC 29.6 g/dL (32.0-36.0); Mean Corpuscular Hemoglobin 25.9 pg (27.0-31.0); Mean Corpuscular Volume 87.6 fL (78.0-98.0); Mean Platelet Volume 9.8 fL (7.4-10.4); Platelet Count 176 10x3/uL (130-400); RBC Distribution Width 28.2 % (11.5-14.5); Red Blood Cell (RBC) Count 2.82 mill/uL (4.20-5.40)
[2023-08-31 05:21] LABS: Anisocytosis SLIGHT = 6-15 cells HPF (0-5); Hypochromia SLIGHT = 6-15 cells HPF (0-5); Platelet Adequacy Comment Platelets Normal; Polychromasia SLIGHT = 2-3 cells HPF (0-2)
[2023-08-31 05:37] LABS: ALT (SGPT) Less than 5 U/L (8-55); AST (SGOT) 57 U/L (5-34); Albumin 2.3 g/dL (3.5-5.0); Alkaline Phosphatase 156 U/L (40-110); Anion Gap 8 mmol/L (10-20); BUN (Urea Nitrogen) 4 mg/dL (7.0-18.7); Bilirubin, Total 2.1 mg/dL (0.2-1.2); Calc. Creatinine Clearance 106 mL/min (70-130); Calcium 8.3 mg/dL (7.8-10.44); Carbon Dioxide 22 mmol/L (22-29); Chloride 110 mmol/L (98-107); Estimated GFR 109; Globulin 4.2 g/dL (2.4-3.5); Glucose 84 mg/dL (70-105); Potassium 3.7 mmol/L (3.5-5.1); Protein, Total 6.5 g/dL (6.0-8.3); Sodium 136 mmol/L (136-145)
[2023-08-31 07:56] VITALS: BP 117/77; TEMP 98.1
[2023-09-01] MEDS ORDERED: Lorazepam 0.5 MG TAB PO PRN (02:29)
[2023-09-01] MEDS ORDERED: Thiamine 100 MG TAB PO SCH (09:00)
== END 2023-08-31 11:55 | disposition home or self-care (01) | DRG 434 ==
LOC: ERS 21:08 → OBSVTOIN 23:49 → 2NO 23:49
PROVIDERS: ADMIT Student in an Organized Health Care Education/Training Program; ATTEND Hospitalist
PROC: 30233J1 Transfusion of Nonautologous Serum Albumin into Peripheral Vein, Percutaneous Approach (ICD-10-PCS; principal; 2023-08-29)
DX: K70.30 Alcoholic cirrhosis of liver without ascites (principal); E83.42 Hypomagnesemia; R00.0 Tachycardia, unspecified; E88.09 Other disorders of plasma-protein metabolism, not elsewhere classified; D64.9 Anemia, unspecified; K27.9 Peptic ulcer, site unspecified, unspecified as acute or chronic, without hemorrhage or perforation; K82.8 Other specified diseases of gallbladder; E80.6 Other disorders of bilirubin metabolism; F10.20 Alcohol dependence, uncomplicated; I10 Essential (primary) hypertension; Z87.891 Personal history of nicotine dependence; Z79.899 Other long term (current) drug therapy; Z88.8 Allergy status to other drugs, medicaments and biological substances; R63.6 Underweight; Z68.23 Body mass index [BMI] 23.0-23.9, adult
CPT/HCPCS: 36415; 71045; 78227; 80053; 83735; 83880; 84100; 84484; 84703; 85025; 85610; 85730; 93005; 96374; 96375; A9537; J2270; J2405; J2543; J3411; J3475; J3490; J7050; J7120; P9047

== ENCOUNTER 2023-09-05 11:56 | Emergency (ER) | payer OTHER ==
[2023-09-05] MEDS ORDERED: predniSONE 20 MG TAB ONE (13:02)
[2023-09-05] MEDS ORDERED: Acetaminophen 500 MG TAB ONE (13:02)
[2023-09-05 13:17] LABS: #Basophils 0.06 10x3/uL (0.0-0.2); %Eosinophils 2.3 % (0.0-10.0); %Lymphocytes 13.6 % (21.0-51.0); %Monocytes 10.6 % (0.0-10.0); %Neutrophils 71.8 % (42.0-75.0); Hematocrit 27.1 % (36.0-47.0); Hemoglobin 8.1 g/dL (12.0-16.0); Mean Corpuscular HGB CONC 29.9 g/dL (32.0-36.0); Mean Corpuscular Hemoglobin 26.7 pg (27.0-31.0); Mean Corpuscular Volume 89.4 fL (78.0-98.0); Platelet Count 196 10x3/uL (130-400); RBC Distribution Width 27.1 % (11.5-14.5); Red Blood Cell (RBC) Count 3.03 mill/uL (4.20-5.40)
[2023-09-05 13:27] LABS: INR-International Normal Ratio 1.6; Prothrombin Time 18.7 sec (12.0-14.7)
[2023-09-05 13:28] LABS: PTT 54.4 sec (22.9-36.1)
[2023-09-05 13:33] LABS: ALT (SGPT) 7 U/L (8-55); AST (SGOT) 78 U/L (5-34); Albumin 2.8 g/dL (3.5-5.0); Alkaline Phosphatase 203 U/L (40-110); Anion Gap 15 mmol/L (10-20); BUN (Urea Nitrogen) 4 mg/dL (7.0-18.7); Bilirubin, Total 2.1 mg/dL (0.2-1.2); Calc. Creatinine Clearance 0 mL/min (70-130); Carbon Dioxide 20 mmol/L (22-29); Chloride 105 mmol/L (98-107); Estimated GFR 111; Globulin 5.5 g/dL (2.4-3.5); Glucose 88 mg/dL (70-105); Lipase 26 U/L (8-78); Magnesium 1.6 mg/dL (1.6-2.6); Potassium 3.9 mmol/L (3.5-5.1); Protein, Total 8.3 g/dL (6.0-8.3); Sodium 136 mmol/L (136-145)
[2023-09-05 13:34] LABS: Troponin I Less than 0.010 ng/mL (< 0.028)
[2023-09-05 15:38] LABS: Bacteria/HPF None Seen HPF (None Seen); Bilirubin Negative (Negative); Blood, Urine Negative (Negative); CAUTI Indications for Culture Pelvic or flank pain; Clarity Clear (Clear); Glucose, Urine (Dipstick) Normal (Negative); Ketone, Urine Negative (Negative); Leukocyte Negative Leu/uL (Negative); Nitrite Negative (Negative); Protein, Urine (Dipstick) Negative (Neg-Trace); RBC/HPF 0-3 HPF (0-3); Specific Gravity, Urine 1.004 (1.002-1.036); Squamous Epithelial None Seen HPF (0-3); Urobilinogen Normal mg/dL (Less than 2); WBC/HPF 0-3 HPF (0-3)
[2023-09-05 15:41] LABS: Urine Culture Reflex No No
== END 2023-09-05 16:30 | disposition home or self-care (01) ==
LOC: ERS 11:56
DX: R07.89 Other chest pain (principal); R21 Rash and other nonspecific skin eruption; F17.290 Nicotine dependence, other tobacco product, uncomplicated; D64.9 Anemia, unspecified; Z79.899 Other long term (current) drug therapy
CPT/HCPCS: 36415; 71045; 80053; 81001; 83690; 83735; 83880; 84443; 84484; 85025; 85610; 85730; 93005; J7512

== ENCOUNTER 2023-09-13 00:10 | Emergency (ER) | payer OTHER | END 2023-09-14 02:30 | disposition home or self-care (01) | LOC: ERS 00:10 | DX: M94.0 Chondrocostal junction syndrome [Tietze] (principal) | CPT/HCPCS: 71045; 80053; 83690; 84484; 85025; 93005 ==

== ENCOUNTER 2023-09-18 16:38 | Emergency (ER) | payer OTHER ==
[2023-09-18] MEDS ORDERED: Magnesium 2 GM/50 ML BAG (IN WATER) ONE (17:54)
[2023-09-18] MEDS ORDERED: Morphine 4 MG/ML VIAL ONE (17:54)
[2023-09-18] MEDS ORDERED: Thiamine HCl 200 MG/2 ML VIAL ONE (17:54)
[2023-09-18] MEDS ORDERED: Pantoprazole 40 MG VIAL ONE (17:55)
[2023-09-18 18:11] LABS: Bacteria/HPF None Seen HPF (None Seen); Bilirubin Negative (Negative); Blood, Urine Negative (Negative); CAUTI Indications for Culture Pelvic or flank pain; Clarity Clear (Clear); Glucose, Urine (Dipstick) Normal (Negative); Ketone, Urine Negative (Negative); Leukocyte 75 Leu/uL (Negative); Nitrite Negative (Negative); Protein, Urine (Dipstick) 20 mg/dL (Neg-Trace); RBC/HPF 0-3 HPF (0-3); Specific Gravity, Urine 1.023 (1.002-1.036); Squamous Epithelial 0-3 HPF (0-3); Urobilinogen 6 mg/dL (Less than 2); WBC/HPF 0-3 HPF (0-3); pH, Urine 5.5 (5.0-9.0)
[2023-09-18 18:12] LABS: Urine Culture Reflex No No
[2023-09-18 18:21] LABS: #Basophils 0.06 10x3/uL (0.0-0.2); %Eosinophils 6.4 % (0.0-10.0); %Monocytes 9.1 % (0.0-10.0); Hematocrit 27.2 % (36.0-47.0); Hemoglobin 8.1 g/dL (12.0-16.0); Mean Corpuscular HGB CONC 29.8 g/dL (32.0-36.0); Mean Corpuscular Hemoglobin 26.4 pg (27.0-31.0); Mean Corpuscular Volume 88.6 fL (78.0-98.0); Mean Platelet Volume 9.1 fL (7.4-10.4); Platelet Count 170 10x3/uL (130-400); RBC Distribution Width 23.6 % (11.5-14.5); Red Blood Cell (RBC) Count 3.07 mill/uL (4.20-5.40)
[2023-09-18 18:37] LABS: ALT (SGPT) 7 U/L (8-55); AST (SGOT) 65 U/L (5-34); Alkaline Phosphatase 216 U/L (40-110); Anion Gap 17 mmol/L (10-20); BUN (Urea Nitrogen) 4 mg/dL (7.0-18.7); Bilirubin, Total 1.8 mg/dL (0.2-1.2); Calc. Creatinine Clearance 0 mL/min (70-130); Calcium 8.5 mg/dL (7.8-10.44); Carbon Dioxide 17 mmol/L (22-29); Chloride 105 mmol/L (98-107); Estimated GFR 111; Globulin 4.5 g/dL (2.4-3.5); Glucose 81 mg/dL (70-105); Lipase 20 U/L (8-78); Potassium 3.3 mmol/L (3.5-5.1); Protein, Total 7.5 g/dL (6.0-8.3); Sodium 136 mmol/L (136-145)
[2023-09-18 18:41] LABS: Troponin I Less than 0.010 ng/mL (< 0.028)
[2023-09-18] MEDS ORDERED: Potassium Chloride 20 MEQ TAB ONE (19:13)
== END 2023-09-18 19:25 | disposition home or self-care (01) ==
LOC: ERS 16:38
DX: K29.00 Acute gastritis without bleeding (principal); R07.89 Other chest pain
CPT/HCPCS: 71045; 80053; 81001; 83690; 84484; 85025; 93005; 96374; 96375; C9113; J2270; J3411; J3475

== ENCOUNTER 2023-09-28 08:18 | Inpatient (IN) | payer OTHER ==
[2023-09-28] MEDS ORDERED: Ondansetron PF 4 MG/2 ML Vial ONE (08:51)
[2023-09-28] MEDS ORDERED: Acetaminophen 500 MG TAB ONE (08:54)
[2023-09-28 09:14] LABS: #Basophils 0.04 10x3/uL (0.0-0.2); %Basophils 0.6 % (0.0-1.0); %Eosinophils 4.2 % (0.0-10.0); %Lymphocytes 15.4 % (21.0-51.0); %Monocytes 8.7 % (0.0-10.0); %Neutrophils 70.6 % (42.0-75.0); Hematocrit 29.2 % (36.0-47.0); Hemoglobin 8.6 g/dL (12.0-16.0); Mean Corpuscular HGB CONC 29.5 g/dL (32.0-36.0); Mean Corpuscular Hemoglobin 25.1 pg (27.0-31.0); Mean Corpuscular Volume 85.4 fL (78.0-98.0); Mean Platelet Volume 9.5 fL (7.4-10.4); Platelet Count 129 10x3/uL (130-400); RBC Distribution Width 20.7 % (11.5-14.5); Red Blood Cell (RBC) Count 3.42 mill/uL (4.20-5.40)
[2023-09-28 09:29] LABS: ALT (SGPT) 6 U/L (8-55); AST (SGOT) 34 U/L (5-34); Albumin 2.9 g/dL (3.5-5.0); Alkaline Phosphatase 211 U/L (40-110); Anion Gap 19 mmol/L (10-20); BUN (Urea Nitrogen) Less than 4 mg/dL (7.0-18.7); Bilirubin, Total 2.9 mg/dL (0.2-1.2); Calc. Creatinine Clearance 0 mL/min (70-130); Calcium 8.6 mg/dL (7.8-10.44); Carbon Dioxide 22 mmol/L (22-29); Chloride 98 mmol/L (98-107); Estimated GFR 111; Globulin 4.6 g/dL (2.4-3.5); Glucose 96 mg/dL (70-105); Lipase 22 U/L (8-78); Magnesium 1.5 mg/dL (1.6-2.6); Potassium 2.9 mmol/L (3.5-5.1); Protein, Total 7.5 g/dL (6.0-8.3); Sodium 136 mmol/L (136-145)
[2023-09-28 09:31] LABS: INR-International Normal Ratio 1.8; PTT 52.6 sec (22.9-36.1); Prothrombin Time 20.6 sec (12.0-14.7)
[2023-09-28 09:33] LABS: Troponin I Less than 0.010 ng/mL (< 0.028)
[2023-09-28] MEDS ORDERED: Piperacillin/Tazobactam 4.5 GM VIAL ONE (09:46)
[2023-09-28] MEDS ORDERED: Sodium Chloride 0.9% 100 ML ONE ×2 (09:46→14:23)
[2023-09-28 09:49] LABS: Influenza A by NAA Not Detected (NotDetected); Influenza B by NAA Not Detected (NotDetected); SARS-CoV-2 NAA Rapid Test Not Detected (NotDetected)
[2023-09-28] MEDS ORDERED: NS 0.9% w/ 20 MEQ KCL 1,000 ML ONE (10:24)
[2023-09-28] MEDS ORDERED: Magnesium 2 GM/50 ML BAG (IN WATER) ONE (10:24)
[2023-09-28] MEDS ORDERED: Potassium Chloride 20 MEQ TAB ONE ×2 (10:24→10:25)
[2023-09-28] MEDS ORDERED: Potassium Chloride 20 MEQ (100 mL) BAG ONE (10:25)
[2023-09-28 13:00] LABS: Lactic Acid 3.5 mmol/L (0.5-2.2)
[2023-09-28 13:16] LABS: Bacteria/HPF None Seen HPF (None Seen); Bilirubin Negative (Negative); Blood, Urine Negative (Negative); CAUTI Indications for Culture Pelvic or flank pain; Clarity Clear (Clear); Glucose, Urine (Dipstick) Normal (Negative); Ketone, Urine 10 mg/dL (Negative); Leukocyte 250 Leu/uL (Negative); Nitrite Negative (Negative); Protein, Urine (Dipstick) Negative (Neg-Trace); RBC/HPF 0-3 HPF (0-3); Specific Gravity, Urine 1.023 (1.002-1.036); Squamous Epithelial 0-3 HPF (0-3); pH, Urine 5.5 (5.0-9.0)
[2023-09-28 13:20] LABS: Urine Culture Reflex Yes Yes
[2023-09-28 13:55] LABS: Troponin I Less than 0.010 ng/mL (< 0.028)
[2023-09-28] MEDS ORDERED: cefTRIAXone (ROCEPHIN) 2 GM VIAL ONE (14:23)
[2023-09-28] MEDS ORDERED: Lorazepam 1 MG TAB PO PRN (14:51)
[2023-09-28] MEDS ORDERED: Albuterol 2.5 MG (3 mL) NEB NEB PRN (15:06)
[2023-09-28 15:45] VITALS: BMI 23.1
[2023-09-28] MEDS: Multivit, Therapeutic 1 TAB PO SCH (16:08)
[2023-09-28] MEDS: Folic Acid 1 MG TAB PO SCH (16:08)
[2023-09-28] MEDS: Piperacillin/Tazobactam 3.375 GM in Sodium Chloride 0.9% 100 ML IVPB SCH (16:08)
[2023-09-28] MEDS: Thiamine 100 MG TAB PO SCH (16:09)
[2023-09-28] MEDS: NS 0.9% w/ 20 MEQ KCL 1,000 ML/1,000 ML BAG IV SCH (16:09)
[2023-09-28 18:32] LABS: Hemoglobin 8.5 g/dL (12.0-16.0)
[2023-09-28 18:47] LABS: Anion Gap 14 mmol/L (10-20); BUN (Urea Nitrogen) Less than 4 mg/dL (7.0-18.7); Calc. Creatinine Clearance 119 mL/min (70-130); Calcium 8.1 mg/dL (7.8-10.44); Carbon Dioxide 20 mmol/L (22-29); Chloride 107 mmol/L (98-107); Estimated GFR 112; Glucose 92 mg/dL (70-105); Magnesium 1.9 mg/dL (1.6-2.6); Potassium 3.9 mmol/L (3.5-5.1); Sodium 137 mmol/L (136-145)
[2023-09-28 18:53] LABS: Troponin I Less than 0.010 ng/mL (< 0.028)
[2023-09-28] MEDS: Pantoprazole 40 MG VIAL IVP SCH (20:22)
[2023-09-28] MEDS: hydrOXYzine 25 MG TAB PO PRN (20:23)
[2023-09-28] MEDS ORDERED: Piperacillin/Tazobactam 4.5 GM in Sodium Chloride 0.9% 100 ML IVPB SCH (22:00)
[2023-09-29 05:39] LABS: ALT (SGPT) 5 U/L (8-55); AST (SGOT) 25 U/L (5-34); Albumin 2.3 g/dL (3.5-5.0); Alkaline Phosphatase 163 U/L (40-110); Anion Gap 10 mmol/L (10-20); BUN (Urea Nitrogen) Less than 4 mg/dL (7.0-18.7); Calc. Creatinine Clearance 123 mL/min (70-130); Calcium 7.7 mg/dL (7.8-10.44); Carbon Dioxide 19 mmol/L (22-29); Chloride 112 mmol/L (98-107); Estimated GFR 113; Globulin 3.7 g/dL (2.4-3.5); Glucose 76 mg/dL (70-105); Magnesium 1.7 mg/dL (1.6-2.6); Potassium 3.6 mmol/L (3.5-5.1); Sodium 137 mmol/L (136-145)
[2023-09-29 06:16] LABS: Hematocrit 24.7 % (36.0-47.0); Hemoglobin 7.2 g/dL (12.0-16.0); Mean Corpuscular HGB CONC 29.1 g/dL (32.0-36.0); Mean Corpuscular Hemoglobin 26.2 pg (27.0-31.0); Mean Corpuscular Volume 89.8 fL (78.0-98.0); Mean Platelet Volume 9.1 fL (7.4-10.4); Platelet Count 131 10x3/uL (130-400); RBC Distribution Width 20.9 % (11.5-14.5); Red Blood Cell (RBC) Count 2.75 mill/uL (4.20-5.40)
[2023-09-29 07:14] LABS: Anisocytosis SLIGHT = 6-15 cells HPF (0-5); Eosinophils 3 % (0-10); Lymphocytes 15 % (21-51); Macrocytosis SLIGHT = 6-15 cells HPF (0-5); Monocytes 6 % (0-10); Neutrophil 76 % (42-75); Nucleated RBC (Manual Ct) 1 % (0); Platelet Adequacy Comment Platelets Decreased; Polychromasia SLIGHT = 2-3 cells HPF (0-2)
[2023-09-29] MEDS: Thiamine 100 MG TAB PO SCH (08:19)
[2023-09-29] MEDS: Gabapentin 300 MG CAP PO SCH (08:19)
[2023-09-29] MEDS: Sertraline 100 MG TAB PO SCH (08:19)
[2023-09-29] MEDS: Multivit, Therapeutic 1 TAB PO SCH (08:19)
[2023-09-29] MEDS: Folic Acid 1 MG TAB PO SCH (08:19)
[2023-09-29] MEDS: cefTRIAXone\\ROCEPHIN 1 GM in Sodium Chloride 0.9% 100 ML IVPB SCH (14:46)
[2023-09-29] MEDS ORDERED: Lorazepam 1 MG TAB PO PRN (14:51)
[2023-09-30 05:52] LABS: #Basophils 0.04 10x3/uL (0.0-0.2); %Basophils 0.8 % (0.0-1.0); %Eosinophils 6.1 % (0.0-10.0); %Lymphocytes 22.3 % (21.0-51.0); %Monocytes 9.7 % (0.0-10.0); %Neutrophils 60.7 % (42.0-75.0); Hematocrit 25.1 % (36.0-47.0); Hemoglobin 7.2 g/dL (12.0-16.0); Mean Corpuscular HGB CONC 28.7 g/dL (32.0-36.0); Mean Corpuscular Hemoglobin 25.9 pg (27.0-31.0); Mean Corpuscular Volume 90.3 fL (78.0-98.0); Mean Platelet Volume 8.8 fL (7.4-10.4); Platelet Count 126 10x3/uL (130-400); RBC Distribution Width 20.8 % (11.5-14.5); Red Blood Cell (RBC) Count 2.78 mill/uL (4.20-5.40)
[2023-09-30 06:10] LABS: ALT (SGPT) Less than 5 U/L (8-55); AST (SGOT) 25 U/L (5-34); Albumin 2.4 g/dL (3.5-5.0); Alkaline Phosphatase 168 U/L (40-110); Anion Gap 9 mmol/L (10-20); BUN (Urea Nitrogen) Less than 4 mg/dL (7.0-18.7); Bilirubin, Total 1.8 mg/dL (0.2-1.2); Calc. Creatinine Clearance 112 mL/min (70-130); Calcium 7.7 mg/dL (7.8-10.44); Carbon Dioxide 18 mmol/L (22-29); Chloride 112 mmol/L (98-107); Estimated GFR 111; Globulin 3.8 g/dL (2.4-3.5); Glucose 79 mg/dL (70-105); Iron 7 ug/dL (50-170); Iron Binding Capacity, Total 261 mcg/dL (265-497); Potassium 3.8 mmol/L (3.5-5.1); Protein, Total 6.2 g/dL (6.0-8.3); Sodium 135 mmol/L (136-145)
[2023-09-30 06:35] LABS: Ferritin 15.87 ng/mL (10-291)
[2023-09-30 06:40] LABS: Anisocytosis SLIGHT = 6-15 cells HPF (0-5); Hypochromia SLIGHT = 6-15 cells HPF (0-5); Platelet Adequacy Comment Platelets Decreased; Polychromasia SLIGHT = 2-3 cells HPF (0-2)
[2023-09-30] MEDS: Pantoprazole DR 40 MG TAB PO SCH (08:26)
[2023-09-30] MEDS ORDERED: Lorazepam 1 MG TAB PO PRN (14:51)
[2023-09-30] MEDS: Sodium Ferric Gluconate 250 MG in Sodium Chloride 0.9% 250 ML 250 ML IVPB SCH (14:52)
[2023-09-30 17:34] LABS: Hematocrit 24.2 % (36.0-47.0); Platelet Count 150 10x3/uL (130-400)
[2023-09-30] MEDS: Lactated Ringer's 1,000 ML IV SCH (17:34)
[2023-09-30] MEDS ORDERED: Sodium Ferric Gluconate 250 MG in Sodium Chloride 0.9% 250 ML 250 ML IVPB SCH (18:00)
[2023-10-01 06:42] LABS: #Basophils 0.03 10x3/uL (0.0-0.2); %Basophils 0.6 % (0.0-1.0); %Lymphocytes 22.5 % (21.0-51.0); %Monocytes 13.3 % (0.0-10.0); %Neutrophils 56.7 % (42.0-75.0); Hematocrit 24.9 % (36.0-47.0); Hemoglobin 7.2 g/dL (12.0-16.0); Mean Corpuscular HGB CONC 28.9 g/dL (32.0-36.0); Mean Corpuscular Hemoglobin 25.5 pg (27.0-31.0); Mean Corpuscular Volume 88.3 fL (78.0-98.0); Mean Platelet Volume 8.6 fL (7.4-10.4); Platelet Count 152 10x3/uL (130-400); Red Blood Cell (RBC) Count 2.82 mill/uL (4.20-5.40)
[2023-10-01 07:19] LABS: ALT (SGPT) 5 U/L (8-55); AST (SGOT) 29 U/L (5-34); Albumin 2.3 g/dL (3.5-5.0); Alkaline Phosphatase 156 U/L (40-110); Anion Gap 11 mmol/L (10-20); BUN (Urea Nitrogen) Less than 4 mg/dL (7.0-18.7); Bilirubin, Total 1.3 mg/dL (0.2-1.2); Calc. Creatinine Clearance 121 mL/min (70-130); Calcium 8.2 mg/dL (7.8-10.44); Carbon Dioxide 20 mmol/L (22-29); Chloride 109 mmol/L (98-107); Estimated GFR 113; Globulin 3.6 g/dL (2.4-3.5); Glucose 87 mg/dL (70-105); Magnesium 1.5 mg/dL (1.6-2.6); Potassium 3.5 mmol/L (3.5-5.1); Protein, Total 5.9 g/dL (6.0-8.3); Sodium 136 mmol/L (136-145)
[2023-10-01 07:52] LABS: Phosphorus 1.4 mg/dL (2.3-4.7)
[2023-10-01] MEDS ORDERED: Lorazepam 0.5 MG TAB PO PRN (14:51)
[2023-10-01] MEDS: Potassium Phosphate 22 MMOL in Sodium Chloride 0.9% 250 ML 250 ML IVPB SCH ×2 (15:44→15:45)
[2023-10-01] MEDS: Magnesium 2 GM/50 ML(in water) 2 GM in Premix 1 BAG IVPB SCH ×2 (15:44→15:45)
[2023-10-01] MEDS: Dextrose 5%-Lactated Ringers 1,000 ML IV SCH (15:44)
[2023-10-01] MEDS: Metoclopramide HCl 10 MG TAB PO SCH ×2 (15:46→17:13)
[2023-10-02] MEDS ORDERED: Electrolyte Replacement Protocol 1 EACH FS SCH (04:45)
[2023-10-02] MEDS: Acetaminophen 500 MG TAB PO PRN (04:51)
[2023-10-02 04:59] LABS: #Basophils 0.04 10x3/uL (0.0-0.2); %Basophils 0.8 % (0.0-1.0); %Eosinophils 4.3 % (0.0-10.0); %Lymphocytes 22.5 % (21.0-51.0); %Monocytes 12.5 % (0.0-10.0); %Neutrophils 58.5 % (42.0-75.0); Hemoglobin 7.2 g/dL (12.0-16.0); Mean Corpuscular HGB CONC 28.8 g/dL (32.0-36.0); Mean Corpuscular Hemoglobin 25.2 pg (27.0-31.0); Mean Corpuscular Volume 87.4 fL (78.0-98.0); Mean Platelet Volume 9.2 fL (7.4-10.4); Platelet Count 150 10x3/uL (130-400); RBC Distribution Width 21.1 % (11.5-14.5); Red Blood Cell (RBC) Count 2.86 mill/uL (4.20-5.40)
[2023-10-02 05:22] LABS: Anion Gap 8 mmol/L (10-20); BUN (Urea Nitrogen) Less than 4 mg/dL (7.0-18.7); Calc. Creatinine Clearance 107 mL/min (70-130); Calcium 8.1 mg/dL (7.8-10.44); Carbon Dioxide 22 mmol/L (22-29); Chloride 107 mmol/L (98-107); Estimated GFR 109; Glucose 123 mg/dL (70-105); Magnesium 1.6 mg/dL (1.6-2.6); Phosphorus 2.1 mg/dL (2.3-4.7); Potassium 3.3 mmol/L (3.5-5.1); Sodium 134 mmol/L (136-145)
[2023-10-02] MEDS ORDERED: Electrolyte Replacement Protocol FS PRN (06:30)
[2023-10-02] MEDS ORDERED: Potassium Chloride 20 MEQ TAB PO SCH (08:00)
[2023-10-02] MEDS: Magnesium 2 GM/50 ML(in water) 2 GM in Premix 1 BAG IVPB SCH (10:00)
[2023-10-02] MEDS: Potassium Phosphate 22 MMOL in Sodium Chloride 0.9% 250 ML 250 ML IVPB SCH (10:51)
[2023-10-02 16:40] LABS: Potassium 3.8 mmol/L (3.5-5.1)
[2023-10-03 04:50] LABS: #Basophils 0.04 10x3/uL (0.0-0.2); %Basophils 0.8 % (0.0-1.0); %Eosinophils 4.4 % (0.0-10.0); %Lymphocytes 22.1 % (21.0-51.0); %Monocytes 12.3 % (0.0-10.0); %Neutrophils 58.7 % (42.0-75.0); Hemoglobin 7.3 g/dL (12.0-16.0); Mean Corpuscular HGB CONC 29.2 g/dL (32.0-36.0); Mean Corpuscular Hemoglobin 26.2 pg (27.0-31.0); Mean Corpuscular Volume 89.6 fL (78.0-98.0); Mean Platelet Volume 9.1 fL (7.4-10.4); Platelet Count 144 10x3/uL (130-400); RBC Distribution Width 21.3 % (11.5-14.5); Red Blood Cell (RBC) Count 2.79 mill/uL (4.20-5.40)
[2023-10-03 05:15] LABS: Magnesium 1.6 mg/dL (1.6-2.6)
[2023-10-03] MEDS: Magnesium 2 GM/50 ML(in water) 2 GM in Premix 1 BAG IVPB SCH (09:38)
[2023-10-03] MEDS: Senokot S 8.6-50 MG TAB PO SCH (19:47)
[2023-10-04] MEDS: Acetaminophen 325 MG TAB PO PRN (04:19)
[2023-10-04 06:51] LABS: #Basophils 0.05 10x3/uL (0.0-0.2); %Lymphocytes 21.3 % (21.0-51.0); %Neutrophils 57.6 % (42.0-75.0); Hematocrit 24.1 % (36.0-47.0); Mean Corpuscular Hemoglobin 26.4 pg (27.0-31.0); Mean Corpuscular Volume 90.9 fL (78.0-98.0); Platelet Count 145 10x3/uL (130-400); Red Blood Cell (RBC) Count 2.65 mill/uL (4.20-5.40)
[2023-10-04 07:26] LABS: Anion Gap 9 mmol/L (10-20); BUN (Urea Nitrogen) Less than 4 mg/dL (7.0-18.7); Calc. Creatinine Clearance 114 mL/min (70-130); Calcium 8.2 mg/dL (7.8-10.44); Carbon Dioxide 24 mmol/L (22-29); Chloride 110 mmol/L (98-107); Estimated GFR 111; Glucose 90 mg/dL (70-105); Magnesium 1.5 mg/dL (1.6-2.6); Potassium 3.5 mmol/L (3.5-5.1); Sodium 139 mmol/L (136-145)
[2023-10-04 08:08] VITALS: BP 118/71; TEMP 98.2
[2023-10-04] MEDS: Potassium Chloride 20 MEQ TAB PO SCH (08:29)
[2023-10-04] MEDS: PHOS-NAK 1 PKT PACK PO SCH (08:29)
[2023-10-04] MEDS: Magnesium 2 GM/50 ML(in water) 2 GM in Premix 1 BAG IVPB SCH (08:29)
[2023-10-04] MEDS ORDERED: Magnesium Sulfate In Water 4 GM in Premix 1 BAG IVPB SCH (08:30)
== END 2023-10-04 15:45 | disposition home or self-care (01) | DRG 392 ==
LOC: ERS 08:18 → 2SW 15:02 → OBSVTOIN 09-29 15:35 → T4-A 10-03 14:46
PROVIDERS: ADMIT Internal Medicine; ATTEND Internal Medicine
DX: R11.2 Nausea with vomiting, unspecified (principal); K62.5 Hemorrhage of anus and rectum; N39.0 Urinary tract infection, site not specified; F10.239 Alcohol dependence with withdrawal, unspecified; K76.6 Portal hypertension; E87.1 Hypo-osmolality and hyponatremia; E87.20 Acidosis, unspecified; E86.9 Volume depletion, unspecified; K70.30 Alcoholic cirrhosis of liver without ascites; I10 Essential (primary) hypertension; F32.A Depression, unspecified; Z96.641 Presence of right artificial hip joint; K70.0 Alcoholic fatty liver; D50.9 Iron deficiency anemia, unspecified; F10.229 Alcohol dependence with intoxication, unspecified; E83.39 Other disorders of phosphorus metabolism; E87.6 Hypokalemia; F41.9 Anxiety disorder, unspecified; L40.9 Psoriasis, unspecified; Z79.899 Other long term (current) drug therapy; Z87.891 Personal history of nicotine dependence
CPT/HCPCS: 36415; 71045; 76705; 80048; 80053; 80307; 81001; 82607; 82728; 83540; 83550; 83605; 83690; 83735; 83880; 84100; 84484; 85025; 85610; 85730; 86850; 86870; 86880; 86900; 86901; 87040; 87081; 87086; 87430; 87880; 93005; 94760; 96365; 96366; 96368; 96375; 96376; C9113; G0378; J0696; J2405; J2543; J2916; J3475; J3480; J3490; J7050; J7120

== ENCOUNTER 2023-10-05 15:52 | Emergency (ER) | payer OTHER ==
[2023-10-05 16:27] LABS: #Basophils 0.03 10x3/uL (0.0-0.2); %Basophils 0.4 % (0.0-1.0); %Eosinophils 3.2 % (0.0-10.0); %Lymphocytes 16.9 % (21.0-51.0); %Monocytes 14.1 % (0.0-10.0); %Neutrophils 64.4 % (42.0-75.0); Hematocrit 27.5 % (36.0-47.0); Hemoglobin 8.3 g/dL (12.0-16.0); Mean Corpuscular HGB CONC 30.2 g/dL (32.0-36.0); Mean Corpuscular Volume 86.2 fL (78.0-98.0); Mean Platelet Volume 9.2 fL (7.4-10.4); Platelet Count 169 10x3/uL (130-400); RBC Distribution Width 22.5 % (11.5-14.5); Red Blood Cell (RBC) Count 3.19 mill/uL (4.20-5.40)
[2023-10-05 16:36] LABS: ALT (SGPT) 6 U/L (8-55); AST (SGOT) 47 U/L (5-34); Albumin 2.5 g/dL (3.5-5.0); Alkaline Phosphatase 165 U/L (40-110); Anion Gap 10 mmol/L (10-20); BUN (Urea Nitrogen) Less than 4 mg/dL (7.0-18.7); Bilirubin, Total 1.6 mg/dL (0.2-1.2); Calc. Creatinine Clearance 0 mL/min (70-130); Calcium 8.6 mg/dL (7.8-10.44); Carbon Dioxide 23 mmol/L (22-29); Chloride 108 mmol/L (98-107); Estimated GFR 97; Globulin 4.3 g/dL (2.4-3.5); Glucose 114 mg/dL (70-105); Lipase 44 U/L (8-78); Magnesium 1.3 mg/dL (1.6-2.6); Potassium 4.1 mmol/L (3.5-5.1); Protein, Total 6.8 g/dL (6.0-8.3); Sodium 137 mmol/L (136-145)
[2023-10-05 16:40] LABS: Troponin I Less than 0.010 ng/mL (< 0.028)
[2023-10-05] MEDS ORDERED: Acetaminophen 500 MG TAB ONE (18:03)
[2023-10-05] MEDS ORDERED: Magnesium 2 GM/50 ML BAG (IN WATER) ONE (18:03)
== END 2023-10-05 19:45 | disposition home or self-care (01) ==
LOC: EEVIPCON 15:52 → ERS 15:52
DX: R07.89 Other chest pain (principal); E83.42 Hypomagnesemia
CPT/HCPCS: 71045; 80053; 83690; 83735; 83880; 84484; 85025; 93005; 96374; J3475

== ENCOUNTER 2023-10-10 14:25 | Emergency (ER) | payer OTHER ==
[2023-10-10 18:19] LABS: #Basophils 0.07 10x3/uL (0.0-0.2); %Basophils 1.2 % (0.0-1.0); %Eosinophils 4.5 % (0.0-10.0); %Lymphocytes 19.9 % (21.0-51.0); %Monocytes 7.8 % (0.0-10.0); %Neutrophils 65.6 % (42.0-75.0); Hematocrit 34.5 % (36.0-47.0); Mean Corpuscular Hemoglobin 26.6 pg (27.0-31.0); Mean Corpuscular Volume 91.8 fL (78.0-98.0); Mean Platelet Volume 9.6 fL (7.4-10.4); Platelet Count 149 10x3/uL (130-400); RBC Distribution Width 22.5 % (11.5-14.5); Red Blood Cell (RBC) Count 3.76 mill/uL (4.20-5.40)
[2023-10-10 18:30] LABS: BHCG - Serum Negative (NEGATIVE); Pregs Control Background? CLEAR/WHITE (CLR/WHITE); Pregs Control Bar Appear? YES (CONTROL BAR)
[2023-10-10 18:39] LABS: ALT (SGPT) 7 U/L (8-55); AST (SGOT) 52 U/L (5-34); Albumin 2.8 g/dL (3.5-5.0); Alkaline Phosphatase 201 U/L (40-110); Anion Gap 14 mmol/L (10-20); BUN (Urea Nitrogen) 4 mg/dL (7.0-18.7); Bilirubin, Total 1.9 mg/dL (0.2-1.2); Calc. Creatinine Clearance 0 mL/min (70-130); Calcium 8.9 mg/dL (7.8-10.44); Carbon Dioxide 20 mmol/L (22-29); Chloride 109 mmol/L (98-107); Estimated GFR 111; Glucose 95 mg/dL (70-105); Lipase 34 U/L (8-78); Potassium 3.8 mmol/L (3.5-5.1); Protein, Total 7.8 g/dL (6.0-8.3); Sodium 139 mmol/L (136-145)
[2023-10-10 18:40] LABS: Magnesium 1.7 mg/dL (1.6-2.6)
[2023-10-10 18:43] LABS: Troponin I Less than 0.010 ng/mL (< 0.028)
[2023-10-10 19:32] LABS: Bacteria/HPF None Seen HPF (None Seen); Bilirubin Negative (Negative); Blood, Urine Negative (Negative); CAUTI Indications for Culture Dysuria,urgency,freq; Clarity Clear (Clear); Glucose, Urine (Dipstick) Normal (Negative); Ketone, Urine Negative (Negative); Leukocyte 25 Leu/uL (Negative); Nitrite Negative (Negative); Protein, Urine (Dipstick) Negative (Neg-Trace); RBC/HPF 0-3 HPF (0-3); Specific Gravity, Urine 1.005 (1.002-1.036); Squamous Epithelial 0-3 HPF (0-3); Urobilinogen Normal mg/dL (Less than 2); pH, Urine 7.5 (5.0-9.0)
[2023-10-10 19:34] LABS: Urine Culture Reflex No No
== END 2023-10-10 19:50 | disposition home or self-care (01) ==
LOC: ERS 14:25
DX: I89.0 Lymphedema, not elsewhere classified (principal); R07.9 Chest pain, unspecified; K74.60 Unspecified cirrhosis of liver; R10.13 Epigastric pain; D64.9 Anemia, unspecified
CPT/HCPCS: 36415; 71045; 74177; 80053; 81001; 83690; 83735; 83880; 84484; 84703; 85025; 93005; Q9967

== ENCOUNTER 2023-12-06 12:17 | Emergency (ER) | payer SELFPAY ==
[2023-12-06 13:22] LABS: #Basophils 0.04 10x3/uL (0.0-0.2); %Eosinophils 3.4 % (0.0-10.0); %Lymphocytes 22.5 % (21.0-51.0); %Monocytes 9.2 % (0.0-10.0); %Neutrophils 62.9 % (42.0-75.0); Hematocrit 29.5 % (36.0-47.0); Hemoglobin 8.9 g/dL (12.0-16.0); Mean Corpuscular HGB CONC 30.2 g/dL (32.0-36.0); Mean Corpuscular Hemoglobin 26.9 pg (27.0-31.0); Mean Corpuscular Volume 89.1 fL (78.0-98.0); Mean Platelet Volume 9.3 fL (7.4-10.4); Platelet Count 139 10x3/uL (130-400); RBC Distribution Width 18.6 % (11.5-14.5); Red Blood Cell (RBC) Count 3.31 mill/uL (4.20-5.40)
[2023-12-06 13:40] LABS: ALT (SGPT) Less than 5 U/L (8-55); AST (SGOT) 31 U/L (5-34); Albumin 2.4 g/dL (3.5-5.0); Alkaline Phosphatase 150 U/L (40-110); Anion Gap 11 mmol/L (10-20); BUN (Urea Nitrogen) 6 mg/dL (7.0-18.7); Bilirubin, Total 2.7 mg/dL (0.2-1.2); Calc. Creatinine Clearance 0 mL/min (70-130); Calcium 8.3 mg/dL (7.8-10.44); Carbon Dioxide 23 mmol/L (22-29); Chloride 108 mmol/L (98-107); Estimated GFR 109; Globulin 4.2 g/dL (2.4-3.5); Glucose 80 mg/dL (70-105); Potassium 3.2 mmol/L (3.5-5.1); Protein, Total 6.6 g/dL (6.0-8.3); Sodium 139 mmol/L (136-145)
[2023-12-06 13:44] LABS: Troponin I Less than 0.010 ng/mL (< 0.028)
== END 2023-12-06 14:49 | disposition home or self-care (01) ==
LOC: ERS 12:17
DX: J06.9 Acute upper respiratory infection, unspecified (principal); R07.9 Chest pain, unspecified
CPT/HCPCS: 36415; 71045; 80053; 84484; 85025; 93005

== ENCOUNTER 2023-12-08 11:49 | Inpatient (IN) | payer OTHER ==
[2023-12-08 12:37] LABS: #Basophils 0.06 10x3/uL (0.0-0.2); %Basophils 0.9 % (0.0-1.0); %Eosinophils 1.5 % (0.0-10.0); Hemoglobin 10.9 g/dL (12.0-16.0)
[2023-12-08 12:48] LABS: BHCG - Serum Negative (NEGATIVE); Pregs Control Background? CLEAR/WHITE (CLR/WHITE); Pregs Control Bar Appear? YES (CONTROL BAR)
[2023-12-08 12:53] LABS: %Lymphocytes 16.6 % (21.0-51.0); %Monocytes 8.8 % (0.0-10.0); %Neutrophils 71.7 % (42.0-75.0); Hematocrit 36.5 % (36.0-47.0); Mean Corpuscular HGB CONC 29.9 g/dL (32.0-36.0); Mean Corpuscular Hemoglobin 27.3 pg (27.0-31.0); Mean Corpuscular Volume 91.5 fL (78.0-98.0); Mean Platelet Volume 9.8 fL (7.4-10.4); Platelet Count 187 10x3/uL (130-400); RBC Distribution Width 19.1 % (11.5-14.5); Red Blood Cell (RBC) Count 3.99 mill/uL (4.20-5.40)
[2023-12-08 12:56] LABS: Troponin I Less than 0.010 ng/mL (< 0.028)
[2023-12-08 13:57] LABS: ALT (SGPT) Less than 5 U/L (8-55); AST (SGOT) 33 U/L (5-34); Albumin 2.7 g/dL (3.5-5.0); Alkaline Phosphatase 164 U/L (40-110); Anion Gap 18 mmol/L (10-20); BUN (Urea Nitrogen) 5 mg/dL (7.0-18.7); Bilirubin, Total 2.7 mg/dL (0.2-1.2); Calc. Creatinine Clearance 0 mL/min (70-130); Calcium 8.6 mg/dL (7.8-10.44); Carbon Dioxide 20 mmol/L (22-29); Chloride 105 mmol/L (98-107); Estimated GFR 102; Glucose 92 mg/dL (70-105); Potassium 3.6 mmol/L (3.5-5.1); Protein, Total 7.7 g/dL (6.0-8.3); Sodium 139 mmol/L (136-145)
[2023-12-08] MEDS ORDERED: Pantoprazole 40 MG VIAL ONE (14:23)
[2023-12-08] MEDS ORDERED: cefTRIAXone (ROCEPHIN) 1 GM VIAL ONE (14:23)
[2023-12-08] MEDS ORDERED: Sodium Chloride 0.9% 100 ML ONE (14:23)
[2023-12-08] MEDS ORDERED: Ondansetron PF 4 MG/2 ML Vial ONE (14:23)
[2023-12-08] MEDS ORDERED: Morphine 2 MG/ML VIAL ONE (14:23)
[2023-12-08] MEDS ORDERED: Calcium Carbonate 500 MG ChewTAB PO PRN (14:42)
[2023-12-08] MEDS ORDERED: Lorazepam 1 MG TAB PO PRN (14:49)
[2023-12-08] MEDS ORDERED: Pantoprazole 80 MG, Admixture Fee 1 EACH in Sodium Chloride 0.9% 100 ML IVPB SCH (15:00)
[2023-12-08] MEDS ORDERED: Electrolyte Replacement Protocol 1 EACH FS SCH (15:00)
[2023-12-08] MEDS ORDERED: Electrolyte Replacement Protocol FS PRN (15:15)
[2023-12-08 16:21] LABS: INR-International Normal Ratio 1.8; Prothrombin Time 20.8 sec (12.0-14.7)
[2023-12-08 17:01] VITALS: BMI 25.8
[2023-12-08] MEDS: Gabapentin 300 MG CAP PO SCH (18:02)
[2023-12-08] MEDS: Thiamine HCl 200 MG/2 ML VIAL SLOW IVP SCH (18:02)
[2023-12-08] MEDS: Pantoprazole 40 MG VIAL IVP SCH (18:02)
[2023-12-08] MEDS: Sodium Chloride 0.9% 500 ML IV SCH (18:03)
[2023-12-08] MEDS: Sodium Chloride 0.9% 1,000 ML IV SCH (18:04)
[2023-12-08 18:31] LABS: Hematocrit 31.6 % (36.0-47.0)
[2023-12-08] MEDS: Ondansetron PF 4 MG/2 ML Vial IVP PRN (20:59)
[2023-12-08] MEDS: Morphine 2 MG/ML VIAL SLOW IVP PRN (20:59)
[2023-12-09 05:03] LABS: #Basophils 0.05 10x3/uL (0.0-0.2); %Eosinophils 8.1 % (0.0-10.0); %Lymphocytes 26.3 % (21.0-51.0); %Monocytes 12.2 % (0.0-10.0); Hematocrit 30.2 % (36.0-47.0); Hemoglobin 9.3 g/dL (12.0-16.0); Mean Corpuscular HGB CONC 30.8 g/dL (32.0-36.0); Mean Corpuscular Hemoglobin 27.3 pg (27.0-31.0); Mean Corpuscular Volume 88.6 fL (78.0-98.0); Platelet Count 155 10x3/uL (130-400); RBC Distribution Width 18.6 % (11.5-14.5); Red Blood Cell (RBC) Count 3.41 mill/uL (4.20-5.40)
[2023-12-09 05:29] LABS: Bilirubin, Direct 1.5 mg/dL (0.1-0.3); Magnesium 1.5 mg/dL (1.6-2.6); Phosphorus 2.2 mg/dL (2.3-4.7)
[2023-12-09 05:37] LABS: ALT (SGPT) Less than 5 U/L (8-55); AST (SGOT) 23 U/L (5-34); Albumin 2.5 g/dL (3.5-5.0); Alkaline Phosphatase 144 U/L (40-110); Anion Gap 10 mmol/L (10-20); BUN (Urea Nitrogen) Less than 4 mg/dL (7.0-18.7); Bilirubin, Total 2.4 mg/dL (0.2-1.2); Calc. Creatinine Clearance 113 mL/min (70-130); Calcium 8.3 mg/dL (7.8-10.44); Carbon Dioxide 25 mmol/L (22-29); Chloride 105 mmol/L (98-107); Estimated GFR 105; Globulin 4.4 g/dL (2.4-3.5); Glucose 91 mg/dL (70-105); Potassium 3.1 mmol/L (3.5-5.1); Protein, Total 6.9 g/dL (6.0-8.3); Sodium 137 mmol/L (136-145)
[2023-12-09 05:41] LABS: INR-International Normal Ratio 1.9; Prothrombin Time 21.4 sec (12.0-14.7)
[2023-12-09] MEDS: Folic Acid 1 MG TAB PO SCH (07:48)
[2023-12-09] MEDS: Multivit, Therapeutic 1 TAB PO SCH (07:49)
[2023-12-09] MEDS: Sertraline 25 MG TAB PO SCH (07:49)
[2023-12-09] MEDS: cefTRIAXone\\ROCEPHIN 1 GM in Sodium Chloride 0.9% 100 ML IVPB SCH (09:07)
[2023-12-09] MEDS: Magnesium 2 GM/50 ML(in water) 2 GM in Premix 1 BAG IVPB SCH (09:11)
[2023-12-09] MEDS: Potassium Chloride 20 MEQ TAB PO SCH (10:49)
[2023-12-09] MEDS ORDERED: Lidocaine 1% PF 5 ML VIAL ONE (12:00)
[2023-12-09] MEDS ORDERED: PROPOFOL 200 MG/20 ML VIAL ONE (12:00)
[2023-12-09] MEDS: Acetaminophen 325 MG TAB PO PRN (17:28)
[2023-12-09] MEDS: Lorazepam 1 MG TAB PO PRN (21:22)
[2023-12-10 06:18] LABS: #Basophils 0.03 10x3/uL (0.0-0.2); %Basophils 0.9 % (0.0-1.0); %Eosinophils 8.9 % (0.0-10.0); %Lymphocytes 32.3 % (21.0-51.0); %Monocytes 13.1 % (0.0-10.0); %Neutrophils 44.5 % (42.0-75.0); Hematocrit 30.3 % (36.0-47.0); Hemoglobin 9.3 g/dL (12.0-16.0); Mean Corpuscular HGB CONC 30.7 g/dL (32.0-36.0); Mean Corpuscular Hemoglobin 27.4 pg (27.0-31.0); Mean Corpuscular Volume 89.4 fL (78.0-98.0); Mean Platelet Volume 9.1 fL (7.4-10.4); Platelet Count 131 10x3/uL (130-400); RBC Distribution Width 18.8 % (11.5-14.5); Red Blood Cell (RBC) Count 3.39 mill/uL (4.20-5.40)
[2023-12-10] MEDS: Pantoprazole 40 MG VIAL IVP SCH (09:34)
[2023-12-10] MEDS ORDERED: Lorazepam 1 MG TAB PO PRN (14:49)
[2023-12-11 05:26] LABS: #Basophils 0.03 10x3/uL (0.0-0.2); %Eosinophils 8.4 % (0.0-10.0); %Lymphocytes 32.7 % (21.0-51.0); %Monocytes 12.3 % (0.0-10.0); %Neutrophils 45.3 % (42.0-75.0); Hematocrit 28.2 % (36.0-47.0); Hemoglobin 8.6 g/dL (12.0-16.0); Mean Corpuscular HGB CONC 30.5 g/dL (32.0-36.0); Mean Corpuscular Hemoglobin 27.4 pg (27.0-31.0); Mean Corpuscular Volume 89.8 fL (78.0-98.0); Mean Platelet Volume 9.1 fL (7.4-10.4); Platelet Count 125 10x3/uL (130-400); RBC Distribution Width 18.5 % (11.5-14.5); Red Blood Cell (RBC) Count 3.14 mill/uL (4.20-5.40)
[2023-12-11] MEDS: Sucralfate 1 GM/10 ML UDCUP PO SCH (09:13)
[2023-12-11] MEDS: Thiamine 100 MG TAB PO SCH (14:36)
[2023-12-11] MEDS: Sucralfate 1 GM TAB PO SCH (14:36)
[2023-12-11] MEDS ORDERED: Lorazepam 0.5 MG TAB PO PRN (14:49)
[2023-12-12] MEDS: Lidocaine 2% Viscous Solution 10 ML, Aluminum & Magnesium Hydroxide 30 ML SSW SCH ×2 (02:39→16:52)
[2023-12-12 05:55] LABS: #Basophils 0.03 10x3/uL (0.0-0.2); %Lymphocytes 35.3 % (21.0-51.0); %Monocytes 12.8 % (0.0-10.0); %Neutrophils 41.6 % (42.0-75.0); Hematocrit 27.5 % (36.0-47.0); Hemoglobin 8.5 g/dL (12.0-16.0); Mean Corpuscular HGB CONC 30.9 g/dL (32.0-36.0); Mean Corpuscular Hemoglobin 27.3 pg (27.0-31.0); Mean Corpuscular Volume 88.4 fL (78.0-98.0); Platelet Count 147 10x3/uL (130-400); RBC Distribution Width 18.6 % (11.5-14.5); Red Blood Cell (RBC) Count 3.11 mill/uL (4.20-5.40)
[2023-12-12 09:06] LABS: Phosphorus 2.8 mg/dL (2.3-4.7)
[2023-12-12 09:09] LABS: ALT (SGPT) Less than 5 U/L (8-55); AST (SGOT) 27 U/L (5-34); Albumin 2.5 g/dL (3.5-5.0); Alkaline Phosphatase 134 U/L (40-110); Anion Gap 12 mmol/L (10-20); BUN (Urea Nitrogen) Less than 4 mg/dL (7.0-18.7); Bilirubin, Total 2.1 mg/dL (0.2-1.2); Calc. Creatinine Clearance 118 mL/min (70-130); Calcium 8.4 mg/dL (7.8-10.44); Carbon Dioxide 23 mmol/L (22-29); Chloride 108 mmol/L (98-107); Estimated GFR 109; Globulin 4.4 g/dL (2.4-3.5); Glucose 80 mg/dL (70-105); Magnesium 1.6 mg/dL (1.6-2.6); Potassium 3.2 mmol/L (3.5-5.1); Protein, Total 6.9 g/dL (6.0-8.3); Sodium 140 mmol/L (136-145)
[2023-12-12] MEDS: Magnesium 2 GM/50 ML(in water) 2 GM in Premix 1 BAG IVPB SCH (10:44)
[2023-12-13 14:33] VITALS: BP 102/68; TEMP 97.6
== END 2023-12-13 14:23 | disposition home or self-care (01) | DRG 381 ==
LOC: SUATTDRO 11:49 → ERS 11:49 → SURG B 14:39 → OBSVTOIN 12-10 17:07
PROVIDERS: ADMIT Internal Medicine; ATTEND Internal Medicine
PROC: 0DJ08ZZ Inspection of Upper Intestinal Tract, Via Natural or Artificial Opening Endoscopic (ICD-10-PCS; principal; 2023-12-09)
DX: K22.11 Ulcer of esophagus with bleeding (principal); K76.6 Portal hypertension; K70.30 Alcoholic cirrhosis of liver without ascites; F39 Unspecified mood [affective] disorder; F10.10 Alcohol abuse, uncomplicated; R16.1 Splenomegaly, not elsewhere classified; F41.9 Anxiety disorder, unspecified; F32.A Depression, unspecified; L40.9 Psoriasis, unspecified; D63.8 Anemia in other chronic diseases classified elsewhere; K44.9 Diaphragmatic hernia without obstruction or gangrene; K31.89 Other diseases of stomach and duodenum; Z88.8 Allergy status to other drugs, medicaments and biological substances; Z71.41 Alcohol abuse counseling and surveillance of alcoholic
CPT/HCPCS: 36415; 36416; 71045; 80053; 80307; 82248; 83735; 84100; 84484; 84703; 85025; 85610; 86850; 86900; 86901; 93005; 96374; 96375; 96376; G0378; J0696; J2272; J2405; J2470; J2704; J3411; J3475; J7030

== ENCOUNTER 2024-01-02 13:31 | Inpatient (IN) | payer OTHER ==
[2024-01-02] MEDS ORDERED: Milk Of Magnesia 30 ML UDCUP ONE (14:18)
[2024-01-02 14:47] LABS: #Basophils 0.03 10x3/uL (0.0-0.2); #Eosinophils Less than 0.03 10x3/uL (0.0-0.7); %Basophils 0.6 % (0.0-1.0); %Eosinophils 0.2 % (0.0-10.0); %Lymphocytes 12.9 % (21.0-51.0); %Monocytes 9.6 % (0.0-10.0); %Neutrophils 76.1 % (42.0-75.0); Hematocrit 29.5 % (36.0-47.0); Hemoglobin 9.3 g/dL (12.0-16.0); Mean Corpuscular HGB CONC 31.5 g/dL (32.0-36.0); Mean Corpuscular Hemoglobin 27.4 pg (27.0-31.0); Mean Corpuscular Volume 86.8 fL (78.0-98.0); Mean Platelet Volume 9.7 fL (7.4-10.4); Platelet Count 124 10x3/uL (130-400); RBC Distribution Width 19.5 % (11.5-14.5)
[2024-01-02 14:51] LABS: BHCG - Serum Negative (NEGATIVE); Pregs Control Background? CLEAR/WHITE (CLR/WHITE); Pregs Control Bar Appear? YES (CONTROL BAR)
[2024-01-02 14:54] LABS: ALT (SGPT) Less than 5 U/L (8-55); AST (SGOT) 39 U/L (5-34); Albumin 2.3 g/dL (3.5-5.0); Alkaline Phosphatase 152 U/L (40-110); Anion Gap 16 mmol/L (10-20); BUN (Urea Nitrogen) Less than 4 mg/dL (7.0-18.7); Bilirubin, Total 4.3 mg/dL (0.2-1.2); Calc. Creatinine Clearance 0 mL/min (70-130); Calcium 7.7 mg/dL (7.8-10.44); Carbon Dioxide 21 mmol/L (22-29); Chloride 103 mmol/L (98-107); Estimated GFR 111; Globulin 4.8 g/dL (2.4-3.5); Glucose 68 mg/dL (70-105); Lipase 8 U/L (8-78); Potassium 3.2 mmol/L (3.5-5.1); Protein, Total 7.1 g/dL (6.0-8.3); Sodium 137 mmol/L (136-145)
[2024-01-02 15:00] LABS: Troponin I Less than 0.010 ng/mL (< 0.028)
[2024-01-02 15:08] LABS: Anisocytosis SLIGHT = 6-15 cells HPF (0-5); Burr Cells MODERATE= 6-15 cells HPF (0-1); Macrocytosis SLIGHT = 6-15 cells HPF (0-5); Platelet Adequacy Comment Platelets Decreased; Poikilocytosis SLIGHT = 6-15 cells HPF (0-5); Polychromasia SLIGHT = 2-3 cells HPF (0-2)
[2024-01-02] MEDS ORDERED: Ondansetron PF 4 MG/2 ML Vial ONE (16:57)
[2024-01-02] MEDS ORDERED: Morphine 2 MG/ML VIAL ONE (18:35)
[2024-01-02 19:29] LABS: Bacteria/HPF None Seen HPF (None Seen); Bilirubin 1+ (Negative); Blood, Urine 1+ (Negative); CAUTI Indications for Culture Pelvic or flank pain; Clarity Clear (Clear); Glucose, Urine (Dipstick) Normal (Negative); Ketone, Urine 10 mg/dL (Negative); Leukocyte Negative Leu/uL (Negative); Nitrite Negative (Negative); Protein, Urine (Dipstick) 10 mg/dL (Neg-Trace); Squamous Epithelial 0-3 HPF (0-3); WBC/HPF 0-3 HPF (0-3)
[2024-01-02 19:31] LABS: Specific Gravity, Urine Greater than 1.060 (1.002-1.036); Urine Culture Reflex No No
[2024-01-02 19:33] LABS: Amphetamine Not Detected (NotDetected); Barbiturates Screen Not Detected (NotDetected); Benzodiazepine Screen Not Detected (NotDetected); Cocaine Metabolite Screen Not Detected (NotDetected); Methadone Not Detected (NotDetected); Methamphetamine Not Detected (NotDetected); Opiate Screen Detected (NotDetected); Oxycodone Screen Not Detected (NotDetected); Phencyclidine (PCP) Not Detected (NotDetected); THC/Cannabinoid Screen Not Detected (NotDetected); Tricyclic Screen Not Detected (NotDetected)
[2024-01-02] MEDS ORDERED: Lorazepam 2 MG/ML VIAL ONE (19:48)
[2024-01-02 20:16] LABS: Phosphorus 2.3 mg/dL (2.3-4.7)
[2024-01-02 20:19] LABS: Acetaminophen Less than 10 mcg/mL (Less than 10); Alcohol Less than 10.0 mg/dL (Less than 10); Salicylate Less than 8.0 mg/dL (Less than 8.0)
[2024-01-02] MEDS ORDERED: Acetaminophen 500 MG TAB PO PRN (21:53)
[2024-01-02] MEDS ORDERED: Lorazepam 1 MG TAB PO PRN (22:04)
[2024-01-02] MEDS ORDERED: Lorazepam 2 MG/ML VIAL IM PRN (22:04)
[2024-01-02 22:14] LABS: Magnesium 1.7 mg/dL (1.6-2.6)
[2024-01-02] MEDS ORDERED: Electrolyte Replacement Protocol 1 EACH FS PRN (22:15)
[2024-01-02 22:48] VITALS: BMI 30.8
[2024-01-02 23:14] LABS: Troponin I Less than 0.010 ng/mL (< 0.028)
[2024-01-02] MEDS ORDERED: Magnesium Sulfate 2 GM in Sodium Chloride 0.9% 100 ML IVPB SCH (23:15)
[2024-01-02] MEDS: cefTRIAXone\\ROCEPHIN 2 GM in Sodium Chloride 0.9% 100 ML IVPB SCH (23:18)
[2024-01-02] MEDS: Potassium Chloride 20 MEQ TAB PO SCH (23:19)
[2024-01-02] MEDS: Pantoprazole DR 40 MG TAB PO SCH (23:19)
[2024-01-02] MEDS: Furosemide 20 MG (2 mL) VIAL SLOW IVP SCH (23:20)
[2024-01-02] MEDS: Morphine 2 MG/ML VIAL SLOW IVP SCH (23:21)
[2024-01-02] MEDS: Thiamine HCl 200 MG/2 ML VIAL SLOW IVP SCH (23:22)
[2024-01-02] MEDS: Magnesium 2 GM/50 ML(in water) 2 GM in Premix 1 BAG IVPB SCH (23:29)
[2024-01-03 03:04] LABS: Troponin I Less than 0.010 ng/mL (< 0.028)
[2024-01-03 06:31] LABS: INR-International Normal Ratio 2.5; Prothrombin Time 27.3 sec (12.0-14.7)
[2024-01-03 06:32] LABS: #Basophils 0.05 10x3/uL (0.0-0.2); %Basophils 1.1 % (0.0-1.0); %Eosinophils 2.2 % (0.0-10.0); %Monocytes 12.3 % (0.0-10.0); %Neutrophils 61.8 % (42.0-75.0); Hematocrit 27.6 % (36.0-47.0); Hemoglobin 8.7 g/dL (12.0-16.0); Mean Corpuscular HGB CONC 31.5 g/dL (32.0-36.0); Mean Corpuscular Hemoglobin 27.8 pg (27.0-31.0); Mean Corpuscular Volume 88.2 fL (78.0-98.0); Mean Platelet Volume 9.8 fL (7.4-10.4); PTT 58.3 sec (22.9-36.1); Platelet Count 132 10x3/uL (130-400); RBC Distribution Width 19.8 % (11.5-14.5); Red Blood Cell (RBC) Count 3.13 mill/uL (4.20-5.40)
[2024-01-03] MEDS: Furosemide 20 MG (2 mL) VIAL SLOW IVP SCH (06:32)
[2024-01-03 07:10] LABS: ALT (SGPT) Less than 5 U/L (8-55); AST (SGOT) 31 U/L (5-34); Albumin 2.1 g/dL (3.5-5.0); Alkaline Phosphatase 138 U/L (40-110); Anion Gap 11 mmol/L (10-20); BUN (Urea Nitrogen) Less than 4 mg/dL (7.0-18.7); Bilirubin, Total 3.5 mg/dL (0.2-1.2); Calc. Creatinine Clearance 141 mL/min (70-130); Calcium 7.2 mg/dL (7.8-10.44); Carbon Dioxide 24 mmol/L (22-29); Chloride 102 mmol/L (98-107); Estimated GFR 109; Globulin 4.3 g/dL (2.4-3.5); Glucose 99 mg/dL (70-105); Potassium 2.9 mmol/L (3.5-5.1); Protein, Total 6.4 g/dL (6.0-8.3); Sodium 134 mmol/L (136-145)
[2024-01-03] MEDS ORDERED: Potassium Chloride 20 MEQ TAB PO SCH (08:00)
[2024-01-03] MEDS: Magnesium 2 GM/50 ML(in water) 2 GM in Premix 1 BAG IVPB SCH (09:05)
[2024-01-03] MEDS: Folic Acid 1 MG TAB PO SCH (09:06)
[2024-01-03] MEDS: Sucralfate 1 GM TAB PO SCH (09:06)
[2024-01-03] MEDS: Multivit, Therapeutic 1 TAB PO SCH (09:06)
[2024-01-03] MEDS: Potassium Chloride 20 MEQ TAB PO SCH ×2 (09:06)
[2024-01-03] MEDS: Pantoprazole DR 40 MG TAB PO SCH (09:06)
[2024-01-03] MEDS: Magnesium Oxide 400 MG TAB PO SCH (09:06)
[2024-01-03] MEDS: FLU (Fluarix Triv) TS24-25(6MOS UP)/PF 45 MCG/0.5 ML Syringe IM ONE (09:07)
[2024-01-03] MEDS ORDERED: Sodium Bicarbonate 2.5 MEQ/5 ML SDV ONE (10:14)
[2024-01-03] MEDS ORDERED: Lidocaine 1% PF 5 ML VIAL ONE (10:14)
[2024-01-03] MEDS: Diclofenac 1% 50 GM TOPICAL GEL TP SCH (17:33)
[2024-01-03] MEDS: traMADol HCl 50 MG TAB PO PRN (21:50)
[2024-01-03] MEDS ORDERED: Lorazepam 1 MG TAB PO PRN (22:04)
[2024-01-04 04:56] LABS: #Basophils 0.04 10x3/uL (0.0-0.2); %Basophils 1.1 % (0.0-1.0); %Eosinophils 3.8 % (0.0-10.0); %Lymphocytes 31.2 % (21.0-51.0); %Monocytes 12.5 % (0.0-10.0); %Neutrophils 51.1 % (42.0-75.0); Hematocrit 26.7 % (36.0-47.0); Hemoglobin 8.4 g/dL (12.0-16.0); Mean Corpuscular HGB CONC 31.5 g/dL (32.0-36.0); Mean Corpuscular Hemoglobin 27.3 pg (27.0-31.0); Mean Corpuscular Volume 86.7 fL (78.0-98.0); Platelet Count 127 10x3/uL (130-400); RBC Distribution Width 20.1 % (11.5-14.5); Red Blood Cell (RBC) Count 3.08 mill/uL (4.20-5.40)
[2024-01-04 05:22] LABS: ALT (SGPT) Less than 5 U/L (8-55); AST (SGOT) 30 U/L (5-34); Albumin 2.1 g/dL (3.5-5.0); Alkaline Phosphatase 131 U/L (40-110); Anion Gap 10 mmol/L (10-20); BUN (Urea Nitrogen) Less than 4 mg/dL (7.0-18.7); Bilirubin, Total 2.9 mg/dL (0.2-1.2); Calc. Creatinine Clearance 112 mL/min (70-130); Calcium 7.3 mg/dL (7.8-10.44); Carbon Dioxide 24 mmol/L (22-29); Chloride 106 mmol/L (98-107); Estimated GFR 84; Globulin 4.3 g/dL (2.4-3.5); Glucose 122 mg/dL (70-105); Potassium 3.8 mmol/L (3.5-5.1); Protein, Total 6.4 g/dL (6.0-8.3); Sodium 136 mmol/L (136-145)
[2024-01-04] MEDS: Magnesium 2 GM/50 ML(in water) 2 GM in Premix 1 BAG IVPB SCH (09:44)
[2024-01-04] MEDS: Ondansetron PF 4 MG/2 ML Vial IVP PRN (13:37)
[2024-01-04] MEDS: Spironolactone 100 MG TAB PO SCH (15:18)
[2024-01-04] MEDS ORDERED: Lorazepam 1 MG TAB PO PRN (22:04)
[2024-01-05 04:34] LABS: #Basophils 0.04 10x3/uL (0.0-0.2); %Basophils 1.1 % (0.0-1.0); %Eosinophils 5.1 % (0.0-10.0); %Lymphocytes 37.2 % (21.0-51.0); %Monocytes 12.4 % (0.0-10.0); %Neutrophils 43.9 % (42.0-75.0); Hematocrit 27.9 % (36.0-47.0); Hemoglobin 8.6 g/dL (12.0-16.0); Mean Corpuscular HGB CONC 30.8 g/dL (32.0-36.0); Mean Corpuscular Hemoglobin 27.4 pg (27.0-31.0); Mean Corpuscular Volume 88.9 fL (78.0-98.0); Platelet Count 126 10x3/uL (130-400); RBC Distribution Width 20.2 % (11.5-14.5); Red Blood Cell (RBC) Count 3.14 mill/uL (4.20-5.40)
[2024-01-05 05:30] LABS: ALT (SGPT) Less than 5 U/L (8-55); AST (SGOT) 32 U/L (5-34); Albumin 2.3 g/dL (3.5-5.0); Alkaline Phosphatase 144 U/L (40-110); Anion Gap 11 mmol/L (10-20); BUN (Urea Nitrogen) Less than 4 mg/dL (7.0-18.7); Bilirubin, Total 2.6 mg/dL (0.2-1.2); Calc. Creatinine Clearance 113 mL/min (70-130); Carbon Dioxide 25 mmol/L (22-29); Chloride 104 mmol/L (98-107); Estimated GFR 86; Globulin 4.7 g/dL (2.4-3.5); Glucose 85 mg/dL (70-105); Magnesium 1.8 mg/dL (1.6-2.6); Potassium 3.7 mmol/L (3.5-5.1); Sodium 136 mmol/L (136-145)
[2024-01-05] MEDS: Magnesium 2 GM/50 ML(in water) 2 GM in Premix 1 BAG IVPB SCH (08:29)
[2024-01-05] MEDS: Albumin 25% 25 GM (100 mL) BOT IVPB SCH (14:26)
[2024-01-05] MEDS: Thiamine 100 MG TAB PO SCH (21:24)
[2024-01-05] MEDS ORDERED: Lorazepam 0.5 MG TAB PO PRN (22:04)
[2024-01-06 06:05] LABS: Anion Gap 9 mmol/L (10-20); BUN (Urea Nitrogen) Less than 4 mg/dL (7.0-18.7); Calc. Creatinine Clearance 105 mL/min (70-130); Calcium 8.6 mg/dL (7.8-10.44); Carbon Dioxide 27 mmol/L (22-29); Chloride 104 mmol/L (98-107); Estimated GFR 90; Glucose 90 mg/dL (70-105); Magnesium 1.7 mg/dL (1.6-2.6); Potassium 3.8 mmol/L (3.5-5.1); Sodium 136 mmol/L (136-145)
[2024-01-06] MEDS: Magnesium 2 GM/50 ML(in water) 2 GM in Premix 1 BAG IVPB SCH (09:11)
[2024-01-06 11:45] VITALS: TEMP 97.9
[2024-01-06 15:56] VITALS: BP 110/70
== END 2024-01-06 18:30 | disposition home or self-care (01) | DRG 433 ==
LOC: ERS 13:31 → OBS 21:20 → OBSVTOIN 01-05 13:24
PROVIDERS: ADMIT Internal Medicine; ATTEND Internal Medicine
DX: K74.60 Unspecified cirrhosis of liver (principal); R18.8 Other ascites; E87.70 Fluid overload, unspecified; K76.0 Fatty (change of) liver, not elsewhere classified; F17.210 Nicotine dependence, cigarettes, uncomplicated; E87.6 Hypokalemia; E80.6 Other disorders of bilirubin metabolism; E83.42 Hypomagnesemia; F10.10 Alcohol abuse, uncomplicated; F32.A Depression, unspecified; Z90.49 Acquired absence of other specified parts of digestive tract; Z79.899 Other long term (current) drug therapy; Z98.890 Other specified postprocedural states; Z83.3 Family history of diabetes mellitus; Z88.8 Allergy status to other drugs, medicaments and biological substances
CPT/HCPCS: 36415; 36416; 71045; 71275; 74177; 76705; 80048; 80053; 80306; 80307; 81001; 83690; 83735; 83880; 84100; 84443; 84484; 84703; 85025; 85379; 85610; 85730; 90656; 93005; 93970; 96374; 96375; J0696; J1940; J2060; J2272; J2405; J3411; J3475; P9047; Q9967

== ENCOUNTER 2024-01-14 10:41 | Inpatient (IN) | payer OTHER ==
[2024-01-14] MEDS ORDERED: Morphine 2 MG/ML VIAL ONE (11:28)
[2024-01-14] MEDS ORDERED: Ondansetron PF 4 MG/2 ML Vial ONE (11:28)
[2024-01-14 11:46] LABS: #Basophils 0.04 10x3/uL (0.0-0.2); #Eosinophils Less than 0.03 10x3/uL (0.0-0.7); %Basophils 1.1 % (0.0-1.0); %Eosinophils 0.6 % (0.0-10.0); %Lymphocytes 18.5 % (21.0-51.0); %Monocytes 7.4 % (0.0-10.0); %Neutrophils 71.6 % (42.0-75.0); Hematocrit 36.8 % (36.0-47.0); Hemoglobin 11.4 g/dL (12.0-16.0); Mean Corpuscular Hemoglobin 26.8 pg (27.0-31.0); Mean Corpuscular Volume 86.6 fL (78.0-98.0); Mean Platelet Volume 9.5 fL (7.4-10.4); Platelet Count 132 10x3/uL (130-400); RBC Distribution Width 20.5 % (11.5-14.5); Red Blood Cell (RBC) Count 4.25 mill/uL (4.20-5.40)
[2024-01-14 11:52] LABS: BHCG - Serum Negative (NEGATIVE); Pregs Control Background? CLEAR/WHITE (CLR/WHITE); Pregs Control Bar Appear? YES (CONTROL BAR)
[2024-01-14 11:55] LABS: INR-International Normal Ratio 2.2; Prothrombin Time 24.7 sec (12.0-14.7)
[2024-01-14 11:56] LABS: PTT 45.2 sec (22.9-36.1)
[2024-01-14] MEDS ORDERED: Pantoprazole 80 MG, Admixture Fee 1 EACH in Sodium Chloride 0.9% 100 ML IVPB SCH (12:00)
[2024-01-14 12:02] LABS: ALT (SGPT) 5 U/L (8-55); AST (SGOT) 44 U/L (5-34); Albumin 3.6 g/dL (3.5-5.0); Alkaline Phosphatase 161 U/L (40-110); Anion Gap 18 mmol/L (10-20); BUN (Urea Nitrogen) 5 mg/dL (7.0-18.7); Bilirubin, Total 5.2 mg/dL (0.2-1.2); Calc. Creatinine Clearance 0 mL/min (70-130); Calcium 9.5 mg/dL (7.8-10.44); Carbon Dioxide 19 mmol/L (22-29); Chloride 106 mmol/L (98-107); Estimated GFR 105; Globulin 6.1 g/dL (2.4-3.5); Glucose 106 mg/dL (70-105); Lipase 14 U/L (8-78); Magnesium 1.5 mg/dL (1.6-2.6); Potassium 3.7 mmol/L (3.5-5.1); Protein, Total 9.7 g/dL (6.0-8.3); Sodium 139 mmol/L (136-145)
[2024-01-14 12:04] LABS: Troponin I Less than 0.010 ng/mL (< 0.028)
[2024-01-14] MEDS ORDERED: Magnesium 2 GM/50 ML BAG (IN WATER) ONE (12:25)
[2024-01-14] MEDS ORDERED: Octreotide Acetate 1,250 MCG in Sodium Chloride 0.9% 250 ML 250 ML IVPB SCH ×2 (13:30→21:45)
[2024-01-14] MEDS ORDERED: cefTRIAXone (ROCEPHIN) 1 GM VIAL ONE (13:57)
[2024-01-14] MEDS ORDERED: Sodium Chloride 0.9% 100 ML ONE (13:57)
[2024-01-14] MEDS ORDERED: Iopamidol 370 76% 100 ML VIAL ONE (14:21)
[2024-01-14 14:27] LABS: Lactic Acid 1.91 mmol/L (0.5-2.2)
[2024-01-14] MEDS ORDERED: Electrolyte Replacement Protocol 1 EACH FS SCH (14:45)
[2024-01-14 15:37] VITALS: BMI 26.4
[2024-01-14] MEDS: Magnesium 2 GM/50 ML(in water) 2 GM in Premix 1 BAG IVPB SCH (15:59)
[2024-01-14] MEDS ORDERED: Sucralfate 1 GM/10 ML UDCUP ONE (16:02)
[2024-01-14] MEDS ORDERED: Gabapentin 300 MG CAP ONE (16:02)
[2024-01-14] MEDS: Sucralfate 1 GM TAB PO SCH (16:07)
[2024-01-14] MEDS: Gabapentin 300 MG CAP PO SCH (16:07)
[2024-01-14 16:23] LABS: Acetaminophen Less than 10 mcg/mL (Less than 10); Alcohol Less than 10.0 mg/dL (Less than 10); Salicylate Less than 8.0 mg/dL (Less than 8.0)
[2024-01-14] MEDS ORDERED: Ketorolac Tromethamine 30 MG (1 mL) VIAL ONE (16:47)
[2024-01-14 20:20] LABS: Hematocrit 30.2 % (36.0-47.0); Hemoglobin 9.4 g/dL (12.0-16.0)
[2024-01-14] MEDS: Morphine 4 MG/ML VIAL SLOW IVP PRN (20:22)
[2024-01-14] MEDS ORDERED: Pantoprazole 40 MG VIAL IVP SCH (21:00)
[2024-01-14] MEDS: Pantoprazole 80 MG, Admixture Fee 1 EACH in Sodium Chloride 0.9% 100 ML IVPB SCH (22:25)
[2024-01-15 04:28] LABS: #Basophils 0.08 10x3/uL (0.0-0.2); %Basophils 1.7 % (0.0-1.0); %Eosinophils 3.2 % (0.0-10.0); %Lymphocytes 21.9 % (21.0-51.0); %Monocytes 8.6 % (0.0-10.0); %Neutrophils 64.2 % (42.0-75.0); Hemoglobin 9.8 g/dL (12.0-16.0); Mean Corpuscular HGB CONC 31.6 g/dL (32.0-36.0); Mean Corpuscular Hemoglobin 27.2 pg (27.0-31.0); Mean Corpuscular Volume 86.1 fL (78.0-98.0); Mean Platelet Volume 10.1 fL (7.4-10.4); Platelet Count 167 10x3/uL (130-400); RBC Distribution Width 20.7 % (11.5-14.5)
[2024-01-15 04:43] LABS: ALT (SGPT) 5 U/L (8-55); AST (SGOT) 55 U/L (5-34); Alkaline Phosphatase 131 U/L (40-110); Anion Gap 15 mmol/L (10-20); BUN (Urea Nitrogen) 4 mg/dL (7.0-18.7); Bilirubin, Total 5.4 mg/dL (0.2-1.2); Calc. Creatinine Clearance 106 mL/min (70-130); Calcium 8.4 mg/dL (7.8-10.44); Carbon Dioxide 21 mmol/L (22-29); Chloride 108 mmol/L (98-107); Estimated GFR 102; Glucose 96 mg/dL (70-105); Potassium 3.8 mmol/L (3.5-5.1); Sodium 140 mmol/L (136-145)
[2024-01-15] MEDS: Folic Acid 1 MG TAB PO SCH (08:53)
[2024-01-15] MEDS: Magnesium 2 GM/50 ML(in water) 2 GM in Premix 1 BAG IVPB SCH (08:53)
[2024-01-15] MEDS: Potassium Chloride 20 MEQ TAB PO SCH (08:53)
[2024-01-15] MEDS: Multivit, Therapeutic 1 TAB PO SCH (08:54)
[2024-01-15] MEDS: Sertraline 25 MG TAB PO SCH (08:54)
[2024-01-15] MEDS: Thiamine 100 MG TAB PO SCH (08:54)
[2024-01-15] MEDS: Magnesium Oxide 400 MG TAB PO SCH (08:54)
[2024-01-15] MEDS ORDERED: Pantoprazole 40 MG VIAL IVP SCH (09:00)
[2024-01-15] MEDS: cefTRIAXone\\ROCEPHIN 1 GM in Sodium Chloride 0.9% 100 ML IVPB SCH (13:23)
[2024-01-15] MEDS: Pantoprazole 40 MG VIAL IVP SCH (21:00)
[2024-01-16 04:40] LABS: #Basophils 0.07 10x3/uL (0.0-0.2); %Basophils 1.7 % (0.0-1.0); %Eosinophils 6.6 % (0.0-10.0); %Lymphocytes 36.4 % (21.0-51.0); %Monocytes 13.4 % (0.0-10.0); %Neutrophils 41.4 % (42.0-75.0); Hematocrit 28.5 % (36.0-47.0); Hemoglobin 8.9 g/dL (12.0-16.0); Mean Corpuscular HGB CONC 31.2 g/dL (32.0-36.0); Mean Corpuscular Hemoglobin 27.1 pg (27.0-31.0); Mean Corpuscular Volume 86.9 fL (78.0-98.0); Mean Platelet Volume 9.8 fL (7.4-10.4); Platelet Count 146 10x3/uL (130-400); RBC Distribution Width 20.3 % (11.5-14.5); Red Blood Cell (RBC) Count 3.28 mill/uL (4.20-5.40)
[2024-01-16 05:13] LABS: ALT (SGPT) 5 U/L (8-55); AST (SGOT) 53 U/L (5-34); Albumin 2.9 g/dL (3.5-5.0); Alkaline Phosphatase 121 U/L (40-110); Anion Gap 12 mmol/L (10-20); BUN (Urea Nitrogen) 4 mg/dL (7.0-18.7); Bilirubin, Total 3.4 mg/dL (0.2-1.2); Calc. Creatinine Clearance 98 mL/min (70-130); Calcium 7.9 mg/dL (7.8-10.44); Carbon Dioxide 24 mmol/L (22-29); Chloride 102 mmol/L (98-107); Estimated GFR 93; Globulin 4.9 g/dL (2.4-3.5); Glucose 119 mg/dL (70-105); Potassium 3.4 mmol/L (3.5-5.1); Protein, Total 7.8 g/dL (6.0-8.3); Sodium 135 mmol/L (136-145)
[2024-01-16] MEDS ORDERED: Lorazepam 1 MG TAB PO PRN ×2 (11:44→14:39)
[2024-01-16] MEDS ORDERED: Lorazepam 2 MG/ML VIAL IM PRN (11:44)
[2024-01-16] MEDS ORDERED: Ondansetron ODT 4 MG TAB PO PRN (11:44)
[2024-01-16] MEDS ORDERED: Electrolyte Replacement Protocol 1 EACH FS SCH (11:45)
[2024-01-16] MEDS: Potassium Chloride 20 MEQ TAB PO SCH (11:46)
[2024-01-16] MEDS ORDERED: Electrolyte Replacement Protocol FS PRN (12:15)
[2024-01-16 12:32] LABS: #Basophils 0.06 10x3/uL (0.0-0.2); %Basophils 1.8 % (0.0-1.0); %Eosinophils 8.4 % (0.0-10.0); %Lymphocytes 35.1 % (21.0-51.0); %Monocytes 11.7 % (0.0-10.0); %Neutrophils 42.7 % (42.0-75.0); Hematocrit 30.1 % (36.0-47.0); Hemoglobin 9.2 g/dL (12.0-16.0); Mean Corpuscular HGB CONC 30.6 g/dL (32.0-36.0); Mean Corpuscular Hemoglobin 27.2 pg (27.0-31.0); Mean Corpuscular Volume 89.1 fL (78.0-98.0); Mean Platelet Volume 9.2 fL (7.4-10.4); Platelet Count 145 10x3/uL (130-400); RBC Distribution Width 20.3 % (11.5-14.5); Red Blood Cell (RBC) Count 3.38 mill/uL (4.20-5.40)
[2024-01-16 13:19] LABS: ALT (SGPT) Less than 5 U/L (8-55); AST (SGOT) 53 U/L (5-34); Alkaline Phosphatase 125 U/L (40-110); Anion Gap 11 mmol/L (10-20); BUN (Urea Nitrogen) 4 mg/dL (7.0-18.7); Bilirubin, Direct 2.4 mg/dL (0.1-0.3); Bilirubin, Total 3.5 mg/dL (0.2-1.2); Calc. Creatinine Clearance 99 mL/min (70-130); Carbon Dioxide 24 mmol/L (22-29); Chloride 104 mmol/L (98-107); Estimated GFR 94; Globulin 5.1 g/dL (2.4-3.5); Glucose 135 mg/dL (70-105); Magnesium 1.8 mg/dL (1.6-2.6); Phosphorus 1.5 mg/dL (2.3-4.7); Potassium 3.4 mmol/L (3.5-5.1); Protein, Total 8.1 g/dL (6.0-8.3); Sodium 136 mmol/L (136-145)
[2024-01-16] MEDS: Lorazepam 1 MG TAB PO SCH (13:35)
[2024-01-16] MEDS: Magnesium 2 GM/50 ML(in water) 2 GM in Premix 1 BAG IVPB SCH (15:49)
[2024-01-16] MEDS: Potassium Phosphate 30 MMOL in Sodium Chloride 0.9% 500 ML IVPB SCH (15:49)
[2024-01-17 04:59] LABS: #Basophils 0.05 10x3/uL (0.0-0.2); %Basophils 1.3 % (0.0-1.0); %Lymphocytes 34.3 % (21.0-51.0); %Monocytes 12.6 % (0.0-10.0); %Neutrophils 44.5 % (42.0-75.0); Hematocrit 29.8 % (36.0-47.0); Hemoglobin 9.1 g/dL (12.0-16.0); Mean Corpuscular HGB CONC 30.5 g/dL (32.0-36.0); Mean Corpuscular Volume 88.4 fL (78.0-98.0); Mean Platelet Volume 9.3 fL (7.4-10.4); Platelet Count 140 10x3/uL (130-400); RBC Distribution Width 21.1 % (11.5-14.5); Red Blood Cell (RBC) Count 3.37 mill/uL (4.20-5.40)
[2024-01-17 05:21] LABS: ALT (SGPT) 5 U/L (8-55); AST (SGOT) 43 U/L (5-34); Albumin 2.9 g/dL (3.5-5.0); Alkaline Phosphatase 122 U/L (40-110); Anion Gap 11 mmol/L (10-20); BUN (Urea Nitrogen) Less than 4 mg/dL (7.0-18.7); Bilirubin, Total 2.9 mg/dL (0.2-1.2); Calc. Creatinine Clearance 92 mL/min (70-130); Calcium 8.1 mg/dL (7.8-10.44); Carbon Dioxide 24 mmol/L (22-29); Chloride 105 mmol/L (98-107); Estimated GFR 86; Glucose 144 mg/dL (70-105); Potassium 4.3 mmol/L (3.5-5.1); Protein, Total 7.9 g/dL (6.0-8.3); Sodium 136 mmol/L (136-145)
[2024-01-17] MEDS: Folic Acid 1 MG TAB PO SCH (09:03)
[2024-01-17] MEDS: Multivit, Therapeutic 1 TAB PO SCH (09:03)
[2024-01-17] MEDS: Thiamine HCl 200 MG/2 ML VIAL SLOW IVP SCH (09:05)
[2024-01-17] MEDS ORDERED: Lorazepam 1 MG TAB PO PRN (11:45)
[2024-01-17] MEDS ORDERED: Lorazepam 0.5 MG TAB PO PRN (14:39)
[2024-01-18 04:07] LABS: #Basophils 0.03 10x3/uL (0.0-0.2); %Basophils 0.7 % (0.0-1.0); %Eosinophils 6.2 % (0.0-10.0); %Lymphocytes 31.9 % (21.0-51.0); %Monocytes 11.9 % (0.0-10.0); %Neutrophils 49.1 % (42.0-75.0); Hematocrit 28.3 % (36.0-47.0); Hemoglobin 8.7 g/dL (12.0-16.0); Mean Corpuscular HGB CONC 30.7 g/dL (32.0-36.0); Mean Corpuscular Hemoglobin 27.2 pg (27.0-31.0); Mean Corpuscular Volume 88.4 fL (78.0-98.0); Mean Platelet Volume 9.5 fL (7.4-10.4); Platelet Count 156 10x3/uL (130-400); RBC Distribution Width 21.3 % (11.5-14.5)
[2024-01-18 04:31] LABS: ALT (SGPT) Less than 5 U/L (8-55); AST (SGOT) 36 U/L (5-34); Albumin 2.7 g/dL (3.5-5.0); Alkaline Phosphatase 104 U/L (40-110); Anion Gap 13 mmol/L (10-20); BUN (Urea Nitrogen) 4 mg/dL (7.0-18.7); Bilirubin, Total 2.4 mg/dL (0.2-1.2); Calc. Creatinine Clearance 102 mL/min (70-130); Calcium 8.4 mg/dL (7.8-10.44); Carbon Dioxide 22 mmol/L (22-29); Chloride 103 mmol/L (98-107); Estimated GFR 97; Globulin 4.8 g/dL (2.4-3.5); Glucose 104 mg/dL (70-105); Potassium 4.3 mmol/L (3.5-5.1); Protein, Total 7.5 g/dL (6.0-8.3); Sodium 134 mmol/L (136-145)
[2024-01-18 04:38] LABS: Phosphorus 2.2 mg/dL (2.3-4.7)
[2024-01-18] MEDS ORDERED: Lorazepam 1 MG TAB PO PRN (11:45)
[2024-01-18] MEDS: Lorazepam 0.5 MG TAB PO SCH (12:44)
[2024-01-18 15:28] VITALS: BP 107/67; TEMP 97.7
[2024-01-19] MEDS ORDERED: Lorazepam 0.5 MG TAB PO PRN (11:45)
[2024-01-20] MEDS ORDERED: Thiamine 100 MG TAB PO SCH (09:00)
== END 2024-01-18 16:00 | disposition home or self-care (01) | DRG 378 ==
LOC: ERS 10:41 → ERHOLD 13:40 → 2NO 17:47
PROVIDERS: ADMIT Hospitalist; ATTEND Internal Medicine
DX: K62.5 Hemorrhage of anus and rectum (principal); F10.139 Alcohol abuse with withdrawal, unspecified; K76.6 Portal hypertension; K70.31 Alcoholic cirrhosis of liver with ascites; K20.90 Esophagitis, unspecified without bleeding; Z96.641 Presence of right artificial hip joint; F17.210 Nicotine dependence, cigarettes, uncomplicated; E83.42 Hypomagnesemia; K70.10 Alcoholic hepatitis without ascites; E80.6 Other disorders of bilirubin metabolism; Z90.49 Acquired absence of other specified parts of digestive tract; Z88.8 Allergy status to other drugs, medicaments and biological substances; Z98.890 Other specified postprocedural states; D64.9 Anemia, unspecified
CPT/HCPCS: 36415; 36416; 71045; 74177; 80053; 80307; 82248; 83605; 83690; 83735; 83880; 84100; 84145; 84484; 84703; 85025; 85610; 85730; 86141; 86850; 86900; 86901; 93005; 96374; 96375; J0696; J1885; J2272; J2354; J2405; J2470; J3411; J3475; J7030; J7050; Q9967

== ENCOUNTER 2024-01-20 10:30 | Inpatient (IN) | payer OTHER ==
[2024-01-20] MEDS ORDERED: Ondansetron PF 4 MG/2 ML Vial ONE ×2 (11:07→16:33)
[2024-01-20] MEDS ORDERED: Morphine 2 MG/ML VIAL ONE (11:07)
[2024-01-20 11:38] LABS: Bacteria/HPF None Seen HPF (None Seen); Bilirubin Negative (Negative); Blood, Urine Negative (Negative); CAUTI Indications for Culture Dysuria,urgency,freq; Clarity Clear (Clear); Glucose, Urine (Dipstick) Normal (Negative); Ketone, Urine 20 mg/dL (Negative); Leukocyte 75 Leu/uL (Negative); Nitrite Negative (Negative); Protein, Urine (Dipstick) 10 mg/dL (Neg-Trace); RBC/HPF 0-3 HPF (0-3); Specific Gravity, Urine 1.024 (1.002-1.036); Squamous Epithelial 0-3 HPF (0-3); pH, Urine 5.5 (5.0-9.0)
[2024-01-20 11:39] LABS: Urine Culture Reflex Yes Yes
[2024-01-20 12:48] LABS: ALT (SGPT) Less than 5 U/L (8-55); AST (SGOT) 25 U/L (5-34); Albumin 2.8 g/dL (3.5-5.0); Alkaline Phosphatase 96 U/L (40-110); Anion Gap 12 mmol/L (10-20); BUN (Urea Nitrogen) 10 mg/dL (7.0-18.7); Bilirubin, Total 3.4 mg/dL (0.2-1.2); Calc. Creatinine Clearance 0 mL/min (70-130); Calcium 8.5 mg/dL (7.8-10.44); Carbon Dioxide 20 mmol/L (22-29); Chloride 105 mmol/L (98-107); Estimated GFR 113; Glucose 89 mg/dL (70-105); Potassium 3.5 mmol/L (3.5-5.1); Protein, Total 7.8 g/dL (6.0-8.3); Sodium 133 mmol/L (136-145)
[2024-01-20 12:53] LABS: Troponin I Less than 0.010 ng/mL (< 0.028)
[2024-01-20 13:10] LABS: #Basophils 0.03 10x3/uL (0.0-0.2); %Basophils 0.7 % (0.0-1.0); %Eosinophils 1.8 % (0.0-10.0); %Lymphocytes 25.7 % (21.0-51.0); %Monocytes 9.9 % (0.0-10.0); Hematocrit 29.6 % (36.0-47.0); Hemoglobin 9.8 g/dL (12.0-16.0); Mean Corpuscular HGB CONC 33.1 g/dL (32.0-36.0); Mean Corpuscular Hemoglobin 27.7 pg (27.0-31.0); Mean Corpuscular Volume 83.6 fL (78.0-98.0); Platelet Count 159 10x3/uL (130-400); RBC Distribution Width 21.3 % (11.5-14.5); Red Blood Cell (RBC) Count 3.54 mill/uL (4.20-5.40)
[2024-01-20] MEDS ORDERED: Pantoprazole 40 MG VIAL ONE (16:34)
[2024-01-20] MEDS ORDERED: Acetaminophen 650 MG Suppository PR PRN (17:28)
[2024-01-20] MEDS ORDERED: Acetaminophen 325 MG TAB PO PRN (17:28)
[2024-01-20 18:22] VITALS: BMI 24.6
[2024-01-20] MEDS: Sodium Chloride 0.9% 1,000 ML IV SCH (18:22)
[2024-01-20 18:47] LABS: Hematocrit 33.3 % (36.0-47.0); Hemoglobin 10.3 g/dL (12.0-16.0)
[2024-01-20 19:28] LABS: Magnesium 1.7 mg/dL (1.6-2.6)
[2024-01-20] MEDS ORDERED: Lorazepam 1 MG TAB PO PRN (20:53)
[2024-01-20] MEDS ORDERED: Lorazepam 2 MG/ML VIAL IM PRN (20:53)
[2024-01-20] MEDS ORDERED: Loratadine 10 MG TAB PO PRN (20:58)
[2024-01-20] MEDS ORDERED: Electrolyte Replacement Protocol 1 EACH FS SCH (21:00)
[2024-01-20] MEDS: Gabapentin 300 MG CAP PO SCH (22:02)
[2024-01-20] MEDS: Pantoprazole 40 MG VIAL IVP SCH (22:03)
[2024-01-20] MEDS: hydrOXYzine 25 MG TAB PO SCH (22:03)
[2024-01-20] MEDS: Sucralfate 1 GM TAB PO SCH (22:03)
[2024-01-20] MEDS: Thiamine HCl 200 MG/2 ML VIAL SLOW IVP SCH (22:04)
[2024-01-20] MEDS: Potassium Chloride 20 MEQ in Premix 1 BAG IVPB SCH (22:05)
[2024-01-20] MEDS: Magnesium 2 GM/50 ML(in water) 2 GM in Premix 1 BAG IVPB SCH (22:05)
[2024-01-21 03:59] LABS: Amphetamine Not Detected (NotDetected); Barbiturates Screen Not Detected (NotDetected); Benzodiazepine Screen Detected (NotDetected); Cocaine Metabolite Screen Not Detected (NotDetected); Methadone Not Detected (NotDetected); Methamphetamine Not Detected (NotDetected); Opiate Screen Detected (NotDetected); Oxycodone Screen Not Detected (NotDetected); Phencyclidine (PCP) Not Detected (NotDetected); THC/Cannabinoid Screen Not Detected (NotDetected); Tricyclic Screen Not Detected (NotDetected)
[2024-01-21 04:50] LABS: #Basophils 0.05 10x3/uL (0.0-0.2); %Basophils 1.3 % (0.0-1.0); %Lymphocytes 28.5 % (21.0-51.0); %Monocytes 10.6 % (0.0-10.0); %Neutrophils 57.3 % (42.0-75.0); Hematocrit 29.4 % (36.0-47.0); Hemoglobin 9.2 g/dL (12.0-16.0); Mean Corpuscular HGB CONC 31.3 g/dL (32.0-36.0); Mean Corpuscular Hemoglobin 27.1 pg (27.0-31.0); Mean Corpuscular Volume 86.5 fL (78.0-98.0); Mean Platelet Volume 9.4 fL (7.4-10.4); Platelet Count 144 10x3/uL (130-400); RBC Distribution Width 21.5 % (11.5-14.5)
[2024-01-21 05:16] LABS: Anion Gap 13 mmol/L (10-20); BUN (Urea Nitrogen) 8 mg/dL (7.0-18.7); Calc. Creatinine Clearance 130 mL/min (70-130); Calcium 8.1 mg/dL (7.8-10.44); Carbon Dioxide 20 mmol/L (22-29); Chloride 107 mmol/L (98-107); Estimated GFR 113; Glucose 89 mg/dL (70-105); Potassium 3.9 mmol/L (3.5-5.1); Sodium 136 mmol/L (136-145)
[2024-01-21] MEDS: Ondansetron ODT 4 MG TAB PO PRN (09:05)
[2024-01-21] MEDS: Sertraline 25 MG TAB PO SCH (09:51)
[2024-01-21] MEDS: Thiamine 100 MG TAB PO SCH (09:52)
[2024-01-21] MEDS: Spironolactone 100 MG TAB PO SCH (09:52)
[2024-01-21] MEDS: Folic Acid 1 MG TAB PO SCH (09:52)
[2024-01-21] MEDS: Multivit, Therapeutic 1 TAB PO SCH (09:52)
[2024-01-21] MEDS: Ondansetron PF 4 MG/2 ML Vial IVP PRN (10:05)
[2024-01-21] MEDS: Metoclopramide HCl 10 MG (2 mL) VIAL IVP SCH (16:59)
[2024-01-21] MEDS ORDERED: Lorazepam 1 MG TAB PO PRN (20:53)
[2024-01-22 04:19] LABS: #Basophils 0.05 10x3/uL (0.0-0.2); %Basophils 1.3 % (0.0-1.0); %Eosinophils 2.6 % (0.0-10.0); %Lymphocytes 35.1 % (21.0-51.0); %Monocytes 15.1 % (0.0-10.0); %Neutrophils 45.6 % (42.0-75.0); Hematocrit 30.3 % (36.0-47.0); Hemoglobin 9.4 g/dL (12.0-16.0); Mean Corpuscular Hemoglobin 27.1 pg (27.0-31.0); Mean Corpuscular Volume 87.3 fL (78.0-98.0); Mean Platelet Volume 9.7 fL (7.4-10.4); Platelet Count 169 10x3/uL (130-400); RBC Distribution Width 21.6 % (11.5-14.5); Red Blood Cell (RBC) Count 3.47 mill/uL (4.20-5.40)
[2024-01-22 04:49] LABS: ALT (SGPT) Less than 5 U/L (8-55); AST (SGOT) 23 U/L (5-34); Albumin 2.7 g/dL (3.5-5.0); Alkaline Phosphatase 89 U/L (40-110); Anion Gap 13 mmol/L (10-20); BUN (Urea Nitrogen) 7 mg/dL (7.0-18.7); Bilirubin, Total 3.6 mg/dL (0.2-1.2); Calc. Creatinine Clearance 113 mL/min (70-130); Calcium 8.3 mg/dL (7.8-10.44); Carbon Dioxide 21 mmol/L (22-29); Chloride 104 mmol/L (98-107); Estimated GFR 109; Glucose 82 mg/dL (70-105); Magnesium 1.6 mg/dL (1.6-2.6); Potassium 3.5 mmol/L (3.5-5.1); Protein, Total 7.7 g/dL (6.0-8.3); Sodium 134 mmol/L (136-145)
[2024-01-22] MEDS: Magnesium 2 GM/50 ML(in water) 2 GM in Premix 1 BAG IVPB SCH (09:37)
[2024-01-22] MEDS: Potassium Chloride 20 MEQ TAB PO SCH (09:37)
[2024-01-22] MEDS: Promethazine HCl 12.5 MG in Sodium Chloride 0.9% 50 ML IVPB PRN (15:30)
[2024-01-22 18:39] LABS: Pregnancy Test - Urine (BHCG) Negative (Negative); Pregu Control Background? CLEAR/WHITE (CLR/WHITE); Pregu Control Bar Appear? YES (CONTROL BAR); Specific Gravity 1.023 (1.002-1.036)
[2024-01-22] MEDS ORDERED: Lorazepam 1 MG TAB PO PRN (20:53)
[2024-01-23] MEDS ORDERED: Lorazepam 0.5 MG TAB PO PRN (20:53)
[2024-01-25 04:42] LABS: Phosphorus 3.2 mg/dL (2.3-4.7)
[2024-01-25 04:43] LABS: #Basophils 0.03 10x3/uL (0.0-0.2); %Eosinophils 5.6 % (0.0-10.0); %Lymphocytes 40.2 % (21.0-51.0); %Monocytes 15.4 % (0.0-10.0); %Neutrophils 37.8 % (42.0-75.0); Hematocrit 30.7 % (36.0-47.0); Hemoglobin 9.8 g/dL (12.0-16.0); Mean Corpuscular HGB CONC 31.9 g/dL (32.0-36.0); Mean Corpuscular Hemoglobin 27.5 pg (27.0-31.0); Mean Corpuscular Volume 86.2 fL (78.0-98.0); Mean Platelet Volume 9.3 fL (7.4-10.4); Platelet Count 138 10x3/uL (130-400); RBC Distribution Width 20.9 % (11.5-14.5); Red Blood Cell (RBC) Count 3.56 mill/uL (4.20-5.40)
[2024-01-25 04:51] LABS: ALT (SGPT) Less than 5 U/L (8-55); AST (SGOT) 27 U/L (5-34); Albumin 2.9 g/dL (3.5-5.0); Alkaline Phosphatase 94 U/L (40-110); Anion Gap 12 mmol/L (10-20); BUN (Urea Nitrogen) 5 mg/dL (7.0-18.7); Bilirubin, Total 3.1 mg/dL (0.2-1.2); Calc. Creatinine Clearance 100 mL/min (70-130); Calcium 8.5 mg/dL (7.8-10.44); Carbon Dioxide 24 mmol/L (22-29); Chloride 104 mmol/L (98-107); Estimated GFR 95; Glucose 116 mg/dL (70-105); Magnesium 1.5 mg/dL (1.6-2.6); Potassium 2.9 mmol/L (3.5-5.1); Protein, Total 7.9 g/dL (6.0-8.3); Sodium 137 mmol/L (136-145)
[2024-01-25] MEDS: Magnesium 2 GM/50 ML(in water) 2 GM in Premix 1 BAG IVPB SCH (09:43)
[2024-01-25] MEDS: Potassium Chloride 20 MEQ TAB PO SCH (09:43)
[2024-01-25 16:01] LABS: Bacteria/HPF None Seen HPF (None Seen); Bilirubin 1+ (Negative); Blood, Urine Negative (Negative); Clarity Extra Turbid (Clear); Glucose, Urine (Dipstick) Normal (Negative); Ketone, Urine Negative (Negative); Leukocyte 75 Leu/uL (Negative); Nitrite Negative (Negative); Protein, Urine (Dipstick) 10 mg/dL (Neg-Trace); RBC/HPF 0-3 HPF (0-3); Specific Gravity, Urine 1.023 (1.002-1.036); Squamous Epithelial 0-3 HPF (0-3); Urobilinogen 12 mg/dL (Less than 2); WBC/HPF 0-3 HPF (0-3); pH, Urine 5.5 (5.0-9.0)
[2024-01-25 16:38] VITALS: BP 135/90; TEMP 98.4
== END 2024-01-25 19:22 | disposition home or self-care (01) | DRG 392 ==
LOC: ERS 10:30 → OBS 16:49 → OBSVTOIN 01-22 13:30
PROVIDERS: ADMIT Hospitalist; ATTEND Student in an Organized Health Care Education/Training Program
DX: R11.2 Nausea with vomiting, unspecified (principal); K92.1 Melena; K21.9 Gastro-esophageal reflux disease without esophagitis; F32.A Depression, unspecified; D64.9 Anemia, unspecified; Z96.641 Presence of right artificial hip joint; K70.31 Alcoholic cirrhosis of liver with ascites; F10.20 Alcohol dependence, uncomplicated; F17.290 Nicotine dependence, other tobacco product, uncomplicated; Z98.891 History of uterine scar from previous surgery; Z88.8 Allergy status to other drugs, medicaments and biological substances; Z87.11 Personal history of peptic ulcer disease; Z90.49 Acquired absence of other specified parts of digestive tract
CPT/HCPCS: 36415; 71045; 80048; 80053; 80306; 81001; 81025; 83735; 84100; 84484; 85025; 87086; 93005; 94760; 96361; 96374; 96375; 96376; G0378; J2272; J2405; J2470; J2550; J2765; J3411; J3475; J3480; J7030; Q0162

== ENCOUNTER 2024-02-05 10:28 | Observation (INO) | payer OTHER ==
[2024-02-05 11:52] LABS: #Basophils 0.04 10x3/uL (0.0-0.2); %Basophils 0.5 % (0.0-1.0); %Eosinophils 0.8 % (0.0-10.0); %Monocytes 8.2 % (0.0-10.0); %Neutrophils 79.4 % (42.0-75.0); Hematocrit 34.6 % (36.0-47.0); Hemoglobin 10.4 g/dL (12.0-16.0); Mean Corpuscular HGB CONC 30.1 g/dL (32.0-36.0); Mean Corpuscular Hemoglobin 27.2 pg (27.0-31.0); Mean Corpuscular Volume 90.3 fL (78.0-98.0); Mean Platelet Volume 10.9 fL (7.4-10.4); Platelet Count 111 10x3/uL (130-400); RBC Distribution Width 20.5 % (11.5-14.5); Red Blood Cell (RBC) Count 3.83 mill/uL (4.20-5.40)
[2024-02-05] MEDS ORDERED: Pantoprazole 40 MG VIAL ONE (12:14)
[2024-02-05] MEDS ORDERED: Morphine 4 MG/ML VIAL ONE (12:14)
[2024-02-05] MEDS ORDERED: Ondansetron PF 4 MG/2 ML Vial ONE ×2 (12:14→14:28)
[2024-02-05 12:57] LABS: INR-International Normal Ratio 2.1; PTT 51.5 sec (22.9-36.1); Prothrombin Time 23.7 sec (12.0-14.7)
[2024-02-05 13:02] LABS: Troponin I Less than 0.010 ng/mL (< 0.028)
[2024-02-05 13:06] LABS: ALT (SGPT) Less than 5 U/L (8-55); AST (SGOT) 29 U/L (5-34); Albumin 2.6 g/dL (3.5-5.0); Alkaline Phosphatase 76 U/L (40-110); Anion Gap 11 mmol/L (10-20); BUN (Urea Nitrogen) 8 mg/dL (7.0-18.7); Bilirubin, Total 2.2 mg/dL (0.2-1.2); Calc. Creatinine Clearance 0 mL/min (70-130); Calcium 8.8 mg/dL (7.8-10.44); Carbon Dioxide 23 mmol/L (22-29); Chloride 103 mmol/L (98-107); Estimated GFR 105; Globulin 4.9 g/dL (2.4-3.5); Glucose 102 mg/dL (70-105); Lipase 13 U/L (8-78); Potassium 3.2 mmol/L (3.5-5.1); Protein, Total 7.5 g/dL (6.0-8.3); Sodium 134 mmol/L (136-145)
[2024-02-05] MEDS ORDERED: Pantoprazole 80 MG, Admixture Fee 1 EACH in Sodium Chloride 0.9% 100 ML IVPB SCH (14:30)
[2024-02-05] MEDS ORDERED: Ondansetron ODT 4 MG TAB PO PRN (14:41)
[2024-02-05] MEDS ORDERED: Lorazepam 1 MG TAB PO PRN (14:41)
[2024-02-05] MEDS ORDERED: Lorazepam 2 MG/ML VIAL IM PRN (14:41)
[2024-02-05] MEDS ORDERED: Ondansetron PF 4 MG/2 ML Vial IVP PRN (14:41)
[2024-02-05] MEDS ORDERED: Electrolyte Replacement Protocol FS SCH (14:45)
[2024-02-05 15:26] LABS: Acetaminophen Less than 10 mcg/mL (Less than 10); Alcohol Less than 10.0 mg/dL (Less than 10); Salicylate Less than 8.0 mg/dL (Less than 8.0)
[2024-02-05] MEDS: Sucralfate 1 GM TAB PO SCH (16:22)
[2024-02-05] MEDS: Multivitamins, Adult 10 ML, Thiamine HCl 100 MG, Folic Acid 1 MG in Dextrose 5 %-0.45 %... IV SCH (16:56)
[2024-02-05] MEDS: Lorazepam 1 MG TAB PO SCH (16:56)
[2024-02-05] MEDS: Thiamine HCl 200 MG/2 ML VIAL SLOW IVP SCH (16:56)
[2024-02-05] MEDS: Potassium Chloride 20 MEQ in Premix 1 BAG IVPB SCH (16:56)
[2024-02-05] MEDS: Magnesium 2 GM/50 ML(in water) 2 GM in Premix 1 BAG IVPB SCH (17:09)
[2024-02-05 17:14] LABS: Iron 22 ug/dL (50-170); Iron Binding Capacity, Total 255 mcg/dL (265-497); Magnesium 1.5 mg/dL (1.6-2.6)
[2024-02-05 18:01] VITALS: BMI 26.2
[2024-02-05 19:46] LABS: Amphetamine Not Detected (NotDetected); Barbiturates Screen Not Detected (NotDetected); Benzodiazepine Screen Not Detected (NotDetected); Cocaine Metabolite Screen Not Detected (NotDetected); Methadone Not Detected (NotDetected); Methamphetamine Not Detected (NotDetected); Opiate Screen Detected (NotDetected); Oxycodone Screen Not Detected (NotDetected); Phencyclidine (PCP) Not Detected (NotDetected); THC/Cannabinoid Screen Not Detected (NotDetected); Tricyclic Screen Not Detected (NotDetected)
[2024-02-05] MEDS: Gabapentin 300 MG CAP PO SCH (23:04)
[2024-02-05] MEDS: hydrOXYzine 25 MG TAB PO SCH (23:05)
[2024-02-05] MEDS: Acetaminophen 325 MG TAB PO PRN (23:05)
[2024-02-05] MEDS: Pantoprazole 40 MG VIAL IVP SCH (23:06)
[2024-02-06] MEDS: Potassium Chloride 20 MEQ in Premix 1 BAG IVPB SCH (02:43)
[2024-02-06 05:15] LABS: ALT (SGPT) Less than 5 U/L (8-55); AST (SGOT) 23 U/L (5-34); Albumin 2.3 g/dL (3.5-5.0); Alkaline Phosphatase 61 U/L (40-110); Anion Gap 9 mmol/L (10-20); BUN (Urea Nitrogen) 4 mg/dL (7.0-18.7); Bilirubin, Direct 1.3 mg/dL (0.1-0.3); Calc. Creatinine Clearance 121 mL/min (70-130); Calcium 8.1 mg/dL (7.8-10.44); Carbon Dioxide 21 mmol/L (22-29); Chloride 108 mmol/L (98-107); Estimated GFR 109; Glucose 100 mg/dL (70-105); Potassium 3.7 mmol/L (3.5-5.1); Protein, Total 6.2 g/dL (6.0-8.3); Sodium 134 mmol/L (136-145)
[2024-02-06 05:33] LABS: #Basophils 0.03 10x3/uL (0.0-0.2); %Basophils 0.7 % (0.0-1.0); %Eosinophils 4.9 % (0.0-10.0); %Lymphocytes 23.3 % (21.0-51.0); %Neutrophils 56.1 % (42.0-75.0); Hematocrit 25.8 % (36.0-47.0); Mean Corpuscular Hemoglobin 26.8 pg (27.0-31.0); Mean Corpuscular Volume 86.6 fL (78.0-98.0); Mean Platelet Volume 9.9 fL (7.4-10.4); Platelet Count 89 10x3/uL (130-400); RBC Distribution Width 20.2 % (11.5-14.5); Red Blood Cell (RBC) Count 2.98 mill/uL (4.20-5.40)
[2024-02-06] MEDS ORDERED: Cetirizine HCl 10 MG TAB PO PRN (08:19)
[2024-02-06] MEDS ORDERED: Non-Formulary Item 1 EACH (Ondansetron Hcl [Zofran] 4 MG Tab) PO PRN (08:19)
[2024-02-06] MEDS ORDERED: Loratadine 10 MG TAB PO PRN (08:26)
[2024-02-06] MEDS ORDERED: Ondansetron ODT 4 MG TAB PO PRN (08:28)
[2024-02-06] MEDS: Potassium Chloride 20 MEQ TAB PO SCH (08:40)
[2024-02-06] MEDS: Folic Acid 1 MG TAB PO SCH (08:44)
[2024-02-06] MEDS: Spironolactone 100 MG TAB PO SCH (08:45)
[2024-02-06] MEDS: traMADol HCl 50 MG TAB PO PRN (08:46)
[2024-02-06] MEDS: Pantoprazole DR 40 MG TAB PO SCH (08:46)
[2024-02-06] MEDS: Sertraline 25 MG TAB PO SCH (08:48)
[2024-02-06] MEDS: Furosemide 40 MG TAB PO SCH (08:48)
[2024-02-06] MEDS: Multivit, Therapeutic 1 TAB PO SCH (08:48)
[2024-02-06] MEDS ORDERED: Non-Formulary Item 1 EACH (Magnesium Oxide [Magnesium Oxide] 400 MG Tablet) PO SCH (09:00)
[2024-02-06] MEDS: Ascorbic Acid 500 mg Chewable Tablet PO SCH (09:00)
[2024-02-06] MEDS ORDERED: Folic Acid 1 MG TAB PO SCH (09:00)
[2024-02-06] MEDS ORDERED: Thiamine 100 MG TAB PO SCH (09:00)
[2024-02-06] MEDS ORDERED: Multivit, Therapeutic 1 TAB PO SCH (09:00)
[2024-02-06] MEDS ORDERED: Non-Formulary Item 1 EACH (Multivitamin [Multivitamin] 1 EACH Tablet) PO SCH (09:00)
[2024-02-06] MEDS: Magnesium Oxide 400 MG TAB PO SCH (09:00)
[2024-02-06] MEDS ORDERED: Lorazepam 1 MG TAB PO PRN (14:42)
[2024-02-06] MEDS: Sodium Ferric Gluconate 250 MG in Sodium Chloride 0.9% 250 ML 250 ML IVPB SCH (16:40)
[2024-02-06] MEDS: Pantoprazole 40 MG VIAL IVP SCH (20:33)
[2024-02-07 05:52] LABS: Anion Gap 11 mmol/L (10-20); BUN (Urea Nitrogen) 4 mg/dL (7.0-18.7); Calc. Creatinine Clearance 95 mL/min (70-130); Calcium 8.7 mg/dL (7.8-10.44); Carbon Dioxide 24 mmol/L (22-29); Chloride 105 mmol/L (98-107); Estimated GFR 84; Glucose 87 mg/dL (70-105); Magnesium 1.4 mg/dL (1.6-2.6); Sodium 136 mmol/L (136-145)
[2024-02-07 05:59] LABS: #Basophils 0.04 10x3/uL (0.0-0.2); %Basophils 1.2 % (0.0-1.0); %Eosinophils 5.2 % (0.0-10.0); %Lymphocytes 30.6 % (21.0-51.0); %Monocytes 18.8 % (0.0-10.0); %Neutrophils 44.2 % (42.0-75.0); Hemoglobin 8.5 g/dL (12.0-16.0); Mean Corpuscular HGB CONC 31.5 g/dL (32.0-36.0); Mean Corpuscular Hemoglobin 27.3 pg (27.0-31.0); Mean Corpuscular Volume 86.8 fL (78.0-98.0); Mean Platelet Volume 10.7 fL (7.4-10.4); Platelet Count 124 10x3/uL (130-400); RBC Distribution Width 19.9 % (11.5-14.5); Red Blood Cell (RBC) Count 3.11 mill/uL (4.20-5.40)
[2024-02-07] MEDS: Magnesium Sulfate In Water 4 GM in Premix 1 BAG IVPB SCH (08:25)
[2024-02-07] MEDS ORDERED: Lorazepam 1 MG TAB PO PRN (14:42)
[2024-02-07] MEDS ORDERED: Sodium Ferric Gluconate 250 MG in Sodium Chloride 0.9% 250 ML 250 ML IVPB SCH (16:00)
[2024-02-07 16:58] VITALS: BP 110/69; TEMP 97.6
[2024-02-07] MEDS ORDERED: Lorazepam 0.5 MG TAB PO SCH (21:00)
[2024-02-08] MEDS ORDERED: Thiamine 100 MG TAB PO SCH (09:00)
[2024-02-08] MEDS ORDERED: Lorazepam 0.5 MG TAB PO PRN (14:42)
== END 2024-02-07 16:49 | disposition home or self-care (01) ==
LOC: SUATTDRO 10:28 → ERS 10:28 → T4-B 16:18
PROVIDERS: ADMIT Internal Medicine; ATTEND Hospitalist
DX: K21.00 Gastro-esophageal reflux disease with esophagitis, without bleeding (principal); K70.30 Alcoholic cirrhosis of liver without ascites; K76.6 Portal hypertension; K76.0 Fatty (change of) liver, not elsewhere classified; K31.89 Other diseases of stomach and duodenum; R16.0 Hepatomegaly, not elsewhere classified; E87.6 Hypokalemia; D64.9 Anemia, unspecified; F39 Unspecified mood [affective] disorder; F10.10 Alcohol abuse, uncomplicated; F17.290 Nicotine dependence, other tobacco product, uncomplicated; Z87.59 Personal history of other complications of pregnancy, childbirth and the puerperium; Z96.641 Presence of right artificial hip joint; Z88.8 Allergy status to other drugs, medicaments and biological substances; Z79.899 Other long term (current) drug therapy; Y90.0 Blood alcohol level of less than 20 mg/100 ml
CPT/HCPCS: 36415; 71045; 80048; 80053; 80076; 80306; 80307; 82274; 82728; 83540; 83550; 83605; 83690; 83735; 84484; 85025; 85610; 85730; 86850; 86900; 86901; 93005; 96374; 96375; 96376; J2272; J2405; J2470; J2916; J3411; J3475; J3480; J7042; J7050

== ENCOUNTER 2024-02-21 19:04 | Emergency (ER) | payer OTHER ==
[2024-02-21 20:08] LABS: #Basophils 0.03 10x3/uL (0.0-0.2); %Basophils 0.9 % (0.0-1.0); %Eosinophils 2.8 % (0.0-10.0); %Lymphocytes 38.2 % (21.0-51.0); %Monocytes 11.5 % (0.0-10.0); %Neutrophils 46.6 % (42.0-75.0); Hematocrit 30.2 % (36.0-47.0); Hemoglobin 9.6 g/dL (12.0-16.0); Mean Corpuscular HGB CONC 31.8 g/dL (32.0-36.0); Mean Corpuscular Hemoglobin 27.6 pg (27.0-31.0); Mean Corpuscular Volume 86.8 fL (78.0-98.0); Platelet Count 125 10x3/uL (130-400); RBC Distribution Width 20.6 % (11.5-14.5); Red Blood Cell (RBC) Count 3.48 mill/uL (4.20-5.40)
[2024-02-21 20:15] LABS: INR-International Normal Ratio 1.8; PTT 47.1 sec (22.9-36.1); Prothrombin Time 20.7 sec (12.0-14.7)
[2024-02-21 20:22] LABS: ALT (SGPT) Less than 5 U/L (8-55); AST (SGOT) 31 U/L (5-34); Albumin 2.7 g/dL (3.5-5.0); Alkaline Phosphatase 113 U/L (40-110); Anion Gap 10 mmol/L (10-20); BUN (Urea Nitrogen) 5 mg/dL (7.0-18.7); Bilirubin, Total 2.4 mg/dL (0.2-1.2); Calc. Creatinine Clearance 0 mL/min (70-130); Calcium 8.3 mg/dL (7.8-10.44); Carbon Dioxide 21 mmol/L (22-29); Chloride 110 mmol/L (98-107); Estimated GFR 110; Globulin 4.8 g/dL (2.4-3.5); Glucose 89 mg/dL (70-105); Lipase 23 U/L (8-78); Magnesium 1.5 mg/dL (1.6-2.6); Potassium 3.2 mmol/L (3.5-5.1); Protein, Total 7.5 g/dL (6.0-8.3); Sodium 138 mmol/L (136-145)
[2024-02-21 20:26] LABS: Troponin I Less than 0.010 ng/mL (< 0.028)
[2024-02-21] MEDS ORDERED: Potassium Chloride 20 MEQ TAB ONE (20:56)
[2024-02-21] MEDS ORDERED: Magnesium 2 GM/50 ML BAG (IN WATER) ONE (20:58)
[2024-02-21] MEDS ORDERED: Magnesium 2 GM/50 ML(in water) 2 GM in Premix 1 BAG IVPB SCH (21:00)
[2024-02-21] MEDS ORDERED: Morphine 2 MG/ML VIAL ONE (21:06)
== END 2024-02-21 22:51 | disposition home or self-care (01) ==
LOC: ERS 19:04
DX: E83.42 Hypomagnesemia (principal); E87.6 Hypokalemia
CPT/HCPCS: 36415; 71045; 80053; 83605; 83690; 83735; 84484; 85025; 85610; 85730; 86850; 86900; 86901; 93005; 94760; 96365; 96375; J2272; J3475

== ENCOUNTER 2024-03-15 14:38 | Inpatient (IN) | payer OTHER ==
[2024-03-15] MEDS ORDERED: Ondansetron PF 4 MG/2 ML Vial ONE (15:18)
[2024-03-15] MEDS ORDERED: Pantoprazole 40 MG VIAL ONE (15:18)
[2024-03-15 16:27] LABS: #Basophils 0.04 10x3/uL (0.0-0.2); %Basophils 1.4 % (0.0-1.0); %Eosinophils 2.8 % (0.0-10.0); %Lymphocytes 24.6 % (21.0-51.0); %Monocytes 4.6 % (0.0-10.0); %Neutrophils 66.2 % (42.0-75.0); Hematocrit 34.9 % (36.0-47.0); Mean Corpuscular HGB CONC 31.5 g/dL (32.0-36.0); Mean Corpuscular Hemoglobin 28.3 pg (27.0-31.0); Mean Corpuscular Volume 89.7 fL (78.0-98.0); Mean Platelet Volume 9.3 fL (7.4-10.4); Platelet Count 105 10x3/uL (130-400); RBC Distribution Width 19.5 % (11.5-14.5); Red Blood Cell (RBC) Count 3.89 mill/uL (4.20-5.40)
[2024-03-15 16:33] LABS: INR-International Normal Ratio 2.1; Prothrombin Time 23.3 sec (12.0-14.7)
[2024-03-15 16:37] LABS: Acetaminophen Less than 10 mcg/mL (Less than 10); Alcohol 299.3 mg/dL (Less than 10); Salicylate Less than 8.0 mg/dL (Less than 8.0)
[2024-03-15 16:40] LABS: ALT (SGPT) 6 U/L (8-55); AST (SGOT) 56 U/L (5-34); Albumin 2.8 g/dL (3.5-5.0); Alkaline Phosphatase 130 U/L (40-110); Anion Gap 16 mmol/L (10-20); BUN (Urea Nitrogen) 4 mg/dL (7.0-18.7); Bilirubin, Total 2.4 mg/dL (0.2-1.2); Calc. Creatinine Clearance 0 mL/min (70-130); Calcium 8.2 mg/dL (7.8-10.44); Carbon Dioxide 21 mmol/L (22-29); Chloride 107 mmol/L (98-107); Estimated GFR 111; Globulin 5.2 g/dL (2.4-3.5); Glucose 113 mg/dL (70-105); Potassium 2.7 mmol/L (3.5-5.1); Sodium 141 mmol/L (136-145)
[2024-03-15 16:42] LABS: Troponin I Less than 0.010 ng/mL (< 0.028)
[2024-03-15] MEDS ORDERED: Potassium Chloride 20 MEQ TAB ONE (17:31)
[2024-03-15] MEDS ORDERED: Acetaminophen 650 MG Suppository PR PRN (18:08)
[2024-03-15] MEDS ORDERED: Lorazepam 2 MG/ML VIAL IM PRN (18:10)
[2024-03-15] MEDS ORDERED: Ondansetron ODT 4 MG TAB PO PRN (18:10)
[2024-03-15] MEDS ORDERED: Lorazepam 1 MG TAB PO PRN (18:10)
[2024-03-15] MEDS ORDERED: Electrolyte Replacement Protocol FS SCH (18:15)
[2024-03-15] MEDS ORDERED: Promethazine HCl 25 MG/ML VIAL ONE (18:47)
[2024-03-15 18:50] LABS: Magnesium 1.5 mg/dL (1.6-2.6); Phosphorus 3.4 mg/dL (2.3-4.7)
[2024-03-15] MEDS ORDERED: Magnesium Sulfate 4 GM in Sodium Chloride 0.9% 250 ML 250 ML IVPB SCH (19:45)
[2024-03-15] MEDS: Magnesium Sulfate In Water 4 GM in Premix 1 BAG IVPB SCH (21:46)
[2024-03-15] MEDS: Potassium Chloride 20 MEQ in Premix 1 BAG IVPB SCH (21:47)
[2024-03-15] MEDS: 1/2 NS w/Potassium 20 mEq 1,000 ML IV SCH (21:47)
[2024-03-15] MEDS: chlordiazePOXIDE HCl 25 MG CAP PO SCH (22:04)
[2024-03-15] MEDS: hydrOXYzine 25 MG TAB PO SCH (22:04)
[2024-03-15] MEDS: Thiamine HCl 200 MG/2 ML VIAL SLOW IVP SCH (22:05)
[2024-03-15] MEDS: Pantoprazole 40 MG VIAL IVP SCH (22:05)
[2024-03-15] MEDS: Ondansetron PF 4 MG/2 ML Vial IVP SCH (22:05)
[2024-03-15] MEDS: Lorazepam 2 MG/ML VIAL SLOW IVP SCH (22:06)
[2024-03-15 23:41] VITALS: BMI 25.5
[2024-03-16] MEDS: Acetaminophen 325 MG TAB PO PRN (00:45)
[2024-03-16] MEDS: Magnesium Sulfate In Water 4 GM in Premix 1 BAG IVPB SCH (03:26)
[2024-03-16 05:28] LABS: #Basophils 0.04 10x3/uL (0.0-0.2); %Basophils 1.6 % (0.0-1.0); %Eosinophils 3.5 % (0.0-10.0); %Lymphocytes 48.6 % (21.0-51.0); %Monocytes 12.9 % (0.0-10.0); %Neutrophils 33.4 % (42.0-75.0); Hematocrit 27.1 % (36.0-47.0); Hemoglobin 8.7 g/dL (12.0-16.0); Mean Corpuscular HGB CONC 32.1 g/dL (32.0-36.0); Mean Corpuscular Hemoglobin 28.2 pg (27.0-31.0); Mean Corpuscular Volume 87.7 fL (78.0-98.0); Mean Platelet Volume 9.7 fL (7.4-10.4); Platelet Count 81 10x3/uL (130-400); RBC Distribution Width 19.5 % (11.5-14.5); Red Blood Cell (RBC) Count 3.09 mill/uL (4.20-5.40)
[2024-03-16 05:39] LABS: Anion Gap 10 mmol/L (10-20); BUN (Urea Nitrogen) 4 mg/dL (7.0-18.7); Calc. Creatinine Clearance 126 mL/min (70-130); Calcium 7.4 mg/dL (7.8-10.44); Carbon Dioxide 24 mmol/L (22-29); Chloride 110 mmol/L (98-107); Estimated GFR 111; Glucose 93 mg/dL (70-105); Magnesium 2.4 mg/dL (1.6-2.6); Potassium 3.1 mmol/L (3.5-5.1); Sodium 141 mmol/L (136-145)
[2024-03-16] MEDS: Spironolactone 100 MG TAB PO SCH (09:23)
[2024-03-16] MEDS: Multivit, Therapeutic 1 TAB PO SCH (09:23)
[2024-03-16] MEDS: Folic Acid 1 MG TAB PO SCH (09:23)
[2024-03-16] MEDS: Potassium Chloride 20 MEQ TAB PO SCH (09:23)
[2024-03-16] MEDS: Sertraline 25 MG TAB PO SCH (09:24)
[2024-03-16] MEDS: Potassium Chloride 20 MEQ in Premix 1 BAG IVPB SCH (11:13)
[2024-03-16] MEDS: Magnesium 2 GM/50 ML(in water) 2 GM in Premix 1 BAG IVPB SCH (11:13)
[2024-03-16] MEDS ORDERED: Lorazepam 1 MG TAB PO PRN (18:10)
[2024-03-17 05:37] LABS: #Basophils Less than 0.03 10x3/uL (0.0-0.2); %Basophils 0.9 % (0.0-1.0); %Eosinophils 3.7 % (0.0-10.0); %Lymphocytes 43.3 % (21.0-51.0); %Monocytes 11.1 % (0.0-10.0); Hemoglobin 9.2 g/dL (12.0-16.0); Mean Corpuscular HGB CONC 31.7 g/dL (32.0-36.0); Mean Corpuscular Hemoglobin 28.4 pg (27.0-31.0); Mean Corpuscular Volume 89.5 fL (78.0-98.0); Mean Platelet Volume 9.3 fL (7.4-10.4); Platelet Count 89 10x3/uL (130-400); RBC Distribution Width 19.5 % (11.5-14.5); Red Blood Cell (RBC) Count 3.24 mill/uL (4.20-5.40)
[2024-03-17 05:50] LABS: Anion Gap 8 mmol/L (10-20); BUN (Urea Nitrogen) 4 mg/dL (7.0-18.7); Calc. Creatinine Clearance 115 mL/min (70-130); Carbon Dioxide 23 mmol/L (22-29); Chloride 109 mmol/L (98-107); Estimated GFR 109; Glucose 78 mg/dL (70-105); Magnesium 2.1 mg/dL (1.6-2.6); Potassium 4.2 mmol/L (3.5-5.1); Sodium 136 mmol/L (136-145)
[2024-03-17 05:56] LABS: Phosphorus 2.3 mg/dL (2.3-4.7)
[2024-03-17] MEDS: Ondansetron PF 4 MG/2 ML Vial IVP PRN (06:24)
[2024-03-17] MEDS: Ondansetron ODT 4 MG TAB PO PRN (09:21)
[2024-03-17] MEDS: chlordiazePOXIDE HCl 25 MG CAP PO SCH (17:16)
[2024-03-17] MEDS ORDERED: Lorazepam 1 MG TAB PO PRN (18:10)
[2024-03-18 05:45] LABS: Anion Gap 10 mmol/L (10-20); BUN (Urea Nitrogen) Less than 4 mg/dL (7.0-18.7); Calc. Creatinine Clearance 101 mL/min (70-130); Calcium 8.5 mg/dL (7.8-10.44); Carbon Dioxide 23 mmol/L (22-29); Chloride 108 mmol/L (98-107); Estimated GFR 93; Glucose 82 mg/dL (70-105); Magnesium 1.7 mg/dL (1.6-2.6); Potassium 4.3 mmol/L (3.5-5.1); Sodium 137 mmol/L (136-145)
[2024-03-18 05:48] LABS: #Basophils 0.03 10x3/uL (0.0-0.2); %Basophils 1.2 % (0.0-1.0); %Eosinophils 4.3 % (0.0-10.0); %Lymphocytes 42.8 % (21.0-51.0); %Monocytes 10.5 % (0.0-10.0); %Neutrophils 41.2 % (42.0-75.0); Hematocrit 33.4 % (36.0-47.0); Hemoglobin 10.5 g/dL (12.0-16.0); Mean Corpuscular HGB CONC 31.4 g/dL (32.0-36.0); Mean Corpuscular Hemoglobin 28.5 pg (27.0-31.0); Mean Corpuscular Volume 90.8 fL (78.0-98.0); Mean Platelet Volume 9.8 fL (7.4-10.4); Platelet Count 99 10x3/uL (130-400); RBC Distribution Width 19.8 % (11.5-14.5); Red Blood Cell (RBC) Count 3.68 mill/uL (4.20-5.40)
[2024-03-18 05:49] LABS: Phosphorus 2.9 mg/dL (2.3-4.7)
[2024-03-18] MEDS ORDERED: Electrolyte Replacement Protocol FS PRN (07:30)
[2024-03-18] MEDS: Magnesium 2 GM/50 ML(in water) 2 GM in Premix 1 BAG IVPB SCH (08:56)
[2024-03-18 16:51] VITALS: TEMP 98
[2024-03-18 16:56] VITALS: BP 110/72
[2024-03-18] MEDS ORDERED: Lorazepam 0.5 MG TAB PO PRN (18:10)
[2024-03-18] MEDS ORDERED: Thiamine 100 MG TAB PO SCH (21:00)
[2024-03-18] MEDS ORDERED: Pantoprazole DR 40 MG TAB PO SCH (21:00)
== END 2024-03-18 17:51 | disposition home or self-care (01) | DRG 896 ==
LOC: ERS 14:38 → OBS 18:23 → OBSVTOIN 03-17 16:18
PROVIDERS: ADMIT Internal Medicine; ATTEND Hospitalist
DX: F10.239 Alcohol dependence with withdrawal, unspecified (principal); K22.11 Ulcer of esophagus with bleeding; K76.6 Portal hypertension; D61.818 Other pancytopenia; K92.0 Hematemesis; E87.6 Hypokalemia; K70.30 Alcoholic cirrhosis of liver without ascites; F10.229 Alcohol dependence with intoxication, unspecified; F10.24 Alcohol dependence with alcohol-induced mood disorder; K31.89 Other diseases of stomach and duodenum; F17.290 Nicotine dependence, other tobacco product, uncomplicated; K70.10 Alcoholic hepatitis without ascites; Z79.899 Other long term (current) drug therapy; Y90.8 Blood alcohol level of 240 mg/100 ml or more
CPT/HCPCS: 36415; 80048; 80053; 80307; 83735; 84100; 84484; 85025; 85610; 86850; 86900; 86901; 93005; 94760; 96372; 96374; 96375; 96376; G0378; J2060; J2405; J2470; J2550; J3411; J3475; J3480; Q0162

== ENCOUNTER 2024-03-19 20:38 | Inpatient (IN) | payer OTHER ==
[2024-03-19] MEDS ORDERED: Ondansetron PF 4 MG/2 ML Vial ONE (21:06)
[2024-03-19] MEDS ORDERED: Pantoprazole 40 MG VIAL ONE (21:06)
[2024-03-19] MEDS ORDERED: cefTRIAXone (ROCEPHIN) 1 GM VIAL ONE (21:07)
[2024-03-19] MEDS ORDERED: Sodium Chloride 0.9% 100 ML ONE (21:07)
[2024-03-19 21:33] LABS: #Basophils 0.06 10x3/uL (0.0-0.2); %Basophils 1.5 % (0.0-1.0); %Eosinophils 4.2 % (0.0-10.0); %Lymphocytes 31.1 % (21.0-51.0); Hematocrit 33.9 % (36.0-47.0); Hemoglobin 10.3 g/dL (12.0-16.0); Mean Corpuscular HGB CONC 30.4 g/dL (32.0-36.0); Mean Corpuscular Volume 92.1 fL (78.0-98.0); Mean Platelet Volume 9.3 fL (7.4-10.4); Platelet Count 126 10x3/uL (130-400); RBC Distribution Width 19.8 % (11.5-14.5); Red Blood Cell (RBC) Count 3.68 mill/uL (4.20-5.40)
[2024-03-19 21:36] LABS: BHCG - Serum Negative (NEGATIVE); Pregs Control Background? CLEAR/WHITE (CLR/WHITE); Pregs Control Bar Appear? YES (CONTROL BAR)
[2024-03-19 21:41] LABS: ALT (SGPT) Less than 5 U/L (8-55); AST (SGOT) 38 U/L (5-34); Albumin 2.9 g/dL (3.5-5.0); Alkaline Phosphatase 135 U/L (40-110); Anion Gap 12 mmol/L (10-20); BUN (Urea Nitrogen) Less than 4 mg/dL (7.0-18.7); Bilirubin, Total 2.1 mg/dL (0.2-1.2); Calc. Creatinine Clearance 0 mL/min (70-130); Calcium 8.8 mg/dL (7.8-10.44); Carbon Dioxide 24 mmol/L (22-29); Chloride 107 mmol/L (98-107); Estimated GFR 90; Globulin 5.9 g/dL (2.4-3.5); Glucose 111 mg/dL (70-105); Potassium 4.2 mmol/L (3.5-5.1); Protein, Total 8.8 g/dL (6.0-8.3); Sodium 139 mmol/L (136-145)
[2024-03-19 21:54] LABS: INR-International Normal Ratio 1.9; Prothrombin Time 22.1 sec (12.0-14.7)
[2024-03-20] MEDS ORDERED: Pantoprazole 80 MG in Sodium Chloride 0.9% 100 ML IVPB SCH ×2 (00:45→04:45)
[2024-03-20] MEDS ORDERED: Acetaminophen 650 MG Suppository PR PRN (04:33)
[2024-03-20 04:52] VITALS: BMI 25.5
[2024-03-20 08:26] LABS: Hematocrit 29.9 % (36.0-47.0); Hemoglobin 9.3 g/dL (12.0-16.0)
[2024-03-20] MEDS ORDERED: Iopamidol-370 76% 500 ML MDV (1 ML CHARGE) ONE (09:42)
[2024-03-20] MEDS: Pantoprazole 80 MG, Admixture Fee 1 EACH in Sodium Chloride 0.9% 100 ML IVPB SCH (10:34)
[2024-03-20] MEDS: Acetaminophen 325 MG TAB PO PRN (20:18)
[2024-03-21] MEDS: Ondansetron ODT 4 MG TAB PO PRN (04:38)
[2024-03-21 06:22] LABS: ALT (SGPT) Less than 5 U/L (8-55); AST (SGOT) 26 U/L (5-34); Albumin 2.3 g/dL (3.5-5.0); Alkaline Phosphatase 102 U/L (40-110); Anion Gap 10 mmol/L (10-20); BUN (Urea Nitrogen) 4 mg/dL (7.0-18.7); Bilirubin, Total 2.2 mg/dL (0.2-1.2); Calc. Creatinine Clearance 109 mL/min (70-130); Calcium 8.1 mg/dL (7.8-10.44); Carbon Dioxide 22 mmol/L (22-29); Chloride 111 mmol/L (98-107); Estimated GFR 102; Globulin 4.5 g/dL (2.4-3.5); Glucose 98 mg/dL (70-105); Potassium 3.5 mmol/L (3.5-5.1); Protein, Total 6.8 g/dL (6.0-8.3); Sodium 139 mmol/L (136-145)
[2024-03-21 06:58] LABS: #Basophils 0.03 10x3/uL (0.0-0.2); %Basophils 1.3 % (0.0-1.0); %Eosinophils 4.8 % (0.0-10.0); %Lymphocytes 41.4 % (21.0-51.0); %Monocytes 11.9 % (0.0-10.0); %Neutrophils 40.6 % (42.0-75.0); Hemoglobin 9.4 g/dL (12.0-16.0); Mean Corpuscular HGB CONC 31.3 g/dL (32.0-36.0); Mean Corpuscular Hemoglobin 28.6 pg (27.0-31.0); Mean Corpuscular Volume 91.2 fL (78.0-98.0); Mean Platelet Volume 9.2 fL (7.4-10.4); Platelet Count 96 10x3/uL (130-400); RBC Distribution Width 20.4 % (11.5-14.5); Red Blood Cell (RBC) Count 3.29 mill/uL (4.20-5.40)
[2024-03-21] MEDS: Ondansetron PF 4 MG/2 ML Vial IVP PRN (10:57)
[2024-03-21] MEDS: Fioricet 325/50/40 mg Tablet PO SCH (13:30)
[2024-03-21] MEDS: Sucralfate 1 GM/10 ML UDCUP PO SCH (13:30)
[2024-03-22] MEDS: hydrOXYzine 25 MG TAB PO SCH (20:10)
[2024-03-22] MEDS: Gabapentin 300 MG CAP PO SCH (20:10)
[2024-03-22] MEDS: Pantoprazole 40 MG DR.TAB PO SCH (20:10)
[2024-03-23 05:49] LABS: #Basophils Less than 0.03 10x3/uL (0.0-0.2); %Basophils 0.8 % (0.0-1.0); %Eosinophils 4.7 % (0.0-10.0); %Lymphocytes 40.6 % (21.0-51.0); %Monocytes 12.1 % (0.0-10.0); %Neutrophils 41.4 % (42.0-75.0); Hematocrit 26.6 % (36.0-47.0); Hemoglobin 8.3 g/dL (12.0-16.0); Mean Corpuscular HGB CONC 31.2 g/dL (32.0-36.0); Mean Corpuscular Hemoglobin 28.8 pg (27.0-31.0); Mean Corpuscular Volume 92.4 fL (78.0-98.0); Platelet Count 88 10x3/uL (130-400); RBC Distribution Width 20.3 % (11.5-14.5); Red Blood Cell (RBC) Count 2.88 mill/uL (4.20-5.40)
[2024-03-23 05:55] LABS: INR-International Normal Ratio 2.3; Prothrombin Time 25.5 sec (12.0-14.7)
[2024-03-23 06:12] LABS: Calc. Creatinine Clearance 103 mL/min (70-130); Estimated GFR 95
[2024-03-23 06:14] LABS: ALT (SGPT) Less than 5 U/L (8-55); AST (SGOT) 23 U/L (5-34); Albumin 2.1 g/dL (3.5-5.0); Alkaline Phosphatase 90 U/L (40-110); Anion Gap 8 mmol/L (10-20); BUN (Urea Nitrogen) Less than 4 mg/dL (7.0-18.7); Bilirubin, Total 1.4 mg/dL (0.2-1.2); Calcium 7.9 mg/dL (7.8-10.44); Carbon Dioxide 22 mmol/L (22-29); Chloride 110 mmol/L (98-107); Globulin 3.9 g/dL (2.4-3.5); Glucose 79 mg/dL (70-105); Magnesium 1.5 mg/dL (1.6-2.6); Potassium 3.9 mmol/L (3.5-5.1); Sodium 136 mmol/L (136-145)
[2024-03-23] MEDS: Sertraline 25 MG TAB PO SCH (08:47)
[2024-03-23] MEDS: Folic Acid 1 MG TAB PO SCH (08:47)
[2024-03-23] MEDS: Thiamine 100 MG TAB PO SCH (08:47)
[2024-03-23] MEDS: Multivit, Therapeutic 1 TAB PO SCH (08:48)
[2024-03-23] MEDS ORDERED: Electrolyte Replacement Protocol 1 EACH FS SCH (09:00)
[2024-03-23] MEDS: Phytonadione 5 MG TAB PO SCH (09:29)
[2024-03-23] MEDS: Magnesium 2 GM/50 ML(in water) 2 GM in Premix 1 BAG IVPB SCH (10:48)
[2024-03-23] MEDS: Metoclopramide HCl 10 MG (2 mL) VIAL IVP SCH (12:13)
[2024-03-23] MEDS: Polyethylene Glycol 3350 17 GM Packet PO SCH (23:09)
[2024-03-23] MEDS: Docusate 100 MG CAP PO SCH (23:09)
[2024-03-24 05:00] LABS: #Basophils 0.04 10x3/uL (0.0-0.2); %Basophils 1.4 % (0.0-1.0); %Eosinophils 4.1 % (0.0-10.0); %Lymphocytes 40.1 % (21.0-51.0); %Monocytes 10.2 % (0.0-10.0); %Neutrophils 43.9 % (42.0-75.0); Hematocrit 27.7 % (36.0-47.0); Hemoglobin 8.7 g/dL (12.0-16.0); Mean Corpuscular HGB CONC 31.4 g/dL (32.0-36.0); Mean Corpuscular Hemoglobin 28.4 pg (27.0-31.0); Mean Corpuscular Volume 90.5 fL (78.0-98.0); Mean Platelet Volume 9.9 fL (7.4-10.4); Platelet Count 96 10x3/uL (130-400); RBC Distribution Width 20.4 % (11.5-14.5); Red Blood Cell (RBC) Count 3.06 mill/uL (4.20-5.40)
[2024-03-24 05:02] LABS: INR-International Normal Ratio 2.2; Prothrombin Time 24.4 sec (12.0-14.7)
[2024-03-24 05:09] LABS: Anion Gap 6 mmol/L (10-20); BUN (Urea Nitrogen) 4 mg/dL (7.0-18.7); Calc. Creatinine Clearance 94 mL/min (70-130); Calcium 8.1 mg/dL (7.8-10.44); Carbon Dioxide 25 mmol/L (22-29); Chloride 108 mmol/L (98-107); Estimated GFR 85; Glucose 84 mg/dL (70-105); Magnesium 1.5 mg/dL (1.6-2.6); Potassium 4.1 mmol/L (3.5-5.1); Sodium 135 mmol/L (136-145)
[2024-03-24] MEDS: Magnesium 2 GM/50 ML(in water) 2 GM in Premix 1 BAG IVPB SCH (06:17)
[2024-03-24] MEDS ORDERED: Electrolyte Replacement Protocol 1 EACH FS SCH (08:45)
[2024-03-24] MEDS ORDERED: Electrolyte Replacement Protocol FS PRN (08:45)
[2024-03-24 08:54] VITALS: BP 96/53; TEMP 97.8
[2024-03-24] MEDS: Docusate 100 MG CAP PO SCH (08:56)
[2024-03-24] MEDS ORDERED: Bisacodyl 10 MG SUPP PR PRN (14:32)
== END 2024-03-24 16:47 | disposition home or self-care (01) | DRG 378 ==
LOC: ERS 20:38 → T4-A 03-20 04:10 → ERHOLD 03-20 04:24 → T4-A 03-20 10:04 → OBSVTOIN 03-21 12:43
PROVIDERS: ADMIT Student in an Organized Health Care Education/Training Program; ATTEND Internal Medicine
DX: K92.0 Hematemesis (principal); D68.4 Acquired coagulation factor deficiency; K76.6 Portal hypertension; K74.60 Unspecified cirrhosis of liver; D69.6 Thrombocytopenia, unspecified; E88.09 Other disorders of plasma-protein metabolism, not elsewhere classified; K59.00 Constipation, unspecified; I85.10 Secondary esophageal varices without bleeding
CPT/HCPCS: 36415; 74177; 80048; 80053; 80307; 83735; 84703; 85014; 85018; 85025; 85610; 86850; 86900; 86901; 93005; 94760; 96374; 96375; 96376; G0378; J0696; J2405; J2470; J2765; J3475; Q0162; Q9967

== ENCOUNTER 2024-03-27 11:20 | Emergency (ER) | payer OTHER ==
[2024-03-27 11:50] LABS: #Basophils 0.03 10x3/uL (0.0-0.2); %Basophils 1.4 % (0.0-1.0); %Eosinophils 3.8 % (0.0-10.0); %Lymphocytes 37.5 % (21.0-51.0); %Monocytes 13.5 % (0.0-10.0); %Neutrophils 43.3 % (42.0-75.0); Hemoglobin 9.5 g/dL (12.0-16.0); Mean Corpuscular HGB CONC 30.6 g/dL (32.0-36.0); Mean Corpuscular Hemoglobin 28.5 pg (27.0-31.0); Mean Corpuscular Volume 93.1 fL (78.0-98.0); Mean Platelet Volume 10.1 fL (7.4-10.4); Platelet Count 112 10x3/uL (130-400); RBC Distribution Width 20.5 % (11.5-14.5); Red Blood Cell (RBC) Count 3.33 mill/uL (4.20-5.40)
[2024-03-27 12:01] LABS: INR-International Normal Ratio 1.9; PTT 52.9 sec (22.9-36.1); Prothrombin Time 21.7 sec (12.0-14.7)
[2024-03-27 12:24] LABS: ALT (SGPT) Less than 5 U/L (8-55); AST (SGOT) 32 U/L (5-34); Albumin 2.2 g/dL (3.5-5.0); Alkaline Phosphatase 93 U/L (40-110); Anion Gap 8 mmol/L (10-20); BUN (Urea Nitrogen) 5 mg/dL (7.0-18.7); Bilirubin, Total 1.4 mg/dL (0.2-1.2); Calc. Creatinine Clearance 0 mL/min (70-130); Calcium 8.4 mg/dL (7.8-10.44); Carbon Dioxide 24 mmol/L (22-29); Chloride 111 mmol/L (98-107); Estimated GFR 112; Globulin 4.8 g/dL (2.4-3.5); Glucose 101 mg/dL (70-105); Lipase 21 U/L (8-78); Potassium 3.4 mmol/L (3.5-5.1); Sodium 140 mmol/L (136-145)
[2024-03-27 12:32] LABS: Anisocytosis MODERATE=16-30 cells HPF (0-5); Band 1 % (5-11); Burr Cells SLIGHT = 2-5 cells HPF (0-1); Eosinophils 4 % (0-10); Large Platelets 17.9 % (0-5); Lymphocytes 27 % (21-51); Macrocytosis MODERATE=16-30 cells HPF (0-5); Microcytosis SLIGHT = 6-15 cells HPF (0-5); Monocytes 5 % (0-10); Neutrophil 49 % (42-75); Platelet Adequacy Comment Platelets Decreased; Polychromasia SLIGHT = 2-3 cells HPF (0-2); Reactive Lymphocytes 8 % (0-10); Toxic Granulation SLIGHT; Vacuoles MODERATE
[2024-03-27] MEDS ORDERED: Metoclopramide HCl 10 MG (2 mL) VIAL ONE (13:03)
[2024-03-27 13:25] LABS: Pregnancy Test - Urine (BHCG) Negative (Negative); Pregu Control Background? CLEAR/WHITE (CLR/WHITE); Pregu Control Bar Appear? YES (CONTROL BAR); Specific Gravity 1.019 (1.002-1.036)
[2024-03-27 13:28] LABS: Bacteria/HPF None Seen HPF (None Seen); Bilirubin Negative (Negative); Blood, Urine Negative (Negative); CAUTI Indications for Culture Dysuria,urgency,freq; Clarity Clear (Clear); Glucose, Urine (Dipstick) Normal (Negative); Ketone, Urine Negative (Negative); Leukocyte 25 Leu/uL (Negative); Nitrite Negative (Negative); Protein, Urine (Dipstick) Negative (Neg-Trace); RBC/HPF 0-3 HPF (0-3); Specific Gravity, Urine 1.019 (1.002-1.036); Squamous Epithelial 0-3 HPF (0-3); pH, Urine 5.5 (5.0-9.0)
[2024-03-27 13:31] LABS: Urine Culture Reflex No No
[2024-03-27 13:32] LABS: Amphetamine Not Detected (NotDetected); Barbiturates Screen Detected (NotDetected); Benzodiazepine Screen Detected (NotDetected); Cocaine Metabolite Screen Not Detected (NotDetected); Methadone Not Detected (NotDetected); Methamphetamine Not Detected (NotDetected); Opiate Screen Not Detected (NotDetected); Oxycodone Screen Not Detected (NotDetected); Phencyclidine (PCP) Not Detected (NotDetected); THC/Cannabinoid Screen Not Detected (NotDetected); Tricyclic Screen Not Detected (NotDetected)
[2024-03-27] MEDS ORDERED: Potassium Chloride 20 MEQ TAB ONE (15:00)
== END 2024-03-27 15:03 | disposition home or self-care (01) ==
LOC: ERS 11:20
DX: K70.30 Alcoholic cirrhosis of liver without ascites (principal); D61.818 Other pancytopenia
CPT/HCPCS: 36415; 80053; 80306; 81001; 81025; 83690; 85025; 85610; 85730; 93005; 94760; 96374; J2765

== ENCOUNTER 2024-10-17 10:06 | Inpatient (IN) | payer OTHER, SELFPAY ==
[2024-10-17 11:00] LABS: #Basophils Less than 0.03 10x3/uL (0.0-0.2); #Eosinophils 0.04 10x3/uL (0.0-0.7); #Monocytes 0.38 10x3/uL (0.11-0.59); #Neutrophils 1.65 10x3/uL (1.40-6.50); %Basophils 0.7 % (0.0-1.0); %Eosinophils 1.4 % (0.0-10.0); %Lymphocytes 27.1 % (21.0-51.0); %Monocytes 13.2 % (0.0-10.0); %Neutrophils 57.3 % (42.0-75.0); Hematocrit 37.5 % (36.0-47.0); Hemoglobin 12.1 g/dL (12.0-16.0); Mean Corpuscular Hemoglobin 31.3 pg (27.0-31.0); Mean Corpuscular Volume 97.2 fL (78.0-98.0); Platelet Count 65 10x3/uL (130-400); Red Blood Cell (RBC) Count 3.86 mill/uL (4.20-5.40); White Blood Cell (WBC) Count 2.88 10x3/uL (4.8-10.8)
[2024-10-17 11:12] LABS: ALT (SGPT) Less than 7 U/L (Less than 34); AST (SGOT) 59 U/L (11-34); Albumin 2.5 g/dL (3.1-4.5); Alkaline Phosphatase 107 U/L (40-110); Anion Gap 13 mmol/L (10-20); BUN (Urea Nitrogen) Less than 4 mg/dL (7.0-18.7); Bilirubin, Total 7.3 mg/dL (0.3-1.2); Calc. Creatinine Clearance 0 mL/min (70-130); Calcium 8.2 mg/dL (7.8-10.44); Carbon Dioxide 23 mmol/L (22-29); Chloride 103 mmol/L (98-107); Globulin 5.5 g/dL (2.4-3.5); Glucose 95 mg/dL (70-105); Lipase 20 U/L (8-78); Magnesium 1.2 mg/dL (1.6-2.6); Potassium 3.3 mmol/L (3.5-5.1); Sodium 136 mmol/L (136-145)
[2024-10-17] MEDS ORDERED: Ondansetron PF 4 MG/2 ML Vial ONE ×2 (11:23→14:30)
[2024-10-17] MEDS ORDERED: Famotidine/PF 20 mg/2ml Vial ONE (11:23)
[2024-10-17 11:29] LABS: Troponin I Less than 0.010 ng/mL (< 0.028)
[2024-10-17] MEDS ORDERED: Iopamidol-370 76% 500 ML MDV (1 ML CHARGE) ONE (11:33)
[2024-10-17] MEDS ORDERED: Magnesium 2 GM/50 ML BAG (IN WATER) ONE (11:48)
[2024-10-17 12:23] LABS: BHCG - Serum Negative (NEGATIVE); Pregs Control Background? CLEAR/WHITE (CLR/WHITE); Pregs Control Bar Appear? YES (CONTROL BAR)
[2024-10-17] MEDS ORDERED: cefTRIAXone (ROCEPHIN) 1 GM VIAL ONE (14:07)
[2024-10-17] MEDS ORDERED: Melatonin 3 MG TAB PO PRN (14:23)
[2024-10-17] MEDS ORDERED: Senokot S 8.6-50 MG TAB PO PRN (14:23)
[2024-10-17] MEDS ORDERED: Octreotide Acetate 1,250 MCG in Sodium Chloride 0.9% 250 ML 250 ML IVPB SCH (14:45)
[2024-10-17] MEDS ORDERED: Pantoprazole 40 MG VIAL IVP SCH (21:00)
[2024-10-17 22:33] LABS: INR-International Normal Ratio 2.4; Prothrombin Time 26.4 sec (12.0-14.7)
[2024-10-17 22:34] LABS: PTT 56.4 sec (22.9-36.1)
[2024-10-17 22:45] LABS: #Basophils 0.05 10x3/uL (0.0-0.2); #Eosinophils 0.09 10x3/uL (0.0-0.7); #Monocytes 0.69 10x3/uL (0.11-0.59); #Neutrophils 2.46 10x3/uL (1.40-6.50); %Basophils 1.1 % (0.0-1.0); %Eosinophils 2.0 % (0.0-10.0); %Lymphocytes 26.8 % (21.0-51.0); %Monocytes 15.3 % (0.0-10.0); %Neutrophils 54.4 % (42.0-75.0); Hematocrit 37.5 % (36.0-47.0); Hemoglobin 12.2 g/dL (12.0-16.0); Mean Corpuscular Hemoglobin 31.4 pg (27.0-31.0); Mean Corpuscular Volume 96.4 fL (78.0-98.0); Platelet Count 80 10x3/uL (130-400); Red Blood Cell (RBC) Count 3.89 mill/uL (4.20-5.40); White Blood Cell (WBC) Count 4.52 10x3/uL (4.8-10.8)
[2024-10-18] MEDS: Pantoprazole 80 MG, Admixture Fee 1 EACH in Sodium Chloride 0.9% 100 ML IVPB SCH (01:57)
[2024-10-18] MEDS: diphenhydrAMINE 25 MG CAP PO SCH (02:25)
[2024-10-18 06:07] LABS: ALT (SGPT) Less than 7 U/L (Less than 34); AST (SGOT) 46 U/L (11-34); Albumin 2.2 g/dL (3.1-4.5); Alkaline Phosphatase 94 U/L (40-110); Anion Gap 13 mmol/L (10-20); BUN (Urea Nitrogen) Less than 4 mg/dL (7.0-18.7); Bilirubin, Total 5.5 mg/dL (0.3-1.2); Calc. Creatinine Clearance 133 mL/min (70-130); Calcium 7.7 mg/dL (7.8-10.44); Carbon Dioxide 22 mmol/L (22-29); Chloride 106 mmol/L (98-107); Globulin 4.8 g/dL (2.4-3.5); Glucose 160 mg/dL (70-105); Magnesium 1.6 mg/dL (1.6-2.6); Potassium 3.5 mmol/L (3.5-5.1); Sodium 137 mmol/L (136-145)
[2024-10-18 06:08] VITALS: BMI 27.2
[2024-10-18 06:12] LABS: #Basophils 0.04 10x3/uL (0.0-0.2); #Eosinophils 0.09 10x3/uL (0.0-0.7); #Monocytes 0.30 10x3/uL (0.11-0.59); #Neutrophils 1.68 10x3/uL (1.40-6.50); %Basophils 1.5 % (0.0-1.0); %Eosinophils 3.3 % (0.0-10.0); %Lymphocytes 22.6 % (21.0-51.0); %Monocytes 10.9 % (0.0-10.0); %Neutrophils 61.3 % (42.0-75.0); Hematocrit 34.3 % (36.0-47.0); Hemoglobin 11.0 g/dL (12.0-16.0); Mean Corpuscular Hemoglobin 31.1 pg (27.0-31.0); Mean Corpuscular Volume 96.9 fL (78.0-98.0); Platelet Count 62 10x3/uL (130-400); Red Blood Cell (RBC) Count 3.54 mill/uL (4.20-5.40); White Blood Cell (WBC) Count 2.74 10x3/uL (4.8-10.8)
[2024-10-18] MEDS ORDERED: PROPOFOL 40 ML ONE (07:55)
[2024-10-18] MEDS ORDERED: PROPOFOL 20 ML ONE (07:56)
[2024-10-18] MEDS: Ondansetron PF 4 MG/2 ML Vial IVP PRN (09:06)
[2024-10-18] MEDS: Pantoprazole 40 MG VIAL IVP SCH (09:07)
[2024-10-18] MEDS: Transdermal Patch Removal TOP SCH (09:08)
[2024-10-18] MEDS ORDERED: Lidocaine 1% PF 5 ML VIAL ONE (09:44)
[2024-10-18] MEDS: Mag-Al 1200 mg/1200 mg/30 ML UDCUP PO PRN (12:08)
[2024-10-18] MEDS: cefTRIAXone\\ROCEPHIN 1 GM in Sodium Chloride 0.9% 100 ML IVPB SCH (14:34)
[2024-10-19 05:24] LABS: Hematocrit 31.9 % (36.0-47.0); Hemoglobin 10.2 g/dL (12.0-16.0); Mean Corpuscular Hemoglobin 31.1 pg (27.0-31.0); Mean Corpuscular Volume 97.3 fL (78.0-98.0); Platelet Count 60 10x3/uL (130-400); Red Blood Cell (RBC) Count 3.28 mill/uL (4.20-5.40); White Blood Cell (WBC) Count 1.71 10x3/uL (4.8-10.8)
[2024-10-19 05:50] LABS: Platelet Adequacy Comment Platelets Decreased; Polychromasia SLIGHT = 2-3 cells HPF (0-2)
[2024-10-19 06:13] LABS: ALT (SGPT) Less than 7 U/L (Less than 34); AST (SGOT) 52 U/L (11-34); Albumin 2.2 g/dL (3.1-4.5); Alkaline Phosphatase 86 U/L (40-110); Anion Gap 11 mmol/L (10-20); BUN (Urea Nitrogen) Less than 4 mg/dL (7.0-18.7); Bilirubin, Total 4.1 mg/dL (0.3-1.2); Calc. Creatinine Clearance 123 mL/min (70-130); Calcium 7.6 mg/dL (7.8-10.44); Carbon Dioxide 20 mmol/L (22-29); Chloride 107 mmol/L (98-107); Globulin 4.6 g/dL (2.4-3.5); Glucose 145 mg/dL (70-105); Potassium 3.3 mmol/L (3.5-5.1); Sodium 135 mmol/L (136-145)
[2024-10-19 10:38] LABS: Magnesium 1.4 mg/dL (1.6-2.6)
[2024-10-19] MEDS: Prochlorperazine 10 MG/2 ML VIAL SLOW IVP SCH (22:33)
[2024-10-20 05:02] LABS: Hematocrit 29.6 % (36.0-47.0); Hemoglobin 9.6 g/dL (12.0-16.0); Mean Corpuscular Hemoglobin 31.6 pg (27.0-31.0); Mean Corpuscular Volume 97.4 fL (78.0-98.0); Platelet Count 57 10x3/uL (130-400); Red Blood Cell (RBC) Count 3.04 mill/uL (4.20-5.40); White Blood Cell (WBC) Count 1.84 10x3/uL (4.8-10.8)
[2024-10-20 05:18] LABS: Anion Gap 8 mmol/L (10-20); BUN (Urea Nitrogen) Less than 4 mg/dL (7.0-18.7); Calc. Creatinine Clearance 133 mL/min (70-130); Calcium 7.3 mg/dL (7.8-10.44); Carbon Dioxide 23 mmol/L (22-29); Chloride 110 mmol/L (98-107); Glucose 112 mg/dL (70-105); Magnesium 1.3 mg/dL (1.6-2.6); Potassium 2.9 mmol/L (3.5-5.1); Sodium 138 mmol/L (136-145)
[2024-10-20 05:21] LABS: ALT (SGPT) Less than 7 U/L (Less than 34); AST (SGOT) 50 U/L (11-34); Albumin 2.0 g/dL (3.1-4.5); Alkaline Phosphatase 84 U/L (40-110); Bilirubin, Direct 1.8 mg/dL (0.1-0.3); Bilirubin, Total 3.1 mg/dL (0.3-1.2)
[2024-10-20 05:36] LABS: Platelet Adequacy Comment Platelets Decreased; RBC Morphology Within Normal Limits; Smudge Cells 23.0 %
[2024-10-20] MEDS: Magnesium Sulfate In Water 4 GM in Premix 1 BAG IVPB SCH (09:16)
[2024-10-20] MEDS: diphenhydrAMINE 25 MG CAP PO SCH (22:56)
[2024-10-21 08:32] LABS: Hematocrit 32.9 % (36.0-47.0); Hemoglobin 10.4 g/dL (12.0-16.0); Mean Corpuscular Hemoglobin 31.7 pg (27.0-31.0); Mean Corpuscular Volume 100.3 fL (78.0-98.0); Platelet Count 66 10x3/uL (130-400); Red Blood Cell (RBC) Count 3.28 mill/uL (4.20-5.40); White Blood Cell (WBC) Count 2.05 10x3/uL (4.8-10.8)
[2024-10-21 08:41] LABS: INR-International Normal Ratio 2.7; Prothrombin Time 28.5 sec (12.0-14.7)
[2024-10-21 09:06] LABS: ALT (SGPT) Less than 7 U/L (Less than 34); AST (SGOT) 49 U/L (11-34); Albumin 2.3 g/dL (3.1-4.5); Alkaline Phosphatase 84 U/L (40-110); Anion Gap 15 mmol/L (10-20); BUN (Urea Nitrogen) Less than 4 mg/dL (7.0-18.7); Bilirubin, Total 4.1 mg/dL (0.3-1.2); Calc. Creatinine Clearance 144 mL/min (70-130); Calcium 7.4 mg/dL (7.8-10.44); Carbon Dioxide 20 mmol/L (22-29); Chloride 109 mmol/L (98-107); Globulin 4.6 g/dL (2.4-3.5); Glucose 99 mg/dL (70-105); Magnesium 1.7 mg/dL (1.6-2.6); Potassium 3.6 mmol/L (3.5-5.1); Sodium 140 mmol/L (136-145)
[2024-10-21 09:10] LABS: Anisocytosis MARKED = >30 cells HPF (0-5); Burr Cells SLIGHT = 2-5 cells HPF (0-1); Macrocytosis MARKED = >30 cells HPF (0-5); Ovalocytes SLIGHT = 2-5 cells HPF (0-1); Platelet Adequacy Comment Platelets Decreased
[2024-10-21 09:12] LABS: #Basophils 0.03 10x3/uL (0.0-0.2); #Eosinophils 0.16 10x3/uL (0.0-0.7); #Monocytes 0.30 10x3/uL (0.11-0.59); #Neutrophils 0.94 10x3/uL (1.40-6.50); %Basophils 1.4 % (0.0-1.0); %Eosinophils 7.3 % (0.0-10.0); %Lymphocytes 33.2 % (21.0-51.0); %Monocytes 14.0 % (0.0-10.0); %Neutrophils 43.9 % (42.0-75.0)
[2024-10-21] MEDS: Furosemide 40 MG (4 mL) VIAL SLOW IVP SCH (10:30)
[2024-10-21] MEDS: Magnesium 2 GM/50 ML(in water) 2 GM in Premix 1 BAG IVPB SCH (10:31)
[2024-10-21] MEDS: Gabapentin 300 MG CAP PO SCH (14:03)
[2024-10-21] MEDS: Furosemide 40 MG TAB PO SCH (14:03)
[2024-10-22] MEDS: HYDROcodone/Acetaminophen 5/325 mg Tablet PO PRN (01:48)
[2024-10-22 04:59] LABS: #Basophils 0.04 10x3/uL (0.0-0.2); #Eosinophils 0.22 10x3/uL (0.0-0.7); #Monocytes 0.51 10x3/uL (0.11-0.59); #Neutrophils 1.43 10x3/uL (1.40-6.50); %Basophils 1.1 % (0.0-1.0); %Eosinophils 6.2 % (0.0-10.0); %Lymphocytes 37.6 % (21.0-51.0); %Monocytes 14.4 % (0.0-10.0); %Neutrophils 40.4 % (42.0-75.0); Hematocrit 30.9 % (36.0-47.0); Hemoglobin 10.2 g/dL (12.0-16.0); Mean Corpuscular Hemoglobin 32.2 pg (27.0-31.0); Mean Corpuscular Volume 97.5 fL (78.0-98.0); Platelet Count 77 10x3/uL (130-400); Red Blood Cell (RBC) Count 3.17 mill/uL (4.20-5.40); White Blood Cell (WBC) Count 3.54 10x3/uL (4.8-10.8)
[2024-10-22 07:29] LABS: Anion Gap 12 mmol/L (10-20); BUN (Urea Nitrogen) Less than 4 mg/dL (7.0-18.7); Calc. Creatinine Clearance 116 mL/min (70-130); Calcium 7.8 mg/dL (7.8-10.44); Carbon Dioxide 24 mmol/L (22-29); Chloride 104 mmol/L (98-107); Glucose 81 mg/dL (70-105); Magnesium 1.5 mg/dL (1.6-2.6); Potassium 4.1 mmol/L (3.5-5.1); Sodium 136 mmol/L (136-145)
[2024-10-22] MEDS: Folic Acid 1 MG TAB PO SCH (08:57)
[2024-10-22] MEDS: Magnesium Sulfate In Water 4 GM in Premix 1 BAG IVPB SCH (09:02)
[2024-10-22 13:34] LABS: Magnesium 2.5 mg/dL (1.6-2.6)
[2024-10-23 10:00] LABS: Anion Gap 16 mmol/L (10-20); BUN (Urea Nitrogen) 4 mg/dL (7.0-18.7); Calc. Creatinine Clearance 115 mL/min (70-130); Calcium 8.2 mg/dL (7.8-10.44); Carbon Dioxide 26 mmol/L (22-29); Chloride 100 mmol/L (98-107); Glucose 88 mg/dL (70-105); Magnesium 1.7 mg/dL (1.6-2.6); Potassium 3.9 mmol/L (3.5-5.1); Sodium 138 mmol/L (136-145)
[2024-10-23 15:23] VITALS: BP 117/63; TEMP 98.1
== END 2024-10-23 17:28 | disposition home or self-care (01) | DRG 432 ==
LOC: ERS 10:06 → OBS 14:17
PROVIDERS: ADMIT Hospitalist; ATTEND Family Medicine
PROC: 0DJ08ZZ Inspection of Upper Intestinal Tract, Via Natural or Artificial Opening Endoscopic (ICD-10-PCS; principal; 2024-10-18)
DX: K70.30 Alcoholic cirrhosis of liver without ascites (principal); I85.11 Secondary esophageal varices with bleeding; K76.6 Portal hypertension; K31.89 Other diseases of stomach and duodenum; E83.42 Hypomagnesemia; E87.6 Hypokalemia; Z88.8 Allergy status to other drugs, medicaments and biological substances; Z79.899 Other long term (current) drug therapy; F32.A Depression, unspecified; Z98.890 Other specified postprocedural states; Z87.891 Personal history of nicotine dependence; K21.00 Gastro-esophageal reflux disease with esophagitis, without bleeding; K72.90 Hepatic failure, unspecified without coma; K44.9 Diaphragmatic hernia without obstruction or gangrene
CPT/HCPCS: 36415; 74174; 76700; 80048; 80053; 80076; 82140; 82607; 83605; 83690; 83735; 84484; 84703; 85025; 85610; 85730; 87040; 93005; 96361; 96365; 96366; 96367; 96375; 96376; J0696; J0780; J1308; J1940; J2270; J2354; J2405; J2470; J2704; J3475; J7042; J7050; Q9967

== ENCOUNTER 2024-11-12 08:36 | Inpatient (IN) | payer OTHER ==
[2024-11-12 09:29] LABS: #Basophils Less than 0.03 10x3/uL (0.0-0.2); #Eosinophils Less than 0.03 10x3/uL (0.0-0.7); #Monocytes 0.61 10x3/uL (0.11-0.59); #Neutrophils 6.98 10x3/uL (1.40-6.50); %Basophils 0.1 % (0.0-1.0); %Eosinophils 0.0 % (0.0-10.0); %Lymphocytes 8.2 % (21.0-51.0); %Monocytes 7.3 % (0.0-10.0); %Neutrophils 84.0 % (42.0-75.0); Hematocrit 40.3 % (36.0-47.0); Hemoglobin 12.7 g/dL (12.0-16.0); Mean Corpuscular Hemoglobin 31.3 pg (27.0-31.0); Mean Corpuscular Volume 99.3 fL (78.0-98.0); Platelet Count 105 10x3/uL (130-400); Red Blood Cell (RBC) Count 4.06 mill/uL (4.20-5.40); White Blood Cell (WBC) Count 8.31 10x3/uL (4.8-10.8)
[2024-11-12 09:39] LABS: ALT (SGPT) 11 U/L (Less than 34); AST (SGOT) 112 U/L (11-34); Albumin 3.1 g/dL (3.1-4.5); Alkaline Phosphatase 123 U/L (40-110); Anion Gap 32 mmol/L (10-20); BUN (Urea Nitrogen) 6 mg/dL (7.0-18.7); Bilirubin, Total 5.8 mg/dL (0.3-1.2); Calc. Creatinine Clearance 0 mL/min (70-130); Calcium 9.5 mg/dL (7.8-10.44); Carbon Dioxide 10 mmol/L (22-29); Chloride 101 mmol/L (98-107); Globulin 6.8 g/dL (2.4-3.5); Glucose 96 mg/dL (70-105); Lipase 10 U/L (8-78); Magnesium 1.6 mg/dL (1.6-2.6); Potassium 4.5 mmol/L (3.5-5.1); Sodium 138 mmol/L (136-145)
[2024-11-12 10:03] LABS: Base Excess -12.0 mEq/L (-2.0 to +3.0); Calcium, Ionized (venous) 0.99 mmol/L (1.16-1.32); Chloride (VBG) 105 mmol/L (98-106); Hematocrit-VBG 39 % (36.0-47.0); Hemoglobin (Hb) 13.3 g/dL (11.7-16.0); Sodium 139 mmol/L (133-146)
[2024-11-12 10:04] LABS: Actual Bicarbonate (HCO3v) 12.5 mEq/L (22-28)
[2024-11-12 10:05] LABS: Potassium (VBG) 7.28 mmol/L (3.70-5.30)
[2024-11-12] MEDS ORDERED: Bisacodyl 10 MG SUPP PR PRN (10:51)
[2024-11-12] MEDS ORDERED: Senokot S 8.6-50 MG TAB PO PRN (10:51)
[2024-11-12 11:51] LABS: INR-International Normal Ratio 2.0; Prothrombin Time 22.8 sec (12.0-14.7)
[2024-11-12 11:52] LABS: PTT 50.6 sec (22.9-36.1)
[2024-11-12] MEDS ORDERED: Octreotide Acetate 1,250 MCG in Sodium Chloride 0.9% 250 ML 250 ML IVPB SCH ×2 (12:00→12:15)
[2024-11-12] MEDS ORDERED: Pantoprazole 40 MG VIAL ONE (12:00)
[2024-11-12] MEDS: Pantoprazole 40 MG VIAL IVP SCH (12:17)
[2024-11-12 13:47] LABS: Hematocrit 37.1 % (36.0-47.0); Hemoglobin 11.9 g/dL (12.0-16.0); Mean Corpuscular Hemoglobin 31.2 pg (27.0-31.0); Mean Corpuscular Volume 97.1 fL (78.0-98.0); Platelet Count 87 10x3/uL (130-400); Red Blood Cell (RBC) Count 3.82 mill/uL (4.20-5.40); White Blood Cell (WBC) Count 6.86 10x3/uL (4.8-10.8)
[2024-11-12] MEDS ORDERED: Sertraline 25 MG TAB PO PRN (17:22)
[2024-11-12] MEDS: Acetaminophen 325 MG TAB PO PRN (22:13)
[2024-11-13 04:22] LABS: INR-International Normal Ratio 2.4; Prothrombin Time 26.5 sec (12.0-14.7)
[2024-11-13 04:23] LABS: PTT 51.4 sec (22.9-36.1)
[2024-11-13 04:26] LABS: #Basophils Less than 0.03 10x3/uL (0.0-0.2); #Eosinophils 0.03 10x3/uL (0.0-0.7); #Monocytes 0.34 10x3/uL (0.11-0.59); #Neutrophils 2.81 10x3/uL (1.40-6.50); %Basophils 0.5 % (0.0-1.0); %Eosinophils 0.7 % (0.0-10.0); %Lymphocytes 22.7 % (21.0-51.0); %Monocytes 8.2 % (0.0-10.0); %Neutrophils 67.7 % (42.0-75.0); ALT (SGPT) 8 U/L (Less than 34); AST (SGOT) 67 U/L (11-34); Albumin 2.2 g/dL (3.1-4.5); Alkaline Phosphatase 80 U/L (40-110); Anion Gap 11 mmol/L (10-20); BUN (Urea Nitrogen) 11 mg/dL (7.0-18.7); Bilirubin, Total 6.9 mg/dL (0.3-1.2); Calc. Creatinine Clearance 117 mL/min (70-130); Calcium 8.0 mg/dL (7.8-10.44); Carbon Dioxide 27 mmol/L (22-29); Cardiac Risk 2.7 (Less than 4.5); Chloride 104 mmol/L (98-107); Cholesterol 130 mg/dl (< 200 Desired); Globulin 4.5 g/dL (2.4-3.5); Glucose 170 mg/dL (70-105); HDL Cholesterol 49 mg/dL (>60 Neg Risk); Hematocrit 31.5 % (36.0-47.0); Hemoglobin 9.9 g/dL (12.0-16.0); LDL Cholesterol, Calculated 63 mg/dL; Magnesium 1.5 mg/dL (1.6-2.6); Mean Corpuscular Hemoglobin 31.2 pg (27.0-31.0); Mean Corpuscular Volume 99.4 fL (78.0-98.0); Platelet Count 58 10x3/uL (130-400); Potassium 3.8 mmol/L (3.5-5.1); Red Blood Cell (RBC) Count 3.17 mill/uL (4.20-5.40); Sodium 138 mmol/L (136-145); Triglycerides 92 mg/dL (Less than 150); White Blood Cell (WBC) Count 4.15 10x3/uL (4.8-10.8)
[2024-11-13] MEDS: Pantoprazole 40 MG VIAL IVP SCH (08:23)
[2024-11-13] MEDS: Magnesium 2 GM/50 ML(in water) 2 GM in Premix 1 BAG IVPB SCH (08:23)
[2024-11-13] MEDS: Multivit, Therapeutic 1 TAB PO SCH (08:23)
[2024-11-13] MEDS: Folic Acid 1 MG TAB PO SCH (08:24)
[2024-11-13] MEDS ORDERED: Multivit, Therapeutic 1 TAB PO SCH (09:00)
[2024-11-13] MEDS ORDERED: Folic Acid 1 MG TAB PO SCH (09:00)
[2024-11-13] MEDS: Ondansetron PF 4 MG/2 ML Vial IVP PRN (12:34)
[2024-11-14 04:33] LABS: #Basophils Less than 0.03 10x3/uL (0.0-0.2); #Eosinophils 0.05 10x3/uL (0.0-0.7); #Monocytes 0.32 10x3/uL (0.11-0.59); #Neutrophils 1.10 10x3/uL (1.40-6.50); %Basophils 0.8 % (0.0-1.0); %Eosinophils 2.0 % (0.0-10.0); %Lymphocytes 41.2 % (21.0-51.0); %Monocytes 12.5 % (0.0-10.0); %Neutrophils 43.1 % (42.0-75.0); Hematocrit 31.5 % (36.0-47.0); Hemoglobin 10.0 g/dL (12.0-16.0); Mean Corpuscular Hemoglobin 31.4 pg (27.0-31.0); Mean Corpuscular Volume 99.1 fL (78.0-98.0); Platelet Count 59 10x3/uL (130-400); Red Blood Cell (RBC) Count 3.18 mill/uL (4.20-5.40); White Blood Cell (WBC) Count 2.55 10x3/uL (4.8-10.8)
[2024-11-14 04:43] LABS: INR-International Normal Ratio 2.3; Prothrombin Time 25.4 sec (12.0-14.7)
[2024-11-14 04:44] LABS: PTT 47.7 sec (22.9-36.1)
[2024-11-14 04:48] LABS: ALT (SGPT) 8 U/L (Less than 34); AST (SGOT) 69 U/L (11-34); Albumin 2.2 g/dL (3.1-4.5); Alkaline Phosphatase 96 U/L (40-110); Anion Gap 13 mmol/L (10-20); BUN (Urea Nitrogen) 8 mg/dL (7.0-18.7); Bilirubin, Total 5.0 mg/dL (0.3-1.2); Calc. Creatinine Clearance 110 mL/min (70-130); Calcium 8.3 mg/dL (7.8-10.44); Carbon Dioxide 26 mmol/L (22-29); Chloride 106 mmol/L (98-107); Globulin 4.3 g/dL (2.4-3.5); Glucose 99 mg/dL (70-105); Magnesium 1.6 mg/dL (1.6-2.6); Potassium 3.5 mmol/L (3.5-5.1); Sodium 141 mmol/L (136-145)
[2024-11-14] MEDS: Magnesium 2 GM/50 ML(in water) 2 GM in Premix 1 BAG IVPB SCH (12:27)
[2024-11-14] MEDS: Pantoprazole 40 MG DR.TAB PO SCH (20:03)
[2024-11-14 20:35] LABS: Cocaine Metabolite Screen Negative (Negative); THC/Cannabinoid Screen Negative (Negative); Tricyclic Screen Negative (Negative)
[2024-11-15 06:10] LABS: ALT (SGPT) 7 U/L (Less than 34); AST (SGOT) 49 U/L (11-34); Albumin 1.8 g/dL (3.1-4.5); Alkaline Phosphatase 85 U/L (40-110); Anion Gap 9 mmol/L (10-20); BUN (Urea Nitrogen) 5 mg/dL (7.0-18.7); Bilirubin, Total 3.5 mg/dL (0.3-1.2); Calc. Creatinine Clearance 123 mL/min (70-130); Calcium 7.6 mg/dL (7.8-10.44); Carbon Dioxide 24 mmol/L (22-29); Chloride 107 mmol/L (98-107); Globulin 3.8 g/dL (2.4-3.5); Glucose 93 mg/dL (70-105); Magnesium 1.4 mg/dL (1.6-2.6); Potassium 3.5 mmol/L (3.5-5.1); Sodium 136 mmol/L (136-145)
[2024-11-15 06:14] LABS: INR-International Normal Ratio 2.4; Prothrombin Time 26.4 sec (12.0-14.7)
[2024-11-15 06:15] LABS: PTT 50.8 sec (22.9-36.1)
[2024-11-15 06:32] LABS: #Basophils Less than 0.03 10x3/uL (0.0-0.2); #Eosinophils 0.11 10x3/uL (0.0-0.7); #Monocytes 0.34 10x3/uL (0.11-0.59); #Neutrophils 1.14 10x3/uL (1.40-6.50); %Basophils 0.7 % (0.0-1.0); %Eosinophils 4.0 % (0.0-10.0); %Lymphocytes 40.7 % (21.0-51.0); %Monocytes 12.5 % (0.0-10.0); %Neutrophils 41.7 % (42.0-75.0); Hematocrit 28.7 % (36.0-47.0); Hemoglobin 9.2 g/dL (12.0-16.0); Mean Corpuscular Hemoglobin 31.7 pg (27.0-31.0); Mean Corpuscular Volume 99.0 fL (78.0-98.0); Platelet Count 67 10x3/uL (130-400); Red Blood Cell (RBC) Count 2.90 mill/uL (4.20-5.40); White Blood Cell (WBC) Count 2.73 10x3/uL (4.8-10.8)
[2024-11-15] MEDS: Thiamine 100 MG TAB PO SCH (07:58)
[2024-11-15] MEDS: Magnesium Sulfate In Water 4 GM in Premix 1 BAG IVPB SCH (08:00)
[2024-11-15] MEDS: Furosemide 40 MG (4 mL) VIAL SLOW IVP SCH (11:52)
[2024-11-16] MEDS: Melatonin 3 MG TAB PO PRN (01:07)
[2024-11-16 05:03] VITALS: BP 108/67; TEMP 98.5
[2024-11-16 05:52] LABS: Magnesium 1.7 mg/dL (1.6-2.6); Potassium 4.1 mmol/L (3.5-5.1)
[2024-11-16 06:24] VITALS: BMI 30.2
[2024-11-16] MEDS: PNEUMOC 20-VAL CONJ-DIP CRM/PF 0.5 ML SYRINGE IM ONE (08:27)
[2024-11-16] MEDS: Furosemide 40 MG TAB PO SCH (09:19)
[2024-11-16] MEDS: Magnesium 2 GM/50 ML(in water) 2 GM in Premix 1 BAG IVPB SCH (09:19)
== END 2024-11-16 14:06 | disposition home or self-care (01) | DRG 897 ==
LOC: ERS 08:36 → ERHOLD 10:55 → CCU 15:50 → IMCU/EMU 11-13 08:59 → SURG A 11-14 20:38
PROVIDERS: ADMIT Family Medicine; ATTEND Internal Medicine
PROC: HZ2ZZZZ Detoxification Services for Substance Abuse Treatment (ICD-10-PCS; principal; 2024-11-12)
DX: F10.239 Alcohol dependence with withdrawal, unspecified (principal); K92.0 Hematemesis; D68.9 Coagulation defect, unspecified; E87.20 Acidosis, unspecified; K70.30 Alcoholic cirrhosis of liver without ascites; F32.A Depression, unspecified; E80.6 Other disorders of bilirubin metabolism; D64.9 Anemia, unspecified; Z79.899 Other long term (current) drug therapy
CPT/HCPCS: 36415; 71045; 80053; 80061; 80306; 80307; 82010; 82140; 82805; 83036; 83690; 83735; 83880; 84132; 84443; 84484; 85025; 85610; 85730; 86850; 86900; 86901; 93005; 94760; 96365; 96366; 96375; 96376; J1940; J2060; J2354; J2405; J2470; J3411; J3430; J3475; J7030; J7070; Q0162

== ENCOUNTER 2024-11-27 14:28 | Emergency (ER) | payer OTHER ==
[2024-11-27] MEDS ORDERED: Pantoprazole 40 MG VIAL ONE (15:48)
[2024-11-27] MEDS ORDERED: Ondansetron PF 4 MG/2 ML Vial ONE (15:48)
[2024-11-27 15:49] LABS: #Basophils 0.06 10x3/uL (0.0-0.2); #Eosinophils 0.09 10x3/uL (0.0-0.7); #Monocytes 0.36 10x3/uL (0.11-0.59); #Neutrophils 2.06 10x3/uL (1.40-6.50); %Basophils 1.7 % (0.0-1.0); %Eosinophils 2.5 % (0.0-10.0); %Lymphocytes 27.2 % (21.0-51.0); %Monocytes 10.2 % (0.0-10.0); %Neutrophils 58.4 % (42.0-75.0); Hematocrit 34.7 % (36.0-47.0); Hemoglobin 11.3 g/dL (12.0-16.0); Mean Corpuscular Hemoglobin 31.6 pg (27.0-31.0); Mean Corpuscular Volume 96.9 fL (78.0-98.0); Platelet Count 85 10x3/uL (130-400); Red Blood Cell (RBC) Count 3.58 mill/uL (4.20-5.40); White Blood Cell (WBC) Count 3.53 10x3/uL (4.8-10.8)
[2024-11-27 15:55] LABS: INR-International Normal Ratio 2.0; PTT 55.0 sec (22.9-36.1); Prothrombin Time 23.0 sec (12.0-14.7)
[2024-11-27 16:03] LABS: ALT (SGPT) 10 U/L (Less than 34); AST (SGOT) 66 U/L (11-34); Albumin 2.6 g/dL (3.1-4.5); Alkaline Phosphatase 100 U/L (40-110); Anion Gap 15 mmol/L (10-20); BUN (Urea Nitrogen) 4 mg/dL (7.0-18.7); Bilirubin, Total 5.8 mg/dL (0.3-1.2); Calc. Creatinine Clearance 0 mL/min (70-130); Calcium 8.4 mg/dL (7.8-10.44); Carbon Dioxide 20 mmol/L (22-29); Chloride 106 mmol/L (98-107); Globulin 4.9 g/dL (2.4-3.5); Glucose 94 mg/dL (70-105); Lipase 18 U/L (8-78); Magnesium 1.2 mg/dL (1.6-2.6); Potassium 3.6 mmol/L (3.5-5.1); Sodium 137 mmol/L (136-145)
[2024-11-27] MEDS ORDERED: Magnesium 2 GM/50 ML BAG (IN WATER) ONE (16:39)
== END 2024-11-27 17:35 | disposition home or self-care (01) ==
LOC: ERS 14:28
DX: E83.42 Hypomagnesemia (principal); R07.9 Chest pain, unspecified; R11.2 Nausea with vomiting, unspecified; Z55.6 Problems related to health literacy; Z87.891 Personal history of nicotine dependence
CPT/HCPCS: 71045; 80053; 83690; 83735; 83880; 84484; 85025; 85610; 85730; 93005; 96374; 96375; J2270; J2405; J2470; J3475

== ENCOUNTER 2024-12-16 14:29 | Inpatient (IN) | payer OTHER ==
[2024-12-16 15:28] LABS: #Basophils 0.03 10x3/uL (0.0-0.2); #Eosinophils 0.04 10x3/uL (0.0-0.7); #Monocytes 1.17 10x3/uL (0.11-0.59); #Neutrophils 5.39 10x3/uL (1.40-6.50); %Basophils 0.4 % (0.0-1.0); %Eosinophils 0.5 % (0.0-10.0); %Lymphocytes 21.1 % (21.0-51.0); %Monocytes 13.7 % (0.0-10.0); %Neutrophils 63.1 % (42.0-75.0); Hematocrit 38.3 % (36.0-47.0); Hemoglobin 12.5 g/dL (12.0-16.0); Mean Corpuscular Hemoglobin 31.8 pg (27.0-31.0); Mean Corpuscular Volume 97.5 fL (78.0-98.0); Platelet Count 100 10x3/uL (130-400); Red Blood Cell (RBC) Count 3.93 mill/uL (4.20-5.40); White Blood Cell (WBC) Count 8.53 10x3/uL (4.8-10.8)
[2024-12-16 15:46] LABS: Acetaminophen Less than 10 mcg/mL (Less than 10); Salicylate Less than 8.0 mg/dL (Less than 8.0)
[2024-12-16 15:52] LABS: ALT (SGPT) 8 U/L (Less than 34); AST (SGOT) 52 U/L (11-34); Albumin 2.9 g/dL (3.1-4.5); Alkaline Phosphatase 121 U/L (40-110); Anion Gap 17 mmol/L (10-20); BUN (Urea Nitrogen) 9 mg/dL (7.0-18.7); Bilirubin, Total 6.1 mg/dL (0.3-1.2); CK (CPK) 31 U/L (29-168); Calc. Creatinine Clearance 0 mL/min (70-130); Calcium 9.1 mg/dL (7.8-10.44); Carbon Dioxide 21 mmol/L (22-29); Chloride 102 mmol/L (98-107); Globulin 5.7 g/dL (2.4-3.5); Glucose 101 mg/dL (70-105); Lipase 98 U/L (8-78); Potassium 4.1 mmol/L (3.5-5.1); Sodium 136 mmol/L (136-145)
[2024-12-16] MEDS ORDERED: Ondansetron PF 4 MG/2 ML Vial IVP PRN ×2 (17:38)
[2024-12-16] MEDS ORDERED: Electrolyte Replacement Protocol 1 EACH FS PRN (17:45)
[2024-12-16 19:52] LABS: #Basophils Less than 0.03 10x3/uL (0.0-0.2); #Eosinophils 0.08 10x3/uL (0.0-0.7); #Monocytes 1.79 10x3/uL (0.11-0.59); #Neutrophils 6.86 10x3/uL (1.40-6.50); %Basophils 0.2 % (0.0-1.0); %Eosinophils 0.7 % (0.0-10.0); %Lymphocytes 18.6 % (21.0-51.0); %Monocytes 16.2 % (0.0-10.0); %Neutrophils 62.0 % (42.0-75.0); Hematocrit 34.3 % (36.0-47.0); Hemoglobin 11.3 g/dL (12.0-16.0); Mean Corpuscular Hemoglobin 32.0 pg (27.0-31.0); Mean Corpuscular Volume 97.2 fL (78.0-98.0); Platelet Count 99 10x3/uL (130-400); Red Blood Cell (RBC) Count 3.53 mill/uL (4.20-5.40); White Blood Cell (WBC) Count 11.07 10x3/uL (4.8-10.8)
[2024-12-16 20:03] LABS: ALT (SGPT) Less than 7 U/L (Less than 34); AST (SGOT) 37 U/L (11-34); Albumin 2.6 g/dL (3.1-4.5); Alkaline Phosphatase 109 U/L (40-110); Anion Gap 16 mmol/L (10-20); BUN (Urea Nitrogen) 9 mg/dL (7.0-18.7); Bilirubin, Direct 3.1 mg/dL (0.1-0.3); Bilirubin, Total 5.6 mg/dL (0.3-1.2); Calc. Creatinine Clearance 0 mL/min (70-130); Calcium 8.7 mg/dL (7.8-10.44); Carbon Dioxide 24 mmol/L (22-29); Chloride 104 mmol/L (98-107); Globulin 4.6 g/dL (2.4-3.5); Glucose 104 mg/dL (70-105); Magnesium 1.7 mg/dL (1.6-2.6); Potassium 3.9 mmol/L (3.5-5.1); Sodium 140 mmol/L (136-145)
[2024-12-16] MEDS: Folic Acid 1 MG TAB PO SCH (20:58)
[2024-12-16] MEDS: Pantoprazole 40 MG VIAL IVP SCH (20:58)
[2024-12-16] MEDS: Multivit, Therapeutic 1 TAB PO SCH (20:58)
[2024-12-16] MEDS: Multivitamins, Adult 10 ML, Thiamine HCl 100 MG, Folic Acid 1 MG in Dextrose 5 %-0.45 %... IV SCH (21:00)
[2024-12-16 21:19] VITALS: BMI 26.1
[2024-12-16] MEDS: Octreotide Acetate 1,250 MCG in Sodium Chloride 0.9% 250 ML 250 ML IVPB SCH (22:22)
[2024-12-17] MEDS: Acetaminophen 325 MG TAB PO PRN (03:31)
[2024-12-17 05:29] LABS: Anion Gap 15 mmol/L (10-20); BUN (Urea Nitrogen) 10 mg/dL (7.0-18.7); Calc. Creatinine Clearance 0 mL/min (70-130); Calcium 8.5 mg/dL (7.8-10.44); Carbon Dioxide 21 mmol/L (22-29); Chloride 103 mmol/L (98-107); Glucose 154 mg/dL (70-105); Potassium 4.4 mmol/L (3.5-5.1); Sodium 135 mmol/L (136-145)
[2024-12-17 05:34] LABS: #Basophils 0.03 10x3/uL (0.0-0.2); #Eosinophils 0.07 10x3/uL (0.0-0.7); #Monocytes 0.91 10x3/uL (0.11-0.59); #Neutrophils 4.32 10x3/uL (1.40-6.50); %Basophils 0.4 % (0.0-1.0); %Eosinophils 1.0 % (0.0-10.0); %Lymphocytes 21.8 % (21.0-51.0); %Monocytes 13.1 % (0.0-10.0); %Neutrophils 62.4 % (42.0-75.0); Hematocrit 33.3 % (36.0-47.0); Hemoglobin 10.7 g/dL (12.0-16.0); Mean Corpuscular Hemoglobin 31.9 pg (27.0-31.0); Mean Corpuscular Volume 99.4 fL (78.0-98.0); Platelet Count 60 10x3/uL (130-400); Red Blood Cell (RBC) Count 3.35 mill/uL (4.20-5.40); White Blood Cell (WBC) Count 6.93 10x3/uL (4.8-10.8)
[2024-12-17 09:10] LABS: ALT (SGPT) Less than 7 U/L (Less than 34); AST (SGOT) 39 U/L (11-34); Albumin 2.4 g/dL (3.1-4.5); Alkaline Phosphatase 91 U/L (40-110); Bilirubin, Total 5.8 mg/dL (0.3-1.2); Globulin 4.3 g/dL (2.4-3.5); Magnesium 1.6 mg/dL (1.6-2.6)
[2024-12-17] MEDS: Folic Acid 1 MG TAB PO SCH (10:10)
[2024-12-17] MEDS: Multivit, Therapeutic 1 TAB PO SCH (10:11)
[2024-12-17] MEDS: PNEUMOC 20-VAL CONJ-DIP CRM/PF 0.5 ML SYRINGE IM ONE (10:12)
[2024-12-17] MEDS: FLU (Fluarix Triv) 25-26 (6MOS UP)/PF 45 MCG/0.5 ML Syringe IM ONE (10:14)
[2024-12-17] MEDS: Magnesium Sulfate In Water 4 GM in Premix 1 BAG IVPB SCH (10:46)
[2024-12-17] MEDS ORDERED: Glucagon 1 MG/ML KIT IM PRN (12:58)
[2024-12-17] MEDS ORDERED: Dextrose 50% Abboject 50 ML SYRINGE SLOW IVP PRN (12:58)
[2024-12-17] MEDS: Gabapentin 300 MG CAP PO SCH (16:01)
[2024-12-17] MEDS: Furosemide 40 MG TAB PO SCH (20:33)
[2024-12-17] MEDS ORDERED: Non-Formulary Item 1 EACH (Potassium Chloride [Potassium Chloride] 20 MEQ Tablet.Er) PO SCH (21:00)
[2024-12-17] MEDS: Clotrimazole 1 % Cream 30 GM TUBE TOP SCH (21:30)
[2024-12-18 05:38] LABS: #Basophils 0.03 10x3/uL (0.0-0.2); #Eosinophils 0.12 10x3/uL (0.0-0.7); #Monocytes 0.71 10x3/uL (0.11-0.59); #Neutrophils 3.34 10x3/uL (1.40-6.50); %Basophils 0.5 % (0.0-1.0); %Eosinophils 2.2 % (0.0-10.0); %Lymphocytes 23.7 % (21.0-51.0); %Monocytes 12.8 % (0.0-10.0); %Neutrophils 60.1 % (42.0-75.0); Hematocrit 35.0 % (36.0-47.0); Hemoglobin 11.5 g/dL (12.0-16.0); Mean Corpuscular Hemoglobin 32.3 pg (27.0-31.0); Mean Corpuscular Volume 98.3 fL (78.0-98.0); Platelet Count 96 10x3/uL (130-400); Red Blood Cell (RBC) Count 3.56 mill/uL (4.20-5.40); White Blood Cell (WBC) Count 5.56 10x3/uL (4.8-10.8)
[2024-12-18 05:51] LABS: ALT (SGPT) 8 U/L (Less than 34); AST (SGOT) 48 U/L (11-34); Albumin 2.6 g/dL (3.1-4.5); Alkaline Phosphatase 117 U/L (40-110); Anion Gap 11 mmol/L (10-20); BUN (Urea Nitrogen) 8 mg/dL (7.0-18.7); Bilirubin, Total 5.1 mg/dL (0.3-1.2); Calc. Creatinine Clearance 106 mL/min (70-130); Calcium 8.4 mg/dL (7.8-10.44); Carbon Dioxide 28 mmol/L (22-29); Chloride 102 mmol/L (98-107); Globulin 4.8 g/dL (2.4-3.5); Glucose 118 mg/dL (70-105); Magnesium 2.0 mg/dL (1.6-2.6); Potassium 4.2 mmol/L (3.5-5.1); Sodium 137 mmol/L (136-145)
[2024-12-18] MEDS ORDERED: Multivit, Therapeutic 1 TAB PO SCH (09:00)
[2024-12-18] MEDS ORDERED: Folic Acid 1 MG TAB PO SCH (09:00)
[2024-12-18] MEDS ORDERED: Thiamine 100 MG TAB PO SCH (09:00)
[2024-12-18] MEDS ORDERED: ASCORBIC ACID 500 MG PO SCH (09:00)
[2024-12-18] MEDS: Magnesium 2 GM/50 ML(in water) 2 GM in Premix 1 BAG IVPB SCH (09:28)
[2024-12-18 09:32] LABS: INR-International Normal Ratio 1.7; Prothrombin Time 19.6 sec (12.0-14.7)
[2024-12-18 09:33] LABS: PTT 40.6 sec (22.9-36.1)
[2024-12-18 15:24] VITALS: BP 120/81; TEMP 98.3
[2024-12-19] MEDS ORDERED: Thiamine 100 MG TAB PO SCH (09:00)
== END 2024-12-18 16:45 | disposition home or self-care (01) | DRG 379 ==
LOC: ERS 14:29 → OBS 17:38
PROVIDERS: ADMIT Internal Medicine; ATTEND Hospitalist
PROC: 3E0234Z Introduction of Serum, Toxoid and Vaccine into Muscle, Percutaneous Approach (ICD-10-PCS; principal; 2024-12-17)
DX: K92.0 Hematemesis (principal); Z88.8 Allergy status to other drugs, medicaments and biological substances; Z98.890 Other specified postprocedural states; F32.A Depression, unspecified; F10.10 Alcohol abuse, uncomplicated; K74.60 Unspecified cirrhosis of liver; I10 Essential (primary) hypertension; D64.9 Anemia, unspecified; Z79.899 Other long term (current) drug therapy
CPT/HCPCS: 36415; 36416; 71045; 76705; 80053; 80307; 82248; 82550; 83690; 83735; 83880; 84100; 84484; 85025; 85610; 85730; 90471; 90656; 90677; 93005; 93306; 96365; 96366; 96375; G0009; J2354; J2470; J3360; J3411; J3475; J7042; J7050

== ENCOUNTER 2024-12-23 17:50 | Inpatient (IN) | payer OTHER ==
[2024-12-23 19:13] LABS: #Basophils 0.05 10x3/uL (0.0-0.2); #Eosinophils 0.05 10x3/uL (0.0-0.7); #Monocytes 0.41 10x3/uL (0.11-0.59); #Neutrophils 2.87 10x3/uL (1.40-6.50); %Basophils 1.1 % (0.0-1.0); %Eosinophils 1.1 % (0.0-10.0); %Lymphocytes 24.4 % (21.0-51.0); %Monocytes 9.1 % (0.0-10.0); %Neutrophils 63.9 % (42.0-75.0); Hematocrit 41.6 % (36.0-47.0); Hemoglobin 13.3 g/dL (12.0-16.0); Mean Corpuscular Hemoglobin 31.7 pg (27.0-31.0); Mean Corpuscular Volume 99.0 fL (78.0-98.0); Platelet Count 103 10x3/uL (130-400); Red Blood Cell (RBC) Count 4.19 mill/uL (4.20-5.40); White Blood Cell (WBC) Count 4.50 10x3/uL (4.8-10.8)
[2024-12-23 19:17] LABS: BHCG - Serum Negative (NEGATIVE); Pregs Control Background? CLEAR/WHITE (CLR/WHITE); Pregs Control Bar Appear? YES (CONTROL BAR)
[2024-12-23 19:25] LABS: ALT (SGPT) 8 U/L (Less than 34); AST (SGOT) 59 U/L (11-34); Albumin 2.9 g/dL (3.1-4.5); Alkaline Phosphatase 100 U/L (40-110); Anion Gap 13 mmol/L (10-20); BUN (Urea Nitrogen) 9 mg/dL (7.0-18.7); Bilirubin, Total 7.4 mg/dL (0.3-1.2); Calc. Creatinine Clearance 0 mL/min (70-130); Calcium 9.5 mg/dL (7.8-10.44); Carbon Dioxide 23 mmol/L (22-29); Chloride 105 mmol/L (98-107); Globulin 5.3 g/dL (2.4-3.5); Glucose 95 mg/dL (70-105); Lipase 46 U/L (8-78); Potassium 4.0 mmol/L (3.5-5.1); Sodium 137 mmol/L (136-145)
[2024-12-23 19:34] LABS: INR-International Normal Ratio 1.6; Prothrombin Time 19.5 sec (12.0-14.7)
[2024-12-23 19:35] LABS: PTT 45.7 sec (22.9-36.1)
[2024-12-23] MEDS ORDERED: Pantoprazole 40 MG VIAL ONE (21:15)
[2024-12-23] MEDS ORDERED: Electrolyte Replacement Protocol 1 EACH FS SCH (22:45)
[2024-12-24] MEDS: Pantoprazole 40 MG VIAL IVP SCH (01:52)
[2024-12-24] MEDS: Magnesium 2 GM/50 ML(in water) 2 GM in Premix 1 BAG IVPB SCH (01:52)
[2024-12-24 02:39] LABS: Magnesium 1.6 mg/dL (1.6-2.6)
[2024-12-24] MEDS: Pantoprazole 40 MG VIAL ONE (02:51)
[2024-12-24] MEDS: Magnesium 2 GM/50 ML BAG (IN WATER) ONE (02:51)
[2024-12-24 04:43] LABS: #Basophils 0.04 10x3/uL (0.0-0.2); #Eosinophils 0.06 10x3/uL (0.0-0.7); #Monocytes 0.48 10x3/uL (0.11-0.59); #Neutrophils 2.63 10x3/uL (1.40-6.50); %Basophils 0.9 % (0.0-1.0); %Eosinophils 1.4 % (0.0-10.0); %Lymphocytes 24.0 % (21.0-51.0); %Monocytes 11.3 % (0.0-10.0); %Neutrophils 61.9 % (42.0-75.0); ALT (SGPT) 9 U/L (Less than 34); AST (SGOT) 35 U/L (11-34); Albumin 2.6 g/dL (3.1-4.5); Alkaline Phosphatase 92 U/L (40-110); Anion Gap 12 mmol/L (10-20); BUN (Urea Nitrogen) 8 mg/dL (7.0-18.7); Bilirubin, Total 6.8 mg/dL (0.3-1.2); Calc. Creatinine Clearance 0 mL/min (70-130); Calcium 8.7 mg/dL (7.8-10.44); Carbon Dioxide 22 mmol/L (22-29); Chloride 105 mmol/L (98-107); Globulin 4.7 g/dL (2.4-3.5); Glucose 90 mg/dL (70-105); Hematocrit 37.5 % (36.0-47.0); Hemoglobin 12.0 g/dL (12.0-16.0); Magnesium 2.3 mg/dL (1.6-2.6); Mean Corpuscular Hemoglobin 32.0 pg (27.0-31.0); Mean Corpuscular Volume 100.0 fL (78.0-98.0); Platelet Count 98 10x3/uL (130-400); Potassium 3.8 mmol/L (3.5-5.1); Red Blood Cell (RBC) Count 3.75 mill/uL (4.20-5.40); Sodium 135 mmol/L (136-145); White Blood Cell (WBC) Count 4.25 10x3/uL (4.8-10.8)
[2024-12-24] MEDS: Multivit, Therapeutic 1 TAB PO SCH (12:48)
[2024-12-24] MEDS: Pantoprazole 40 MG DR.TAB PO SCH (13:25)
[2024-12-24] MEDS: Furosemide 40 MG TAB PO SCH (13:25)
[2024-12-24] MEDS: Folic Acid 1 MG TAB PO SCH (13:26)
[2024-12-24 17:17] LABS: Cocaine Metabolite Screen Negative (Negative); THC/Cannabinoid Screen Negative (Negative); Tricyclic Screen Negative (Negative)
[2024-12-24] MEDS: Metoprolol Tartrate 5 MG (5 mL) VIAL IVP SCH (18:47)
[2024-12-24] MEDS: Acetaminophen 500 MG TAB PO PRN (20:15)
[2024-12-24] MEDS: Ondansetron PF 4 MG/2 ML Vial IVP PRN (20:17)
[2024-12-25] MEDS: Metoprolol Tartrate 5 MG (5 mL) VIAL IVP PRN (03:08)
[2024-12-25 04:40] LABS: #Basophils 0.05 10x3/uL (0.0-0.2); #Eosinophils 0.07 10x3/uL (0.0-0.7); #Monocytes 0.73 10x3/uL (0.11-0.59); #Neutrophils 3.38 10x3/uL (1.40-6.50); %Basophils 0.9 % (0.0-1.0); %Eosinophils 1.3 % (0.0-10.0); %Lymphocytes 20.7 % (21.0-51.0); %Monocytes 13.6 % (0.0-10.0); %Neutrophils 63.1 % (42.0-75.0); Hematocrit 44.5 % (36.0-47.0); Hemoglobin 14.0 g/dL (12.0-16.0); Mean Corpuscular Hemoglobin 32.0 pg (27.0-31.0); Mean Corpuscular Volume 101.6 fL (78.0-98.0); Platelet Count 119 10x3/uL (130-400); Red Blood Cell (RBC) Count 4.38 mill/uL (4.20-5.40); White Blood Cell (WBC) Count 5.36 10x3/uL (4.8-10.8)
[2024-12-25 04:53] LABS: ALT (SGPT) 8 U/L (Less than 34); AST (SGOT) 50 U/L (11-34); Albumin 3.1 g/dL (3.1-4.5); Alkaline Phosphatase 105 U/L (40-110); Anion Gap 17 mmol/L (10-20); BUN (Urea Nitrogen) 6 mg/dL (7.0-18.7); Bilirubin, Total 8.1 mg/dL (0.3-1.2); Calc. Creatinine Clearance 88 mL/min (70-130); Calcium 9.7 mg/dL (7.8-10.44); Carbon Dioxide 23 mmol/L (22-29); Chloride 96 mmol/L (98-107); Globulin 5.9 g/dL (2.4-3.5); Glucose 88 mg/dL (70-105); Magnesium 1.8 mg/dL (1.6-2.6); Potassium 3.5 mmol/L (3.5-5.1); Sodium 132 mmol/L (136-145)
[2024-12-25] MEDS: Ondansetron PF 4 MG/2 ML Vial IVP SCH (06:20)
[2024-12-25] MEDS: Magnesium 2 GM/50 ML(in water) 2 GM in Premix 1 BAG IVPB SCH (09:10)
[2024-12-25] MEDS: Propranolol 10 MG TAB PO SCH (20:17)
[2024-12-26 03:56] LABS: Hematocrit 42.0 % (36.0-47.0); Hemoglobin 13.8 g/dL (12.0-16.0); Mean Corpuscular Hemoglobin 32.1 pg (27.0-31.0); Mean Corpuscular Volume 97.7 fL (78.0-98.0); Platelet Count 125 10x3/uL (130-400); Red Blood Cell (RBC) Count 4.30 mill/uL (4.20-5.40); White Blood Cell (WBC) Count 6.43 10x3/uL (4.8-10.8)
[2024-12-26 04:03] LABS: Anion Gap 14 mmol/L (10-20); BUN (Urea Nitrogen) 13 mg/dL (7.0-18.7); Calc. Creatinine Clearance 81 mL/min (70-130); Calcium 9.4 mg/dL (7.8-10.44); Carbon Dioxide 30 mmol/L (22-29); Chloride 90 mmol/L (98-107); Glucose 123 mg/dL (70-105); Potassium 3.5 mmol/L (3.5-5.1); Sodium 130 mmol/L (136-145)
[2024-12-26] MEDS ORDERED: Potassium Chloride 20 MEQ in Premix 1 BAG IVPB SCH (06:00)
[2024-12-26] MEDS: Potassium Bicarbonate/Cit Ac 20 MEQ TAB PER TUBE SCH (11:00)
[2024-12-26 20:08] LABS: Potassium 3.7 mmol/L (3.5-5.1)
[2024-12-26] MEDS: Thiamine 100 MG TAB PO SCH (21:18)
[2024-12-27 04:16] LABS: #Basophils 0.04 10x3/uL (0.0-0.2); #Eosinophils 0.28 10x3/uL (0.0-0.7); #Monocytes 1.25 10x3/uL (0.11-0.59); #Neutrophils 3.65 10x3/uL (1.40-6.50); %Basophils 0.6 % (0.0-1.0); %Eosinophils 3.9 % (0.0-10.0); %Lymphocytes 26.8 % (21.0-51.0); %Monocytes 17.5 % (0.0-10.0); %Neutrophils 51.1 % (42.0-75.0); Hematocrit 41.4 % (36.0-47.0); Hemoglobin 13.8 g/dL (12.0-16.0); Mean Corpuscular Hemoglobin 32.0 pg (27.0-31.0); Mean Corpuscular Volume 96.1 fL (78.0-98.0); Platelet Count 138 10x3/uL (130-400); Red Blood Cell (RBC) Count 4.31 mill/uL (4.20-5.40); White Blood Cell (WBC) Count 7.14 10x3/uL (4.8-10.8)
[2024-12-27 04:30] LABS: Anion Gap 13 mmol/L (10-20); BUN (Urea Nitrogen) 14 mg/dL (7.0-18.7); Calc. Creatinine Clearance 76 mL/min (70-130); Calcium 9.8 mg/dL (7.8-10.44); Carbon Dioxide 29 mmol/L (22-29); Chloride 91 mmol/L (98-107); Glucose 102 mg/dL (70-105); Potassium 3.6 mmol/L (3.5-5.1); Sodium 129 mmol/L (136-145)
[2024-12-28] MEDS: Mag-Al Plus 1200/1200/120 MG (30 mL) UDCUP PO SCH (13:43)
[2024-12-28] MEDS: Sucralfate 1 GM TAB PO SCH (17:53)
[2024-12-29 06:19] LABS: #Basophils 0.06 10x3/uL (0.0-0.2); #Eosinophils 0.21 10x3/uL (0.0-0.7); #Monocytes 0.99 10x3/uL (0.11-0.59); #Neutrophils 3.46 10x3/uL (1.40-6.50); %Basophils 0.9 % (0.0-1.0); %Eosinophils 3.2 % (0.0-10.0); %Lymphocytes 26.9 % (21.0-51.0); %Monocytes 15.3 % (0.0-10.0); %Neutrophils 53.5 % (42.0-75.0); Hematocrit 45.2 % (36.0-47.0); Hemoglobin 14.9 g/dL (12.0-16.0); Mean Corpuscular Hemoglobin 31.9 pg (27.0-31.0); Mean Corpuscular Volume 96.8 fL (78.0-98.0); Platelet Count 167 10x3/uL (130-400); Red Blood Cell (RBC) Count 4.67 mill/uL (4.20-5.40); White Blood Cell (WBC) Count 6.47 10x3/uL (4.8-10.8)
[2024-12-29 06:25] LABS: INR-International Normal Ratio 1.8; Prothrombin Time 20.7 sec (12.0-14.7)
[2024-12-29 06:57] LABS: ALT (SGPT) 9 U/L (Less than 34); AST (SGOT) 51 U/L (11-34); Albumin 3.3 g/dL (3.1-4.5); Alkaline Phosphatase 101 U/L (40-110); Anion Gap 19 mmol/L (10-20); BUN (Urea Nitrogen) 18 mg/dL (7.0-18.7); Bilirubin, Total 6.5 mg/dL (0.3-1.2); Calc. Creatinine Clearance 62 mL/min (70-130); Calcium 10.1 mg/dL (7.8-10.44); Carbon Dioxide 29 mmol/L (22-29); Chloride 90 mmol/L (98-107); Globulin 6.0 g/dL (2.4-3.5); Glucose 97 mg/dL (70-105); Magnesium 2.0 mg/dL (1.6-2.6); Potassium 3.8 mmol/L (3.5-5.1); Sodium 134 mmol/L (136-145)
[2024-12-29] MEDS: Magnesium 2 GM/50 ML(in water) 2 GM in Premix 1 BAG IVPB SCH (09:12)
[2024-12-29] MEDS: Pantoprazole 40 MG VIAL IVP SCH (21:38)
[2024-12-30 05:04] LABS: #Basophils 0.05 10x3/uL (0.0-0.2); #Eosinophils 0.21 10x3/uL (0.0-0.7); #Monocytes 0.92 10x3/uL (0.11-0.59); #Neutrophils 3.26 10x3/uL (1.40-6.50); %Basophils 0.8 % (0.0-1.0); %Eosinophils 3.4 % (0.0-10.0); %Lymphocytes 27.8 % (21.0-51.0); %Monocytes 14.9 % (0.0-10.0); %Neutrophils 52.9 % (42.0-75.0); Hematocrit 46.0 % (36.0-47.0); Hemoglobin 15.6 g/dL (12.0-16.0); Mean Corpuscular Hemoglobin 32.5 pg (27.0-31.0); Mean Corpuscular Volume 95.8 fL (78.0-98.0); Platelet Count 174 10x3/uL (130-400); Red Blood Cell (RBC) Count 4.80 mill/uL (4.20-5.40); White Blood Cell (WBC) Count 6.16 10x3/uL (4.8-10.8)
[2024-12-30 05:18] LABS: Anion Gap 17 mmol/L (10-20); BUN (Urea Nitrogen) 24 mg/dL (7.0-18.7); Calc. Creatinine Clearance 56 mL/min (70-130); Calcium 10.5 mg/dL (7.8-10.44); Carbon Dioxide 30 mmol/L (22-29); Chloride 89 mmol/L (98-107); Glucose 98 mg/dL (70-105); Potassium 4.1 mmol/L (3.5-5.1); Sodium 132 mmol/L (136-145)
[2024-12-31 04:09] LABS: #Basophils 0.07 10x3/uL (0.0-0.2); #Eosinophils 0.17 10x3/uL (0.0-0.7); #Monocytes 0.79 10x3/uL (0.11-0.59); #Neutrophils 2.72 10x3/uL (1.40-6.50); %Basophils 1.3 % (0.0-1.0); %Eosinophils 3.2 % (0.0-10.0); %Lymphocytes 29.5 % (21.0-51.0); %Monocytes 14.8 % (0.0-10.0); %Neutrophils 51.0 % (42.0-75.0); Hematocrit 40.0 % (36.0-47.0); Hemoglobin 13.4 g/dL (12.0-16.0); Mean Corpuscular Hemoglobin 31.9 pg (27.0-31.0); Mean Corpuscular Volume 95.2 fL (78.0-98.0); Platelet Count 168 10x3/uL (130-400); Red Blood Cell (RBC) Count 4.20 mill/uL (4.20-5.40); White Blood Cell (WBC) Count 5.33 10x3/uL (4.8-10.8)
[2024-12-31 04:22] LABS: Anion Gap 12 mmol/L (10-20); BUN (Urea Nitrogen) 18 mg/dL (7.0-18.7); Calc. Creatinine Clearance 63 mL/min (70-130); Calcium 9.6 mg/dL (7.8-10.44); Carbon Dioxide 28 mmol/L (22-29); Chloride 95 mmol/L (98-107); Glucose 108 mg/dL (70-105); Magnesium 2.0 mg/dL (1.6-2.6); Potassium 3.9 mmol/L (3.5-5.1); Sodium 131 mmol/L (136-145)
[2024-12-31] MEDS: Magnesium 2 GM/50 ML(in water) 2 GM in Premix 1 BAG IVPB SCH (09:28)
[2024-12-31] MEDS: Mag-Al Plus 1200/1200/120 MG (30 mL) UDCUP PO PRN (23:30)
[2025-01-01 04:47] LABS: ALT (SGPT) Less than 7 U/L (Less than 34); AST (SGOT) 39 U/L (11-34); Albumin 2.6 g/dL (3.1-4.5); Alkaline Phosphatase 81 U/L (40-110); Anion Gap 11 mmol/L (10-20); BUN (Urea Nitrogen) 13 mg/dL (7.0-18.7); Bilirubin, Total 3.6 mg/dL (0.3-1.2); Calc. Creatinine Clearance 70 mL/min (70-130); Calcium 8.8 mg/dL (7.8-10.44); Carbon Dioxide 28 mmol/L (22-29); Chloride 100 mmol/L (98-107); Globulin 4.5 g/dL (2.4-3.5); Glucose 112 mg/dL (70-105); Magnesium 2.0 mg/dL (1.6-2.6); Potassium 3.7 mmol/L (3.5-5.1); Sodium 135 mmol/L (136-145)
[2025-01-01 04:59] LABS: Platelet Adequacy Comment Platelets Decreased; RBC Morphology Within Normal Limits
[2025-01-01 05:05] LABS: #Basophils 0.05 10x3/uL (0.0-0.2); #Eosinophils 0.18 10x3/uL (0.0-0.7); #Monocytes 0.91 10x3/uL (0.11-0.59); #Neutrophils 2.52 10x3/uL (1.40-6.50); %Basophils 1.0 % (0.0-1.0); %Eosinophils 3.4 % (0.0-10.0); %Lymphocytes 29.7 % (21.0-51.0); %Monocytes 17.4 % (0.0-10.0); %Neutrophils 48.3 % (42.0-75.0); Hematocrit 36.2 % (36.0-47.0); Hemoglobin 12.0 g/dL (12.0-16.0); Mean Corpuscular Hemoglobin 32.4 pg (27.0-31.0); Mean Corpuscular Volume 97.8 fL (78.0-98.0); Platelet Count 124 10x3/uL (130-400); Red Blood Cell (RBC) Count 3.70 mill/uL (4.20-5.40); White Blood Cell (WBC) Count 5.22 10x3/uL (4.8-10.8)
[2025-01-01] MEDS: Magnesium 2 GM/50 ML(in water) 2 GM in Premix 1 BAG IVPB SCH (08:35)
[2025-01-01 21:12] VITALS: BMI 25.0
[2025-01-02] MEDS: Fioricet 325/50/40 mg Tablet PO SCH (02:26)
[2025-01-02 04:05] LABS: Anion Gap 9 mmol/L (10-20); BUN (Urea Nitrogen) 9 mg/dL (7.0-18.7); Calc. Creatinine Clearance 83 mL/min (70-130); Calcium 9.2 mg/dL (7.8-10.44); Carbon Dioxide 27 mmol/L (22-29); Chloride 103 mmol/L (98-107); Glucose 105 mg/dL (70-105); Potassium 3.9 mmol/L (3.5-5.1); Sodium 135 mmol/L (136-145)
[2025-01-02 04:17] LABS: #Basophils 0.05 10x3/uL (0.0-0.2); #Eosinophils 0.20 10x3/uL (0.0-0.7); #Monocytes 0.68 10x3/uL (0.11-0.59); #Neutrophils 2.43 10x3/uL (1.40-6.50); %Basophils 1.0 % (0.0-1.0); %Eosinophils 4.2 % (0.0-10.0); %Lymphocytes 30.1 % (21.0-51.0); %Monocytes 14.1 % (0.0-10.0); %Neutrophils 50.6 % (42.0-75.0); Hematocrit 38.1 % (36.0-47.0); Hemoglobin 12.5 g/dL (12.0-16.0); Mean Corpuscular Hemoglobin 32.6 pg (27.0-31.0); Mean Corpuscular Volume 99.5 fL (78.0-98.0); Platelet Count 144 10x3/uL (130-400); Red Blood Cell (RBC) Count 3.83 mill/uL (4.20-5.40); White Blood Cell (WBC) Count 4.81 10x3/uL (4.8-10.8)
[2025-01-02] MEDS: Fioricet 325/50/40 mg Tablet PO PRN (10:54)
[2025-01-03 06:47] LABS: #Basophils 0.06 10x3/uL (0.0-0.2); #Eosinophils 0.16 10x3/uL (0.0-0.7); #Monocytes 0.55 10x3/uL (0.11-0.59); #Neutrophils 2.03 10x3/uL (1.40-6.50); %Basophils 1.4 % (0.0-1.0); %Eosinophils 3.8 % (0.0-10.0); %Lymphocytes 34.1 % (21.0-51.0); %Monocytes 12.9 % (0.0-10.0); %Neutrophils 47.8 % (42.0-75.0); Hematocrit 40.4 % (36.0-47.0); Hemoglobin 12.3 g/dL (12.0-16.0); Mean Corpuscular Hemoglobin 32.5 pg (27.0-31.0); Mean Corpuscular Volume 106.9 fL (78.0-98.0); Platelet Count 79 10x3/uL (130-400); Red Blood Cell (RBC) Count 3.78 mill/uL (4.20-5.40); White Blood Cell (WBC) Count 4.25 10x3/uL (4.8-10.8)
[2025-01-03 14:01] LABS: Anion Gap 9 mmol/L (10-20); BUN (Urea Nitrogen) 10 mg/dL (7.0-18.7); Calc. Creatinine Clearance 104 mL/min (70-130); Calcium 9.3 mg/dL (7.8-10.44); Carbon Dioxide 27 mmol/L (22-29); Chloride 103 mmol/L (98-107); Glucose 95 mg/dL (70-105); Magnesium 1.7 mg/dL (1.6-2.6); Potassium 3.9 mmol/L (3.5-5.1); Sodium 135 mmol/L (136-145)
[2025-01-03] MEDS: Magnesium 2 GM/50 ML(in water) 2 GM in Premix 1 BAG IVPB SCH (15:15)
[2025-01-03 16:50] VITALS: BP 99/62; TEMP 98.1
== END 2025-01-03 17:37 | disposition home or self-care (01) | DRG 381 ==
LOC: ERS 17:50 → ERHOLD 21:42 → INTOOBSV 21:42 → PCU 12-24 01:19 → OBSVTOIN 12-25 11:05 → MSONC 01-02 20:16
PROVIDERS: ADMIT Internal Medicine; ATTEND Internal Medicine
PROC: HZ2ZZZZ Detoxification Services for Substance Abuse Treatment (ICD-10-PCS; principal; 2024-12-25)
DX: K22.10 Ulcer of esophagus without bleeding (principal); C79.72 Secondary malignant neoplasm of left adrenal gland; E87.1 Hypo-osmolality and hyponatremia; F10.239 Alcohol dependence with withdrawal, unspecified; N17.9 Acute kidney failure, unspecified; K76.6 Portal hypertension; R07.89 Other chest pain; K70.30 Alcoholic cirrhosis of liver without ascites; D69.6 Thrombocytopenia, unspecified; E80.6 Other disorders of bilirubin metabolism; Z79.899 Other long term (current) drug therapy; Z88.6 Allergy status to analgesic agent; Z90.49 Acquired absence of other specified parts of digestive tract; Z98.890 Other specified postprocedural states; F17.290 Nicotine dependence, other tobacco product, uncomplicated; R13.10 Dysphagia, unspecified; G62.1 Alcoholic polyneuropathy; K29.70 Gastritis, unspecified, without bleeding; R11.2 Nausea with vomiting, unspecified
CPT/HCPCS: 36415; 71045; 74177; 78452; 80048; 80053; 80306; 80307; 81001; 82247; 82310; 82550; 82805; 83605; 83690; 83735; 83880; 84100; 84484; 84703; 85025; 85027; 85610; 85730; 93005; 93010; 93017; 94760; 96361; 96365; 96366; 96374; 96375; 96376; A9502; G0378; J2060; J2270; J2405; J2470; J2550; J2785; J3010; J3411; J3475; J7030; J7042; J7120; Q0162; Q9967

== ENCOUNTER 2025-01-28 14:43 | Emergency (ER) | payer OTHER ==
[2025-01-28] MEDS ORDERED: Ondansetron PF 4 MG/2 ML Vial ONE ×2 (15:14→19:50)
[2025-01-28 15:35] LABS: #Basophils 0.03 10x3/uL (0.0-0.2); #Eosinophils 0.09 10x3/uL (0.0-0.7); #Monocytes 0.56 10x3/uL (0.11-0.59); #Neutrophils 3.23 10x3/uL (1.40-6.50); %Basophils 0.6 % (0.0-1.0); %Eosinophils 1.7 % (0.0-10.0); %Lymphocytes 25.3 % (21.0-51.0); %Monocytes 10.6 % (0.0-10.0); %Neutrophils 61.4 % (42.0-75.0); Hematocrit 35.2 % (36.0-47.0); Hemoglobin 11.3 g/dL (12.0-16.0); Mean Corpuscular Hemoglobin 31.2 pg (27.0-31.0); Mean Corpuscular Volume 97.2 fL (78.0-98.0); Platelet Count 114 10x3/uL (130-400); Red Blood Cell (RBC) Count 3.62 mill/uL (4.20-5.40); White Blood Cell (WBC) Count 5.26 10x3/uL (4.8-10.8)
[2025-01-28 15:38] LABS: ALT (SGPT) Less than 7 U/L (Less than 34); AST (SGOT) 45 U/L (11-34); Albumin 2.7 g/dL (3.1-4.5); Alkaline Phosphatase 130 U/L (40-110); Anion Gap 19 mmol/L (10-20); BUN (Urea Nitrogen) Less than 4 mg/dL (7.0-18.7); Bilirubin, Total 7.1 mg/dL (0.3-1.2); Calc. Creatinine Clearance 0 mL/min (70-130); Calcium 8.6 mg/dL (7.8-10.44); Carbon Dioxide 23 mmol/L (22-29); Chloride 96 mmol/L (98-107); Globulin 4.4 g/dL (2.4-3.5); Glucose 82 mg/dL (70-105); Potassium 2.7 mmol/L (3.5-5.1); Sodium 135 mmol/L (136-145)
[2025-01-28 15:57] LABS: Lipase 14 U/L (8-78); Magnesium 1.3 mg/dL (1.6-2.6)
[2025-01-28] MEDS ORDERED: Magnesium 2 GM/50 ML BAG (IN WATER) ONE (16:40)
[2025-01-28] MEDS ORDERED: Potassium Chloride 20 MEQ (100 mL) BAG ONE (17:22)
== END 2025-01-28 21:15 | disposition home or self-care (01) ==
LOC: ERS 14:43
DX: E87.6 Hypokalemia (principal); R07.89 Other chest pain; E83.42 Hypomagnesemia; Z87.891 Personal history of nicotine dependence
CPT/HCPCS: 71045; 80053; 83690; 83735; 84484; 85025; 87428; 93005; 96365; 96366; 96367; 96375; 96376; J2270; J2405; J3475; J3480

== ENCOUNTER 2025-02-07 20:51 | Inpatient (IN) | payer OTHER ==
[2025-02-07] MEDS ORDERED: cefTRIAXone (ROCEPHIN) 1 GM VIAL ONE (21:28)
[2025-02-07 21:41] LABS: #Basophils Less than 0.03 10x3/uL (0.0-0.2); #Eosinophils Less than 0.03 10x3/uL (0.0-0.7); #Monocytes 0.47 10x3/uL (0.11-0.59); #Neutrophils 4.21 10x3/uL (1.40-6.50); %Basophils 0.3 % (0.0-1.0); %Eosinophils 0.2 % (0.0-10.0); %Lymphocytes 20.5 % (21.0-51.0); %Monocytes 7.8 % (0.0-10.0); %Neutrophils 70.0 % (42.0-75.0); Hematocrit 37.5 % (36.0-47.0); Hemoglobin 11.9 g/dL (12.0-16.0); Mean Corpuscular Hemoglobin 31.0 pg (27.0-31.0); Mean Corpuscular Volume 97.7 fL (78.0-98.0); Platelet Count 115 10x3/uL (130-400); Red Blood Cell (RBC) Count 3.84 mill/uL (4.20-5.40); White Blood Cell (WBC) Count 6.01 10x3/uL (4.8-10.8)
[2025-02-07 21:49] LABS: INR-International Normal Ratio 1.8; PTT 47.0 sec (22.9-36.1); Prothrombin Time 20.7 sec (12.0-14.7)
[2025-02-07 21:54] LABS: ALT (SGPT) 8 U/L (Less than 34); AST (SGOT) 48 U/L (11-34); Albumin 2.9 g/dL (3.1-4.5); Alkaline Phosphatase 140 U/L (40-110); Anion Gap 18 mmol/L (10-20); BUN (Urea Nitrogen) 6 mg/dL (7.0-18.7); Bilirubin, Total 5.3 mg/dL (0.3-1.2); Calc. Creatinine Clearance 0 mL/min (70-130); Calcium 9.3 mg/dL (7.8-10.44); Carbon Dioxide 22 mmol/L (22-29); Chloride 106 mmol/L (98-107); Globulin 5.2 g/dL (2.4-3.5); Glucose 151 mg/dL (70-105); Lipase 87 U/L (8-78); Potassium 4.0 mmol/L (3.5-5.1); Sodium 142 mmol/L (136-145)
[2025-02-07] MEDS ORDERED: Ondansetron PF 4 MG/2 ML Vial ONE (22:29)
[2025-02-07] MEDS ORDERED: Guaifenesin DM 100-10/5 ML UDCUP PO PRN (22:57)
[2025-02-07] MEDS ORDERED: Calcium Carbonate 500 MG ChewTAB PO PRN (22:57)
[2025-02-07] MEDS ORDERED: Bisacodyl 10 MG SUPP PR PRN (22:57)
[2025-02-07] MEDS ORDERED: Ondansetron PF 4 MG/2 ML Vial IVP PRN (22:57)
[2025-02-07] MEDS ORDERED: Electrolyte Replacement Protocol 1 EACH FS SCH ×2 (23:00)
[2025-02-07] MEDS ORDERED: Potassium Chloride 20 MEQ in Premix 1 BAG IVPB PRN (23:15)
[2025-02-08 00:35] LABS: Magnesium 1.6 mg/dL (1.6-2.6)
[2025-02-08 01:49] VITALS: BMI 27.1
[2025-02-08 02:01] LABS: Cocaine Metabolite Screen Negative (Negative); THC/Cannabinoid Screen Negative (Negative); Tricyclic Screen Negative (Negative)
[2025-02-08] MEDS: Octreotide Acetate 1,250 MCG in Sodium Chloride 0.9% 250 ML 250 ML IVPB SCH (02:06)
[2025-02-08 04:54] LABS: #Basophils Less than 0.03 10x3/uL (0.0-0.2); #Eosinophils Less than 0.03 10x3/uL (0.0-0.7); #Monocytes 0.32 10x3/uL (0.11-0.59); #Neutrophils 2.61 10x3/uL (1.40-6.50); %Basophils 0.3 % (0.0-1.0); %Eosinophils 0.3 % (0.0-10.0); %Lymphocytes 19.7 % (21.0-51.0); %Monocytes 8.6 % (0.0-10.0); %Neutrophils 70.6 % (42.0-75.0); Hematocrit 35.9 % (36.0-47.0); Hemoglobin 11.5 g/dL (12.0-16.0); Mean Corpuscular Hemoglobin 31.2 pg (27.0-31.0); Mean Corpuscular Volume 97.3 fL (78.0-98.0); Platelet Count 114 10x3/uL (130-400); Red Blood Cell (RBC) Count 3.69 mill/uL (4.20-5.40); White Blood Cell (WBC) Count 3.70 10x3/uL (4.8-10.8)
[2025-02-08 05:03] LABS: ALT (SGPT) 7 U/L (Less than 34); AST (SGOT) 54 U/L (11-34); Albumin 2.7 g/dL (3.1-4.5); Alkaline Phosphatase 128 U/L (40-110); Anion Gap 16 mmol/L (10-20); BUN (Urea Nitrogen) 6 mg/dL (7.0-18.7); Bilirubin, Total 5.4 mg/dL (0.3-1.2); Calc. Creatinine Clearance 135 mL/min (70-130); Calcium 8.6 mg/dL (7.8-10.44); Carbon Dioxide 21 mmol/L (22-29); Chloride 107 mmol/L (98-107); Globulin 4.6 g/dL (2.4-3.5); Glucose 108 mg/dL (70-105); Potassium 4.2 mmol/L (3.5-5.1); Sodium 140 mmol/L (136-145)
[2025-02-08] MEDS: Famotidine 20 MG TAB PO SCH (08:26)
[2025-02-08] MEDS: Furosemide 40 MG TAB PO SCH (08:26)
[2025-02-08] MEDS: Pantoprazole 40 MG VIAL IVP SCH (08:27)
[2025-02-08] MEDS ORDERED: Enoxaparin 40 MG (0.4 mL) SYRINGE SC SCH (09:00)
[2025-02-08] MEDS ORDERED: Multivit, Therapeutic 1 TAB PO SCH (09:00)
[2025-02-08] MEDS: Multivitamins, Adult 10 ML, Folic Acid 1 MG, Thiamine HCl 100 MG, Admixture Fee 1 EACH ... IV SCH (10:24)
[2025-02-08] MEDS ORDERED: Calcium Carbonate 500 MG ChewTAB PO PRN (11:03)
[2025-02-08] MEDS ORDERED: Non-Formulary Item 1 EACH (Promethazine Hcl [Promethazine Hcl] 12.5 MG Tablet) PO PRN (11:03)
[2025-02-08] MEDS ORDERED: Non-Formulary Item 1 EACH (Metoclopramide Hcl [Reglan] 5 MG Tablet) PO PRN (11:03)
[2025-02-08] MEDS: Sucralfate 1 GM TAB PO SCH (11:31)
[2025-02-08] MEDS: Gabapentin 300 MG CAP PO SCH (16:09)
[2025-02-08] MEDS: Melatonin 3 MG TAB PO PRN (20:58)
[2025-02-08] MEDS: cefTRIAXone\\ROCEPHIN 1 GM in Sodium Chloride 0.9% 100 ML IVPB SCH (20:59)
[2025-02-09] MEDS ORDERED: ASCORBIC ACID 500 MG PO SCH (09:00)
[2025-02-09 09:37] LABS: Anisocytosis SLIGHT = 6-15 cells HPF (0-5); Macrocytosis SLIGHT = 6-15 cells HPF (0-5); Platelet Adequacy Comment Platelets Decreased; Polychromasia SLIGHT = 2-3 cells HPF (0-2)
[2025-02-09 09:41] LABS: #Basophils 0.05 10x3/uL (0.0-0.2); #Eosinophils 0.07 10x3/uL (0.0-0.7); #Monocytes 0.55 10x3/uL (0.11-0.59); #Neutrophils 2.35 10x3/uL (1.40-6.50); %Basophils 1.2 % (0.0-1.0); %Eosinophils 1.7 % (0.0-10.0); %Lymphocytes 27.2 % (21.0-51.0); %Monocytes 13.1 % (0.0-10.0); %Neutrophils 56.1 % (42.0-75.0)
[2025-02-09 09:43] LABS: Hematocrit 35.5 % (36.0-47.0); Hemoglobin 11.1 g/dL (12.0-16.0); Mean Corpuscular Hemoglobin 30.9 pg (27.0-31.0); Mean Corpuscular Volume 98.9 fL (78.0-98.0); Platelet Count 107 10x3/uL (130-400); Red Blood Cell (RBC) Count 3.59 mill/uL (4.20-5.40); White Blood Cell (WBC) Count 4.19 10x3/uL (4.8-10.8)
[2025-02-09] MEDS: Folic Acid 1 MG TAB PO SCH (09:45)
[2025-02-09] MEDS: Multivit, Therapeutic 1 TAB PO SCH (09:47)
[2025-02-09 12:51] LABS: Albumin 2.5 g/dL (3.1-4.5); Anion Gap 13 mmol/L (10-20); BUN (Urea Nitrogen) 9 mg/dL (7.0-18.7); BUN/Creatinine Ratio 12.16; Calc. Creatinine Clearance 115 mL/min (70-130); Calcium 8.4 mg/dL (7.8-10.44); Carbon Dioxide 27 mmol/L (22-29); Chloride 101 mmol/L (98-107); Glucose 127 mg/dL (70-105); Magnesium 1.6 mg/dL (1.6-2.6); Potassium 3.8 mmol/L (3.5-5.1); Sodium 137 mmol/L (136-145)
[2025-02-10] MEDS: Octreotide Acetate 1,250 MCG in Sodium Chloride 0.9% 250 ML 250 ML IVPB SCH (03:38)
[2025-02-10 05:31] LABS: #Basophils 0.06 10x3/uL (0.0-0.2); #Eosinophils 0.08 10x3/uL (0.0-0.7); #Monocytes 0.68 10x3/uL (0.11-0.59); #Neutrophils 2.34 10x3/uL (1.40-6.50); %Basophils 1.3 % (0.0-1.0); %Eosinophils 1.7 % (0.0-10.0); %Lymphocytes 31.3 % (21.0-51.0); %Monocytes 14.6 % (0.0-10.0); %Neutrophils 50.2 % (42.0-75.0); Hematocrit 35.6 % (36.0-47.0); Hemoglobin 11.0 g/dL (12.0-16.0); Mean Corpuscular Hemoglobin 30.9 pg (27.0-31.0); Mean Corpuscular Volume 100.0 fL (78.0-98.0); Platelet Count 102 10x3/uL (130-400); Red Blood Cell (RBC) Count 3.56 mill/uL (4.20-5.40); White Blood Cell (WBC) Count 4.66 10x3/uL (4.8-10.8)
[2025-02-10 05:48] LABS: Albumin 2.5 g/dL (3.1-4.5); Anion Gap 16 mmol/L (10-20); BUN (Urea Nitrogen) 13 mg/dL (7.0-18.7); BUN/Creatinine Ratio 15.48; Calc. Creatinine Clearance 101 mL/min (70-130); Calcium 8.5 mg/dL (7.8-10.44); Carbon Dioxide 28 mmol/L (22-29); Chloride 99 mmol/L (98-107); Glucose 116 mg/dL (70-105); Potassium 3.7 mmol/L (3.5-5.1); Sodium 139 mmol/L (136-145)
[2025-02-10] MEDS: Thiamine 100 MG TAB PO SCH (22:27)
[2025-02-11 07:30] LABS: Hematocrit 36.5 % (36.0-47.0); Hemoglobin 11.2 g/dL (12.0-16.0); Mean Corpuscular Hemoglobin 31.0 pg (27.0-31.0); Mean Corpuscular Volume 101.1 fL (78.0-98.0); Platelet Count 116 10x3/uL (130-400); Red Blood Cell (RBC) Count 3.61 mill/uL (4.20-5.40); White Blood Cell (WBC) Count 5.62 10x3/uL (4.8-10.8)
[2025-02-11 07:34] LABS: Albumin 2.5 g/dL (3.1-4.5); Anion Gap 15 mmol/L (10-20); BUN (Urea Nitrogen) 16 mg/dL (7.0-18.7); BUN/Creatinine Ratio 17.20; Calc. Creatinine Clearance 91 mL/min (70-130); Calcium 8.5 mg/dL (7.8-10.44); Carbon Dioxide 28 mmol/L (22-29); Chloride 101 mmol/L (98-107); Glucose 108 mg/dL (70-105); Potassium 4.0 mmol/L (3.5-5.1); Sodium 140 mmol/L (136-145)
[2025-02-11 08:13] LABS: Anisocytosis MARKED = >30 cells HPF (0-5); Macrocytosis MODERATE=16-30 cells HPF (0-5); Platelet Adequacy Comment Platelets Decreased; Polychromasia SLIGHT = 2-3 cells HPF (0-2); RBC Morphology Within Normal Limits
[2025-02-11 08:14] LABS: #Basophils 0.08 10x3/uL (0.0-0.2); #Eosinophils 0.14 10x3/uL (0.0-0.7); #Monocytes 0.80 10x3/uL (0.11-0.59); #Neutrophils 2.88 10x3/uL (1.40-6.50); %Basophils 1.4 % (0.0-1.0); %Eosinophils 2.7 % (0.0-10.0); %Lymphocytes 29.8 % (21.0-51.0); %Monocytes 14.3 % (0.0-10.0); %Neutrophils 51.3 % (42.0-75.0)
[2025-02-11] MEDS: Acetaminophen 325 MG TAB PO PRN (15:08)
[2025-02-12 04:56] LABS: #Basophils 0.07 10x3/uL (0.0-0.2); #Eosinophils 0.16 10x3/uL (0.0-0.7); #Monocytes 0.86 10x3/uL (0.11-0.59); #Neutrophils 3.46 10x3/uL (1.40-6.50); %Basophils 1.1 % (0.0-1.0); %Eosinophils 2.5 % (0.0-10.0); %Lymphocytes 27.6 % (21.0-51.0); %Monocytes 13.5 % (0.0-10.0); %Neutrophils 54.5 % (42.0-75.0); Hematocrit 38.1 % (36.0-47.0); Hemoglobin 12.0 g/dL (12.0-16.0); Mean Corpuscular Hemoglobin 31.6 pg (27.0-31.0); Mean Corpuscular Volume 100.3 fL (78.0-98.0); Platelet Count 116 10x3/uL (130-400); Red Blood Cell (RBC) Count 3.80 mill/uL (4.20-5.40); White Blood Cell (WBC) Count 6.35 10x3/uL (4.8-10.8)
[2025-02-12 04:57] LABS: Albumin 2.5 g/dL (3.1-4.5); Anion Gap 17 mmol/L (10-20); BUN (Urea Nitrogen) 17 mg/dL (7.0-18.7); BUN/Creatinine Ratio 20.73; Calc. Creatinine Clearance 103 mL/min (70-130); Calcium 8.4 mg/dL (7.8-10.44); Carbon Dioxide 24 mmol/L (22-29); Chloride 100 mmol/L (98-107); Glucose 95 mg/dL (70-105); Potassium 4.4 mmol/L (3.5-5.1); Sodium 137 mmol/L (136-145)
[2025-02-12] MEDS: QUEtiapine 25 MG TAB PO SCH (08:37)
[2025-02-12] MEDS: Pantoprazole 40 MG DR.TAB PO SCH (08:37)
[2025-02-13 09:26] LABS: Anion Gap 15 mmol/L (10-20); BUN (Urea Nitrogen) 14 mg/dL (7.0-18.7); Calc. Creatinine Clearance 132 mL/min (70-130); Calcium 8.6 mg/dL (7.8-10.44); Carbon Dioxide 24 mmol/L (22-29); Chloride 101 mmol/L (98-107); Glucose 68 mg/dL (70-105); Magnesium 1.6 mg/dL (1.6-2.6); Potassium 4.3 mmol/L (3.5-5.1); Sodium 136 mmol/L (136-145)
[2025-02-13] MEDS: Magnesium 2 GM/50 ML(in water) 2 GM in Premix 1 BAG IVPB PRN (10:55)
[2025-02-13] MEDS: Magnesium 2 GM/50 ML(in water) 2 GM in Premix 1 BAG IVPB SCH (12:46)
[2025-02-14 04:30] LABS: Anion Gap 16 mmol/L (10-20); BUN (Urea Nitrogen) 14 mg/dL (7.0-18.7); Calc. Creatinine Clearance 112 mL/min (70-130); Calcium 9.3 mg/dL (7.8-10.44); Carbon Dioxide 26 mmol/L (22-29); Chloride 97 mmol/L (98-107); Glucose 69 mg/dL (70-105); Magnesium 2.0 mg/dL (1.6-2.6); Potassium 4.1 mmol/L (3.5-5.1); Sodium 135 mmol/L (136-145)
[2025-02-14 05:51] LABS: #Basophils 0.07 10x3/uL (0.0-0.2); #Eosinophils 0.14 10x3/uL (0.0-0.7); #Monocytes 1.17 10x3/uL (0.11-0.59); #Neutrophils 4.66 10x3/uL (1.40-6.50); %Basophils 0.9 % (0.0-1.0); %Eosinophils 1.7 % (0.0-10.0); %Lymphocytes 24.4 % (21.0-51.0); %Monocytes 14.6 % (0.0-10.0); %Neutrophils 58.0 % (42.0-75.0); Hematocrit 41.2 % (36.0-47.0); Hemoglobin 13.3 g/dL (12.0-16.0); Mean Corpuscular Hemoglobin 31.7 pg (27.0-31.0); Mean Corpuscular Volume 98.1 fL (78.0-98.0); Platelet Count 102 10x3/uL (130-400); Red Blood Cell (RBC) Count 4.20 mill/uL (4.20-5.40); White Blood Cell (WBC) Count 8.03 10x3/uL (4.8-10.8)
[2025-02-14] MEDS: QUEtiapine 25 MG TAB PO SCH (10:10)
[2025-02-15] MEDS: QUEtiapine 25 MG TAB PO SCH (10:03)
[2025-02-15 21:44] VITALS: BMI 27.1
[2025-02-16] MEDS: Gabapentin 100 MG CAP PO SCH (14:38)
[2025-02-18 04:29] LABS: #Basophils 0.07 10x3/uL (0.0-0.2); #Eosinophils 0.16 10x3/uL (0.0-0.7); #Monocytes 1.05 10x3/uL (0.11-0.59); #Neutrophils 3.31 10x3/uL (1.40-6.50); %Basophils 1.1 % (0.0-1.0); %Eosinophils 2.5 % (0.0-10.0); %Lymphocytes 27.3 % (21.0-51.0); %Monocytes 16.6 % (0.0-10.0); %Neutrophils 52.3 % (42.0-75.0); Hematocrit 44.5 % (36.0-47.0); Hemoglobin 14.6 g/dL (12.0-16.0); Mean Corpuscular Hemoglobin 31.5 pg (27.0-31.0); Mean Corpuscular Volume 96.1 fL (78.0-98.0); Platelet Count 127 10x3/uL (130-400); Red Blood Cell (RBC) Count 4.63 mill/uL (4.20-5.40); White Blood Cell (WBC) Count 6.33 10x3/uL (4.8-10.8)
[2025-02-18 04:36] LABS: ALT (SGPT) Less than 7 U/L (Less than 34); AST (SGOT) 56 U/L (11-34); Albumin 3.1 g/dL (3.1-4.5); Alkaline Phosphatase 124 U/L (40-110); Anion Gap 17 mmol/L (10-20); BUN (Urea Nitrogen) 17 mg/dL (7.0-18.7); Bilirubin, Total 4.8 mg/dL (0.3-1.2); Calc. Creatinine Clearance 99 mL/min (70-130); Calcium 9.9 mg/dL (7.8-10.44); Carbon Dioxide 24 mmol/L (22-29); Chloride 96 mmol/L (98-107); Globulin 5.8 g/dL (2.4-3.5); Glucose 155 mg/dL (70-105); Magnesium 1.8 mg/dL (1.6-2.6); Potassium 3.5 mmol/L (3.5-5.1); Sodium 133 mmol/L (136-145)
[2025-02-19 05:03] LABS: #Basophils 0.10 10x3/uL (0.0-0.2); #Eosinophils 0.20 10x3/uL (0.0-0.7); #Monocytes 1.38 10x3/uL (0.11-0.59); #Neutrophils 3.61 10x3/uL (1.40-6.50); %Basophils 1.3 % (0.0-1.0); %Eosinophils 2.7 % (0.0-10.0); %Lymphocytes 29.2 % (21.0-51.0); %Monocytes 18.4 % (0.0-10.0); %Neutrophils 48.3 % (42.0-75.0); Hematocrit 39.7 % (36.0-47.0); Hemoglobin 13.1 g/dL (12.0-16.0); Mean Corpuscular Hemoglobin 31.6 pg (27.0-31.0); Mean Corpuscular Volume 95.7 fL (78.0-98.0); Platelet Count 155 10x3/uL (130-400); Red Blood Cell (RBC) Count 4.15 mill/uL (4.20-5.40); White Blood Cell (WBC) Count 7.49 10x3/uL (4.8-10.8)
[2025-02-19 05:19] LABS: ALT (SGPT) 7 U/L (Less than 34); AST (SGOT) 73 U/L (11-34); Albumin 2.8 g/dL (3.1-4.5); Alkaline Phosphatase 106 U/L (40-110); Anion Gap 14 mmol/L (10-20); BUN (Urea Nitrogen) 15 mg/dL (7.0-18.7); Bilirubin, Total 4.3 mg/dL (0.3-1.2); Calc. Creatinine Clearance 88 mL/min (70-130); Calcium 9.6 mg/dL (7.8-10.44); Carbon Dioxide 29 mmol/L (22-29); Chloride 96 mmol/L (98-107); Globulin 5.6 g/dL (2.4-3.5); Glucose 111 mg/dL (70-105); Magnesium 1.8 mg/dL (1.6-2.6); Potassium 3.8 mmol/L (3.5-5.1); Sodium 135 mmol/L (136-145)
[2025-02-20 04:50] LABS: Anion Gap 12 mmol/L (10-20); BUN (Urea Nitrogen) 18 mg/dL (7.0-18.7); Calc. Creatinine Clearance 63 mL/min (70-130); Calcium 9.6 mg/dL (7.8-10.44); Carbon Dioxide 28 mmol/L (22-29); Chloride 97 mmol/L (98-107); Glucose 97 mg/dL (70-105); Magnesium 1.9 mg/dL (1.6-2.6); Potassium 3.7 mmol/L (3.5-5.1); Sodium 133 mmol/L (136-145)
[2025-02-20 05:12] LABS: Hematocrit 38.6 % (36.0-47.0); Hemoglobin 12.1 g/dL (12.0-16.0); Mean Corpuscular Hemoglobin 30.8 pg (27.0-31.0); Mean Corpuscular Volume 98.2 fL (78.0-98.0); Platelet Count 162 10x3/uL (130-400); Red Blood Cell (RBC) Count 3.93 mill/uL (4.20-5.40); White Blood Cell (WBC) Count 8.58 10x3/uL (4.8-10.8)
[2025-02-20 06:17] LABS: Platelet Adequacy Comment Platelets Normal; RBC Morphology Within Normal Limits; Smudge Cells 6.9 %
[2025-02-20 15:07] LABS: Sodium, Urine Less than 20 mmol/L (Not Available)
[2025-02-21 04:02] LABS: Anion Gap 13 mmol/L (10-20); BUN (Urea Nitrogen) 22 mg/dL (7.0-18.7); Calc. Creatinine Clearance 74 mL/min (70-130); Calcium 9.1 mg/dL (7.8-10.44); Carbon Dioxide 25 mmol/L (22-29); Chloride 100 mmol/L (98-107); Glucose 112 mg/dL (70-105); Magnesium 1.7 mg/dL (1.6-2.6); Potassium 3.7 mmol/L (3.5-5.1); Sodium 134 mmol/L (136-145)
[2025-02-21] MEDS: PHOS-NAK 1 PKT PACK PO PRN (12:43)
[2025-02-22 04:57] LABS: Albumin 2.3 g/dL (3.1-4.5); Anion Gap 3 mmol/L (10-20); BUN (Urea Nitrogen) 13 mg/dL (7.0-18.7); BUN/Creatinine Ratio 14.13; Calc. Creatinine Clearance 92 mL/min (70-130); Calcium 8.5 mg/dL (7.8-10.44); Carbon Dioxide 26 mmol/L (22-29); Chloride 105 mmol/L (98-107); Glucose 90 mg/dL (70-105); Potassium 4.1 mmol/L (3.5-5.1); Sodium 130 mmol/L (136-145)
[2025-02-22 05:01] LABS: #Basophils 0.05 10x3/uL (0.0-0.2); #Eosinophils 0.15 10x3/uL (0.0-0.7); #Monocytes 0.81 10x3/uL (0.11-0.59); #Neutrophils 2.73 10x3/uL (1.40-6.50); %Basophils 1.0 % (0.0-1.0); %Eosinophils 2.9 % (0.0-10.0); %Lymphocytes 27.6 % (21.0-51.0); %Monocytes 15.6 % (0.0-10.0); %Neutrophils 52.7 % (42.0-75.0); Hematocrit 33.0 % (36.0-47.0); Hemoglobin 10.5 g/dL (12.0-16.0); Mean Corpuscular Hemoglobin 31.2 pg (27.0-31.0); Mean Corpuscular Volume 97.9 fL (78.0-98.0); Platelet Count 119 10x3/uL (130-400); Red Blood Cell (RBC) Count 3.37 mill/uL (4.20-5.40); White Blood Cell (WBC) Count 5.18 10x3/uL (4.8-10.8)
[2025-02-22] MEDS: Furosemide 40 MG TAB PO SCH (08:56)
[2025-02-22] MEDS: Senokot S 8.6-50 MG TAB PO PRN (16:51)
[2025-02-23 04:07] LABS: Anion Gap 6 mmol/L (10-20); BUN (Urea Nitrogen) 14 mg/dL (7.0-18.7); Calc. Creatinine Clearance 91 mL/min (70-130); Carbon Dioxide 22 mmol/L (22-29); Chloride 109 mmol/L (98-107); Potassium 4.4 mmol/L (3.5-5.1); Sodium 133 mmol/L (136-145)
[2025-02-23 04:08] LABS: Albumin 2.5 g/dL (3.1-4.5); BUN/Creatinine Ratio 15.05; Calcium 9.1 mg/dL (7.8-10.44); Glucose 97 mg/dL (70-105)
[2025-02-23 04:25] LABS: #Basophils 0.05 10x3/uL (0.0-0.2); #Eosinophils 0.15 10x3/uL (0.0-0.7); #Monocytes 0.86 10x3/uL (0.11-0.59); #Neutrophils 2.71 10x3/uL (1.40-6.50); %Basophils 1.0 % (0.0-1.0); %Eosinophils 2.9 % (0.0-10.0); %Lymphocytes 26.9 % (21.0-51.0); %Monocytes 16.6 % (0.0-10.0); %Neutrophils 52.4 % (42.0-75.0); Hematocrit 34.4 % (36.0-47.0); Hemoglobin 10.7 g/dL (12.0-16.0); Mean Corpuscular Hemoglobin 30.9 pg (27.0-31.0); Mean Corpuscular Volume 99.4 fL (78.0-98.0); Platelet Count 122 10x3/uL (130-400); Red Blood Cell (RBC) Count 3.46 mill/uL (4.20-5.40); White Blood Cell (WBC) Count 5.17 10x3/uL (4.8-10.8)
[2025-02-23] MEDS: QUEtiapine 25 MG TAB PO SCH (08:38)
[2025-02-23] MEDS: Rifaximin 550 MG TAB PO SCH ×2 (12:01→21:32)
[2025-02-23] MEDS: Lactulose 20 GM (30 mL) UDCUP PO SCH ×2 (12:01→21:33)
[2025-02-24 05:25] LABS: #Basophils 0.05 10x3/uL (0.0-0.2); #Eosinophils 0.14 10x3/uL (0.0-0.7); #Monocytes 0.66 10x3/uL (0.11-0.59); #Neutrophils 2.10 10x3/uL (1.40-6.50); %Basophils 1.2 % (0.0-1.0); %Eosinophils 3.3 % (0.0-10.0); %Lymphocytes 29.2 % (21.0-51.0); %Monocytes 15.8 % (0.0-10.0); %Neutrophils 50.3 % (42.0-75.0); Hematocrit 32.7 % (36.0-47.0); Hemoglobin 10.6 g/dL (12.0-16.0); Mean Corpuscular Hemoglobin 31.6 pg (27.0-31.0); Mean Corpuscular Volume 97.6 fL (78.0-98.0); Platelet Count 120 10x3/uL (130-400); Red Blood Cell (RBC) Count 3.35 mill/uL (4.20-5.40); White Blood Cell (WBC) Count 4.18 10x3/uL (4.8-10.8)
[2025-02-24 05:52] LABS: Albumin 2.5 g/dL (3.1-4.5); Anion Gap 13 mmol/L (10-20); BUN (Urea Nitrogen) 13 mg/dL (7.0-18.7); BUN/Creatinine Ratio 15.66; Calc. Creatinine Clearance 102 mL/min (70-130); Calcium 9.5 mg/dL (7.8-10.44); Carbon Dioxide 24 mmol/L (22-29); Chloride 104 mmol/L (98-107); Glucose 95 mg/dL (70-105); Potassium 4.4 mmol/L (3.5-5.1); Sodium 137 mmol/L (136-145)
[2025-02-24] MEDS: Lactulose 20 GM (30 mL) UDCUP PO SCH (15:10)
[2025-02-25 07:05] LABS: #Basophils 0.05 10x3/uL (0.0-0.2); #Eosinophils 0.14 10x3/uL (0.0-0.7); #Monocytes 0.59 10x3/uL (0.11-0.59); #Neutrophils 1.87 10x3/uL (1.40-6.50); %Basophils 1.3 % (0.0-1.0); %Eosinophils 3.7 % (0.0-10.0); %Lymphocytes 28.9 % (21.0-51.0); %Monocytes 15.8 % (0.0-10.0); %Neutrophils 50.0 % (42.0-75.0); Hematocrit 36.4 % (36.0-47.0); Hemoglobin 11.2 g/dL (12.0-16.0); Mean Corpuscular Hemoglobin 30.9 pg (27.0-31.0); Mean Corpuscular Volume 100.3 fL (78.0-98.0); Platelet Count 113 10x3/uL (130-400); Red Blood Cell (RBC) Count 3.63 mill/uL (4.20-5.40); White Blood Cell (WBC) Count 3.74 10x3/uL (4.8-10.8)
[2025-02-25 07:14] LABS: ALT (SGPT) Less than 7 U/L (Less than 34); AST (SGOT) 45 U/L (11-34); Albumin 2.6 g/dL (3.1-4.5); Alkaline Phosphatase 82 U/L (40-110); Anion Gap 15 mmol/L (10-20); BUN (Urea Nitrogen) 10 mg/dL (7.0-18.7); Bilirubin, Total 2.2 mg/dL (0.3-1.2); Calc. Creatinine Clearance 121 mL/min (70-130); Calcium 9.7 mg/dL (7.8-10.44); Carbon Dioxide 21 mmol/L (22-29); Chloride 105 mmol/L (98-107); Globulin 5.1 g/dL (2.4-3.5); Glucose 90 mg/dL (70-105); Magnesium 1.6 mg/dL (1.6-2.6); Potassium 4.2 mmol/L (3.5-5.1); Sodium 137 mmol/L (136-145)
[2025-02-26 06:44] LABS: #Basophils 0.04 10x3/uL (0.0-0.2); #Eosinophils 0.19 10x3/uL (0.0-0.7); #Monocytes 0.73 10x3/uL (0.11-0.59); #Neutrophils 2.52 10x3/uL (1.40-6.50); %Basophils 0.8 % (0.0-1.0); %Eosinophils 4.0 % (0.0-10.0); %Lymphocytes 26.2 % (21.0-51.0); %Monocytes 15.4 % (0.0-10.0); %Neutrophils 53.4 % (42.0-75.0); Hematocrit 35.6 % (36.0-47.0); Hemoglobin 11.6 g/dL (12.0-16.0); Mean Corpuscular Hemoglobin 31.7 pg (27.0-31.0); Mean Corpuscular Volume 97.3 fL (78.0-98.0); Platelet Count 141 10x3/uL (130-400); Red Blood Cell (RBC) Count 3.66 mill/uL (4.20-5.40); White Blood Cell (WBC) Count 4.73 10x3/uL (4.8-10.8)
[2025-02-26 06:49] LABS: ALT (SGPT) 8 U/L (Less than 34); AST (SGOT) 49 U/L (11-34); Albumin 2.7 g/dL (3.1-4.5); Alkaline Phosphatase 77 U/L (40-110); Anion Gap 15 mmol/L (10-20); BUN (Urea Nitrogen) 13 mg/dL (7.0-18.7); Bilirubin, Total 2.5 mg/dL (0.3-1.2); Calc. Creatinine Clearance 110 mL/min (70-130); Calcium 9.9 mg/dL (7.8-10.44); Carbon Dioxide 26 mmol/L (22-29); Chloride 101 mmol/L (98-107); Globulin 5.2 g/dL (2.4-3.5); Glucose 103 mg/dL (70-105); Magnesium 1.6 mg/dL (1.6-2.6); Potassium 3.8 mmol/L (3.5-5.1); Sodium 138 mmol/L (136-145)
[2025-02-27 05:41] LABS: #Basophils 0.07 10x3/uL (0.0-0.2); #Eosinophils 0.26 10x3/uL (0.0-0.7); #Monocytes 0.90 10x3/uL (0.11-0.59); #Neutrophils 2.82 10x3/uL (1.40-6.50); %Basophils 1.2 % (0.0-1.0); %Eosinophils 4.6 % (0.0-10.0); %Lymphocytes 27.9 % (21.0-51.0); %Monocytes 16.0 % (0.0-10.0); %Neutrophils 50.1 % (42.0-75.0); Hematocrit 38.7 % (36.0-47.0); Hemoglobin 12.4 g/dL (12.0-16.0); Mean Corpuscular Hemoglobin 31.2 pg (27.0-31.0); Mean Corpuscular Volume 97.2 fL (78.0-98.0); Platelet Count 182 10x3/uL (130-400); Red Blood Cell (RBC) Count 3.98 mill/uL (4.20-5.40); White Blood Cell (WBC) Count 5.63 10x3/uL (4.8-10.8)
[2025-02-27 06:01] LABS: ALT (SGPT) 9 U/L (Less than 34); AST (SGOT) 53 U/L (11-34); Albumin 2.8 g/dL (3.1-4.5); Alkaline Phosphatase 86 U/L (40-110); Anion Gap 13 mmol/L (10-20); BUN (Urea Nitrogen) 13 mg/dL (7.0-18.7); Bilirubin, Total 2.2 mg/dL (0.3-1.2); Calc. Creatinine Clearance 113 mL/min (70-130); Calcium 9.7 mg/dL (7.8-10.44); Carbon Dioxide 23 mmol/L (22-29); Chloride 101 mmol/L (98-107); Globulin 5.3 g/dL (2.4-3.5); Glucose 123 mg/dL (70-105); Magnesium 1.7 mg/dL (1.6-2.6); Potassium 4.2 mmol/L (3.5-5.1); Sodium 133 mmol/L (136-145)
[2025-02-27 16:21] VITALS: BP 115/78; TEMP 98.9
== END 2025-02-27 16:25 | disposition home or self-care (01) | DRG 432 ==
LOC: ERS 20:51 → PCU 22:58 → SURG B 02-24 12:16
PROVIDERS: ADMIT Internal Medicine; ATTEND Internal Medicine
DX: K70.31 Alcoholic cirrhosis of liver with ascites (principal); I85.11 Secondary esophageal varices with bleeding; K44.1 Diaphragmatic hernia with gangrene; N17.9 Acute kidney failure, unspecified; K44.0 Diaphragmatic hernia with obstruction, without gangrene; F10.139 Alcohol abuse with withdrawal, unspecified; F32.A Depression, unspecified; Z79.899 Other long term (current) drug therapy; M32.9 Systemic lupus erythematosus, unspecified; K76.82 Hepatic encephalopathy; E88.09 Other disorders of plasma-protein metabolism, not elsewhere classified; N18.30 Chronic kidney disease, stage 3 unspecified
CPT/HCPCS: 36415; 36416; 71045; 80048; 80053; 80069; 80306; 82140; 82570; 83690; 83735; 83880; 84100; 84300; 84484; 85025; 85610; 85730; 86850; 86900; 86901; 93005; 96361; 96365; 96367; 96375; 96376; J0696; J1630; J2060; J2354; J2405; J2470; J3411; J3475; J7030; J7042; J7050; J7512; Q0169